=== PATIENT | male | born 1955 | race Caucasian/White ===

== ENCOUNTER → 2016-06-20 | Outpatient (CLI) | payer OTHER ==
[~2016-06-20] MED LIST: ADVA115A INH; ALBU17IN INH; ASPI81TA4 PO; ATOR1TAB18 PO; CYCL10TA PO; DIGO0.2556 PO; DULE100A IN; DULE200A IN; DULO30CA PO; FETZ1CAP3 PO; MAGN1TAB25 PO; NAPR500T2 PO; NICO21DI5 TD; OXYC-299 PO; OXYC-517 PO; OXYC1TAB16 PO; OXYC1TAB23 PO; OXYC40TA19; OXYC80TA14; PARO20TA3 PO; PERC5TAB6 PO; PRIM50TA6 PO; PROP1TAB29 PO; QUET5TAB PO; SIMV20TA2 PO; TRAM300T9 PO; TRAZ100T2 PO; TRIC145T19 PO
--- NOTE | 2016-06-20 14:32 | REP ---
CHEST, TWO VIEWS: HISTORY: COPD. COMPARISON: 08/03/2015 A minimal increase in interstitial markings is present in the lungs. Scarring is present in the left lung base. Pleural thickening is present along the left lateral chest wall. The heart is normal in size. The pulmonary vasculature is normal in appearance. The bony structure is intact. IMPRESSION: 1. COPD. 2. Left lower lobe scarring. Signed by Micheal Shook MD 06/20/2016 02:33 P
== END ==
LOC: M RAD 12:02 → M LAB 12:02
PROVIDERS: ATTEND Internal Medicine Pulmonary Disease
DX: J44.9 Chronic obstructive pulmonary disease, unspecified (principal)

== ENCOUNTER → 2016-07-24 | Outpatient (REF) | payer MEDICAID, OTHER ==
[2016-07-24 17:56] LABS: ALBUMIN 3.3 GM/DL (3.2-5.2); ALBUMIN/GLOBULIN RATIO 0.83 (1.00-1.93); ALKALINE PHOSPHATASE 236 U/L (45-117); ALT/SGPT 47 U/L (12-78); ANION GAP 6 MEQ/L (8-16); AST/SGOT 14 U/L (15-37); BILIRUBIN,TOTAL 0.5 MG/DL (0.2-1.0); BLOOD UREA NITROGEN 13 MG/DL (7-18); CALCIUM LEVEL 9.3 MG/DL (8.8-10.2); CARBON DIOXIDE LEVEL 29 MEQ/L (21-32); CHLORIDE LEVEL 106 MEQ/L (98-107); CHOLESTEROL LEVEL 251 MG/DL (<200); CREATININE FOR GFR 0.85 MG/DL (0.70-1.30); GLOMERULAR FILTRATION RATE > 60.0 (>49); GLUCOSE, FASTING 119 MG/DL (80-110); POTASSIUM SERUM 4.6 MEQ/L (3.5-5.1); SODIUM LEVEL 141 MEQ/L (136-145); TOTAL PROTEIN 7.3 GM/DL (6.4-8.2); TRIGLYCERIDES LEVEL 154 MG/DL (<150)
== END ==
LOC: M SFHCCLAY 10:15
PROVIDERS: ATTEND Family Medicine
DX: E78.2 Mixed hyperlipidemia (principal); R21 Rash and other nonspecific skin eruption; Z85.46 Personal history of malignant neoplasm of prostate

== ENCOUNTER → 2017-01-19 | Outpatient (REF) | payer MEDICAID ==
[~2017-01-19] MED LIST changes: -ATOR1TAB18 PO; +ATOR80TA59 PO; -NAPR500T2 PO; +NAPR500T3 PO; +OXYC-141 PO; -OXYC-299 PO; +PERC5TAB12 PO; -PERC5TAB6 PO
[2017-01-19 20:13] LABS: ALBUMIN 3.7 GM/DL (3.2-5.2); ALBUMIN/GLOBULIN RATIO 1.16 (1.00-1.93); ALKALINE PHOSPHATASE 103 U/L (45-117); ALT/SGPT 23 U/L (12-78); ANION GAP 7 MEQ/L (8-16); AST/SGOT 13 U/L (7-37); BILIRUBIN,TOTAL 0.5 MG/DL (0.2-1.0); BLOOD UREA NITROGEN 13 MG/DL (7-18); CALCIUM LEVEL 9.6 MG/DL (8.8-10.2); CARBON DIOXIDE LEVEL 31 MEQ/L (21-32); CHLORIDE LEVEL 98 MEQ/L (98-107); CHOLESTEROL LEVEL 181 MG/DL (<200); CREATININE FOR GFR 0.95 MG/DL (0.70-1.30); GLOMERULAR FILTRATION RATE > 60.0 (>49); GLUCOSE, FASTING 97 MG/DL (80-110); POTASSIUM SERUM 4.7 MEQ/L (3.5-5.1); SODIUM LEVEL 136 MEQ/L (136-145); TOTAL PROTEIN 6.9 GM/DL (6.4-8.2); TRIGLYCERIDES LEVEL 135 MG/DL (<150)
== END ==
LOC: M SFHCCLAY 10:39
PROVIDERS: ATTEND Family Medicine
DX: E78.2 Mixed hyperlipidemia (principal)

== ENCOUNTER → 2017-06-07 | Outpatient (CLI) | payer OTHER | LOC: M RAD 13:46 | DX: J44.9 Chronic obstructive pulmonary disease, unspecified (principal) | CPT/HCPCS: 71046 ==

== ENCOUNTER → 2017-08-07 | Outpatient (REF) | payer OTHER | LOC: M LAB REF 16:30 | DX: N39.3 Stress incontinence (female) (male) (principal) ==

== ENCOUNTER → 2017-08-10 | Outpatient (REF) | payer OTHER ==
[2017-08-10 13:23] LABS: ALBUMIN 3.6 GM/DL (3.2-5.2); ALBUMIN/GLOBULIN RATIO 1.03 (1.00-1.93); ALKALINE PHOSPHATASE 110 U/L (45-117); ALT/SGPT 21 U/L (12-78); ANION GAP 8 MEQ/L (8-16); AST/SGOT 10 U/L (7-37); BILIRUBIN,TOTAL 0.8 MG/DL (0.2-1.0); BLOOD UREA NITROGEN 11 MG/DL (7-18); CALCIUM LEVEL 8.9 MG/DL (8.8-10.2); CARBON DIOXIDE LEVEL 25 MEQ/L (21-32); CHLORIDE LEVEL 111 MEQ/L (98-107); CHOLESTEROL LEVEL 200 MG/DL (<200); CHOLESTEROL RISK RATIO 4.255 (<5); CREATININE FOR GFR 0.86 MG/DL (0.70-1.30); GLOMERULAR FILTRATION RATE > 60.0 (>49); GLUCOSE, FASTING 105 MG/DL (70-100); HDL CHOLESTEROL 47 MG/DL (>40); LDL CHOLESTEROL 128.2 MG/DL (<100); NON-HDL-C 153 MG/DL; POTASSIUM SERUM 3.6 MEQ/L (3.5-5.1); PROSTATIC SPECIFIC AG MONITOR < 0.01 NG/ML (< 4.0); SODIUM LEVEL 144 MEQ/L (136-145); TOTAL PROTEIN 7.1 GM/DL (6.4-8.2); TRIGLYCERIDES LEVEL 124 MG/DL (<150)
== END ==
LOC: M LAB REF 12:08
DX: R03.0 Elevated blood-pressure reading, without diagnosis of hypertension (principal)

== ENCOUNTER → 2018-01-18 | Outpatient (CLI) | payer OTHER | LOC: M RAD 15:44 | DX: M51.26 Other intervertebral disc displacement, lumbar region (principal); M51.27 Other intervertebral disc displacement, lumbosacral region | CPT/HCPCS: 72148 ==

== ENCOUNTER → 2018-04-02 | Outpatient (REF) | payer OTHER ==
[~2018-04-02] MED LIST changes: +NAPR-885 PO; -NAPR500T3 PO; -NICO21DI5 TD; +NICO21DI6 TD; +OXYC10TA3 PO; -OXYC1TAB16 PO; -PROP1TAB29 PO; +PROP20TA72 PO
[2018-04-02 19:12] LABS: APPEARANCE, URINE CLOUDY (CLEAR); BACTERIA, URINE AUTO NEGATIVE (NEGATIVE); BILIRUBIN, URINE AUTO NEGATIVE (NEGATIVE); BLOOD, URINE BLOOD 1+ (NEGATIVE); COLOR, URINE AMBER (YELLOW); GLUCOSE, URINE (UA) AUTO NEGATIVE (NEGATIVE); KETONE, URINE AUTO NEGATIVE (NEGATIVE); LEUKOCYTE ESTERASE, URINE AUTO NEGATIVE (NEGATIVE); MUCUS, URINE SMALL (NEGATIVE); NITRITE, URINE AUTO NEGATIVE (NEGATIVE); PROTEIN, URINE AUTO NEGATIVE (NEGATIVE); RBC, URINE AUTO 4 /HPF (0-3); SPECIFIC GRAVITY URINE AUTO 1.009 (1.002-1.035); SQUAMOUS EPITHELIAL CELL UR AU 0 /HPF (0-6); UROBILINOGEN, URINE AUTO 0.2 mg/dL (0.0-2.0); WBC, URINE AUTO 0 /HPF (0-3)
== END ==
LOC: M SMT 17:46
PROVIDERS: ATTEND Nurse Practitioner Family
DX: R32 Unspecified urinary incontinence (principal)

== ENCOUNTER → 2018-04-02 | Outpatient (CLI) | payer OTHER ==
--- NOTE | 2018-04-02 16:05 | REP ---
Clinical: Chest pain. Technique: PA and lateral. Comparison: 06/07/2017. Findings: Chronic postsurgical changes involving the left hemithorax remain relatively stable. Subtle prominence surrounds the right hilum similar to prior examinations. No obvious acute consolidation, effusion or pneumothorax. Cardiac silhouette is normal. The skeletal structures are intact with evidence for old healed left rib fractures. Impression: 1. Chronic postsurgical changes involving left hemithorax and chronic stable appearance to the right hilum. 2. No obvious acute cardiopulmonary process appreciated. 3. Consider chest CT for further investigation if the patient remains symptomatic. Electronically Signed by mOar Ruggiero MD 04/02/2018 03:56 P
== END ==
LOC: M SMT 15:21
PROVIDERS: ATTEND Internal Medicine Pulmonary Disease
DX: J44.9 Chronic obstructive pulmonary disease, unspecified (principal)

== ENCOUNTER → 2018-04-09 | Outpatient (REF) | payer OTHER ==
[2018-04-09 18:14] LABS: APPEARANCE, URINE CLEAR (CLEAR); BACTERIA, URINE AUTO NEGATIVE (NEGATIVE); BILIRUBIN, URINE AUTO NEGATIVE (NEGATIVE); BLOOD, URINE BLOOD 1+ (NEGATIVE); COLOR, URINE YELLOW (YELLOW); GLUCOSE, URINE (UA) AUTO NEGATIVE (NEGATIVE); KETONE, URINE AUTO NEGATIVE (NEGATIVE); LEUKOCYTE ESTERASE, URINE AUTO NEGATIVE (NEGATIVE); NITRITE, URINE AUTO NEGATIVE (NEGATIVE); PROTEIN, URINE AUTO NEGATIVE (NEGATIVE); RBC, URINE AUTO 0 /HPF (0-3); SPECIFIC GRAVITY URINE AUTO 1.001 (1.002-1.035); SQUAMOUS EPITHELIAL CELL UR AU 0 /HPF (0-6); UROBILINOGEN, URINE AUTO 0.2 mg/dL (0.0-2.0); WBC, URINE AUTO 0 /HPF (0-3)
== END ==
LOC: M SMT 17:17
PROVIDERS: ATTEND Nurse Practitioner Family
DX: R31.29 Other microscopic hematuria (principal)

== ENCOUNTER → 2018-04-29 | Outpatient (CLI) | payer OTHER ==
--- NOTE | 2018-04-29 13:41 | REP ---
Clinical: Lung screening. History of nicotine dependence. Comparison: 12/15/2015 Technique: Axial low-dose noncontrast images from the thoracic inlet to the upper abdomen using lung screening technique. Findings: The lung diaz are well-aerated. Minimal biapical scarring appreciated along with postsurgical changes in the left upper lobe remains stable. No consolidation, significant nodule or mass lesion is appreciated. No pleural effusion/reaction or pneumothorax. Tracheobronchial tree is patent. Mediastinum demonstrates mild atherosclerotic changes of the coronary arteries without cardiomegaly. Impression: Lung-RADS category I-C. No nodule or suspicious abnormality. Electronically Signed by Omar Ruggiero MD 04/29/2018 01:33 P
== END ==
LOC: M RAD 12:48
PROVIDERS: ATTEND Internal Medicine Pulmonary Disease
DX: F17.200 Nicotine dependence, unspecified, uncomplicated (principal)

== ENCOUNTER → 2018-11-12 | Outpatient (REF) | payer OTHER ==
[~2018-11-12] MED LIST changes: -DULO30CA PO; +DULO30CA9 PO; -MAGN1TAB25 PO; +MAGN1TAB26 PO
[2018-11-12 17:25] LABS: BASO % 0.4 % (0.0-1.0); EOS # 0.3 10^3/uL (0.0-0.5); EOS % 3.2 % (0.0-3.0); HEMATOCRIT 52.3 % (42.0-52.0); HEMOGLOBIN 17.4 g/dl (13.5-17.5); LYMPH # 1.4 10^3/uL (1.5-5.0); LYMPH % 16.8 % (24.0-44.0); MEAN CORPUSCULAR HEMOGLOBIN 27.5 pg (27.0-33.0); MEAN CORPUSCULAR HGB CONC 33.3 g/dl (32.0-36.5); MEAN CORPUSCULAR VOLUME 82.8 fl (80.0-96.0); MONO # 0.9 10^3/uL (0.0-0.8); MONO % 10.3 % (0.0-5.0); NEUTROPHILS # 5.7 10^3/uL (1.5-8.5); NEUTROPHILS % 68.8 % (36.0-66.0); PLATELET COUNT, AUTOMATED 359 10^3/uL (150-450); RED BLOOD COUNT 6.32 10^6/uL (4.30-6.10); WHITE BLOOD COUNT 8.3 10^3/uL (4.0-10.0)
[2018-11-12 17:40] LABS: ALBUMIN 3.7 GM/DL (3.2-5.2); ALT/SGPT 25 U/L (12-78); BILIRUBIN,TOTAL 0.5 MG/DL (0.2-1.0); BLOOD UREA NITROGEN 10 MG/DL (7-18); CALCIUM LEVEL 9.2 MG/DL (8.8-10.2); CARBON DIOXIDE LEVEL 28 MEQ/L (21-32); CHLORIDE LEVEL 103 MEQ/L (98-107); CHOLESTEROL LEVEL 235 MG/DL (<200); CHOLESTEROL RISK RATIO 4.122 (<5); CREATININE FOR GFR 0.87 MG/DL (0.70-1.30); FREE T4 1.33 NG/DL (0.76-1.46); GLOMERULAR FILTRATION RATE > 60.0 (>49); GLUCOSE, FASTING 97 MG/DL (70-100); HDL CHOLESTEROL 57 MG/DL (>40); LDL CHOLESTEROL 160 MG/DL (<100); NON-HDL-C 178 MG/DL; POTASSIUM SERUM 4.4 MEQ/L (3.5-5.1); SODIUM LEVEL 137 MEQ/L (136-145); TOTAL 25(OH) VITAMIN D 24.4 NG/ML (30.0-100.0); TOTAL PROTEIN 7.9 GM/DL (6.4-8.2); TRIGLYCERIDES LEVEL 88 MG/DL (<150)
[2018-11-12 19:29] LABS: HEMOGLOBIN A1c 5.8 %
== END ==
LOC: M LAB REF 16:41
PROVIDERS: ATTEND Nurse Practitioner Family
DX: Z00.00 Encounter for general adult medical examination without abnormal findings (principal)

== ENCOUNTER → 2018-12-12 | Outpatient (REF) | payer OTHER ==
[2018-12-12 18:16] LABS: ALBUMIN 3.5 GM/DL (3.2-5.2); ALT/SGPT 69 U/L (12-78); BLOOD UREA NITROGEN 11 MG/DL (7-18); CALCIUM LEVEL 9.1 MG/DL (8.8-10.2); CARBON DIOXIDE LEVEL 30 MEQ/L (21-32); CHLORIDE LEVEL 105 MEQ/L (98-107); CHOLESTEROL LEVEL 144 MG/DL (<200); CHOLESTEROL RISK RATIO 2.482 (<5); CREATININE FOR GFR 0.89 MG/DL (0.70-1.30); GLOMERULAR FILTRATION RATE > 60.0 (>49); GLUCOSE, FASTING 94 MG/DL (70-100); HDL CHOLESTEROL 58 MG/DL (>40); LDL CHOLESTEROL 68 MG/DL (<100); NON-HDL-C 86 MG/DL; POTASSIUM SERUM 4.2 MEQ/L (3.5-5.1); SODIUM LEVEL 141 MEQ/L (136-145); TOTAL PROTEIN 7.2 GM/DL (6.4-8.2); TRIGLYCERIDES LEVEL 88 MG/DL (<150)
== END ==
LOC: M LAB REF 17:29
PROVIDERS: ATTEND Nurse Practitioner Family
DX: E78.5 Hyperlipidemia, unspecified (principal)

== ENCOUNTER → 2019-01-07 | Outpatient (CLI) | payer OTHER ==
--- NOTE | 2019-01-08 06:27 | REP ---
Clinical: Elevated liver function tests. Technique: Real time crouch scale ultrasound examination using curved array transducer. Findings: The liver is relatively normal in contour, size, echogenicity. A 1.5 cm simple hepatic cyst identified in the right lobe approaching the dome. The pancreas is incompletely evaluated due to interposed bowel gas. Gallbladder demonstrates multiple gallstones and there is evidence for mild intrahepatic biliary ductal dilatation as well as a 5 mm choledocholith at the confluence of the cystic and common hepatic duct. The right kidney is normal in appearance without hydronephrosis and measures 10.0 x 6.0 x 5.0 cm. No ascites. Impression: 1. Cholelithiasis and choledocholithiasis with suspected biliary ductal dilatation as noted above. 2. Simple cyst within the right lobe of the liver. Electronically Signed by Omar Ruggiero MD 01/08/2019 06:19 A
== END ==
LOC: M RAD 08:25
PROVIDERS: ATTEND Nurse Practitioner Family
DX: R74.8 Abnormal levels of other serum enzymes (principal)

== ENCOUNTER → 2019-01-27 | Outpatient (REF) | payer OTHER ==
[2019-01-27 19:29] LABS: ALBUMIN 3.1 GM/DL (3.2-5.2); ALT/SGPT 24 U/L (12-78); BILIRUBIN,TOTAL 0.6 MG/DL (0.2-1.0); BLOOD UREA NITROGEN 8 MG/DL (7-18); CALCIUM LEVEL 9.2 MG/DL (8.8-10.2); CARBON DIOXIDE LEVEL 32 MEQ/L (21-32); CHLORIDE LEVEL 102 MEQ/L (98-107); CREATININE FOR GFR 0.71 MG/DL (0.70-1.30); GLOMERULAR FILTRATION RATE > 60.0 (>49); GLUCOSE, FASTING 84 MG/DL (70-100); POTASSIUM SERUM 4.2 MEQ/L (3.5-5.1); SODIUM LEVEL 140 MEQ/L (136-145); TOTAL PROTEIN 6.8 GM/DL (6.4-8.2)
== END ==
LOC: M LAB REF 16:46
PROVIDERS: ATTEND Nurse Practitioner Family
DX: R74.8 Abnormal levels of other serum enzymes (principal)

== ENCOUNTER → 2019-03-24 | Outpatient (REF) | payer OTHER, MEDICAID ==
[~2019-03-24] MED LIST changes: +SIMV20TA22 PO
[2019-03-24 17:40] LABS: BASO % 0.2 % (0.0-1.0); EOS # 0.4 10^3/uL (0.0-0.5); HEMATOCRIT 47.6 % (42.0-52.0); HEMOGLOBIN 15.3 g/dl (13.5-17.5); LYMPH % 22.6 % (24.0-44.0); MEAN CORPUSCULAR HEMOGLOBIN 27.2 pg (27.0-33.0); MEAN CORPUSCULAR HGB CONC 32.1 g/dl (32.0-36.5); MEAN CORPUSCULAR VOLUME 84.7 fl (80.0-96.0); MONO # 0.7 10^3/uL (0.0-0.8); MONO % 8.1 % (0.0-5.0); NEUTROPHILS # 5.7 10^3/uL (1.5-8.5); NEUTROPHILS % 64.6 % (36.0-66.0); PLATELET COUNT, AUTOMATED 357 10^3/uL (150-450); RED BLOOD COUNT 5.62 10^6/uL (4.30-6.10); WHITE BLOOD COUNT 8.9 10^3/uL (4.0-10.0)
[2019-03-24 18:06] LABS: ALBUMIN 3.5 GM/DL (3.2-5.2); ALT/SGPT 16 U/L (12-78); BILIRUBIN,TOTAL 0.5 MG/DL (0.2-1.0); BLOOD UREA NITROGEN 12 MG/DL (7-18); CALCIUM LEVEL 9.5 MG/DL (8.8-10.2); CARBON DIOXIDE LEVEL 31 MEQ/L (21-32); CHLORIDE LEVEL 103 MEQ/L (98-107); CREATININE FOR GFR 0.82 MG/DL (0.70-1.30); GLOMERULAR FILTRATION RATE > 60.0 (>49); GLUCOSE, FASTING 63 MG/DL (70-100); POTASSIUM SERUM 3.9 MEQ/L (3.5-5.1); SODIUM LEVEL 140 MEQ/L (136-145); TOTAL PROTEIN 7.4 GM/DL (6.4-8.2)
[2019-03-26 10:43] LABS: HEPATITIS C VIRUS ABY INDEX < 0.0 INDEX (<0.8)
== END ==
LOC: M LAB REF 16:47
PROVIDERS: ATTEND Physician Assistant
DX: R74.8 Abnormal levels of other serum enzymes (principal); R07.9 Chest pain, unspecified; F10.10 Alcohol abuse, uncomplicated; E78.5 Hyperlipidemia, unspecified; J44.9 Chronic obstructive pulmonary disease, unspecified; M54.5 Low back pain

== ENCOUNTER → 2019-03-25 | Outpatient (CLI) | payer OTHER ==
--- NOTE | 2019-03-26 04:21 | REP ---
Clinical: Follow up abnormal findings. Technique: Axial noncontrast images from the thoracic inlet to the upper abdomen with coronal and sagittal re-formations. Comparison: 04/29/2018. Findings: Areas of linear scarring and postoperative change noted in the left apex are similar to prior examination although very subtle increased changes are noted. The bilateral lung diaz are otherwise relatively stable with continued evidence for emphysematous disease including minimal scattered scarring and bronchiectasis. No acute consolidation. No effusion. No pneumothorax. Mediastinum demonstrates continued atherosclerotic changes without aortic aneurysm or cardiomegaly. No pericardial effusion. No obvious adenopathy. Musculoskeletal structures without focal acute abnormality. Impression: Linear postoperative scarring in the left apex with minimally increased subtle changes as compared to 04/29/2018. This may reflect continued chronic change. However follow up examination at 6 months may be warranted. Electronically Signed by Omar Ruggiero MD 03/26/2019 04:13 A
== END ==
LOC: M RAD 13:03
PROVIDERS: ATTEND Internal Medicine Pulmonary Disease
DX: R91.8 Other nonspecific abnormal finding of lung field (principal)

== ENCOUNTER → 2019-10-07 | Outpatient (REF) | payer OTHER, MEDICAID ==
[~2019-10-07] MED LIST changes: +ALBU83IN INH; +ALBU83IN NEB; +ARNU1INH3 PO; +BUPR150T5 PO; +BUPR1SUB5 SL; +CELE100C PO; +CYCL-707 PO; -CYCL10TA PO; +D31000TA2 PO; +ESCI20TA PO; +GABA600T4 PO; +HYDR-3911 PO; +HYDR1TAB33 PO; +LEVA750T7 PO; +LEVOTAB10 PO; +LYRI75CA PO; +MOXI400T11 PO; +OSTE1TAB2 PO; +PRED10TA2 PO; +PREG75CA2 PO; +SIMV10TA21 PO; +STIO1AER INH; +SUBO8MIS SL
[2019-11-03 20:28] LABS: BASO % 0.1 % (0.0-1.0); EOS # 0.1 10^3/uL (0.0-0.5); EOS % 0.4 % (0.0-3.0); HEMATOCRIT 48.7 % (42.0-52.0); HEMOGLOBIN 15.6 g/dl (13.5-17.5); LYMPH # 1.2 10^3/uL (1.5-5.0); LYMPH % 8.4 % (24.0-44.0); MEAN CORPUSCULAR HEMOGLOBIN 26.9 pg (27.0-33.0); MONO # 0.7 10^3/uL (0.0-0.8); NEUTROPHILS % 85.3 % (36.0-66.0); PLATELET COUNT, AUTOMATED 412 10^3/uL (150-450); WHITE BLOOD COUNT 14.1 10^3/uL (4.0-10.0)
[2019-11-19 09:58] LABS: HEMOGLOBIN A1c 5.8 %
[2019-12-23 10:07] LABS: GLUCOSE, FASTING SEE SEPARATE REPORT
== END ==
LOC: M LAB REF 07:36
PROVIDERS: ATTEND Physician Assistant
DX: R73.03 Prediabetes (principal); R74.8 Abnormal levels of other serum enzymes; E78.5 Hyperlipidemia, unspecified

== ENCOUNTER 2019-11-17 15:07 | Inpatient (IN) | payer OTHER ==
[~2019-11-17] VITALS: Ht 170.2 cm; Wt 72.9 kg
[~2019-11-17 15:07] MED LIST changes: -ALBU83IN INH; -ALBU83IN NEB; -D31000TA2 PO; -HYDR1TAB33 PO; -LEVA750T7 PO; -MOXI400T11 PO; -PRED10TA2 PO; -PREG75CA2 PO; -SUBO8MIS SL
[2019-11-17 15:43] LABS: VENOUS BASE EXCESS 0.2 (-2.0-2.0); VENOUS HCO3 26.2 MEQ/L (23.0-27.0); VENOUS O2 SATURATION 86.5 % (60.0-80.0); VENOUS PARTIAL PRESSURE O2 50.5 mmHg (30.0-50.0); VENOUS PH 7.364 UNITS (7.330-7.430); VENOUS STANDARD HCO3 24.4 MEQ/L; VENOUS TOTAL CO2 27.6 MEQ/L (24.0-28.0)
[2019-11-17 15:47] LABS: BASO % 0.3 % (0.0-1.0); EOS # 0.2 10^3/uL (0.0-0.5); EOS % 1.7 % (0.0-3.0); HEMATOCRIT 46.6 % (42.0-52.0); HEMOGLOBIN 15.2 g/dl (13.5-17.5); LYMPH # 1.3 10^3/uL (1.5-5.0); LYMPH % 10.6 % (24.0-44.0); MEAN CORPUSCULAR HEMOGLOBIN 26.4 pg (27.0-33.0); MEAN CORPUSCULAR HGB CONC 32.6 g/dl (32.0-36.5); MONO % 7.8 % (0.0-5.0); NEUTROPHILS # 9.7 10^3/uL (1.5-8.5); PLATELET COUNT, AUTOMATED 462 10^3/uL (150-450); RED BLOOD COUNT 5.75 10^6/uL (4.30-6.10); WHITE BLOOD COUNT 12.3 10^3/uL (4.0-10.0)
--- NOTE | 2019-11-17 15:47 | REPVR ---
PROCEDURE INFORMATION: Exam: XR Chest, 1 View Exam date and time: 11/17/2019 3:29 PM Age: 64 years old Clinical indication: Shortness of breath; Additional info: Dyspnea/cough TECHNIQUE: Imaging protocol: XR of the chest Views: 1 view. COMPARISON: 1. CT - Chest without contrast 03/25/2019 1:19 PM 2. [place] - Chest, 2 view PA, Lat 02/13/2019 1:43:08 PM FINDINGS: Tubes, catheters and devices: ECG leads/contacts overlie and partially obscure the anatomy. Lungs: The patient is status post left partial pneumonectomy. Left upper lung surgical sutures are redemonstrated. Bilateral pulmonary hyperinflation, right greater than left. New ill-defined mild interstitial and airspace opacities of the left mid lung and bilateral lower lungs. Pleural space: No evident pleural effusion or pneumothorax. Heart/Mediastinum: Heart size is within normal limits. Bones/joints: Old left rib fractures redemonstrated. IMPRESSION: 1. New multifocal bilateral mild pulmonary interstitial and airspace opacities. In the proper clinical setting, the findings are compatible with infectious pneumonia. Follow-up to ensure their resolution is recommended. 2. Bilateral pulmonary hyperinflation is redemonstrated consistent with COPD. Electronically signed by: Mike Vila On 11/17/2019 15:47:40 PM
[2019-11-17 16:26] LABS: ALBUMIN 2.9 GM/DL (3.2-5.2); ALT/SGPT 18 U/L (12-78); BILIRUBIN,DIRECT 0.2 MG/DL (0.0-0.2); BILIRUBIN,TOTAL 0.4 MG/DL (0.2-1.0); BLOOD UREA NITROGEN 7 MG/DL (7-18); CALCIUM LEVEL 9.1 MG/DL (8.8-10.2); CARBON DIOXIDE LEVEL 29 MEQ/L (21-32); CHLORIDE LEVEL 104 MEQ/L (98-107); CPK CREATINE PHOSPHOKINASE 42 U/L (39-308); GLOMERULAR FILTRATION RATE > 60.0 (>49); GLUCOSE, FASTING 106 MG/DL (70-100); MB/CK RELATIVE INDEX 7.14 (< OR =4); NT-PRO BNP 859 PG/ML (<125); POTASSIUM SERUM 4.1 MEQ/L (3.5-5.1); SODIUM LEVEL 139 MEQ/L (136-145); TOTAL PROTEIN 7.5 GM/DL (6.4-8.2); TROPONIN I < 0.02 NG/ML (< 0.10)
[2019-11-17] MEDS ORDERED: cefTRIAXone SOD 1 GM in D5W MINI-BAG PLUS 50 ML IV ONE (17:00)
[2019-11-17] MEDS ORDERED: methylPREDNISolone 125MG 2ML VIAL IV ONE (17:00)
[2019-11-17] MEDS ORDERED: DOXYCYCLINE HYCLATE 100 MG in D5W MINI-BAG PLUS 100 ML IV ONE (17:00)
[2019-11-17] MEDS ORDERED: IPRATROPIUM 0.5MG/ALBUTEROL 2.5MG INH SOL UD 3ML (DUONEB) NEB ONE (17:00)
[2019-11-17] MEDS ORDERED: HYDR1TAB33 PO (17:04)
[2019-11-17] MEDS ORDERED: SUBO8MIS SL (17:04)
[2019-11-17] MEDS ORDERED: PREG75CA2 PO (17:04)
[2019-11-17] MEDS ORDERED: LEVALBUTEROL 1.25 MG/0.5 ML CONCENTRATE NEB INH PRN (17:15)
[2019-11-17 18:15] LABS: C REACTIVE PROTEIN QUANTITATIV 1.39 MG/DL (0.00-0.30)
[2019-11-17 18:47] LABS: ERYTHROCYTE SEDIMENTATION RATE 15 mm/hr (0-20)
[2019-11-17] MEDS: LEVALBUTEROL 1.25 MG/0.5 ML CONCENTRATE NEB INH SCH ×2 (20:16→23:59)
[2019-11-17] MEDS: GABAPENTIN 300 MG CAP PO SCH (21:00)
[2019-11-17 21:22] VITALS: BP 136/80
[2019-11-17] MEDS: ESCITALOPRAM OXALATE 10 MG TAB (LEXAPRO) PO SCH (21:52)
[2019-11-17] MEDS: SIMVASTATIN 10 MG TAB PO SCH (21:52)
[2019-11-17] MEDS: PREGABALIN 75 MG CAP(LYRICA) PO SCH (21:54)
[2019-11-17] MEDS: BUPRENORPHINE/NALOXONE 2-0.5MG SUBLINGUAL TABLET(SUBOXONE) SL SCH (23:02)
[2019-11-17] MEDS: buPROPion **SR TABLET** (ZYBAN) 150MG PO SCH (23:03)
[2019-11-17] MEDS: methylPREDNISolone 125MG 2ML VIAL IV SCH (23:09)
[2019-11-18] MEDS: LEVALBUTEROL 1.25 MG/0.5 ML CONCENTRATE NEB INH SCH ×6 (03:46→23:41)
[2019-11-18] MEDS: cefTRIAXone SOD 2 GM in D5W MINI-BAG PLUS 50 ML IV SCH (04:38)
[2019-11-18] MEDS: methylPREDNISolone 125MG 2ML VIAL IV SCH ×4 (05:40→23:43)
[2019-11-18] MEDS: DOXYCYCLINE HYCLATE 100 MG in D5W MINI-BAG PLUS 100 ML IV SCH ×2 (05:40→17:44)
[2019-11-18] MEDS: BUPRENORPHINE/NALOXONE 2-0.5MG SUBLINGUAL TABLET(SUBOXONE) SL SCH ×5 (05:40→20:44)
[2019-11-18 06:00] VITALS: BP 128/80
[2019-11-18 06:15] LABS: HEMOGLOBIN 14.1 g/dl (13.5-17.5); MEAN CORPUSCULAR HEMOGLOBIN 25.9 pg (27.0-33.0); MEAN CORPUSCULAR VOLUME 80.9 fl (80.0-96.0); PLATELET COUNT, AUTOMATED 425 10^3/uL (150-450); RED BLOOD COUNT 5.44 10^6/uL (4.30-6.10); WHITE BLOOD COUNT 7.5 10^3/uL (4.0-10.0)
[2019-11-18 06:34] LABS: BLOOD UREA NITROGEN 14 MG/DL (7-18); CALCIUM LEVEL 9.1 MG/DL (8.8-10.2); CARBON DIOXIDE LEVEL 27 MEQ/L (21-32); CHLORIDE LEVEL 104 MEQ/L (98-107); CREATININE FOR GFR 0.97 MG/DL (0.70-1.30); GLOMERULAR FILTRATION RATE > 60.0 (>49); GLUCOSE, FASTING 202 MG/DL (70-100); POTASSIUM SERUM 4.5 MEQ/L (3.5-5.1); SODIUM LEVEL 138 MEQ/L (136-145)
[2019-11-18] MEDS: ADVAIR HFA 230/21MCG INHALER INH SCH ×2 (08:00→19:50)
[2019-11-18] MEDS: TIOTROPIUM INHALER/CAPSULE (SPIRIVA) INH SCH (08:00)
[2019-11-18] MEDS: CETIRIZINE (ZyrTEC) 10 MG TAB PO SCH (08:41)
[2019-11-18] MEDS: PREGABALIN 75 MG CAP(LYRICA) PO SCH ×3 (08:41→20:43)
[2019-11-18] MEDS: ENOXAPARIN 40MG/0.4ML SYRINGE (J1650 PER 10MG) SC SCH (08:41)
[2019-11-18] MEDS: GABAPENTIN 300 MG CAP PO SCH ×3 (08:41→20:43)
[2019-11-18] MEDS ORDERED: NON-FORMULARY 1 EA EA PO SCH (09:00)
[2019-11-18] MEDS ORDERED: NON-FORMULARY 1 EA EA INH SCH ×2 (09:00)
[2019-11-18] MEDS: guaiFENesin ER 600 MG TAB PO SCH ×2 (09:31→20:44)
[2019-11-18] MEDS: hydrOXYzine 50 MG TAB PO PRN (09:31)
[2019-11-18 14:00] VITALS: BP 130/82
--- NOTE | 2019-11-18 14:47 | IPN ---
DATE: 11/18/2019 SUBJECTIVE: The patient has had no improvement overnight despite IV Solu- Medrol, still dyspneic at rest and with exertion. No chest pain, pressure or tightness, still with thick yellow sputum production, afebrile, no chills overnight. No nausea or vomiting, or epigastric pain. PHYSICAL EXAMINATION: VITALS: Temperature 98, pulse 111, respiratory rate 18, blood pressure 128/80, 93% on room air. GENERAL: Appears disheveled, older than his stated age. HEENT: Dry mucous membranes. NECK: No JVD or thyromegaly. No cervical lymphadenopathy or thyromegaly. LUNGS: Diminished breath sounds with bilateral wheezing similar to yesterday, no significant improvement. No use of respiratory accessory muscles. He is able to complete full sentences. No tripod positioning. HEART: S1 and S2, sinus tachycardia. ABDOMEN: Soft, nontender and nondistended. EXTREMITIES: Multiple excoriations of bilateral shins. No signs of cellulitis. LABORATORY DATA: White count 7.5, hemoglobin 14, hematocrit 44, platelet count 425,000. Sodium 138, potassium 4.5, chloride 104, bicarbonate 27, BUN 14, creatinine 0.97, glucose of 202. Sputum culture is pending. Blood cultures are pending. Chest x-ray on 11/17/2019: New multifocal bilateral mild pulmonary interstitial and airspace opacities compatible with infectious pneumonia, bilateral pulmonary hyperinflation as demonstrated consistent with COPD and emphysema. ASSESSMENT AND PLAN: This is a 64-year-old cachectic male with a history of COPD, lung cancer with lobectomy admitted due to worsening respiratory distress with COVID negative findings. IMPRESSION: 1. Acute COPD exacerbation with multiple focal pneumonia. Patient is on IV Solu-Medrol. Antibiotics with Ceftriaxone and Doxycycline, nebulizer treatment q. 4 and q. 1 hourly, no change in patients Solu-Medrol as there has been no clinical improvement. 2. Bilateral multifocal pneumonia, currently on Ceftriaxone and Doxycycline, await sputum culture, blood culture, urine Legionella, staphylococcal antigen, COVID-19 is negative. 3. Dyslipidemia, on chronic Zocor. 4. Chronic pain on Gabapentin. 5. Pulmonary cachexia. Nutrition is consulted. [facility]
[2019-11-18 19:53] VITALS: O2SAT 96
[2019-11-18] MEDS: SIMVASTATIN 10 MG TAB PO SCH (20:44)
[2019-11-18] MEDS: ESCITALOPRAM OXALATE 10 MG TAB (LEXAPRO) PO SCH (20:44)
[2019-11-18] MEDS: buPROPion **SR TABLET** (ZYBAN) 150MG PO SCH (20:44)
[2019-11-18 22:00] VITALS: BP 125/79
[2019-11-18 23:42] VITALS: O2SAT 93
[2019-11-19 02:59] VITALS: O2SAT 92
[2019-11-19] MEDS: LEVALBUTEROL 1.25 MG/0.5 ML CONCENTRATE NEB INH SCH ×6 (02:59→23:46)
[2019-11-19] MEDS: BUPRENORPHINE/NALOXONE 2-0.5MG SUBLINGUAL TABLET(SUBOXONE) SL SCH ×5 (05:39→21:02)
[2019-11-19] MEDS: DOXYCYCLINE HYCLATE 100 MG in D5W MINI-BAG PLUS 100 ML IV SCH ×2 (05:39→17:05)
[2019-11-19] MEDS: methylPREDNISolone 125MG 2ML VIAL IV SCH ×3 (05:40→17:06)
[2019-11-19 06:00] VITALS: BP 121/78
[2019-11-19] MEDS: cefTRIAXone SOD 2 GM in D5W MINI-BAG PLUS 50 ML IV SCH (06:26)
--- NOTE | 2019-11-19 06:57 | HPE ---
DATE OF ADMISSION: 11/17/2019 CHIEF COMPLAINT: Shortness of breath. HISTORY OF PRESENT ILLNESS: A 64-year-old male with a history of chronic obstructive pulmonary disease (COPD). Follows with Dr. Arriaga. Has been increasingly short of breath for the past 2 months, worsened in the past 2 weeks with dyspnea on exertion without fever or chill but with increased sputum production, clear, white, and thickened, for the past 2 weeks. Despite daily and as-needed inhalers, patient has had no improvement. He was treated as outpatient for chronic obstructive pulmonary disease (COPD) but with no improvement and was seen today at Dr. Arriaga's office and was sent to the emergency room (ER) for further evaluation. Chest x-ray shows bilateral infiltrates. Patient's COVID testing is still pending. He otherwise denies any loss of taste, weight gain, weight loss. Denies any nausea, vomiting, abdominal pain, headaches, changes in vision. No prior exposure to anyone that is COVID positive. He describes shortness of breath, worsened when he is exerting himself or carrying things without chest pain, pressure, or tightness, lightheadedness or dizziness. Patient denies any nausea, vomiting, diarrhea. No abdominal pain. Denies dysuria, urgency, frequency, fever, chills, or flank pain. Denies upper or lower extremity weakness. Complains of decrease in appetite, but weight is unchanged. In the ER he was afebrile. White count was elevated at 12.3. Brain natriuretic peptic (BNP) was 859. Arterial blood gas was unremarkable. Chest x-ray showed new multifocal bilateral mild pulmonary interstitial and air-space opacity, compatible with infectious pneumonia, hyperinflation demonstrated, consistent with chronic obstructive pulmonary disease (COPD). All other 12-point review of systems otherwise negative. MEDICAL HISTORY: 1. COPD, not steroid or oxygen dependent/ 2. Dyslipidemia. 3. Chronic low back pain. 4. Cervical fracture. 5. Bipolar disorder. 6. Polysubstance abuse. 7. Prostate cancer status post radical prostatectomy. 8. Left-sided lung cancer. 9. Tinnitus. 10. Erectile dysfunction. 11. Urinary intermittently. 12. Degenerative spine disease with multiple bulging discs. 13. Umbilical hernia. 14. Reflux. 15. Arthritis. 16. Diverticulosis. 17. Left inguinal hernia. 18. History of substance abuse, on chronic Suboxone. 19. Anxiety and depression. ALLERGIES: MORPHINE. PAST SURGICAL HISTORY: 1. Radical prostatectomy in 2007. 2. Colonoscopy in 2013. 3. Left lung resection in 2014. 4. Cystoscopy. FAMILY HISTORY: Father . Mother with recurrent urinary tract infections (UTIs), diabetes, and dementia. SOCIAL HISTORY: Drinks two beers a day. 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 Smoked two and a half packs per day for 50 years. HOME MEDICATIONS: - fluticasone one puff daily - levocetirizine 5 mg every night - Stiolto Respimat inhaled spray twice a day as needed for cough - vitamin D - vitamin K - berberine and hops - Ostera tablet, one tablet every night - Suboxone 0.5 strip sublingual five times daily - bupropion 150 mg every night - escitalopram 20 mg every night - gabapentin 600 three times a day - hydroxyzine 50 mg every 6 as needed for anxiety - pregabalin 75 mg three times a day - simvastatin 10 mg every night REVIEW OF SYSTEMS: Per history of present illness (HPI). A 12-point system otherwise negative. PHYSICAL EXAMINATION: Temperature 98.8, pulse 120, sinus tachycardia, blood pressure 125/64, 28 respiratory rate, 88% on room air. GENERAL: Awake, alert, oriented times three, answering questions appropriately. Mild conversational dyspnea with 6 to 7-word conversational dyspnea. No tripod positioning. No use of respiratory accessory muscles. Trachea is midline. No cervical lymphadenopathy or thyromegaly. Pupils equal, round, reactive to light and accommodation. Extraocular muscles are intact. Appears disheveled and older than his stated age. No jugular venous distention (JVD). LUNGS: Diminished. Bilateral wheezing. Crackles at the bases bilaterally. Well- healed scar from prior lobectomy on the skin. HEART: S1, S2, sinus tachycardia. No murmurs, rubs, or gallops. ABDOMEN: Soft, nontender, nondistended. Positive bowel sounds. No rebound or guarding. No hepatosplenomegaly. No abdominal bruits. EXTREMITIES: No cyanosis, clubbing, or pitting edema. LABORATORY DATA: COVID is pending. White count 12, hemoglobin 15, hematocrit 46, platelet count 462. Sodium 139, potassium 4.1, chloride 104, bicarbonate 29, BUN 7, creatinine 0.9, glucose 106. Lactic acid 1. Calcium 9.1. Total bilirubin 0.4, direct bilirubin 0.2, AST 17, ALT 18, alkaline phosphatase 130. Total CK 42, MB fraction 3, troponin less than 0.02, relative index 7.14. BNP 859. Total protein 7.5, albumin 2.9, albumin/globulin ratio is 0.6. TSH 1.42. Microbiology: Two sets of blood cultures are pending. COVID-19 is pending. Chest x-ray: New multifocal bilateral mild pulmonary interstitial and air-space opacity. In the proper clinical setting, findings are compatible with infectious pneumonia. Bilateral pulmonary hyperinflation, consistent with COPD. ASSESSMENT: A 64-year-old male with prior history of over 50 pack-year smoking, chronic obstructive pulmonary disease (COPD), not steroid or oxygen dependent, presents with worsening shortness of breath over the past 2 months, increased in the past 2 weeks with cough production. IMPRESSION: 1. Bilateral pneumonia. Rule out COVID. 2. Acute COPD exacerbation. 3. Systemic inflammatory response with tachycardia, elevated white count. 4. Abnormal cardiac markers. 5. History of lung cancer, status post lobectomy. 6. Prostate cancer, status post prostatectomy. 7. Hyperlipidemia. 8. Hypertensive heart disease. 9. Reflux. 10. Umbilical hernia. 11. Diverticulosis. 12. Chronic back pain due to degenerative disc disease with multiple bulging discs. PLAN: Patient will be admitted to medical/surgical floor, started on Solu- Medrol intravenous (IV) every 6 hours. If COVID negative, may give nebulizers, Xopenex every 4 and every 1 hour as needed for shortness of breath. For the pneumonia, continue on ceftriaxone and doxycycline. Obtain sputum culture and sensitivity. Blood cultures have been sent times two sets from the ER. Obtain urine streptococcal antigen, urine Legionella. Await methicillin-resistant Staphylococcus aureus (MRSA) testing. Monitor daily complete blood count (CBC) and monitor for fever. Tylenol as needed for maximum temperature greater than 100.3. If patient is COVID positive, infectious disease specialist, Dr. Mane, will be consulted. Patient will be placed in a COVID unit and started on COVID protocol as well as contact and droplet precautions. Patient will be resumed on his home medications. Deep venous thrombosis (DVT) prophylaxis with Lovenox subcutaneous daily, 40 mg. CODE STATUS: Full code. MTDD
[2019-11-19 07:00] LABS: HEMATOCRIT 43.5 % (42.0-52.0); HEMOGLOBIN 13.9 g/dl (13.5-17.5); MEAN CORPUSCULAR HEMOGLOBIN 26.3 pg (27.0-33.0); MEAN CORPUSCULAR VOLUME 82.4 fl (80.0-96.0); PLATELET COUNT, AUTOMATED 407 10^3/uL (150-450); RED BLOOD COUNT 5.28 10^6/uL (4.30-6.10)
[2019-11-19 07:04] LABS: BLOOD UREA NITROGEN 21 MG/DL (7-18); CALCIUM LEVEL 9.4 MG/DL (8.8-10.2); CARBON DIOXIDE LEVEL 27 MEQ/L (21-32); CHLORIDE LEVEL 106 MEQ/L (98-107); CREATININE FOR GFR 0.93 MG/DL (0.70-1.30); GLOMERULAR FILTRATION RATE > 60.0 (>49); GLUCOSE, FASTING 166 MG/DL (70-100); POTASSIUM SERUM 4.9 MEQ/L (3.5-5.1); SODIUM LEVEL 139 MEQ/L (136-145)
[2019-11-19] MEDS: ADVAIR HFA 230/21MCG INHALER INH SCH ×2 (07:17→19:24)
[2019-11-19] MEDS: TIOTROPIUM INHALER/CAPSULE (SPIRIVA) INH SCH (07:17)
[2019-11-19] MEDS: GABAPENTIN 300 MG CAP PO SCH ×3 (09:08→21:02)
[2019-11-19] MEDS: CETIRIZINE (ZyrTEC) 10 MG TAB PO SCH (09:09)
[2019-11-19] MEDS: guaiFENesin ER 600 MG TAB PO SCH ×2 (09:09→21:02)
[2019-11-19] MEDS: PREGABALIN 75 MG CAP(LYRICA) PO SCH ×3 (09:09→21:01)
[2019-11-19] MEDS: ENOXAPARIN 40MG/0.4ML SYRINGE (J1650 PER 10MG) SC SCH (09:10)
[2019-11-19] MEDS ORDERED: metOLazone 5 MG TAB PO ONE (10:00)
[2019-11-19 10:47] VITALS: BP 122/77
[2019-11-19] MEDS: FUROSEMIDE 40MG/4ML VIAL (J1940) IV SCH ×2 (10:50→14:50)
[2019-11-19 14:00] VITALS: BP 129/88
[2019-11-19 14:25] VITALS: BP 128/87
[2019-11-19 18:13] LABS: BLOOD UREA NITROGEN 30 MG/DL (7-18); CALCIUM LEVEL 9.8 MG/DL (8.8-10.2); CARBON DIOXIDE LEVEL 30 MEQ/L (21-32); CHLORIDE LEVEL 99 MEQ/L (98-107); CK-MB VALUE MASS 3.1 NG/ML (<3.6); CPK CREATINE PHOSPHOKINASE 68 U/L (39-308); CREATININE FOR GFR 1.19 MG/DL (0.70-1.30); GLOMERULAR FILTRATION RATE > 60.0 (>49); GLUCOSE, FASTING 236 MG/DL (70-100); MAGNESIUM LEVEL 1.9 MG/DL (1.8-2.4); MB/CK RELATIVE INDEX 4.56 (< OR =4); POTASSIUM SERUM 4.9 MEQ/L (3.5-5.1); SODIUM LEVEL 136 MEQ/L (136-145); TROPONIN I < 0.02 NG/ML (< 0.10)
[2019-11-19] MEDS: hydrOXYzine 50 MG TAB PO PRN (21:01)
[2019-11-19] MEDS: ESCITALOPRAM OXALATE 10 MG TAB (LEXAPRO) PO SCH (21:02)
[2019-11-19] MEDS: buPROPion **SR TABLET** (ZYBAN) 150MG PO SCH (21:02)
[2019-11-19] MEDS: SIMVASTATIN 10 MG TAB PO SCH (21:02)
[2019-11-19 22:00] VITALS: BP 130/88
[2019-11-20] MEDS: methylPREDNISolone 125MG 2ML VIAL IV SCH ×4 (00:23→17:13)
[2019-11-20] MEDS: LEVALBUTEROL 1.25 MG/0.5 ML CONCENTRATE NEB INH SCH ×6 (04:00→23:49)
[2019-11-20] MEDS: cefTRIAXone SOD 2 GM in D5W MINI-BAG PLUS 50 ML IV SCH (05:08)
[2019-11-20 06:00] VITALS: BP 115/50
[2019-11-20] MEDS: DOXYCYCLINE HYCLATE 100 MG in D5W MINI-BAG PLUS 100 ML IV SCH ×2 (06:10→17:14)
[2019-11-20] MEDS: BUPRENORPHINE/NALOXONE 2-0.5MG SUBLINGUAL TABLET(SUBOXONE) SL SCH ×5 (06:10→20:46)
[2019-11-20] MEDS: TIOTROPIUM INHALER/CAPSULE (SPIRIVA) INH SCH (06:11)
[2019-11-20] MEDS: ADVAIR HFA 230/21MCG INHALER INH SCH ×2 (06:11→19:25)
[2019-11-20 07:07] LABS: HEMATOCRIT 45.3 % (42.0-52.0); HEMOGLOBIN 14.5 g/dl (13.5-17.5); MEAN CORPUSCULAR HEMOGLOBIN 26.1 pg (27.0-33.0); MEAN CORPUSCULAR VOLUME 81.5 fl (80.0-96.0); PLATELET COUNT, AUTOMATED 412 10^3/uL (150-450); RED BLOOD COUNT 5.56 10^6/uL (4.30-6.10); WHITE BLOOD COUNT 19.7 10^3/uL (4.0-10.0)
[2019-11-20 07:24] LABS: BLOOD UREA NITROGEN 30 MG/DL (7-18); CALCIUM LEVEL 9.7 MG/DL (8.8-10.2); CARBON DIOXIDE LEVEL 34 MEQ/L (21-32); CHLORIDE LEVEL 98 MEQ/L (98-107); CREATININE FOR GFR 1.04 MG/DL (0.70-1.30); GLOMERULAR FILTRATION RATE > 60.0 (>49); GLUCOSE, FASTING 166 MG/DL (70-100); POTASSIUM SERUM 4.3 MEQ/L (3.5-5.1); SODIUM LEVEL 140 MEQ/L (136-145)
[2019-11-20] MEDS ORDERED: metOLazone 5 MG TAB PO ONE (08:30)
--- NOTE | 2019-11-20 08:48 | REPVR ---
PROCEDURE INFORMATION: Exam: XR Chest, 2 Views Exam date and time: 11/20/2019 7:56 AM Age: 64 years old Clinical indication: Shortness of breath; Additional info: SOB TECHNIQUE: Imaging protocol: XR of the chest Views: 2 views. COMPARISON: CR PORTABLE CHEST X-RAY 11/17/2019 3:25 PM FINDINGS: Lungs: Bilateral perihilar nonspecific reticulonodular ground-glass opacities. Suggestion of emphysema. Pleural space: Unremarkable. No pleural effusion. No pneumothorax. Heart/Mediastinum: Unremarkable. No cardiomegaly. Bones/joints: Multilevel degenerative disease of the thoracic spine. IMPRESSION: No significant interval change. Electronically signed by: Larry Esqueda On 11/20/2019 08:48:24 AM
[2019-11-20 08:58] VITALS: BP 151/91
[2019-11-20] MEDS: CETIRIZINE (ZyrTEC) 10 MG TAB PO SCH (09:05)
[2019-11-20] MEDS: PREGABALIN 75 MG CAP(LYRICA) PO SCH ×3 (09:05→20:46)
[2019-11-20] MEDS: GABAPENTIN 300 MG CAP PO SCH ×3 (09:06→20:46)
[2019-11-20] MEDS: guaiFENesin ER 600 MG TAB PO SCH ×2 (09:06→20:46)
[2019-11-20] MEDS: ENOXAPARIN 40MG/0.4ML SYRINGE (J1650 PER 10MG) SC SCH (09:07)
[2019-11-20] MEDS: FUROSEMIDE 40MG/4ML VIAL (J1940) IV SCH ×2 (09:43→12:33)
[2019-11-20 09:47] VITALS: BP 138/90
--- NOTE | 2019-11-20 10:28 | IPN ---
DATE: 11/19/2019 Patient still is quite dyspneic on exertion. Says that when he tries to ambulate he does not feel well. No chest tightness, pressure, palpitations, or lightheadedness. He continues to have nonproductive cough without fever or chills. Temperature 98.5, pulse 107, respiratory rate 20, blood pressure 121/78, 96% on 1 liter nasal cannula. GENERAL: Patient is awake, alert, oriented. Positive use of respiratory accessory muscles. He has increased inspiratory to expiratory (I-to-E) ratio with bilateral wheezing, decreased air entry, unchanged from prior. No jugular venous distention (JVD) or thyromegaly. HEART: S1, S2, sinus rhythm. ABDOMEN: Soft, nontender, nondistended. Positive bowel sounds. EXTREMITIES: Multiple excoriations on the shins. Nonerythematous. No signs of cellulitis. LABORATORY DATA: White count 21, hemoglobin 13, hematocrit 43, platelet count 407. Sodium 139, potassium 4.9, chloride 106, bicarbonate 27, BUN 21, creatinine 0.93, glucose 166. Sputum culture contaminated. Oropharyngeal blood culture negative after 24 hours. Chest x-ray November 16: Bilateral pulmonary hyperinflation consistent with chronic obstructive pulmonary disease (COPD). Mild bilateral pulmonary interstitial and airspace opacity could be infectious. COVID-19 is negative. ASSESSMENT AND PLAN: This is a 64-year-old male admitted on 11/17/2019 who complains of worsening shortness of breath, sent in from Dr. Arriaga's office after being treated for 2 months for COPD exacerbation. Patient also complains of decrease in appetite but with unchanged weight. Denies bright red blood per rectum, melena, or black, tarry stools. He is noted to have a brain natriuretic peptic (BNP) of 859. Chest x-ray showed bilateral pulmonary interstitial and airspace opacity, compatible with infectious pneumonia and COPD. He was admitted for the following issues. 1. Acute COPD exacerbation. 2. Bilateral pneumonia, COVID negative. 3. Systemic inflammatory response with tachycardia and elevated white count and sepsis secondary to pneumonia. Abnormal cardiac markers. 4. History of lung cancer, status post lobectomy. 5. Prostate cancer (CA) status post prostatectomy. 6. Hyperlipidemia. 7. Hypertensive heart disease. 8. Reflux. 9. Umbilical hernia. 10. Diverticulosis on chronic back pain due to multiple bulging discs. PLAN: Patient has had very little improvement since admission despite Solu- Medrol IV every 6 hours, being COVID negative, nebulizer with Xopenex every 4 and every 1 hour as needed, ceftriaxone, and doxycycline. Sputum culture was contaminated and was oropharyngeal. Blood cultures had remained negative. He remained afebrile. He will be diuresed with one dose of Lasix to see if this would improve his condition. Await 2D echo. No changes in Solu-Medrol, as he has had very little improvement. MTDD
[2019-11-20] MEDS ORDERED: GI COCKTAIL 50ML BTL(HYOSCYAMINE/MAALOX/LIDOCAINE VISCOUS)(1:3:1) PO PRN (13:45)
[2019-11-20] MEDS ORDERED: NITROGLYCERIN 0.4 MG SUBL TABLET SL PRN (13:45)
[2019-11-20 14:00] VITALS: BP 132/86
[2019-11-20] MEDS ORDERED: OMEPRAZOLE 20 MG CAP PO ONE (14:00)
[2019-11-20 14:56] LABS: CPK CREATINE PHOSPHOKINASE 33 U/L (39-308); MB/CK RELATIVE INDEX 6.06 (< OR =4); TROPONIN I < 0.02 NG/ML (< 0.10)
[2019-11-20] MEDS: SIMVASTATIN 10 MG TAB PO SCH (20:46)
[2019-11-20] MEDS: hydrOXYzine 50 MG TAB PO PRN (20:46)
[2019-11-20] MEDS: ESCITALOPRAM OXALATE 10 MG TAB (LEXAPRO) PO SCH (20:46)
[2019-11-20] MEDS: buPROPion **SR TABLET** (ZYBAN) 150MG PO SCH (20:46)
[2019-11-20 22:00] VITALS: BP 136/86
[2019-11-21] MEDS: methylPREDNISolone 125MG 2ML VIAL IV SCH ×2 (00:12→05:47)
[2019-11-21] MEDS: LEVALBUTEROL 1.25 MG/0.5 ML CONCENTRATE NEB INH SCH ×5 (03:35→20:00)
[2019-11-21] MEDS: cefTRIAXone SOD 2 GM in D5W MINI-BAG PLUS 50 ML IV SCH (04:42)
[2019-11-21] MEDS: BUPRENORPHINE/NALOXONE 2-0.5MG SUBLINGUAL TABLET(SUBOXONE) SL SCH ×5 (05:47→20:05)
[2019-11-21] MEDS: DOXYCYCLINE HYCLATE 100 MG in D5W MINI-BAG PLUS 100 ML IV SCH (05:47)
[2019-11-21 06:00] VITALS: BP 139/91
[2019-11-21] MEDS: TIOTROPIUM INHALER/CAPSULE (SPIRIVA) INH SCH (07:28)
[2019-11-21] MEDS: ADVAIR HFA 230/21MCG INHALER INH SCH ×2 (07:28→20:01)
[2019-11-21 07:55] LABS: HEMOGLOBIN 14.7 g/dl (13.5-17.5); MEAN CORPUSCULAR HEMOGLOBIN 26.3 pg (27.0-33.0); MEAN CORPUSCULAR VOLUME 82.1 fl (80.0-96.0); PLATELET COUNT, AUTOMATED 385 10^3/uL (150-450); WHITE BLOOD COUNT 16.1 10^3/uL (4.0-10.0)
[2019-11-21 08:14] LABS: BLOOD UREA NITROGEN 40 MG/DL (7-18); CALCIUM LEVEL 9.4 MG/DL (8.8-10.2); CARBON DIOXIDE LEVEL 36 MEQ/L (21-32); CHLORIDE LEVEL 96 MEQ/L (98-107); GLOMERULAR FILTRATION RATE > 60.0 (>49); GLUCOSE, FASTING 164 MG/DL (70-100); POTASSIUM SERUM 4.3 MEQ/L (3.5-5.1); SODIUM LEVEL 132 MEQ/L (136-145)
[2019-11-21] MEDS: GABAPENTIN 300 MG CAP PO SCH ×3 (08:46→20:06)
[2019-11-21] MEDS: CETIRIZINE (ZyrTEC) 10 MG TAB PO SCH (08:46)
[2019-11-21] MEDS: PREGABALIN 75 MG CAP(LYRICA) PO SCH ×3 (08:46→20:06)
[2019-11-21] MEDS: guaiFENesin ER 600 MG TAB PO SCH ×2 (08:46→20:06)
[2019-11-21] MEDS: OMEPRAZOLE 20 MG CAP PO SCH (08:46)
[2019-11-21] MEDS: ENOXAPARIN 40MG/0.4ML SYRINGE (J1650 PER 10MG) SC SCH (08:47)
[2019-11-21] MEDS ORDERED: predniSONE 20 MG TAB PO ONE (09:00)
[2019-11-21] MEDS ORDERED: ISOVUE-370 76% 100ML VIAL As Ordered ONE (12:10)
[2019-11-21] MEDS: MOXIFLOXACIN 400 MG TAB PO SCH (12:59)
--- NOTE | 2019-11-21 13:17 | REPVR ---
PROCEDURE INFORMATION: Exam: CT Angiography Chest With Contrast Exam date and time: 11/21/2019 12:06 PM Age: 64 years old Clinical indication: Tachypnea; Additional info: Rule out pulmonary embolism. Tachycardic. Tachypnea. TECHNIQUE: Imaging protocol: Computed tomographic angiography of the chest with intravenous contrast. Coronal and sagittal reformats were created and reviewed. 3D rendering (Not supervised by radiologist): MIP and/or 3D reconstructed images were created by the technologist. Radiation optimization: All CT scans at this facility use at least one of these dose optimization techniques: automated exposure control; mA and/or kV adjustment per patient size (includes targeted exams where dose is matched to clinical indication); or iterative reconstruction. Contrast material: ISOVUE 370; Contrast volume: 100 ml; Contrast route: INTRAVENOUS (IV); COMPARISON: 1. CT Chest without contrast 12/15/2015 5:50:[address] Chest without contrast 03/25/2019 1:19 PM FINDINGS: Limitations: Evaluation is limited by motion. Pulmonary arteries: The main pulmonary arterial trunk is not enlarged. Evaluation of multiple segmental and subsegmental pulmonary arteries is limited by motion. No lobar-sized or larger pulmonary arterial embolism is identified. Aorta: Mild aortic atherosclerosis. No thoracic aortic aneurysm. No thoracic aortic dissection. Thyroid: Unremarkable as visualized. Lungs: Evaluation is limited by motion. Status post left lower lobectomy. Status post left upper lobe wedge resection. Diffuse bilateral bronchial wall thickening. Multifocal small bronchial mucous plugging. Moderate-severe bilateral centrilobular and paraseptal emphysema. Small linear thickening along the left upper lobe wedge resection surgical sutures is stable compared to 03/25/2019 and decreased in size compared to 12/15/2015, consistent with scarring. No consolidation. New minimal clustered micronodularity of the caudal left upper lobe consistent with bronchiolitis. Pleural space: No pleural effusion, mass or calcification. No pneumothorax. Heart: Heart size is within normal limits. No pericardial effusion. Mediastinal space: The esophagus is unremarkable. No mediastinal mass. Small aspirated material or retained secretions within the trachea. Lymph nodes: No enlarged lymph nodes. Liver: A 1.2 cm round hypoattenuating hepatic lesion is stable in size compared to 12/15/2015 (series 401, image 217); this is not further characterized on this examination, but probably represents a cyst. Gallbladder and bile ducts: The common bile duct is incompletely imaged. The imaged common bile duct is dilated measuring up to 1.8 cm in diameter, stable compared to 12/15/2015. Mild central intrahepatic bile duct dilation is also stable. Bones/joints: Multilevel degenerative spine disease. New left anterior 6th rib linear sclerosis consistent with a healing nondisplaced subacute fracture. New healing left posterior 10th rib nondisplaced subacute fracture. Soft tissues: Unremarkable. IMPRESSION: 1. Evaluation of multiple segmental and subsegmental pulmonary arteries is limited by motion. No lobar-sized or larger pulmonary arterial embolism is identified. 2. Findings consistent with bronchitis and bronchiolitis. 3. Pulmonary emphysema. 4. Status post left partial pneumonectomy. 5. Healing subacute fractures of the left 6th and 10th ribs. 6. Please see the body of the report for other findings as described. Electronically signed by: Mike Vila On 11/21/2019 13:16:55 PM
[2019-11-21 14:00] VITALS: BP 143/92
[2019-11-21] MEDS: SIMVASTATIN 10 MG TAB PO SCH (20:05)
[2019-11-21] MEDS: hydrOXYzine 50 MG TAB PO PRN (20:05)
[2019-11-21] MEDS: ESCITALOPRAM OXALATE 10 MG TAB (LEXAPRO) PO SCH (20:05)
[2019-11-21] MEDS: buPROPion **SR TABLET** (ZYBAN) 150MG PO SCH (20:06)
[2019-11-21 22:00] VITALS: BP 148/86
[2019-11-22] MEDS: LEVALBUTEROL 1.25 MG/0.5 ML CONCENTRATE NEB INH SCH ×3 (03:02→07:22)
[2019-11-22] MEDS: MOXIFLOXACIN 400 MG TAB PO SCH (05:18)
[2019-11-22] MEDS: BUPRENORPHINE/NALOXONE 2-0.5MG SUBLINGUAL TABLET(SUBOXONE) SL SCH ×2 (05:18→08:54)
[2019-11-22 06:00] VITALS: BP 131/91
[2019-11-22] MEDS: ADVAIR HFA 230/21MCG INHALER INH SCH (07:21)
[2019-11-22] MEDS: TIOTROPIUM INHALER/CAPSULE (SPIRIVA) INH SCH (07:22)
[2019-11-22 08:28] LABS: HEMATOCRIT 44.6 % (42.0-52.0); HEMOGLOBIN 14.5 g/dl (13.5-17.5); MEAN CORPUSCULAR HEMOGLOBIN 26.3 pg (27.0-33.0); MEAN CORPUSCULAR HGB CONC 32.5 g/dl (32.0-36.5); MEAN CORPUSCULAR VOLUME 80.9 fl (80.0-96.0); PLATELET COUNT, AUTOMATED 367 10^3/uL (150-450); RED BLOOD COUNT 5.51 10^6/uL (4.30-6.10); WHITE BLOOD COUNT 13.2 10^3/uL (4.0-10.0)
[2019-11-22] MEDS ORDERED: MOXI400T11 PO (08:31)
[2019-11-22] MEDS ORDERED: PRED10TA2 PO (08:31)
[2019-11-22 08:37] LABS: BLOOD UREA NITROGEN 35 MG/DL (7-18); CALCIUM LEVEL 9.6 MG/DL (8.8-10.2); CARBON DIOXIDE LEVEL 37 MEQ/L (21-32); CHLORIDE LEVEL 91 MEQ/L (98-107); GLOMERULAR FILTRATION RATE > 60.0 (>49); GLUCOSE, FASTING 89 MG/DL (70-100); POTASSIUM SERUM 3.7 MEQ/L (3.5-5.1); SODIUM LEVEL 137 MEQ/L (136-145)
[2019-11-22] MEDS: GABAPENTIN 300 MG CAP PO SCH (08:54)
[2019-11-22] MEDS: ENOXAPARIN 40MG/0.4ML SYRINGE (J1650 PER 10MG) SC SCH (08:54)
[2019-11-22] MEDS: CETIRIZINE (ZyrTEC) 10 MG TAB PO SCH (08:54)
[2019-11-22] MEDS: OMEPRAZOLE 20 MG CAP PO SCH (08:54)
[2019-11-22] MEDS: guaiFENesin ER 600 MG TAB PO SCH (08:55)
[2019-11-22] MEDS: PREGABALIN 75 MG CAP(LYRICA) PO SCH (08:55)
[2019-11-22] MEDS ORDERED: predniSONE 20 MG TAB PO SCH (09:00)
[2019-11-22] MEDS ORDERED: LEVA750T7 PO (10:24)
[2019-11-22] MEDS ORDERED: ALBU83IN INH (10:26)
--- NOTE | 2019-11-22 16:25 | ECGEPIP ---
[facility] Test Date: 2019-11-20 Pat Name: TASIA BANSAL Department: Room: [place] [address] Gender: Male Fitter Type Bar And Segment: AISHA : 1955 Requested By: ADRIEL [place] Order Number: [id number] Reading MD: Bonifacio Moe Measurements Intervals [place] Rate: 120 P: 77 SC: 151 QRS: 9 QRSD: 102 T: 137 QT: 306 QTc: 432 Interpretive Statements SINUS TACHYCARDIA MODERATE T-WAVE ABNORMALITY, CONSIDER LATERAL ISCHEMIA Low QRS complex voltage in the limb leads Rate increased from tracing done 11-17-19 Electronically Signed on 11-22-2019 16:25:00 EDT by Bonifacio Moe
--- NOTE | 2019-11-25 10:53 | ECGEPIP ---
[facility] - ED Test Date: 2019-11-17 Pat Name: TASIA BANSAL Department: Room: - Gender: Male Registration Representative: : 1955 Requested By: Teri Faustin Order Number: [id number] Reading MD: Teri Faustin Measurements Intervals [place] Rate: 107 P: 72 W[place]: 139 QRS: -6 QRSD: 93 T: 162 QT: 379 QTc: 508 Interpretive Statements SINUS TACHYCARDIA POSSIBLE INFERIOR MYOCARDIAL INFARCTION, PROBABLY OLD MODERATE T-WAVE ABNORMALITY, CONSIDER ANTEROLATERAL ISCHEMIA, CLINICAL CORRELATE ABNORMAL ECG SEE SCANNED DOWNTIME REPORT
--- NOTE | 2019-11-30 18:30 | IPN ---
DATE: 11/20/2019 SUBJECTIVE: Patient says his breathing has improved. His dyspnea on exertion is better, but he is usually able to walk 50 to 100 feet without difficulty at home. No chest pain, pressure, or tightness. Patient's cough is a little bit thinner, but still persistent, able to sleep however. No chest pain, pressure, tightness, lightheadedness or dizziness. Patient diuresed 2.050 mL yesterday, negative 1320 on Lasix with improvement in his breathing. PHYSICAL EXAMINATION: VITALS: Temperature 99.4, pulse 50, respiratory rate 19, blood pressure 115/50, 95% on 1 liter nasal cannula. GENERAL: Patient is awake, alert and oriented x3. Ambulating well. No conversational dyspnea. No JVD. No thyromegaly. LUNGS: Diminished with bilateral rhonchi. HEART: S1, S2, sinus bradycardia becomes tachycardic at times and irregular. ABDOMEN: Soft, nontender, non-distended, positive bowel sounds. EXTREMITIES: No cyanosis, clubbing or edema. Multiple excoriated areas on the lower extremity. IMAGING STUDIES: A repeat chest x-ray on 11/20/2019; no significant change, nonspecific bilateral nodular ground-glass opacities suggestive of emphysema. ASSESSMENT AND PLAN: This is a 64-year-old male with history of COPD, not oxygen or steroid dependent at home, who presented with worsening shortness of breath. He was found on chest x-ray to have possible bilateral multifocal pneumonia and started on I.V. Ceftriaxone and Doxycycline. Current issues: 1. Acute COPD exacerbation. 2. Bilateral multifocal pneumonia COVID negative. 3. Dyslipidemia. 4. Chronic pain. 5. Pulmonary cachexia. 6. Chronic essential tremors; rule out Parkinson's. PLAN: Patient is maintained on high doses of steroid Solu-Medrol at 80 I.V. every 6 hourly with significant improvement today. Patient's glucose had been elevated at 166 to 236. Start to taper to 40 mg I.V. every 12 hourly. Continue on Ceftriaxone and Doxycycline until cleared by therapy, then transition to oral Avelox or Levaquin. Sputum culture was contaminated. Continue with diuresis for three more doses, keep up that negative balance. MTDD
--- NOTE | 2019-11-30 18:32 | IPN ---
DATE: 11/21/2019 Patient continues to be tachycardic with exertion. Still dyspneic on exertion. Increase in sputum production. No chest pain, pressure, tightness, fever, or chills. Still with productive cough of yellow sputum. Using his Acapella device. Temperature 98.5, pulse 106, respiratory rate 20, blood pressure 139/91, 92% on room air. Generally: Awake, alert, oriented times three, answering questions appropriately. No tripod positioning. No use of respiratory accessory muscles. No jugular venous distension (JVD) or thyromegaly. Sinus tachycardia. Abdomen: Soft, nontender, nondistended. Extremities: No cyanosis, clubbing, or pitting edema. Lungs: Diminished breath sounds with bilateral rhonchi. LABORATORY DATA: White count 16, hemoglobin 14, hematocrit 46, platelet count 385, sodium 132, potassium 4.6, chloride 96, bicarbonate 36, BUN 40, creatinine 1.2, glucose of 164, troponin less than 0.02. Sputum culture contaminated. ASSESSMENT AND PLAN: This is a 64-year-old male admitted 11/17/2019 with complaints of dyspnea on exertion found to have bilateral pneumonia, COVID negative. ACUTE ISSUES: 1. Acute chronic obstructive pulmonary disease (COPD) exacerbation. 2. Bilateral pneumonia. COVID negative. 3. Sinus tachycardia most likely due to multifocal atrial tachycardia from hypoxia. 4. History of lung cancer status post lobectomy. 5. Prostate cancer status post prostatectomy. 6. Hyperlipidemia. 7. Hypertensive heart disease. 8. Reflux. 9. Umbilical hernia. 10. Diverticulosis. 11. Chronic back pain due to multiple bulging discs. PLAN: Patient is continued on prednisone 60 daily, nebulizer treatment, Acapella, has been encouraged, antibiotics. Will check CT chest, rule out pulmonary embolism (PE) in light of prior history of malignancy and tachycardia with dyspnea on exertion. Patient has been diuresed, but no significant improvement and likely does have fluid overload. Continue on all other home medications. [facility]
--- NOTE | 2019-11-30 18:35 | DSES ---
DATE OF ADMISSION: 11/17/2019 DATE OF DISCHARGE: 11/22/2019 PRIMARY DISCHARGE DIAGNOSES: 1. Bilateral pneumonia. 2. Acute COPD exacerbation. 3. Chronic hypercarbic respiratory failure not requiring supplemental oxygen. 4. Steroid induced hyperglycemia and leukocytosis. 5. COVID negative. 6. History of lung cancer; status post lobectomy. 7. History of prostate cancer; status post prostatectomy. 8. Hyperlipidemia. 9. Hypertensive heart disease. 10. Reflux. 11. History of umbilical hernia. DISCHARGE MEDICATIONS: 1. Prednisone taper. 2. Levaquin 750 mg daily for seven days. 3. Bupropion 150 q.h.s. 4. Escitalopram 20 mg q.h.s. 5. Anoro Ellipta one puff daily. 6. Gabapentin 600 t.i.d. 7. Hydroxyzine 50 every 6 hours as needed. 8. Pregabalin 75 t.i.d. 9. Simvastatin 10 mg q.h.s. 10. Respimat one puff b.i.d. 11. Ostera one q.h.s. 12. Simvastatin 10 mg q.h.s. 13. Albuterol two puffs every 4 hours. HOSPITAL COURSE: A 64-year-old male with a history of COPD, lung CA, lobectomy, who was admitted due to worsening respiratory distress and was found to have bilateral infiltrates on CT chest. COVID negative. He was started on I.V. Solu- Medrol, Ceftriaxone, Doxycycline and every 4 hourly Xopenex. Patient has bilateral multifocal pneumonia. Sputum culture was oropharyngeal. Blood cultures were negative. Patient had no fever. He had steroid induced leukocytosis with white count increasing from admission of 7.5 to peak of 21 and decreased to 13 with a tapered steroid dose. Patient's troponins were negative. He had CT chest rule out pulmonary embolism, which was negative. Findings were consistent with bronchitis, bronchiolitis and pulmonary emphysema with healing subacute fractures of the left sixth and tenth ribs. No pneumothorax. Patient passed a home safety evaluation. He did not require supplemental oxygen, remained at 93% on room air with ambulation. Patient is discharged in stable condition for immediate follow-up with Dr. Arriaga as an outpatient and his primary care physician within seven days of hospital discharge. PHYSICAL EXAMINATION ON DISCHARGE: VITALS: Temperature 98, pulse 89, respiratory rate 13, blood pressure 131/91, 93% on room air. GENERAL: Awake, alert, oriented to person, place and time. Answering questions appropriately. Appears disheveled with no use of respiratory accessory muscles. No tripod positioning. No JVD. No thyromegaly. No cervical lymphadenopathy. No stridor on examination. No tracheal deviation. LUNGS: Diminished with faint expiratory wheezing bilaterally. HEART: S1, S2, sinus tachycardia. ABDOMEN: Soft, nontender, nondistended. EXTREMITIES: No pitting edema. LABORATORY DATA ON DISCHARGE: White count 13 decreased from peak of 21, hemoglobin 14, hematocrit 44, platelet count 367,000. Sodium 137, potassium 3.7, chloride 91, bicarb 37, BUN 35, creatinine 1, glucose 89. Troponin less than 0.02. Sputum culture from 11/18/2019; oropharyngeal contamination. Blood cultures from 11/17/2019 negative. IMAGING STUDIES: CT chest; no pulmonary embolism, bronchitis, bronchiolitis, left partial pneumonectomy, pulmonary emphysema, healing subacute fracture of the left sixth and tenth ribs. TIME SPENT ON DISCHARGE: 30 minutes. MTDD
== END 2019-11-22 12:21 | disposition home or self-care (01) | DRG 720 ==
LOC: M ED 15:07 → M ED INP 17:10 → ENRESERV 18:49 → M MSPAV 21:32
PROVIDERS: ADMIT General Practice; ATTEND General Practice
DX: A41.9 Sepsis, unspecified organism (principal); J18.9 Pneumonia, unspecified organism; I11.9 Hypertensive heart disease without heart failure; J44.1 Chronic obstructive pulmonary disease with (acute) exacerbation; Z85.118 Personal history of other malignant neoplasm of bronchus and lung; Z85.46 Personal history of malignant neoplasm of prostate; E78.5 Hyperlipidemia, unspecified; K21.9 Gastro-esophageal reflux disease without esophagitis; K57.30 Diverticulosis of large intestine without perforation or abscess without bleeding; K42.9 Umbilical hernia without obstruction or gangrene; M54.5 Low back pain; F31.9 Bipolar disorder, unspecified; N52.9 Male erectile dysfunction, unspecified; M19.90 Unspecified osteoarthritis, unspecified site; F41.9 Anxiety disorder, unspecified; F17.200 Nicotine dependence, unspecified, uncomplicated; Z79.899 Other long term (current) drug therapy

== ENCOUNTER 2020-01-10 11:15 | Inpatient (IN) | payer OTHER ==
[~2020-01-10] VITALS: Ht 175.3 cm; Wt 74.1 kg
[~2020-01-10 11:15] MED LIST changes: +ALBU83IN INH; +HYDR1TAB33 PO; +LEVA750T7 PO; +MOXI400T11 PO; +PRED10TA2 PO; +PREG75CA2 PO; +SUBO8MIS SL
[2020-01-10] MEDS ORDERED: ACETAMINOPHEN 325 MG TAB PO ONE (11:45)
[2020-01-10 12:13] LABS: BASO % 0.3 % (0.0-1.0); EOS # 0.1 10^3/uL (0.0-0.5); EOS % 1.2 % (0.0-3.0); HEMATOCRIT 50.1 % (42.0-52.0); HEMOGLOBIN 15.8 g/dl (13.5-17.5); LYMPH # 1.8 10^3/uL (1.5-5.0); MEAN CORPUSCULAR HEMOGLOBIN 26.1 pg (27.0-33.0); MEAN CORPUSCULAR HGB CONC 31.5 g/dl (32.0-36.5); MEAN CORPUSCULAR VOLUME 82.7 fl (80.0-96.0); MONO # 0.9 10^3/uL (0.0-0.8); MONO % 8.2 % (0.0-5.0); NEUTROPHILS # 8.4 10^3/uL (1.5-8.5); NEUTROPHILS % 73.5 % (36.0-66.0); PLATELET COUNT, AUTOMATED 342 10^3/uL (150-450); RED BLOOD COUNT 6.06 10^6/uL (4.30-6.10); WHITE BLOOD COUNT 11.4 10^3/uL (4.0-10.0)
[2020-01-10 12:39] LABS: ALBUMIN 3.2 GM/DL (3.2-5.2); ALT/SGPT 36 U/L (12-78); BILIRUBIN,DIRECT 0.2 MG/DL (0.0-0.2); BILIRUBIN,TOTAL 0.7 MG/DL (0.2-1.0); BLOOD UREA NITROGEN 10 MG/DL (7-18); CALCIUM LEVEL 9.1 MG/DL (8.8-10.2); CARBON DIOXIDE LEVEL 36 MEQ/L (21-32); CHLORIDE LEVEL 103 MEQ/L (98-107); CREATININE FOR GFR 0.82 MG/DL (0.70-1.30); GLOMERULAR FILTRATION RATE > 60.0 (>49); GLUCOSE, FASTING 100 MG/DL (70-100); POTASSIUM SERUM 3.7 MEQ/L (3.5-5.1); SODIUM LEVEL 142 MEQ/L (136-145); TOTAL PROTEIN 6.3 GM/DL (6.4-8.2)
[2020-01-10] MEDS ORDERED: IBUPROFEN 800 MG TAB PO ONE (13:45)
--- NOTE | 2020-01-10 14:47 | REP ---
INDICATION: DYSPNEA/COUGH. COMPARISON: CT 11/21/2019, chest x-ray 11/20/2019 TECHNIQUE: AP portable chest FINDINGS: Lungs are hyperinflated with some flattening of the diaphragms. There is a curvilinear scarring in the left lower lobe extending from the epicardial fat pad towards the chest wall superolaterally. There is new patchy infiltrate in the right base just above the diaphragm, presumably in the right lower lobe. No definite effusion. Some underlying COPD and fibrosis. Subtle irregular density in the right upper lung zone over the posterior 6th right rib is also noted of uncertain significance. There is an old healed and remodeled rib fracture posterolaterally in 5th rib on the left. No cardiomegaly. There is pulmonary artery hypertension, presumably on the basis of COPD. The aorta is mildly tortuous but unchanged. Airway intact. No widening of the mediastinum. No free air under the diaphragm. Bones intact IMPRESSION: 1. COPD with some basilar scarring on the left and new patchy infiltrates above the right diaphragm likely in the right lower lobe compared to the 11/20/2019 study. I suspect pneumonia. 2. Subtle density overlying posterior right 6th rib in the upper lung zone of uncertain significance. It could be a focus of inflammatory change. It is not present 6 weeks ago. 3. Old healed and remodeled left posterolateral 5th rib fracture. Cardiomediastinal silhouette intact. Pulmonary arteries are prominent centrally suggesting pulmonary artery hypertension. <Electronically signed by Markos Maxwell > 01/10/20 [id number]
[2020-01-10] MEDS ORDERED: VANCOMYCIN HCL 1,500 MG in IV FLUID PLACE HOLDER 1 EA IV ONE (15:00)
[2020-01-10] MEDS ORDERED: VANCOMYCIN HCL 750 MG, VIAL MATE ADAPTER 1 EACH in D5W 250 ML IV ONE ×2 (15:15→16:15)
[2020-01-10] MEDS ORDERED: D31000TA2 PO (17:02)
[2020-01-10] MEDS ORDERED: ALBU83IN NEB (17:02)
--- NOTE | 2020-01-10 17:07 | ECGEPIP ---
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
[2020-01-10] MEDS: ALBUTEROL SULFATE 2.5 MG/0.5 ML INH NEB SOLN NEB SCH (20:00)
[2020-01-10] MEDS ORDERED: ACETAMINOPHEN 500 MG TAB PO PRN (20:15)
[2020-01-10] MEDS ORDERED: NS 1,000 ML IV SCH (20:30)
--- NOTE | 2020-01-10 20:36 | HPEPDOC ---
General Date of Admission 01/10/20 Date of Service: Jan 10, 2020 Chief Complaint The patient is a 64-year-old male admitted with a reason for visit of SOB. Source: Patient, RN/MD History of Present Illness 64 year old male with COPD presented to ED with Dyspnea, SOB and cough worse for 10 days. He had seen his PMD 7 days ago and was diagnosed with pneumonia and given a course of antibiotics which he finished however his SOb and dyspnea did not get better. He was so SOB that he was having trouble talking in full sentences. He also complained of cough however he explained that he was trying to avoid coughing as the coughing fits were making him lightheaded add almost pass out. He also complained of right lower chest wall which gets worse with deep breaths and coughing. In the ED on arrival he was febrile to 101 and he was hypoxic to 86% in RA. CXR showed Right lower lobe pneumonia. COVID was negative. He was admitted for HCAP, acute respiratory failure with hypoxia and copd exacerbation. CXR: IMPRESSION: 1. COPD with some basilar scarring on the left and new patchy infiltrates above the right diaphragm likely in the right lower lobe compared to the 11/20/2019 study. I suspect pneumonia. 2. Subtle density overlying posterior right 6th rib in the upper lung zone of uncertain significance. It could be a focus of inflammatory change. It is not present 6 weeks ago. 3. Old healed and remodeled left posterolateral 5th rib fracture. Cardiomediastinal silhouette intact. Pulmonary arteries are prominent centrally suggesting pulmonary artery hypertension. Home Medications Scheduled Buprenorphine HCl/Naloxone HCl (Suboxone 8 mg-2 mg Sl Film) 1 Each Film, 0.5 STRIP SL 5XD, (Reported) Cholecalciferol (Vitamin D3) (Vitamin D3) 1,000 Unit Tablet, 2,000 UNITS PO DAILY, (Reported) Fluticasone Furoate (Arnuity Ellipta) 200 Mcg Blst.w.dev, 1 PUFF PO DAILY, (Reported) Gabapentin (Gabapentin) 600 Mg Tablet, 600 MG PO TID, (Reported) Hydroxyzine HCl (Hydroxyzine HCl) 50 Mg Tablet, 50 MG PO QHS, (Reported) Levocetirizine Dihydrochloride (Levocetirizine Dihydrochloride) 5 Mg Tablet, 5 MG PO QHS, (Reported) Pregabalin (Pregabalin) 75 Mg Capsule, 75 MG PO TID, (Reported) Simvastatin (Simvastatin) 10 Mg Tablet, 10 MG PO QHS, (Reported) Vit D3-Vit K/Berberine/Hops (Ostera Tablet) 1 Each Tablet, 1 TAB PO QHS, (Reported) Scheduled PRN Albuterol Sulf (Albuterol Sulfate) 2.5 Mg/3 Ml Vial.neb, 1 VIAL NEB Q4H PRN for SOB/WHEEZING, (Reported) Tiotropium Br/Olodaterol HCl (Stiolto Respimat Inhal [place]) 4 Gm Mist.inhal, 1 PUFF INH BID PRN for COUGH, (Reported) Allergies Coded Allergies: morphine (Verified Allergy, Mild, itching, 11/11/19) Past Medical History Medical History Bilateral pneumonia in nov 2019 COPD Chronic hypercarbic respiratory failure not requiring supplemental oxygen. History of lung cancer; status post lobectomy. Lft lower lobe mass was a 1x1x1 cm poorly differentiated adenocarcinoma with no node spread. History of prostate cancer; status post radical prostatectomy. Hyperlipidemia. HTN with Hypertensive heart disease. GERD History of umbilical hernia. Degenerative disc disease Old rib fractures Chronic low back pain. Cervical fracture. Bipolar disorder. H/o Polysubstance abuse. Tinnitus. Erectile dysfunction. Degenerative spine disease with multiple bulging discs. Arthritis. Diverticulosis. Left inguinal hernia. History of substance abuse, on chronic Suboxone. Anxiety and depression. Surgical History Radical prostatectomy in 2007. Colonoscopy in 2013. Left lung resection in 2014. Cystoscopy. Family History Father . Mother with recurrent urinary tract infections (UTIs), diabetes, and dementia. Social History * Smoker: current smoker Alcohol: other (2 beers daily) Drugs: denies, prescription drugs (subaxone) Drinks two beers a day. 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 A-FIB/CHADSVASC A-FIB History Current/History of A-Fib/PAF?: No Review of Systems Constitutional: Reports: Chills, Fever, Malaise, Night Sweats, Fatigue Eyes: Denies: Pain, Vision change ENT: Denies: Head Aches, Ear Pain, Dysphagia Skin: Denies: Rash, Lesions, Breakdown Pulmonary: Reports: Dyspnea, Cough, Pleuritic Chest Pain Cardiovascular: Reports: Lt Headedness; Denies: Chest Pain, Palpitations, Orthopnea, Paroxysmal Noc. Dyspnea Gastrointestinal: Denies: Nausea, Vomiting, Abdominal Pain, Diarrhea Hematologic: Denies: Bruising, Bleeding Excessively Musculoskeletal: Reports: Back Pain Physical Examination General Exam: Positive: Alert, No Acute Distress, Other (conversational dyspnea) Eye Exam: Positive: PERRLA, Conjunctiva & lids normal, EOMI; Negative: Sclera icteric ENT Exam: Positive: Atraumatic, Mucous membr. moist/pink, Pharynx Normal Neck Exam: Positive: Supple; Negative: JVD, thyromegaly Chest Exam: Positive: Rales, Rhonchi, Wheezing Heart Exam: Positive: Tachycardic, Regular Rhythm, Normal S1, Normal S2; Negative: Murmurs, Rubs Abdomen Exam: Positive: Normal bowel sounds, Soft; Negative: Tenderness, Hepatospenomegaly Extremity Exam: Positive: Normal pulses; Negative: Clubbing, Cyanosis, Edema Skin Exam: Positive: Nl turgor and temperature; Negative: Breakdown, Lesion Vital Signs Vital Signs Date Time Temp Pulse Resp B/P (MAP) Pulse Ox O2 Delivery O2 Flow Rate FiO2 01/10/20 17:19 98.0 90 24 124/85 (98) 96 Nasal Cannula 01/10/20 14:30 2.0 Laboratory Data Labs 24H Laboratory Tests 2 01/10/20 11:46: Coronavirus (COVID-19)(PCR) NEGATIVE 01/10/20 11:47: Immature Granulocyte % (Auto) 0.8, Neutrophils (%) (Auto) 73.5H, Lymphocytes (%) (Auto) 16.0L, Monocytes (%) (Auto) 8.2H, Eosinophils (%) (Auto) 1.2, Basophils (%) (Auto) 0.3, Neutrophils # (Auto) 8.4, Lymphocytes # (Auto) 1.8, Monocytes # (Auto) 0.9H, Eosinophils # (Auto) 0.1, Basophils # (Auto) 0.0, Nucleated Red Blood Cells % (auto) 0.0, Anion Gap 3L, Glomerular Filtration Rate > 60.0, Lacti c Acid Level 1.3, Calcium Level 9.1, Total Bilirubin 0.7, Direct Bilirubin 0.2, Aspartate Amino Transf (AST/SGOT) 19, Alanine Aminotransferase (ALT/SGPT) 36, Alkaline Phosphatase 103, Total Protein 6.3L, Albumin 3.2, Albumin/Globulin Ratio 1.0 CBC/BMP Laboratory Tests 01/10/20 11:47 Microbiology Microbiology 01/10/20 Blood Culture, Received Pending 01/10/20 Blood Culture, Received Pending Assessment/Plan 64 year old male with COPD presented to ED with Dyspnea, SOB and cough worse for 10 days. He had seen his PMD 7 days ago and was diagnosed with pneumonia and given a course of antibiotics which he finished however his SOb and dyspnea did not get better. He was so SOB that he was having trouble talking in full sentences. He also complained of cough however he explained that he was trying to avoid coughing as the coughing fits were making him lightheaded add almost pass out. He also complained of right lower chest wall which gets worse with deep breaths and coughing. In the ED on arrival he was febrile to 101 and he was hypoxic to 86% in RA. CXR showed Right lower lobe pneumonia. COVID was negative. He was admitted for HCAP, acute respiratory failure with hypoxia and copd exacerbation. Acute on chronic respiratory failure with hypoxia and hypercarbia due to Pneumonia/ acute bronchitis/bronchiolitis, COPD exacerbation Oxygen supplementation, Nebs, steroids antibiotics. Pneumonia/ acute bronchitis/bronchiolitis MRSA PCR. blood culture, sputum culture vanco and zosyn IVF. COPD exacerbation spiriva, symbicort, replaced home inhalors. albuterol, methyl pred. GERD PPI H/o substance abuse On Subaxone HLD statin Plan / VTE VTE Prophylaxis Ordered?: Yes MIKI ANTONIO MD Jan 10, 2020 18:56
[2020-01-10] MEDS: SYMBICORT 160/4.5MCG INHALER 6GM INH SCH (20:41)
[2020-01-10] MEDS ORDERED: DOCUSATE SODIUM 100 MG CAP PO SCH (21:00)
[2020-01-10] MEDS: PIPERACILLIN/TAZOBACTAM SOD 3.375 GM in D5W MINI-BAG PLUS 50 ML IV SCH (21:00)
[2020-01-10 22:45] VITALS: BP 146/77
[2020-01-10] MEDS: methylPREDNISolone 40MG 1ML VIAL IV SCH (23:11)
[2020-01-10] MEDS: ENOXAPARIN 40MG/0.4ML SYRINGE (J1650 PER 10MG) SC SCH (23:11)
[2020-01-10] MEDS: GABAPENTIN 300 MG CAP PO SCH (23:12)
[2020-01-10] MEDS: SENOKOT S TAB PO SCH (23:12)
[2020-01-10] MEDS: PREGABALIN 75 MG CAP(LYRICA) PO SCH (23:13)
[2020-01-10] MEDS: SIMVASTATIN 10 MG TAB PO SCH (23:13)
[2020-01-10] MEDS: BUPRENORPHINE/NALOXONE 8-2MG SUBLINGUAL TABLET(SUBOXONE) SL SCH (23:31)
[2020-01-11] VITALS: BP 116/75
[2020-01-11] MEDS ORDERED: VANCOMYCIN HCL 1,000 MG, VIAL MATE ADAPTER 1 EACH in D5W 250 ML IV SCH ×3
[2020-01-11] MEDS: PIPERACILLIN/TAZOBACTAM SOD 3.375 GM in D5W MINI-BAG PLUS 50 ML IV SCH ×4 (02:01→20:42)
[2020-01-11 04:00] VITALS: BP 124/81
[2020-01-11] MEDS: ALBUTEROL SULFATE 2.5 MG/0.5 ML INH NEB SOLN NEB SCH ×7 (04:00→23:43)
[2020-01-11 05:43] LABS: BASO % 0.1 % (0.0-1.0); HEMATOCRIT 43.6 % (42.0-52.0); LYMPH # 0.9 10^3/uL (1.5-5.0); LYMPH % 9.3 % (24.0-44.0); MEAN CORPUSCULAR HEMOGLOBIN 25.5 pg (27.0-33.0); MEAN CORPUSCULAR HGB CONC 30.7 g/dl (32.0-36.5); MEAN CORPUSCULAR VOLUME 82.9 fl (80.0-96.0); MONO # 0.3 10^3/uL (0.0-0.8); MONO % 3.3 % (0.0-5.0); NEUTROPHILS % 86.5 % (36.0-66.0); PLATELET COUNT, AUTOMATED 315 10^3/uL (150-450); RED BLOOD COUNT 5.26 10^6/uL (4.30-6.10); WHITE BLOOD COUNT 9.2 10^3/uL (4.0-10.0)
[2020-01-11 06:02] LABS: HEMOGLOBIN 13.4 g/dl (13.5-17.5)
[2020-01-11] MEDS: methylPREDNISolone 40MG 1ML VIAL IV SCH ×3 (06:03→22:04)
[2020-01-11 06:07] LABS: BLOOD UREA NITROGEN 10 MG/DL (7-18); CALCIUM LEVEL 8.3 MG/DL (8.8-10.2); CARBON DIOXIDE LEVEL 32 MEQ/L (21-32); CHLORIDE LEVEL 107 MEQ/L (98-107); CREATININE FOR GFR 0.66 MG/DL (0.70-1.30); GLOMERULAR FILTRATION RATE > 60.0 (>49); GLUCOSE, FASTING 150 MG/DL (70-100); POTASSIUM SERUM 4.2 MEQ/L (3.5-5.1); SODIUM LEVEL 141 MEQ/L (136-145)
[2020-01-11] MEDS: BUPRENORPHINE/NALOXONE 8-2MG SUBLINGUAL TABLET(SUBOXONE) SL SCH ×5 (06:26→20:47)
[2020-01-11 08:00] VITALS: BP 113/73
[2020-01-11] MEDS: TIOTROPIUM INHALER/CAPSULE (SPIRIVA) INH SCH (08:06)
[2020-01-11] MEDS: SYMBICORT 160/4.5MCG INHALER 6GM INH SCH ×2 (08:06→19:59)
[2020-01-11] MEDS: PREGABALIN 75 MG CAP(LYRICA) PO SCH ×3 (08:54→20:42)
[2020-01-11] MEDS: GABAPENTIN 300 MG CAP PO SCH ×3 (08:54→20:41)
[2020-01-11] MEDS: SENOKOT S TAB PO SCH ×2 (08:55→20:41)
--- NOTE | 2020-01-11 09:33 | IPNPDOC ---
Subjective Date Seen The patient was seen on 01/11/20. Subjective Chief Complaint/HPI No fevers overnight. Remains on oxygen. Feels a little better this morning. Still with wheezing and ronchi. Eating breakfast. Objective Physical Examination General Exam: Positive: Alert, No Acute Distress, Other (conversational dyspnea) Eye Exam: Positive: PERRLA, Conjunctiva & lids normal, EOMI; Negative: Sclera icteric ENT Exam: Positive: Atraumatic, Mucous membr. moist/pink, Pharynx Normal Neck Exam: Positive: Supple; Negative: JVD, thyromegaly Chest Exam: Positive: Rales, Rhonchi, Wheezing Heart Exam: Positive: Tachycardic, Regular Rhythm, Normal S1, Normal S2; Negative: Murmurs, Rubs Abdomen Exam: Positive: Normal bowel sounds, Soft; Negative: Tenderness, Hepatospenomegaly Extremity Exam: Positive: Normal pulses; Negative: Clubbing, Cyanosis, Edema Skin Exam: Positive: Nl turgor and temperature; Negative: Breakdown, Lesion Assessment /Plan Assessment 64 year old male with COPD presented to ED with Dyspnea, SOB and cough worse for 10 days. He had seen his PMD 7 days ago and was diagnosed with pneumonia and given a course of antibiotics which he finished however his SOb and dyspnea did not get better. He was so SOB that he was having trouble talking in full sentences. He also complained of cough however he explained that he was trying to avoid coughing as the coughing fits were making him lightheaded add almost pass out. He also complained of right lower chest wall which gets worse with deep breaths and coughing. In the ED on arrival he was febrile to 101 and he was hypoxic to 86% in RA. CXR showed Right lower lobe pneumonia. COVID was negative. He was admitted for HCAP, acute respiratory failure with hypoxia and copd exacerbation. Acute on chronic respiratory failure with hypoxia and hypercarbia due to Pneumonia/ acute bronchitis/bronchiolitis, COPD exacerbation Oxygen supplementation, Nebs, steroids antibiotics. Pneumonia/ acute bronchitis/bronchiolitis MRSA negative blood culture, sputum culture, resp panel dc vanco. continue zosyn COPD exacerbation spiriva, symbicort, replaced home inhalers. albuterol, methyl pred. GERD PPI H/o substance abuse On Subaxone HLD statin History of lung cancer; status post lobectomy in 2014. Had Lft lower lobe mass 1x1x1 cm poorly differentiated adenocarcinoma with no node spread. History of prostate cancer; status post radical prostatectomy 2007 HTN with Hypertensive heart disease. GERD PPI Chronic pain low back pain/ cervical fracture/old rib fractures/DDD/OA On Suboxone Bipolar disorder not on any meds at this time Plan/VTE VTE Prophylaxis Ordered?: Yes VS, I&O, 24H, Fishbone Vital Signs/I&O Vital Signs Date Time Temp Pulse Resp B/P (MAP) Pulse Ox O2 Delivery O2 Flow Rate FiO2 01/11/20 04:00 97.3 78 19 124/81 (95) 96 High Flow Cannula 2.0 I&O- Last 24 Hours up to 6 AM 01/11/20 07:00 Intake Total 2280 ml Output Total 0 ml Balance 2280 ml Laboratory Data 24H LABS Laboratory Tests 2 01/10/20 11:46: Coronavirus (COVID-19)(PCR) NEGATIVE 01/10/20 11:47: Immature Granulocyte % (Auto) 0.8, Neutrophils (%) (Auto) 73.5H, Lymphocytes (%) (Auto) 16.0L, Monocytes (%) (Auto) 8.2H, Eosinophils (%) (Auto) 1.2, Basophils (%) (Auto) 0.3, Neutrophils # (Auto) 8.4, Lymphocytes # (Auto) 1.8, Monocytes # (Auto) 0.9H, Eosinophils # (Auto) 0.1, Basophils # (Auto) 0.0, Nucleated Red Blood Cells % (auto) 0.0, Anion Gap 3L, Glomerular Filtration Rate > 60.0, Lactic Acid Level 1.3, Calcium Level 9.1, Total Bilirubin 0.7, Direct Bilirubin 0.2, Aspartate Amino Transf (AST/SGOT) 19, Alanine Aminotransferase (ALT/SGPT) 36, Alkaline Phosphatase 103, Total Protein 6.3L, Albumin 3.2, Albumin/Globulin Ratio 1.0 01/10/20 23:35: Methicillin-Resist S.aureus DNA PCR NOT DETECTED 01/11/20 05:22: CBC/BMP Laboratory Tests 01/10/20 11:47 Microbiology Microbiology 01/10/20 Blood Culture, Received Pending 01/10/20 Blood Culture, Received Pending MIKI ANTONIO MD Jan 11, 2020 06:06
[2020-01-11 16:00] VITALS: BP 116/74
[2020-01-11] MEDS ORDERED: SLF 3 ML SYR IV PRN (16:45)
[2020-01-11 20:00] VITALS: BP 121/62
[2020-01-11] MEDS: SIMVASTATIN 10 MG TAB PO SCH (20:41)
[2020-01-11] MEDS: ENOXAPARIN 40MG/0.4ML SYRINGE (J1650 PER 10MG) SC SCH (20:41)
[2020-01-11] MEDS: SLF 3 ML SYR IV SCH (20:42)
[2020-01-12] VITALS: BP 125/68
[2020-01-12] MEDS: PIPERACILLIN/TAZOBACTAM SOD 3.375 GM in D5W MINI-BAG PLUS 50 ML IV SCH ×4 (02:58→20:56)
[2020-01-12] MEDS: ALBUTEROL SULFATE 2.5 MG/0.5 ML INH NEB SOLN NEB SCH ×5 (03:31→21:12)
[2020-01-12 04:00] VITALS: BP 114/73
[2020-01-12] MEDS: SLF 3 ML SYR IV SCH ×3 (06:08→20:57)
[2020-01-12] MEDS: BUPRENORPHINE/NALOXONE 8-2MG SUBLINGUAL TABLET(SUBOXONE) SL SCH ×5 (06:08→20:57)
[2020-01-12] MEDS: methylPREDNISolone 40MG 1ML VIAL IV SCH ×3 (06:08→22:26)
[2020-01-12] MEDS: TIOTROPIUM INHALER/CAPSULE (SPIRIVA) INH SCH (07:16)
[2020-01-12] MEDS: SYMBICORT 160/4.5MCG INHALER 6GM INH SCH ×2 (07:17→21:13)
[2020-01-12 07:26] LABS: BASO % 0.1 % (0.0-1.0); HEMATOCRIT 43.5 % (42.0-52.0); HEMOGLOBIN 13.6 g/dl (13.5-17.5); LYMPH # 1.1 10^3/uL (1.5-5.0); LYMPH % 6.8 % (24.0-44.0); MEAN CORPUSCULAR HEMOGLOBIN 26.2 pg (27.0-33.0); MEAN CORPUSCULAR HGB CONC 31.3 g/dl (32.0-36.5); MEAN CORPUSCULAR VOLUME 83.7 fl (80.0-96.0); MONO # 0.8 10^3/uL (0.0-0.8); NEUTROPHILS # 14.1 10^3/uL (1.5-8.5); NEUTROPHILS % 87.4 % (36.0-66.0); PLATELET COUNT, AUTOMATED 297 10^3/uL (150-450); WHITE BLOOD COUNT 16.1 10^3/uL (4.0-10.0)
[2020-01-12 07:56] LABS: BLOOD UREA NITROGEN 20 MG/DL (7-18); CALCIUM LEVEL 8.6 MG/DL (8.8-10.2); CARBON DIOXIDE LEVEL 33 MEQ/L (21-32); CHLORIDE LEVEL 108 MEQ/L (98-107); CREATININE FOR GFR 0.73 MG/DL (0.70-1.30); GLOMERULAR FILTRATION RATE > 60.0 (>49); GLUCOSE, FASTING 172 MG/DL (70-100); POTASSIUM SERUM 3.8 MEQ/L (3.5-5.1); SODIUM LEVEL 143 MEQ/L (136-145)
[2020-01-12 08:02] VITALS: BP 128/63
[2020-01-12] MEDS: GABAPENTIN 300 MG CAP PO SCH ×3 (08:35→20:57)
[2020-01-12] MEDS: PREGABALIN 75 MG CAP(LYRICA) PO SCH ×3 (08:35→20:57)
[2020-01-12] MEDS: SENOKOT S TAB PO SCH ×2 (08:35→20:57)
[2020-01-12] MEDS ORDERED: SODIUM CHLORIDE 0.9% 1000ML IV ONE (11:45)
--- NOTE | 2020-01-12 11:46 | IPNPDOC ---
Subjective Date Seen The patient was seen on 01/12/20. Subjective Chief Complaint/HPI Was feeling good last night and early this morning but later int eh morning he was having a coughing fit so that made him feel bad. He requested a regular diet. Still with wheezing and ronchi. He reports that his oxygen drops to 84% at home when he walks to the bathroom. PT eval. Objective Physical Examination General Exam: Positive: Alert, No Acute Distress, Other (conversational dyspnea) Eye Exam: Positive: PERRLA, Conjunctiva & lids normal, EOMI; Negative: Sclera icteric ENT Exam: Positive: Atraumatic, Mucous membr. moist/pink, Pharynx Normal Neck Exam: Positive: Supple; Negative: JVD, thyromegaly Chest Exam: Positive: Rales, Rhonchi, Wheezing Heart Exam: Positive: Tachycardic, Regular Rhythm, Normal S1, Normal S2; Negative: Murmurs, Rubs Abdomen Exam: Positive: Normal bowel sounds, Soft; Negative: Tenderness, Hepatospenomegaly Extremity Exam: Positive: Normal pulses; Negative: Clubbing, Cyanosis, Edema Skin Exam: Positive: Nl turgor and temperature; Negative: Breakdown, Lesion Assessment /Plan Assessment 64 year old male with COPD presented to ED with Dyspnea, SOB and cough worse for 10 days. He had seen his PMD 7 days ago and was diagnosed with pneumonia and given a course of antibiotics which he finished however his SOb and dyspnea did not get better. He was so SOB that he was having trouble talking in full sentences. He also complained of cough however he explained that he was trying to avoid coughing as the coughing fits were making him lightheaded add almost pass out. He also complained of right lower chest wall which gets worse with deep breaths and coughing. In the ED on arrival he was febrile to 101 and he was hypoxic to 86% in RA. CXR showed Right lower lobe pneumonia. COVID was negative. He was admitted for HCAP, acute respiratory failure with hypoxia and copd exacerbation. Acute on chronic respiratory failure with hypoxia and hypercarbia due to Pneumonia/ acute bronchitis/bronchiolitis, COPD exacerbation Oxygen supplementation, Nebs, steroids antibiotics. PT Pneumonia/ acute bronchitis/bronchiolitis MRSA negative blood culture, sputum culture, resp panel continue zosyn COPD exacerbation spiriva, symbicort, replaced home inhalers. albuterol, methyl pred. Dehydration will give NS bolus once. GERD PPI H/o substance abuse On Subaxone HLD statin History of lung cancer; status post lobectomy in 2014. Had Left lower lobe mass 1x1x1 cm poorly differentiated adenocarcinoma with no node spread. History of prostate cancer; status post radical prostatectomy 2007 HTN with Hypertensive heart disease. GERD PPI Chronic pain low back pain/ cervical fracture/old rib fractures/DDD/OA On Suboxone Bipolar disorder not on any meds at this time Plan/VTE VTE Prophylaxis Ordered?: Yes VS, I&O, 24H, Fishbone Vital Signs/I&O Vital Signs Date Time Temp Pulse Resp B/P (MAP) Pulse Ox O2 Delivery O2 Flow Rate FiO2 01/12/20 08:02 98.2 69 20 128/63 (84) 97 Nasal Cannula 2.0 I&O- Last 24 Hours up to 6 AM 01/12/20 05:59 Intake Total 1640 ml Output Total 250 ml Balance 1390 ml Laboratory Data 24H LABS Laboratory Tests 2 01/12/20 07:06: Immature Granulocyte % (Auto) 0.7, Neutrophils (%) (Auto) 87.4H, Lymphocytes (%) (Auto) 6.8L, Monocytes (%) (Auto) 5.0, Eosinophils (%) (Auto) 0.0, Basophils (%) (Auto) 0.1, Neutrophils # (Auto) 14.1H, Lymphocytes # (Auto) 1.1L, Monocytes # (Auto) 0.8, Eosinophils # (Auto) 0.0, Basophils # (Auto) 0.0, Nucleated Red Blood Cells % (auto) 0.0, Anion Gap 2L, Glomerular Filtration Rate > 60.0, Calcium Level 8.6L CBC/BMP Laboratory Tests 01/12/20 07:06 Microbiology Microbiology 01/11/20 Gram Stain - Final, Resulted 01/11/20 Sputum Culture, Resulted Pending 01/11/20 Respiratory Virus Panel (PCR) ([facility]) - Final, Complete 01/10/20 Blood Culture - Preliminary, Resulted No growth after 24 hours . All specim... 01/10/20 Blood Culture - Preliminary, Resulted No growth after 24 hours . All specim... MIKI ANTONIO MD Jan 12, 2020 11:44
[2020-01-12 16:00] VITALS: BP 123/65
[2020-01-12 20:00] VITALS: BP 132/69
[2020-01-12] MEDS: SIMVASTATIN 10 MG TAB PO SCH (20:57)
[2020-01-12] MEDS: ENOXAPARIN 40MG/0.4ML SYRINGE (J1650 PER 10MG) SC SCH (20:57)
[2020-01-13] VITALS: BP 140/86
[2020-01-13] MEDS: ALBUTEROL SULFATE 2.5 MG/0.5 ML INH NEB SOLN NEB SCH ×7 (01:04→23:50)
[2020-01-13] MEDS: PIPERACILLIN/TAZOBACTAM SOD 3.375 GM in D5W MINI-BAG PLUS 50 ML IV SCH ×4 (02:24→21:10)
[2020-01-13 04:00] VITALS: BP 130/79
[2020-01-13 06:28] LABS: BASO % 0.1 % (0.0-1.0); HEMATOCRIT 42.7 % (42.0-52.0); HEMOGLOBIN 13.1 g/dl (13.5-17.5); LYMPH # 0.7 10^3/uL (1.5-5.0); LYMPH % 4.4 % (24.0-44.0); MEAN CORPUSCULAR HEMOGLOBIN 26.2 pg (27.0-33.0); MEAN CORPUSCULAR HGB CONC 30.7 g/dl (32.0-36.5); MEAN CORPUSCULAR VOLUME 85.4 fl (80.0-96.0); MONO # 1.2 10^3/uL (0.0-0.8); MONO % 7.6 % (0.0-5.0); NEUTROPHILS % 86.2 % (36.0-66.0); PLATELET COUNT, AUTOMATED 303 10^3/uL (150-450); WHITE BLOOD COUNT 15.1 10^3/uL (4.0-10.0)
[2020-01-13] MEDS: SLF 3 ML SYR IV SCH ×3 (06:28→21:12)
[2020-01-13] MEDS: BUPRENORPHINE/NALOXONE 8-2MG SUBLINGUAL TABLET(SUBOXONE) SL SCH ×5 (06:28→21:11)
[2020-01-13] MEDS: methylPREDNISolone 40MG 1ML VIAL IV SCH ×3 (06:28→17:21)
[2020-01-13 06:57] LABS: BLOOD UREA NITROGEN 20 MG/DL (7-18); CALCIUM LEVEL 8.5 MG/DL (8.8-10.2); CARBON DIOXIDE LEVEL 34 MEQ/L (21-32); CHLORIDE LEVEL 107 MEQ/L (98-107); GLOMERULAR FILTRATION RATE > 60.0 (>49); GLUCOSE, FASTING 171 MG/DL (70-100); POTASSIUM SERUM 3.7 MEQ/L (3.5-5.1); SODIUM LEVEL 144 MEQ/L (136-145)
[2020-01-13] MEDS: SYMBICORT 160/4.5MCG INHALER 6GM INH SCH ×2 (07:20→20:11)
[2020-01-13] MEDS: TIOTROPIUM INHALER/CAPSULE (SPIRIVA) INH SCH (07:20)
[2020-01-13 08:00] VITALS: BP 122/72
[2020-01-13] MEDS: PREGABALIN 75 MG CAP(LYRICA) PO SCH ×3 (09:44→21:11)
[2020-01-13] MEDS: SENOKOT S TAB PO SCH ×2 (09:45→21:00)
[2020-01-13] MEDS: GABAPENTIN 300 MG CAP PO SCH ×3 (09:45→21:11)
--- NOTE | 2020-01-13 10:21 | IPNPDOC ---
Subjective Date Seen The patient was seen on 01/13/20. Subjective Chief Complaint/HPI Does not feel any better than yesterday, still continues to have severe wheezing and bouts of coughing. No fever or chills, no abdominal pain or nausea or vomiting ro diarrhea. Objective Physical Examination General Exam: Positive: Alert, No Acute Distress, Other (conversational dyspnea) Eye Exam: Positive: PERRLA, Conjunctiva & lids normal, EOMI; Negative: Sclera icteric ENT Exam: Positive: Atraumatic, Mucous membr. moist/pink, Pharynx Normal Neck Exam: Positive: Supple; Negative: JVD, thyromegaly Chest Exam: Positive: Rales, Rhonchi, Wheezing Heart Exam: Positive: Tachycardic, Regular Rhythm, Normal S1, Normal S2; Negative: Murmurs, Rubs Abdomen Exam: Positive: Normal bowel sounds, Soft; Negative: Tenderness, Hepatospenomegaly Extremity Exam: Positive: Normal pulses; Negative: Clubbing, Cyanosis, Edema Skin Exam: Positive: Nl turgor and temperature; Negative: Breakdown, Lesion Assessment /Plan Assessment 64 year old male with COPD presented to ED with Dyspnea, SOB and cough worse for 10 days. He had seen his PMD 7 days ago and was diagnosed with pneumonia and given a course of antibiotics which he finished however his SOb and dyspnea did not get better. He was so SOB that he was having trouble talking in full sentences. He also complained of cough however he explained that he was trying to avoid coughing as the coughing fits were making him lightheaded add almost pass out. He also complained of right lower chest wall which gets worse with deep breaths and coughing. In the ED on arrival he was febrile to 101 and he was hypoxic to 86% in RA. CXR showed Right lower lobe pneumonia. COVID was negative. He was admitted for HCAP, acute respiratory failure with hypoxia and copd exacerbation. Acute on chronic respiratory failure with hypoxia and hypercarbia due to Pneumonia/ acute bronchitis/bronchiolitis, COPD exacerbation Oxygen supplementation, Nebs, steroids antibiotics. PT Pneumonia/ acute bronchitis/bronchiolitis MRSA negative blood culture, sputum culture, resp panel continue zosyn yeast in sputum will add fluconazole COPD exacerbation spiriva, symbicort, replaced home inhalers. albuterol, methyl pred. GERD PPI H/o substance abuse On Subaxone HLD statin History of lung cancer; status post lobectomy in 2014. Had Left lower lobe mass 1x1x1 cm poorly differentiated adenocarcinoma with no node spread. History of prostate cancer; status post radical prostatectomy 2007 HTN with Hypertensive heart disease. GERD PPI Chronic pain low back pain/ cervical fracture/old rib fractures/DDD/OA On Suboxone Bipolar disorder not on any meds at this time Plan/VTE VTE Prophylaxis Ordered?: Yes VS, I&O, 24H, Fishbone Vital Signs/I&O Vital Signs Date Time Temp Pulse Resp B/P (MAP) Pulse Ox O2 Delivery O2 Flow Rate FiO2 01/13/20 08:00 99.0 98 18 122/72 (89) 95 Nasal Cannula 3.0 I&O- Last 24 Hours up to 6 AM 01/13/20 06:00 Intake Total 660 ml Output Total 725 ml Balance -65 ml Laboratory Data 24H LABS Laboratory Tests 2 01/13/20 05:44: Immature Granulocyte % (Auto) 1.7, Neutrophils (%) (Auto) 86.2H, Lymphocytes (%) (Auto) 4.4L, Monocytes (%) (Auto) 7.6H, Eosinophils (%) (Auto) 0.0, Basophils (%) (Auto) 0.1, Neutrophils # (Auto) 13.0H, Lymphocytes # (Auto) 0.7L, Monocytes # (Auto) 1.2H, Eosinophils # (Auto) 0.0, Basophils # (Auto) 0.0, Nucleated Red Blood Cells % (auto) 0.0, Anion Gap 3L, Glomerular Filtration Rate > 60.0, Calcium Level 8.5L CBC/BMP Laboratory Tests 01/13/20 05:44 Microbiology Microbiology 01/11/20 Gram Stain - Final, Complete 01/11/20 Sputum Culture - Final, Complete Yeast Like Organism 01/11/20 Respiratory Virus Panel (PCR) ([facility]) - Final, Complete 01/10/20 Blood Culture - Preliminary, Resulted No Growth after 48 hours. All Specime... 01/10/20 Blood Culture - Preliminary, Resulted No Growth after 48 hours. All Specime... MIKI ANTONIO MD Jan 13, 2020 10:21
[2020-01-13] MEDS ORDERED: FLUCONAZOLE 50MG TABLET PO SCH (10:30)
[2020-01-13 12:00] VITALS: BP 138/84
[2020-01-13 16:00] VITALS: BP 138/88
[2020-01-13] MEDS: FLUCONAZOLE 100 MG TAB PO SCH (17:21)
[2020-01-13 20:00] VITALS: BP 134/76
[2020-01-13] MEDS: ENOXAPARIN 40MG/0.4ML SYRINGE (J1650 PER 10MG) SC SCH (21:10)
[2020-01-13] MEDS: SIMVASTATIN 10 MG TAB PO SCH (21:11)
[2020-01-14] MEDS: methylPREDNISolone 40MG 1ML VIAL IV SCH ×4 (01:07→17:07)
[2020-01-14] MEDS: PIPERACILLIN/TAZOBACTAM SOD 3.375 GM in D5W MINI-BAG PLUS 50 ML IV SCH ×4 (01:07→21:43)
[2020-01-14 04:00] VITALS: BP 157/89
[2020-01-14] MEDS: ALBUTEROL SULFATE 2.5 MG/0.5 ML INH NEB SOLN NEB SCH ×6 (04:08→23:35)
[2020-01-14 06:30] LABS: BASO % 0.2 % (0.0-1.0); HEMATOCRIT 42.7 % (42.0-52.0); HEMOGLOBIN 13.1 g/dl (13.5-17.5); LYMPH # 0.7 10^3/uL (1.5-5.0); LYMPH % 5.6 % (24.0-44.0); MEAN CORPUSCULAR HEMOGLOBIN 26.4 pg (27.0-33.0); MEAN CORPUSCULAR HGB CONC 30.7 g/dl (32.0-36.5); MEAN CORPUSCULAR VOLUME 85.9 fl (80.0-96.0); MONO # 0.7 10^3/uL (0.0-0.8); MONO % 5.1 % (0.0-5.0); NEUTROPHILS # 10.9 10^3/uL (1.5-8.5); PLATELET COUNT, AUTOMATED 275 10^3/uL (150-450); RED BLOOD COUNT 4.97 10^6/uL (4.30-6.10); WHITE BLOOD COUNT 12.7 10^3/uL (4.0-10.0)
[2020-01-14] MEDS: SLF 3 ML SYR IV SCH ×3 (06:32→21:45)
[2020-01-14] MEDS: BUPRENORPHINE/NALOXONE 8-2MG SUBLINGUAL TABLET(SUBOXONE) SL SCH ×5 (06:33→21:44)
[2020-01-14 06:58] LABS: BLOOD UREA NITROGEN 16 MG/DL (7-18); CALCIUM LEVEL 8.9 MG/DL (8.8-10.2); CARBON DIOXIDE LEVEL 37 MEQ/L (21-32); CHLORIDE LEVEL 108 MEQ/L (98-107); CREATININE FOR GFR 0.76 MG/DL (0.70-1.30); GLOMERULAR FILTRATION RATE > 60.0 (>49); GLUCOSE, FASTING 134 MG/DL (70-100); SODIUM LEVEL 147 MEQ/L (136-145)
[2020-01-14 08:00] VITALS: BP 160/96
[2020-01-14] MEDS: TIOTROPIUM INHALER/CAPSULE (SPIRIVA) INH SCH (08:12)
[2020-01-14] MEDS: SYMBICORT 160/4.5MCG INHALER 6GM INH SCH ×2 (08:13→21:01)
[2020-01-14] MEDS: FLUCONAZOLE 100 MG TAB PO SCH (08:17)
[2020-01-14] MEDS: GABAPENTIN 300 MG CAP PO SCH ×3 (08:17→21:44)
[2020-01-14] MEDS: PREGABALIN 75 MG CAP(LYRICA) PO SCH ×3 (08:17→21:44)
[2020-01-14] MEDS: SENOKOT S TAB PO SCH ×2 (08:18→21:00)
--- NOTE | 2020-01-14 09:03 | IPNPDOC ---
Subjective Date Seen The patient was seen on 01/14/20. Subjective Chief Complaint/HPI continues to have severe bouts of coughing, SOB and wheezing worse int eh morning. No fever or chills, Desaturating on ambulation. Objective Physical Examination General Exam: Positive: Alert, No Acute Distress, Other (conversational dyspnea) Eye Exam: Positive: PERRLA, Conjunctiva & lids normal, EOMI; Negative: Sclera icteric ENT Exam: Positive: Atraumatic, Mucous membr. moist/pink, Pharynx Normal Neck Exam: Positive: Supple; Negative: JVD, thyromegaly Chest Exam: Positive: Rales, Rhonchi, Wheezing Heart Exam: Positive: Tachycardic, Regular Rhythm, Normal S1, Normal S2; Negative: Murmurs, Rubs Abdomen Exam: Positive: Normal bowel sounds, Soft; Negative: Tenderness, Hepatospenomegaly Extremity Exam: Positive: Normal pulses; Negative: Clubbing, Cyanosis, Edema Skin Exam: Positive: Nl turgor and temperature; Negative: Breakdown, Lesion Assessment /Plan Assessment 64 year old male with COPD presented to ED with Dyspnea, SOB and cough worse for 10 days. He had seen his PMD 7 days ago and was diagnosed with pneumonia and given a course of antibiotics which he finished however his SOb and dyspnea did not get better. He was so SOB that he was having trouble talking in full sentences. He also complained of cough however he explained that he was trying to avoid coughing as the coughing fits were making him lightheaded add almost pass out. He also complained of right lower chest wall which gets worse with deep breaths and coughing. In the ED on arrival he was febrile to 101 and he was hypoxic to 86% in RA. CXR showed Right lower lobe pneumonia. COVID was negative. He was admitted for HCAP, acute respiratory failure with hypoxia and copd exacerbation. Acute on chronic respiratory failure with hypoxia and hypercarbia due to Pneumonia/ acute bronchitis/bronchiolitis, COPD exacerbation Oxygen supplementation, Nebs, steroids antibiotics. PT Pneumonia/ acute bronchitis/bronchiolitis MRSA negative blood culture, sputum culture, resp panel continue zosyn yeast in sputum will add fluconazole COPD exacerbation spiriva, symbicort, replaced home inhalers. albuterol, methyl pred. GERD PPI H/o substance abuse On Subaxone HLD statin History of lung cancer; status post lobectomy in 2014. Had Left lower lobe mass 1x1x1 cm poorly differentiated adenocarcinoma with no node spread. History of prostate cancer; status post radical prostatectomy 2007 HTN with Hypertensive heart disease. GERD PPI Chronic pain low back pain/ cervical fracture/old rib fractures/DDD/OA On Suboxone Bipolar disorder not on any meds at this time Plan/VTE VTE Prophylaxis Ordered?: Yes VS, I&O, 24H, Fishbone Vital Signs/I&O Vital Signs Date Time Temp Pulse Resp B/P (MAP) Pulse Ox O2 Delivery O2 Flow Rate FiO2 01/14/20 08:00 97.6 108 20 160/96 (117) 92 Nasal Cannula 3.0 I&O- Last 24 Hours up to 6 AM 01/14/20 06:00 Intake Total 2280 ml Output Total 1100 ml Balance 1180 ml Laboratory Data 24H LABS Laboratory Tests 2 01/13/20 12:55: Procalcitonin <0.05 01/14/20 05:49: Immature Granulocyte % (Auto) 3.1H, Neutrophils (%) (Auto) 86.0H, Lymphocytes ( %) (Auto) 5.6L, Monocytes (%) (Auto) 5.1H, Eosinophils (%) (Auto) 0.0, Basophils (%) (Auto) 0.2, Neutrophils # (Auto) 10.9H, Lymphocytes # (Auto) 0.7L, Monocytes # (Auto) 0.7, Eosinophils # (Auto) 0.0, Basophils # (Auto) 0.0, Nucleated Red Blood Cells % (auto) 0.0, Anion Gap 2L, Glomerular Filtration Rate > 60.0, Calcium Level 8.9 CBC/BMP Laboratory Tests 01/14/20 05:49 Microbiology Microbiology 01/11/20 Gram Stain - Final, Complete 01/11/20 Sputum Culture - Final, Complete Yeast Like Organism 01/11/20 Respiratory Virus Panel (PCR) ([facility]) - Final, Complete 01/10/20 Blood Culture - Preliminary, Resulted No Growth after 72 hours. All specime... 01/10/20 Blood Culture - Preliminary, Resulted No Growth after 72 hours. All specime... MIKI ANTONIO MD Jan 14, 2020 09:03
[2020-01-14 12:00] VITALS: BP 154/90
[2020-01-14 16:00] VITALS: BP 168/97
[2020-01-14 20:00] VITALS: BP 136/84
[2020-01-14] MEDS: SIMVASTATIN 10 MG TAB PO SCH (21:44)
[2020-01-14] MEDS: ENOXAPARIN 40MG/0.4ML SYRINGE (J1650 PER 10MG) SC SCH (21:44)
[2020-01-15] MEDS: methylPREDNISolone 40MG 1ML VIAL IV SCH ×3 (01:15→16:51)
[2020-01-15] MEDS: PIPERACILLIN/TAZOBACTAM SOD 3.375 GM in D5W MINI-BAG PLUS 50 ML IV SCH (01:16)
[2020-01-15 04:00] VITALS: BP 134/80
[2020-01-15] MEDS: ALBUTEROL SULFATE 2.5 MG/0.5 ML INH NEB SOLN NEB SCH ×5 (04:15→20:00)
[2020-01-15] MEDS: BUPRENORPHINE/NALOXONE 8-2MG SUBLINGUAL TABLET(SUBOXONE) SL SCH ×5 (05:32→21:05)
[2020-01-15] MEDS: SLF 3 ML SYR IV SCH ×3 (05:32→21:08)
[2020-01-15 05:41] LABS: BASO % 0.3 % (0.0-1.0); HEMATOCRIT 42.7 % (42.0-52.0); LYMPH # 0.8 10^3/uL (1.5-5.0); LYMPH % 6.5 % (24.0-44.0); MEAN CORPUSCULAR HEMOGLOBIN 26.2 pg (27.0-33.0); MEAN CORPUSCULAR HGB CONC 30.4 g/dl (32.0-36.5); MEAN CORPUSCULAR VOLUME 85.9 fl (80.0-96.0); MONO # 0.6 10^3/uL (0.0-0.8); NEUTROPHILS # 9.6 10^3/uL (1.5-8.5); NEUTROPHILS % 83.5 % (36.0-66.0); PLATELET COUNT, AUTOMATED 259 10^3/uL (150-450); RED BLOOD COUNT 4.97 10^6/uL (4.30-6.10); WHITE BLOOD COUNT 11.5 10^3/uL (4.0-10.0)
[2020-01-15 06:11] LABS: BLOOD UREA NITROGEN 16 MG/DL (7-18); CALCIUM LEVEL 8.4 MG/DL (8.8-10.2); CARBON DIOXIDE LEVEL 35 MEQ/L (21-32); CHLORIDE LEVEL 103 MEQ/L (98-107); CREATININE FOR GFR 0.79 MG/DL (0.70-1.30); GLOMERULAR FILTRATION RATE > 60.0 (>49); GLUCOSE, FASTING 186 MG/DL (70-100); POTASSIUM SERUM 4.1 MEQ/L (3.5-5.1); SODIUM LEVEL 143 MEQ/L (136-145)
[2020-01-15 08:00] VITALS: BP 145/80
[2020-01-15] MEDS: TIOTROPIUM INHALER/CAPSULE (SPIRIVA) INH SCH (08:10)
[2020-01-15] MEDS: SYMBICORT 160/4.5MCG INHALER 6GM INH SCH ×2 (08:10→20:08)
[2020-01-15] MEDS: SENOKOT S TAB PO SCH ×2 (09:46→21:00)
[2020-01-15] MEDS: FLUCONAZOLE 100 MG TAB PO SCH (09:46)
[2020-01-15] MEDS: GABAPENTIN 300 MG CAP PO SCH ×3 (09:46→21:06)
[2020-01-15] MEDS: PREGABALIN 75 MG CAP(LYRICA) PO SCH ×3 (09:46→21:06)
[2020-01-15] MEDS: AUGMENTIN 875 MG TAB PO SCH ×2 (09:46→21:06)
--- NOTE | 2020-01-15 11:27 | IPNPDOC ---
Subjective Date Seen The patient was seen on 01/15/20. Subjective Chief Complaint/HPI Some improvement but elvia says still not back to baseline. Continues to have severe bouts of coughing and wheezing. Still on oxygen. No fever or chills Objective Physical Examination General Exam: Positive: Alert, Cooperative, No Acute Distress, Other (conversational dyspnea) Eye Exam: Positive: PERRLA, Conjunctiva & lids normal, EOMI; Negative: Sclera icteric ENT Exam: Positive: Atraumatic, Mucous membr. moist/pink, Pharynx Normal Neck Exam: Positive: Supple; Negative: JVD, thyromegaly Chest Exam: Positive: Rales, Rhonchi, Wheezing Heart Exam: Positive: Tachycardic, Regular Rhythm, Normal S1, Normal S2; Negative: Murmurs, Rubs Abdomen Exam: Positive: Normal bowel sounds, Soft; Negative: Tenderness, Hepatospenomegaly Extremity Exam: Positive: Normal pulses; Negative: Clubbing, Cyanosis, Edema Skin Exam: Positive: Nl turgor and temperature; Negative: Breakdown, Lesion Assessment /Plan Assessment 64 year old male with COPD presented to ED with Dyspnea, SOB and cough worse for 10 days. He had seen his PMD 7 days ago and was diagnosed with pneumonia and giv en a course of antibiotics which he finished however his SOb and dyspnea did not get better. He was so SOB that he was having trouble talking in full sentences. He also complained of cough however he explained that he was trying to avoid coughing as the coughing fits were making him lightheaded add almost pass out. He also complained of right lower chest wall which gets worse with deep breaths and coughing. In the ED on arrival he was febrile to 101 and he was hypoxic to 86% in RA. CXR showed Right lower lobe pneumonia. COVID was negative. He was admitted for HCAP, acute respiratory failure with hypoxia and copd exacerbation. Acute on chronic respiratory failure with hypoxia and hypercarbia due to Pneumonia/ acute bronchitis/bronchiolitis, COPD exacerbation Oxygen supplementation, Nebs, steroids antibiotics. PT Pneumonia/ acute bronchitis/bronchiolitis MRSA negative resp panel negative zosyn to Augmentin yeast in sputum will add fluconazole procal <0.05 COPD exacerbation spiriva, symbicort, replaced home inhalers. albuterol, methyl pred started tapering. GERD PPI H/o substance abuse On Subaxone HLD statin History of lung cancer; status post lobectomy in 2014. Had Left lower lobe mass 1x1x1 cm poorly differentiated adenocarcinoma with no node spread. History of prostate cancer; status post radical prostatectomy 2007 HTN with Hypertensive heart disease. GERD PPI Chronic pain low back pain/ cervical fracture/old rib fractures/DDD/OA On Suboxone Bipolar disorder not on any meds at this time Plan/VTE VTE Prophylaxis Ordered?: Yes VS, I&O, 24H, Fishbone Vital Signs/I&O Vital Signs Date Time Temp Pulse Resp B/P (MAP) Pulse Ox O2 Delivery O2 Flow Rate FiO2 01/15/20 04:00 97.5 88 18 134/80 (98) 93 Nasal Cannula 3.0 I&O- Last 24 Hours up to 6 AM 01/15/20 07:00 Intake Total 300 ml Output Total 800 ml Balance -500 ml Laboratory Data 24H LABS Laboratory Tests 2 01/15/20 05:06: Immature Granulocyte % (Auto) 4.7H, Neutrophils (%) (Auto) 83.5H, Lymphocytes (%) (Auto) 6.5L, Monocytes (%) (Auto) 5.0, Eosinophils (%) (Auto) 0.0, Basophils (%) (Auto) 0.3, Neutrophils # (Auto) 9.6H, Lymphocytes # (Auto) 0.8L, Monocytes # (Auto) 0.6, Eosinophils # (Auto) 0.0, Basophils # (Auto) 0.0, Nucleated Red Blood Cells % (auto) 0.0, Anion Gap 5L, Glomerular Filtration Rate > 60.0, Calcium Level 8.4L CBC/BMP Laboratory Tests 01/15/20 05:06 Microbiology Microbiology 01/11/20 Gram Stain - Final, Complete 01/11/20 Sputum Culture - Final, Complete Yeast Like Organism 01/11/20 Respiratory Virus Panel (PCR) ([facility]) - Final, Complete 01/10/20 Blood Culture - Preliminary, Resulted No Growth after 72 hours. All specime... 01/10/20 Blood Culture - Preliminary, Resulted No Growth after 72 hours. All specime... MIKI ANTONIO MD Jan 15, 2020 08:06
[2020-01-15 16:00] VITALS: BP 135/87
[2020-01-15 20:00] VITALS: BP 143/81
[2020-01-15] MEDS ORDERED: hydrOXYzine 50 MG TAB PO SCH (21:00)
[2020-01-15] MEDS: SIMVASTATIN 10 MG TAB PO SCH (21:06)
[2020-01-15] MEDS: ENOXAPARIN 40MG/0.4ML SYRINGE (J1650 PER 10MG) SC SCH (21:07)
[2020-01-16] MEDS: ALBUTEROL SULFATE 2.5 MG/0.5 ML INH NEB SOLN NEB SCH ×4 (02:57→12:24)
[2020-01-16 06:00] VITALS: BP 116/71
[2020-01-16] MEDS: methylPREDNISolone 40MG 1ML VIAL IV SCH (06:26)
[2020-01-16] MEDS: BUPRENORPHINE/NALOXONE 8-2MG SUBLINGUAL TABLET(SUBOXONE) SL SCH ×2 (06:26→09:30)
[2020-01-16] MEDS: SLF 3 ML SYR IV SCH (06:27)
[2020-01-16 06:47] LABS: BASO # 0.1 10^3/uL (0.0-0.2); BASO % 0.5 % (0.0-1.0); EOS % 0.2 % (0.0-3.0); HEMATOCRIT 41.3 % (42.0-52.0); HEMOGLOBIN 12.5 g/dl (13.5-17.5); LYMPH # 1.6 10^3/uL (1.5-5.0); LYMPH % 13.2 % (24.0-44.0); MEAN CORPUSCULAR HEMOGLOBIN 25.8 pg (27.0-33.0); MEAN CORPUSCULAR HGB CONC 30.3 g/dl (32.0-36.5); MEAN CORPUSCULAR VOLUME 85.3 fl (80.0-96.0); MONO # 1.2 10^3/uL (0.0-0.8); NEUTROPHILS # 8.8 10^3/uL (1.5-8.5); NEUTROPHILS % 72.4 % (36.0-66.0); PLATELET COUNT, AUTOMATED 256 10^3/uL (150-450); RED BLOOD COUNT 4.84 10^6/uL (4.30-6.10); WHITE BLOOD COUNT 12.2 10^3/uL (4.0-10.0)
[2020-01-16 07:08] LABS: BLOOD UREA NITROGEN 22 MG/DL (7-18); CALCIUM LEVEL 8.6 MG/DL (8.8-10.2); CARBON DIOXIDE LEVEL 40 MEQ/L (21-32); CHLORIDE LEVEL 104 MEQ/L (98-107); CREATININE FOR GFR 0.73 MG/DL (0.70-1.30); GLOMERULAR FILTRATION RATE > 60.0 (>49); GLUCOSE, FASTING 132 MG/DL (70-100); POTASSIUM SERUM 4.2 MEQ/L (3.5-5.1); SODIUM LEVEL 145 MEQ/L (136-145)
[2020-01-16] MEDS: SYMBICORT 160/4.5MCG INHALER 6GM INH SCH (07:39)
[2020-01-16] MEDS: TIOTROPIUM INHALER/CAPSULE (SPIRIVA) INH SCH (07:39)
[2020-01-16] MEDS: AUGMENTIN 875 MG TAB PO SCH (09:29)
[2020-01-16] MEDS: GABAPENTIN 300 MG CAP PO SCH (09:29)
[2020-01-16] MEDS: FLUCONAZOLE 100 MG TAB PO SCH (09:29)
[2020-01-16] MEDS: PREGABALIN 75 MG CAP(LYRICA) PO SCH (09:29)
[2020-01-16] MEDS: SENOKOT S TAB PO SCH (09:29)
[2020-01-16] MEDS ORDERED: AMOX875T2 PO (09:47)
[2020-01-16] MEDS ORDERED: PRED20TA PO (09:47)
--- NOTE | 2020-01-16 14:16 | DS ---
DATE OF ADMISSION: 01/10/2020 DATE OF DISCHARGE: 01/16/2020 PRINCIPAL DIAGNOSIS: Health care associated pneumonia. SECONDARY DIAGNOSES: * Acute on chronic respiratory failure with hypoxia and hypercarbia. * Exacerbation of COPD. * History of substance abuse. * Hyperlipidemia. * History of lung cancer. * History of prostate cancer. * Hypertensive heart disease. * Chronic low back pain. * Bipolar disorder. PRIMARY CARE PROVIDER: VIJAYA Denson, [facility]. HISTORY: Patient admitted with pneumonia. For complete details see History and Physical of admission. HOSPITAL COURSE: I assumed the patient's care on the day of discharge. He was admitted with pneumonia deemed to be hospital associated. I do not see the details of what the health care contact was, but he was treated for health care associated pneumonia right lower lobe on scanning, had a fever of 101 on admission, responded to prescribed antibiotic therapy, was treated with Zosyn and vancomycin. MRSA returned negative. Vancomycin was discontinued. Developed some thrush, was put on Diflucan for this. Had slow, gradual response to prescribed therapy. Had some ____ hypoxemia yesterday, but today he is no longer hypoxemic, his O2 saturation on room air is 96% at rest, 93% ambulating. He feels ready for discharge. At the time of this dictation there are no pending labs. PHYSICAL EXAMINATION ON DISCHARGE: Lungs: Have a few wheezes. Heart: Rhythm regular. Abdomen: Soft, nontender. Extremities: No peripheral edema. Neck: No JVD. LABORATORY DATA ON DISCHARGE: White count 12.2 on steroids, hemoglobin 12.5, platelets 256. Sodium 145, potassium 4.2, BUN 22, creatinine 0.7, glucose 132. Procalcitonin was below detectable range. MRSA was negative. COVID was negative. His sputum just grew out some yeast. Respiratory panel was negative. DISPOSITION: Patient discharged home in improved and stable condition. FOLLOW UP: He will follow up with his primary care provider in a week. DISCHARGE MEDICATIONS: His medicines will continue to be: * Albuterol by nebulizer every 4 hours p.r.n. * Suboxone per previous dosing. * Vitamin D 2000 units daily. * Arnuity Ellipta 200 mcg, 1 puff daily. * Gabapentin 600 mg three times a day. * Hydroxyzine 50 mg at bedtime. * Levocetirizine 5 mg at bedtime. * Lyrica 75 mg three times a day. * Simvastatin 10 mg at bedtime. * Stiolto Respimat 4 gram inhalation twice a day. * Multivitamin. * Stera tablet 1 daily. New medications: * Augmentin 875 mg twice a day for 5 days. * Prednisone 20 mg daily for 5 days. MTDD
== END 2020-01-16 12:55 | disposition home or self-care (01) | DRG 139 ==
LOC: M ED 11:15 → EDBD 11:15 → EEVIPCON 18:56 → M ED INP 18:56 → M PCU 22:55 → M MS5PR 01-15 22:20
PROVIDERS: ADMIT Internal Medicine Nephrology; ATTEND Family Medicine
DX: J18.9 Pneumonia, unspecified organism (principal); J96.21 Acute and chronic respiratory failure with hypoxia; I11.9 Hypertensive heart disease without heart failure; J96.22 Acute and chronic respiratory failure with hypercapnia; J44.1 Chronic obstructive pulmonary disease with (acute) exacerbation; J44.0 Chronic obstructive pulmonary disease with (acute) lower respiratory infection; F31.9 Bipolar disorder, unspecified; M54.5 Low back pain; Z85.118 Personal history of other malignant neoplasm of bronchus and lung; Z85.46 Personal history of malignant neoplasm of prostate; E78.5 Hyperlipidemia, unspecified; Z79.899 Other long term (current) drug therapy; K21.9 Gastro-esophageal reflux disease without esophagitis

== ENCOUNTER → 2020-03-23 | Outpatient (REF) | payer OTHER ==
[~2020-03-23] MED LIST changes: +ALBU83IN NEB; +AMOX875T2 PO; +D31000TA2 PO; -ESCI20TA PO; +ESCI20TA16 PO; +PRED20TA PO; +PROAAER10 INH; +QUET50TA3 PO; -QUET5TAB PO
[2020-03-23 16:24] LABS: HEMATOCRIT 45.7 % (42.0-52.0); HEMOGLOBIN 14.1 g/dl (13.5-17.5); MEAN CORPUSCULAR HEMOGLOBIN 25.5 pg (27.0-33.0); MEAN CORPUSCULAR HGB CONC 30.9 g/dl (32.0-36.5); MEAN CORPUSCULAR VOLUME 82.8 fl (80.0-96.0); PLATELET COUNT, AUTOMATED 381 10^3/uL (150-450); RED BLOOD COUNT 5.52 10^6/uL (4.30-6.10); WHITE BLOOD COUNT 10.4 10^3/uL (4.0-10.0)
[2020-03-23 16:29] LABS: BLOOD UREA NITROGEN 8 MG/DL (7-18); CALCIUM LEVEL 9.3 MG/DL (8.8-10.2); CARBON DIOXIDE LEVEL 35 MEQ/L (21-32); CHLORIDE LEVEL 103 MEQ/L (98-107); GLOMERULAR FILTRATION RATE > 60.0 (>49); GLUCOSE, FASTING 96 MG/DL (70-100); NT-PRO BNP 24 PG/ML (<125); POTASSIUM SERUM 3.9 MEQ/L (3.5-5.1); SODIUM LEVEL 143 MEQ/L (136-145)
== END ==
LOC: M LAB REF 15:48
PROVIDERS: ATTEND Physician Assistant
DX: R60.0 Localized edema (principal)

== ENCOUNTER 2020-04-15 10:27 | Observation (INO) | payer OTHER ==
[~2020-04-15] VITALS: Ht 175.3 cm; Wt 65.8 kg
[~2020-04-15 10:27] MED LIST changes: -PROAAER10 INH
--- NOTE | 2020-04-15 11:27 | REP ---
INDICATION: DYSPNEA/COUGH. COMPARISON: Comparison chest x-ray 10 January 2020. TECHNIQUE: Portable upright AP chest radiograph. FINDINGS: The lungs are somewhat hyperinflated. There is mild bibasilar fibrosis. Old healed rib fractures are noted on the left. No acute infiltrate is seen. There is mild linear fibrosis in the right apex. Heart is not enlarged. Monitoring electrodes are seen.. IMPRESSION: No active disease. <Electronically signed by Nando Henriquez > 04/15/20 [id number]
[2020-04-15 11:49] LABS: BASO % 0.1 % (0.0-1.0); EOS % 0.1 % (0.0-3.0); HEMATOCRIT 46.4 % (42.0-52.0); HEMOGLOBIN 14.4 g/dl (13.5-17.5); LYMPH # 0.7 10^3/uL (1.5-5.0); LYMPH % 4.9 % (24.0-44.0); MEAN CORPUSCULAR HEMOGLOBIN 25.9 pg (27.0-33.0); MEAN CORPUSCULAR VOLUME 83.3 fl (80.0-96.0); MONO # 0.3 10^3/uL (0.0-0.8); MONO % 2.1 % (0.0-5.0); NEUTROPHILS # 12.7 10^3/uL (1.5-8.5); NEUTROPHILS % 92.4 % (36.0-66.0); PLATELET COUNT, AUTOMATED 327 10^3/uL (150-450); RED BLOOD COUNT 5.57 10^6/uL (4.30-6.10); WHITE BLOOD COUNT 13.8 10^3/uL (4.0-10.0)
[2020-04-15 12:03] LABS: PROTHROMBIN TIME 13.4 SECONDS (12.5-14.3)
[2020-04-15 12:17] LABS: RSV AMPLIFICATION NEGATIVE (NEGATIVE)
[2020-04-15 12:23] LABS: ALBUMIN 3.4 GM/DL (3.2-5.2); ALT/SGPT 15 U/L (12-78); BILIRUBIN,DIRECT 0.2 MG/DL (0.0-0.2); BILIRUBIN,TOTAL 0.6 MG/DL (0.2-1.0); BLOOD UREA NITROGEN 9 MG/DL (7-18); CALCIUM LEVEL 9.4 MG/DL (8.8-10.2); CARBON DIOXIDE LEVEL 37 MEQ/L (21-32); CHLORIDE LEVEL 103 MEQ/L (98-107); CK-MB VALUE MASS 3.6 NG/ML (<3.6); CPK CREATINE PHOSPHOKINASE 82 U/L (39-308); CREATININE FOR GFR 0.63 MG/DL (0.70-1.30); GLOMERULAR FILTRATION RATE > 60.0 (>49); GLUCOSE, FASTING 111 MG/DL (70-100); MB/CK RELATIVE INDEX 4.39 (< OR =4); NT-PRO BNP 297 PG/ML (<125); POTASSIUM SERUM 4.4 MEQ/L (3.5-5.1); SODIUM LEVEL 145 MEQ/L (136-145); THYROID STIMULATING HORMONE 0.731 uIU/ML (0.358-3.740); THYROXINE (T4) 14.1 UG/DL (4.5-12.0); TOTAL PROTEIN 7.2 GM/DL (6.4-8.2); TROPONIN I < 0.02 NG/ML (< 0.10)
[2020-04-15] MEDS ORDERED: methylPREDNISolone 125MG 2ML VIAL IV ONE (12:30)
[2020-04-15] MEDS ORDERED: IPRATROPIUM 0.5MG/ALBUTEROL 2.5MG INH SOL UD 3ML (DUONEB) NEB ONE ×3 (12:30→16:30)
[2020-04-15] MEDS ORDERED: ISOVUE-370 76% 100ML VIAL As Ordered ONE (12:47)
--- NOTE | 2020-04-15 14:09 | REP ---
INDICATION: chest pain, sob. History of lung and prostate carcinoma. COMPARISON: Comparison chest CT study November 21, 2019.. TECHNIQUE: Contrast dose: ML of Isovue [address] technique: Helical scanning is acquired and overlapping 1.5 mm and contiguous 3 mm axial images are reformatted. In addition, maximum intensity projection and multiplanar re-formation images are generated in sagittal and coronal imaging projections. FINDINGS: There is good opacification in the pulmonary arterial tree. There is no evidence of vessel cut off or filling defect to suggest pulmonary embolus. Homogeneous opacity is seen in the thoracic aorta. There is no evidence of aneurysm or dissection. Lung window settings demonstrate no CT evidence of pleural or pericardial effusion. There is some linear pleuroparenchymal fibrosis in the left upper lobe which is unchanged. There are areas of bronchial wall thickening in the upper lobes bilaterally consistent with bronchitis. There are mild tree-in-bud type inflammatory changes visible in the right lower lobe consistent with very subtle inflammatory change. No is stab list infiltrate is seen. In the upper abdomen, normal adrenal glands are observed. There is a 14 mm low-density area in the right lobe of the liver consistent with a cyst and unchanged from the November 21, 2019 study. Gallbladder is unremarkable. The common bile duct appears prominent extending into the pancreatic head. This is not completely included in the imaging field of view but the visualized portion of the common bile duct measures up to 15 mm. The tail and body of the pancreas are unremarkable. The head of the pancreas is not completely included. No bony destructive lesion is seen. IMPRESSION: No CT evidence of pulmonary embolus. There are subtle changes consistent with a bronchitis and early inflammatory disease in the right upper lobe and right lower lobe and left upper lobe. Post surgical changes are noted in the left lung. No hilar or mediastinal adenopathy is seen. Question dilated common bile duct 15 mm incompletely included in the field of view. <Electronically signed by Nando Henriquez > 04/15/20 [id number]
[2020-04-15 14:30] VITALS: O2SAT 80
[2020-04-15] MEDS ORDERED: PROAAER10 INH (17:37)
[2020-04-15] MEDS ORDERED: ACETAMINOPHEN TAB 650MG DOSE (2X325MG) PO PRN (17:45)
[2020-04-15] MEDS ORDERED: ALBUTEROL SULFATE 2.5 MG/0.5 ML INH NEB SOLN NEB PRN (17:45)
--- NOTE | 2020-04-15 17:57 | HPEPDOC ---
General Date of Admission 04/15/20 Date of Service: Apr 15, 2020 Chief Complaint The patient is a 64-year-old male admitted with a reason for visit of Diff Breathing. Source: Patient Exam Limitations: No limitations Timing/Duration: Day(s) Severity: Moderate History of Present Illness Patient is 64 years old male with past medical history of COPD oxygen dependent presented to the hospital with increased shortness of breath. Patient stated that he has been having increased shortness of breath for past few days associated with greenish sputum and cough. Patient stated that he continues smoking. In ER patient was found to have white blood count of 15.8, lactic acid within normal limit, EKG negative for acute ischemic changes, troponin negative. CT showed No CT evidence of pulmonary embolus. There are subtle changes consistent with a bronchitis and early inflammatory disease in the right upper lobe and right lower lobe and left upper lobe. Post surgical changes are noted in the left lung. No hilar or mediastinal adenopathy is seen Home Medications Scheduled Buprenorphine HCl/Naloxone HCl (Suboxone 8 mg-2 mg Sl Film) 1 Each Film, 2.5 STRIP SL DAILY, (Reported) Gabapentin (Gabapentin) 600 Mg Tablet, 600 MG PO TID, (Reported) Pregabalin (Pregabalin) 75 Mg Capsule, 75 MG PO TID, (Reported) Scheduled PRN Albuterol Sulf (Albuterol Sulfate) 2.5 Mg/3 Ml Vial.neb, 1 VIAL NEB Q4H PRN for SOB/WHEEZING, (Reported) Albuterol Sulfate (Proair Hfa) 8.5 Gm Hfa.aer.ad, 2 PUFF INH QID PRN for SOB/WHEEZING, (Reported) Allergies Coded Allergies: morphine (Verified Allergy, Mild, itching, 11/11/19) Past Medical History Medical History Bilateral pneumonia in nov 2019 COPD Chronic hypercarbic respiratory failure not requiring supplemental oxygen. History of lung cancer; status post lobectomy. Lft lower lobe mass was a 1x1x1 cm poorly differentiated adenocarcinoma with no node spread. History of prostate cancer; status post radical prostatectomy. Hyperlipidemia. HTN with Hypertensive heart disease. GERD History of umbilical hernia. Degenerative disc disease Old rib fractures Chronic low back pain. Cervical fracture. Bipolar disorder. H/o Polysubstance abuse. Tinnitus. Erectile dysfunction. Degenerative spine disease with multiple bulging discs. Arthritis. Diverticulosis. Left inguinal hernia. History of substance abuse, on chronic Suboxone. Anxiety and depression. Surgical History Surgical History Radical prostatectomy in 2008. Colonoscopy in 2014. Left lung resection in 2015. Cystoscopy. Family History Father . Mother with recurrent urinary tract infections (UTIs), diabetes, and dementia. Social History * Smoker: current smoker Alcohol: sober Drugs: denies A-FIB/CHADSVASC A-FIB History Current/History of A-Fib/PAF?: No Current PO Anticoag Therapy: No Review of Systems Constitutional: Denies: Chills, Fever Eyes: Denies: Pain, Vision change ENT: Denies: Head Aches Skin: Denies: Rash, Lesions Pulmonary: Reports: Dyspnea, Cough Cardiovascular: Denies: Chest Pain, Palpitations Gastrointestinal: Denies: Nausea Genitourinary: Denies: Dysuria, Frequency Hematologic: Denies: Bruising Endocrine: Denies: Polydipsia Musculoskeletal: Denies: Neck Pain Neurological: Denies: Weakness Psych: Reports: Mood Normal Physical Examination General Exam: Negative: Alert, Cooperative Eye Exam: Negative: PERRLA ENT Exam: Negative: Atraumatic Neck Exam: Negative: Supple, JVD Chest Exam: Positive: Wheezing Heart Exam: Positive: Tachycardic Telemetry: Positive: Sinus Abdomen Exam: Positive: Normal bowel sounds Extremity Exam: Positive: Clubbing Skin Exam: Positive: Nl turgor and temperature Neuro Exam: Positive: Strength at 5/5 X4 ext, Cranial Nerves 3-12 NL Psych Exam: Positive: Mental status NL Vital Signs Vital Signs Date Time Temp Pulse Resp B/P (MAP) Pulse Ox O2 Delivery O2 Flow Rate FiO2 04/15/20 16:31 104 24 94 Nasal Cannula 2.0 04/15/20 16:30 146/79 (101) 04/15/20 10:41 97.6 Laboratory Data Labs 24H Laboratory Tests 2 04/15/20 11:31: Immature Granulocyte % (Auto) 0.4, Neutrophils (%) (Auto) 92.4H, Lymphocytes (%) (Auto) 4.9L, Monocytes (%) (Auto) 2.1, Eosinophils (%) (Auto) 0.1, Basophils (%) (Auto) 0.1, Neutrophils # (Auto) 12.7H, Lymphocytes # (Auto) 0.7L, Monocytes # (Auto) 0.3, Eosinophils # (Auto) 0.0, Basophils # (Auto) 0.0, Nucleated Red Blood Cells % (auto) 0.0, Prothrombin Time 13.4, Prothromb Time International Ratio 1.00, Anion Gap 5L, Glomerular Filtration Rate > 60.0, Lactic Acid Level 1.3, Calcium Level 9.4, Total Bilirubin 0.6, Direct Bilirubin 0.2, Aspartate Amino Transf (AST/SGOT) 10, Alanine Aminotransferase (ALT/SGPT) 15, Alkaline Phosphatase 99, Total Creatine Kinase 82, Creatine Kinase MB 3.6, Creatine Kinase MB Relative Index 4.39H, Troponin I < 0.02, BM-Qyo-R-Type Natriuretic Peptide 297H, Total Protein 7.2, Albumin 3.4, Albumin/Globulin Ratio 0.9, Thyroid Stimulating Hormone (TSH) 0.731, Thyroxine (T4) 14.1H, Coronavirus (COVID-19)(PCR) NEGATIVE, Influenza Type A (RT-PCR) NEGATIVE, Influenza Type B (RT-PCR) NEGATIVE, Respiratory Syncytial Virus (PCR) NEGATIVE CBC/BMP Laboratory Tests 04/15/20 11:31 Assessment/Plan Patient is 64 years old male with past medical history of COPD oxygen dependent presented to the hospital with increased shortness of breath. Patient stated that he has been having increased shortness of breath for past few days associated with greenish sputum and cough. Patient stated that he continues smoking. In ER patient was found to have white blood count of 15.8, lactic acid within normal limit, EKG negative for acute ischemic changes, troponin negative. CT showed No CT evidence of pulmonary embolus. There are subtle changes consistent with a bronchitis and early inflammatory disease in the right upper lobe and right lower lobe and left upper lobe. Post surgical changes are noted in the left lung. No hilar or mediastinal adenopathy is seen Problems (1) Acute and chronic respiratory failure with hypoxia Status: Acute Problem Text: Secondary to COPD exacerbation Patient developed tachypnea with increased oxygen requirements Patient had mild wheezing Sputum culture Levofloxacin IV Solu-Medrol Inhalers (2) COPD exacerbation Status: Acute Problem Text: See above (3) Lung cancer Status: Acute Problem Text: Status post left lung resection Follow-up with oncologist in the outpatient settings (4) GERD (gastroesophageal reflux disease) Status: Chronic Problem Text: PPI (5) History of drug abuse Status: Chronic Problem Text: Continue Suboxone Plan / VTE VTE Prophylaxis Ordered?: Yes DAVID REBOLLAR DO Apr 15, 2020 17:57
[2020-04-15] MEDS ORDERED: PILL CUTTER 1 EACH XX PRN (18:00)
--- OUTSIDE RECORDS SUMMARY | 2020-04-15 18:21 | CCD ---
Author Organization Unknown Address [address] [place] [id number] Phone [phone] Care Team Providers Care Management Engineer Name Role Phone Marc Coleman [place] Unavailable Unavailable Allergies Notes: MORPHINE SULFATE (MORPHINE SULFAT E) Medications Name Status Start Date Stop Date albuterol sulf 90 mcg/actuation breath a ctivated powder inhaler,sensor Inhale 2 puffs every 4 hours by inhalation route as needed. Completed 01/23/2020 albuterol sulfate 2.5 mg/3 mL (0.083 %) solution for nebulization 1 VIAL VIA NEBULIZER EVERY 4 HOURS Active Not available albuterol sulfate HFA 90 mcg/actuation a erosol inhaler INHALE TWO PUFFS BY MOUTH EVERY 4 HOURS Active Not available amoxicillin 875 mg tablet Completed 2019 Arnuity Ellipta 200 mcg/actuation powder for inhalation Active Not available buprenorphine 8 mg-naloxone 2 mg subling ual film TAKE 1/2 FILM BY MOUTH FIVE TIMES A DAY MAXIMUM DAILY DOSE 2 1/2 FILMS Active Not available bupropion HCl SR 150 mg tablet,12 hr marc tained-release TAKE ONE TABLET BY MOUTH EVERY DAY Active Not available cholecalciferol (vitamin D3) 50 mcg (2,0 00 unit) capsule TAKE ONE CAPSULE BY MOUTH EVERY DAY Completed 05/2019 doxycycline monohydrate 100 mg capsule TAKE ONE CAPSULE BY MOUTH TWICE A DAY FOR 7 DAYS Completed 01/06/2020 duloxetine 30 mg capsule,delayed release Completed 01/06/2020 duloxetine 60 mg capsule,delayed release TAKE ONE CAPSULE BY MOUTH EVERY DAY Completed 05/2019 escitalopram 10 mg tablet TAKE ONE TABLET BY MOUTH EVERY DAY Completed 05/2019 escitalopram 5 mg tablet TAKE ONE TABLET BY MOUTH EVERY MORNING Completed 01/06/2020 gabapentin 400 mg capsule Completed 2019 gabapentin 600 mg tablet TAKE ONE TABLET BY MOUTH THREE TIMES A DAY DIRECTED Active Not available hydroxyzine HCl 50 mg tablet TAKE ONE TABLET BY MOUTH EVERY DAY NEEDED FOR ITCHING OR ANXIETY Active Not available levocetirizine 5 mg tablet TAKE ONE TABLET BY MOUTH AT BEDTIME Completed 05/2019 levofloxacin 500 mg tablet Completed 01/05 levofloxacin 750 mg tablet Completed 01/18 Lexapro 20 mg tablet Take 1 tablet every day by oral route as directed. Completed 01/19/2020 nicotine (polacrilex) 4 mg gum CHEW ONE PIECE OF GUM BUCCALLY EVERY 1 2 HOURS NEEDED Completed 01/19/2020 prednisone 10 mg tablet TAKE 4 TABLETS BY MOUTH ONCE DAILY FOR 4 DAYS THEN 3 TABLETS ONCE DAILY FOR 4 DAYS THEN 2 TABLETS ONCE DAILY FOR 4 DAYS THEN 1 TABLET ONCE D Active Not available prednisone 20 mg tablet Completed 01/23/20 20 pregabalin 50 mg capsule Completed pregabalin 75 mg capsule TAKE ONE CAPSULE BY MOUTH THREE TIMES A DAY MAXIMUM DAILY DOSE 3 CAPSULES Active Not available simvastatin 10 mg tablet Take 1 tablet every day by oral route as directed. Active Not available Stiolto Respimat 2.5 mcg-2.5 mcg/actuation solution for inhalati on Active Not available Suboxone 8 mg-[address] 1 tablet every day by sublingual route. Completed 01/19/2020 Systane (propylene glycol) 0.4 %-0.3 % eye drops Active Not available triamcinolone acetonide 0.1 % topical cr eam APPLY TO LEGS TWO TIMES A DAY NEEDED FOR ITCHING Completed 01/06/2020 vitamin d3 50 mcg (2000 ut) caps Completed 01/06/2020 Vitamin D3 50 mcg (2,000 unit) tablet TAKE ONE TABLET BY MOUTH EVERY DAY Active Not available Problems Name Status Onset Date Source Genuine Stress Incontinence Active 08/07/2017 Hist ory Low Back Pain Active 08/07/2017 History Chronic Obstructive Lung Disease Active 08/20/2018 History Wheezing Active 08/20/[address] Concept Unknown 10/02/2018 History Hyperlipidemia Active 11/19/2018 History Mixed Anxiety and Depressive Disorder Active 11/19/2018 History Cholelithiasis with Obstruction Active 01/08/2019 History Clinical Finding Active 02/03/2019 History Chest Pain Unknown 03/24/2019 History Prediabetes Active 03/24/2019 History Body Measurement Finding Unknown 05/14/2019 History Nicotine Dependence Active 06/13/2019 History Vitamin D Deficiency Active 10/16/2019 History Patient Asked to Attend Active 10/16/2019 History Procedures Date Name Performed by 01/05/2020 XR, Chest, 2 View [facility] [address], [place] [id number] (Work Place) Notes: Radical Prostectomy (2006), Parti al L Lung Removal (2014) Results Lab Results Date Name Specimen Result Interpretation Description Value Range Status Address 01/16/2020 CBC W/ Auto Diff High White Blood Count 12.2 10 4.0-10.0 10 [facility]: [address] [place] [address] Normal Red Blood Count 4.84 10 4.30-6.10 10 [facility]: [address] [place] [address] Low Hemoglobin 12.5 g/dL 13.5-17.5 g/dL [facility]: [address] [place] [address] Low Hematocrit 41.3 % 42.0-52.0 % [facility]: [address] [place] [address] Normal Mean Corpuscular Volume 85.3 fL 80.0 -96.0 fL [facility]: [address] [place] [address] Low Mean Corpuscular Hemoglobin 25.8 pg 27.0-33.0 pg [facility]: [address] [place] [address] Low Mean Corpuscular HGB Conc 30.3 g/dL 32.0-36.5 g/dL [facility]: [address] [place] [address] High Red Cell Distribution Width 18.3 % 1 1.5-14.5 % [facility]: [address] [place] [address] Normal Platelet Count, Automated 256 10 150 -450 10 [facility]: 0 [facility] High Neutrophils % 72.4 % 36.0-66.0 % [facility]: [address] [place] [address] Low Lymph % 13.2 % 24.0-44.0 % [facility]: [address] [facility] High Will % 10.0 % 0.0-5.0 % [facility]: [address] [place] [address] Normal Eos % 0.2 % 0.0-3.0 % [facility]: [address] [facility] Normal Baso % 0.5 % 0.0-1.0 % [facility]: [address] [facility] High Immature Granulocyte % 3.7 % 0-3.0 % [facility]: [address] [facility] Normal Nucleated Red Blood Cell % 0.0 % 0- 0 % [facility]: [address] [facility] High Neutrophils # 8.8 10 1.5-8.5 10 [facility]: [address] [facility] Normal Lymph # 1.6 10 1.5-5.0 10 [facility]: [address] [facility] High Will # 1.2 10 0.0-0.8 10 [facility]: [address] [facility] Normal Eos # 0.0 10 0.0-0.5 10 [facility]: [address] [facility] Normal Baso # 0.1 10 0.0-0.2 10 [facility]: [address] [facility] 01/16/2020 BMP, Serum or Plasma High Glucose, Fastin g 132 mg/dL 70-100 mg/dL [facility]: 83 0 [facility] High Blood Urea Nitrogen 22 mg/dL 7-18 mg /dL [facility]: 0 [facility] Normal Creatinine for GFR 0.73 mg/dL 0.70-1 .30 mg/dL [facility]: 0 [facility] Normal Glomerular Filtration Rate > 60.0 >4 9 [facility]: [address] [facility] Normal Sodium Level 145 mEq/L 136-145 mEq/L [facility]: 0 [facility] Normal Potassium Serum 4.2 mEq/L 3.5-5.1 mE q/L [facility]: 0 [facility] Normal Chloride Level 104 mEq/L 98-107 mEq/ L [facility]: 0 [facility] High Carbon Dioxide Level 40 mEq/L 21-32 mEq/L [facility]: [address] [place] [address] Low Anion Gap 1 mEq/L 8-16 mEq/L [facility]: [address] [place] [address] Low Calcium Level 8.6 mg/dL 8.8-10.2 mg/ dL [facility]: [address] [place] [address] 01/15/2020 CBC W/ Auto Diff High White Blood Count 11.5 10 4.0-10.0 10 [facility]: [address] [facility] Normal Red Blood Count 4.97 10 4.30-6.10 10 [facility]: [address] [place] [address] Low Hemoglobin 13.0 g/dL 13.5-17.5 g/dL [facility]: [address] [place] [address] Normal Hematocrit 42.7 % 42.0-52.0 % [facility]: [address] [place] [address] Normal Mean Corpuscular Volume 85.9 fL 80.0 -96.0 fL [facility]: [address] [place] [address] Low Mean Corpuscular Hemoglobin 26.2 pg 27.0-33.0 pg [facility]: [address] [place] [address] Low Mean Corpuscular HGB Conc 30.4 g/dL 32.0-36.5 g/dL [facility]: [address] [place] [address] High Red Cell Distribution Width 18.2 % 1 1.5-14.5 % [facility]: 0 [facility] Normal Platelet Count, Automated 259 10 150 -450 10 [facility]: 0 [facility] High Neutrophils % 83.5 % 36.0-66.0 % [facility]: 0 [facility] Low Lymph % 6.5 % 24.0-44.0 % [facility]: [address] [facility] Normal Will % 5.0 % 0.0-5.0 % [facility]: [address] [facility] Normal Eos % 0.0 % 0.0-3.0 % [facility]: [address] [facility] Normal Baso % 0.3 % 0.0-1.0 % [facility]: [address] [facility] High Immature Granulocyte % 4.7 % 0-3.0 % [facility]: [address] [facility] Normal Nucleated Red Blood Cell % 0.0 % 0- 0 % [facility]: [address] [facility] High Neutrophils # 9.6 10 1.5-8.5 10 [facility]: [address] [facility] Low Lymph # 0.8 10 1.5-5.0 10 [facility]: [address] [facility] Normal Will # 0.6 10 0.0-0.8 10 [facility]: [address] [facility] Normal Eos # 0.0 10 0.0-0.5 10 [facility]: [address] [facility] Normal Baso # 0.0 10 0.0-0.2 10 [facility]: [address] [facility] 01/15/2020 BMP, Serum or Plasma High Glucose, Fastin g 186 mg/dL 70-100 mg/dL [facility]: 83 0 [facility] Normal Blood Urea Nitrogen 16 mg/dL 7-18 mg /dL [facility]: 0 [facility] Normal Creatinine for GFR 0.79 mg/dL 0.70-1 .30 mg/dL [facility]: [address] [facility] Normal Glomerular Filtration Rate > 60.0 >4 9 [facility]: [address] [facility] Normal Sodium Level 143 mEq/L 136-145 mEq/L [facility]: 0 [facility] Normal Potassium Serum 4.1 mEq/L 3.5-5.1 mE q/L [facility]: [address] [facility] Normal Chloride Level 103 mEq/L 98-107 mEq/ L [facility]: [address] [facility] High Carbon Dioxide Level 35 mEq/L 21-32 mEq/L [facility]: [address] [facility] Low Anion Gap 5 mEq/L 8-16 mEq/L [facility]: [address] [facility] Low Calcium Level 8.4 mg/dL 8.8-10.2 mg/ dL [facility]: [address] [facility] 01/14/2020 CBC W/ Auto Diff High White Blood Count 12.7 10 4.0-10.0 10 [facility]: [address] [facility] Normal Red Blood Count 4.97 10 4.30-6.10 10 [facility]: [address] [facility] Low Hemoglobin 13.1 g/dL 13.5-17.5 g/dL [facility]: [address] [facility] Normal Hematocrit 42.7 % 42.0-52.0 % [facility]: [address] [facility] Normal Mean Corpuscular Volume 85.9 fL 80.0 -96.0 fL [facility]: [address] [place] [address] Low Mean Corpuscular Hemoglobin 26.4 pg 27.0-33.0 pg [facility]: [address] [place] [address] Low Mean Corpuscular HGB Conc 30.7 g/dL 32.0-36.5 g/dL [facility]: 0 [facility] High Red Cell Distribution Width 18.6 % 1 1.5-14.5 % [facility]: 0 [facility] Normal Platelet Count, Automated 275 10 150 -450 10 [facility]: 0 [facility] High Neutrophils % 86.0 % 36.0-66.0 % [facility]: [address] [facility] Low Lymph % 5.6 % 24.0-44.0 % [facility]: [address] [facility] High Will % 5.1 % 0.0-5.0 % [facility]: [address] [facility] Normal Eos % 0.0 % 0.0-3.0 % [facility]: [address] [facility] Normal Baso % 0.2 % 0.0-1.0 % [facility]: [address] [facility] High Immature Granulocyte % 3.1 % 0-3.0 % [facility]: [address] [facility] Normal Nucleated Red Blood Cell % 0.0 % 0- 0 % [facility]: [address] [facility] High Neutrophils # 10.9 10 1.5-8.5 10 [facility]: [address] [facility] Low Lymph # 0.7 10 1.5-5.0 10 [facility]: [address] [facility] Normal Will # 0.7 10 0.0-0.8 10 [facility]: [address] [facility] Normal Eos # 0.0 10 0.0-0.5 10 [facility]: [address] [facility] Normal Baso # 0.0 10 0.0-0.2 10 [facility]: 0 [facility] 01/14/2020 BMP, Serum or Plasma High Glucose, Fastin g 134 mg/dL 70-100 mg/dL [facility]: 83 0 [facility] Normal Blood Urea Nitrogen 16 mg/dL 7-18 mg /dL [facility]: 0 [facility] Normal Creatinine for GFR 0.76 mg/dL 0.70-1 .30 mg/dL [facility]: [address] [facility] Normal Glomerular Filtration Rate > 60.0 >4 9 [facility]: [address] [facility] High Sodium Level 147 mEq/L 136-145 mEq/L [facility]: 0 [facility] D Potassium Serum 5.0 mEq/L 3.5-5.1 mE q/L [facility]: 0 [facility] High Chloride Level 108 mEq/L 98-107 mEq/ L [facility]: [address] [place] [address] High Carbon Dioxide Level 37 mEq/L 21-32 mEq/L [facility]: [address] [place] [address] Low Anion Gap 2 mEq/L 8-16 mEq/L [facility]: [address] [place] [address] Normal Calcium Level 8.9 mg/dL 8.8-10.2 mg/ dL [facility]: [address] [place] [address] 01/13/2020 CBC W/ Auto Diff High White Blood Count 15.1 10 4.0-10.0 10 [facility]: [address] [place] [address] Normal Red Blood Count 5.00 10 4.30-6.10 10 [facility]: [address] [place] [address] Low Hemoglobin 13.1 g/dL 13.5-17.5 g/dL [facility]: [address] [place] [address] Normal Hematocrit 42.7 % 42.0-52.0 % [facility]: [address] [place] [address] Normal Mean Corpuscular Volume 85.4 fL 80.0 -96.0 fL [facility]: [address] [place] [address] Low Mean Corpuscular Hemoglobin 26.2 pg 27.0-33.0 pg [facility]: [address] [place] [address] Low Mean Corpuscular HGB Conc 30.7 g/dL 32.0-36.5 g/dL [facility]: [address] [place] [address] High Red Cell Distribution Width 18.5 % 1 1.5-14.5 % [facility]: 0 [facility] Normal Platelet Count, Automated 303 10 150 -450 10 [facility]: 0 [facility] High Neutrophils % 86.2 % 36.0-66.0 % [facility]: [address] [facility] Low Lymph % 4.4 % 24.0-44.0 % [facility]: [address] [facility] High Will % 7.6 % 0.0-5.0 % [facility]: [address] [facility] Normal Eos % 0.0 % 0.0-3.0 % [facility]: [address] [facility] Normal Baso % 0.1 % 0.0-1.0 % [facility]: [address] [facility] Normal Immature Granulocyte % 1.7 % 0-3.0 % [facility]: [address] [facility] Normal Nucleated Red Blood Cell % 0.0 % 0- 0 % [facility]: [address] [facility] High Neutrophils # 13.0 10 1.5-8.5 10 [facility]: [address] [facility] Low Lymph # 0.7 10 1.5-5.0 10 [facility]: [address] [facility] High Will # 1.2 10 0.0-0.8 10 [facility]: [address] [facility] Normal Eos # 0.0 10 0.0-0.5 10 [facility]: [address] [facility] Normal Baso # 0.0 10 0.0-0.2 10 [facility]: 0 [facility] 01/13/2020 BMP, Serum or Plasma High Glucose, Fastin g 171 mg/dL 70-100 mg/dL [facility]: 83 0 [facility] High Blood Urea Nitrogen 20 mg/dL 7-18 mg /dL [facility]: 0 [facility] Normal Creatinine for GFR 0.80 mg/dL 0.70-1 .30 mg/dL [facility]: 0 [facility] Normal Glomerular Filtration Rate > 60.0 >4 9 [facility]: [address] [facility] Normal Sodium Level 144 mEq/L 136-145 mEq/L [facility]: 0 [facility] Normal Potassium Serum 3.7 mEq/L 3.5-5.1 mE q/L [facility]: [address] [facility] Normal Chloride Level 107 mEq/L 98-107 mEq/ L [facility]: [address] [place] [address] High Carbon Dioxide Level 34 mEq/L 21-32 mEq/L [facility]: [address] [place] [address] Low Anion Gap 3 mEq/L 8-16 mEq/L [facility]: [address] [place] [address] Low Calcium Level 8.5 mg/dL 8.8-10.2 mg/ dL [facility]: [address] [place] [address] 01/13/2020 Procalcitonin, Serum Normal Procalcitonin <0.0 5 [facility]: [address] [place] [address] 01/12/2020 CBC W/ Auto Diff High White Blood Count 16.1 10 4.0-10.0 10 [facility]: [address] [place] [address] Normal Red Blood Count 5.20 10 4.30-6.10 10 [facility]: [address] [place] [address] Normal Hemoglobin 13.6 g/dL 13.5-17.5 g/dL [facility]: [address] [place] [address] Normal Hematocrit 43.5 % 42.0-52.0 % [facility]: [address] [place] [address] Normal Mean Corpuscular Volume 83.7 fL 80.0 -96.0 fL [facility]: [address] [place] [address] Low Mean Corpuscular Hemoglobin 26.2 pg 27.0-33.0 pg [facility]: [address] [place] [address] Low Mean Corpuscular HGB Conc 31.3 g/dL 32.0-36.5 g/dL [facility]: [address] [place] [address] High Red Cell Distribution Width 18.2 % 1 1.5-14.5 % [facility]: [address] [place] [address] Normal Platelet Count, Automated 297 10 150 -450 10 [facility]: [address] [place] [address] High Neutrophils % 87.4 % 36.0-66.0 % [facility]: [address] [place], [place] [address] Low Lymph % 6.8 % 24.0-44.0 % Final [facility]: [address] [facility] Normal Will % 5.0 % 0.0-5.0 % [facility]: [address] [facility] Normal Eos % 0.0 % 0.0-3.0 % [facility]: [address] [facility] Normal Baso % 0.1 % 0.0-1.0 % [facility]: [address] [facility] Normal Immature Granulocyte % 0.7 % 0-3.0 % [facility]: [address] [facility] Normal Nucleated Red Blood Cell % 0.0 % 0- 0 % [facility]: 0 [facility] High Neutrophils # 14.1 10 1.5-8.5 10 [facility]: [address] [facility] Low Lymph # 1.1 10 1.5-5.0 10 [facility]: [address] [facility] Normal Will # 0.8 10 0.0-0.8 10 [facility]: 0 [facility] Normal Eos # 0.0 10 0.0-0.5 10 [facility]: 0 [facility] Normal Baso # 0.0 10 0.0-0.2 10 [facility]: 0 [facility] 01/12/2020 BMP, Serum or Plasma High Glucose, Fastin g 172 mg/dL 70-100 mg/dL [facility]: 83 0 [facility] Dh Blood Urea Nitrogen 20 mg/dL 7-18 mg /dL [facility]: 0 [facility] Normal Creatinine for GFR 0.73 mg/dL 0.70-1 .30 mg/dL [facility]: [address] [facility] Normal Glomerular Filtration Rate > 60.0 >4 9 [facility]: 0 [facility] Normal Sodium Level 143 mEq/L 136-145 mEq/L [facility]: [address] [place] [address] Normal Potassium Serum 3.8 mEq/L 3.5-5.1 mE q/L [facility]: [address] [place] [address] High Chloride Level 108 mEq/L 98-107 mEq/ L [facility]: [address] [place] [address] High Carbon Dioxide Level 33 mEq/L 21-32 mEq/L [facility]: [address] [place] [address] Low Anion Gap 2 mEq/L 8-16 mEq/L [facility]: [address] [place] [address] Low Calcium Level 8.6 mg/dL 8.8-10.2 mg/ dL [facility]: [address] [place] [address] 01/11/2020 CBC W/ Auto Diff Normal White Blood Count 9.2 10 4.0-10.0 10 [facility]: [address] [place] [address] Normal Red Blood Count 5.26 10 4.30-6.10 10 [facility]: [address] [place] [address] Panic Low Hemoglobin 13.4 g/dL 13.5-17.5 g/ dL [facility]: [address] [place] [address] Normal Hematocrit 43.6 % 42.0-52.0 % [facility]: [address] [place] [address] Normal Mean Corpuscular Volume 82.9 fL 80.0 -96.0 fL [facility]: [address] [place] [address] Low Mean Corpuscular Hemoglobin 25.5 pg 27.0-33.0 pg [facility]: [address] [place] [address] Low Mean Corpuscular HGB Conc 30.7 g/dL 32.0-36.5 g/dL [facility]: [address] [place] [address] High Red Cell Distribution Width 17.5 % 1 1.5-14.5 % [facility]: [address] [place] [address] Normal Platelet Count, Automated 315 10 150 -450 10 [facility]: [address] [place] [address] High Neutrophils % 86.5 % 36.0-66.0 % [facility]: [address] [facility] Low Lymph % 9.3 % 24.0-44.0 % Final [facility]: [address] [facility] Normal Will % 3.3 % 0.0-5.0 % Final [facility]: [address] [facility] Normal Eos % 0.0 % 0.0-3.0 % [facility]: [address] [facility] Normal Baso % 0.1 % 0.0-1.0 % [facility]: [address] [facility] Normal Immature Granulocyte % 0.8 % 0-3.0 % [facility]: [address] [facility] Normal Nucleated Red Blood Cell % 0.0 % 0- 0 % [facility]: [address] [facility] Normal Neutrophils # 8.0 10 1.5-8.5 10 [facility]: [address] [facility] Low Lymph # 0.9 10 1.5-5.0 10 [facility]: [address] [facility] Normal Will # 0.3 10 0.0-0.8 10 [facility]: [address] [facility] Normal Eos # 0.0 10 0.0-0.5 10 [facility]: [address] [facility] Normal Baso # 0.0 10 0.0-0.2 10 [facility]: [address] [facility] 01/11/2020 BMP, Serum or Plasma High Glucose, Fastin g 150 mg/dL 70-100 mg/dL [facility]: 83 0 [facility] Normal Blood Urea Nitrogen 10 mg/dL 7-18 mg /dL [facility]: 0 [facility] Low Creatinine for GFR 0.66 mg/dL 0.70-1 .30 mg/dL [facility]: [address] [facility] Normal Glomerular Filtration Rate > 60.0 >4 9 [facility]: [address] [facility] Normal Sodium Level 141 mEq/L 136-145 mEq/L [facility]: [address] [place] [address] Normal Potassium Serum 4.2 mEq/L 3.5-5.1 mE q/L [facility]: [address] [place] [address] Normal Chloride Level 107 mEq/L 98-107 mEq/ L [facility]: [address] [place] [address] Normal Carbon Dioxide Level 32 mEq/L 21-32 mEq/L [facility]: [address] [place] [address] Low Anion Gap 2 mEq/L 8-16 mEq/L [facility]: [address] [place] [address] Low Calcium Level 8.3 mg/dL 8.8-10.2 mg/ dL [facility]: [address] [place] [address] 01/11/2020 Respiratory Virus Panel NASOPHARYNX No observ ation recorded. [facility]: [address] [place] [address] 01/11/2020 Culture, Sputum SPUTUM No observation recorded. [facility]: [address] [place] [address] 01/10/2020 CBC W/ Auto Diff High White Blood Count 11.4 10 4.0-10.0 10 [facility]: [address] [place] [address] Normal Red Blood Count 6.06 10 4.30-6.10 10 [facility]: [address] [place] [address] Normal Hemoglobin 15.8 g/dL 13.5-17.5 g/dL [facility]: [address] [place] [address] Normal Hematocrit 50.1 % 42.0-52.0 % [facility]: [address] [place] [address] Normal Mean Corpuscular Volume 82.7 fL 80.0 -96.0 fL [facility]: [address] [place] [address] Low Mean Corpuscular Hemoglobin 26.1 pg 27.0-33.0 pg [facility]: [address] [place] [address] Low Mean Corpuscular HGB Conc 31.5 g/dL 32.0-36.5 g/dL [facility]: [address] [place] [address] High Red Cell Distribution Width 18.7 % 1 1.5-14.5 % [facility]: [address] [facility] Normal Platelet Count, Automated 342 10 150 -450 10 [facility]: [address] [facility] High Neutrophils % 73.5 % 36.0-66.0 % [facility]: [address] [facility] Low Lymph % 16.0 % 24.0-44.0 % Final [facility]: [address] [facility] High Will % 8.2 % 0.0-5.0 % Final [facility]: [address] [facility] Normal Eos % 1.2 % 0.0-3.0 % [facility]: [address] [facility] Normal Baso % 0.3 % 0.0-1.0 % [facility]: [address] [facility] Normal Immature Granulocyte % 0.8 % 0-3.0 % [facility]: [address] [facility] Normal Nucleated Red Blood Cell % 0.0 % 0- 0 % [facility]: [address] [facility] Normal Neutrophils # 8.4 10 1.5-8.5 10 [facility]: [address] [facility] Normal Lymph # 1.8 10 1.5-5.0 10 [facility]: [address] [facility] High Will # 0.9 10 0.0-0.8 10 [facility]: [address] [facility] Normal Eos # 0.1 10 0.0-0.5 10 [facility]: [address] [facility] Normal Baso # 0.0 10 0.0-0.2 10 [facility]: 0 [facility] 01/10/2020 Hepatic Function Panel, Serum Normal AST/SG OT 19 U/L 7-37 U/L [facility]: [address] [facility] Normal ALT/SGPT 36 U/L 12-78 U/L Final [facility]: [address] [facility] Normal Alkaline Phosphatase 103 U/L 45-117 U/L [facility]: [address] [facility] Normal Bilirubin,total 0.7 mg/dL 0.2-1.0 mg /dL [facility]: [address] [facility] Normal Bilirubin,direct 0.2 mg/dL 0.0-0.2 m g/dL [facility]: [address] [facility] Low Total Protein 6.3 gm/dL 6.4-8.2 gm/d L [facility]: [address] [facility] Normal Albumin 3.2 gm/dL 3.2-5.2 gm/dL [facility]: 0 [facility] Normal Albumin/globulin Ratio 1.0 [facility]: [address] [place] [address] 01/10/2020 BMP, Serum or Plasma Normal Glucose, Fastin g 100 mg/dL 70-100 mg/dL [facility]: 83 0 [facility] Normal Blood Urea Nitrogen 10 mg/dL 7-18 mg /dL [facility]: 0 [facility] Normal Creatinine for GFR 0.82 mg/dL 0.70-1 .30 mg/dL [facility]: 0 [facility] Normal Glomerular Filtration Rate > 60.0 >4 9 [facility]: [address] [facility] Normal Sodium Level 142 mEq/L 136-145 mEq/L [facility]: 0 [facility] Normal Potassium Serum 3.7 mEq/L 3.5-5.1 mE q/L [facility]: [address] [facility] Normal Chloride Level 103 mEq/L 98-107 mEq/ L [facility]: 0 [facility] High Carbon Dioxide Level 36 mEq/L 21-32 mEq/L [facility]: 0 [facility] Low Anion Gap 3 mEq/L 8-16 mEq/L [facility]: 0 [facility] Normal Calcium Level 9.1 mg/dL 8.8-10.2 mg/ dL [facility]: [address] [place] [address] 01/10/2020 COVID-19 RNA (SARS-CoV-2), QL, associate engineer-PCR, Respirat ory Specimen Normal Sars Covid-19 Amplification negative negative [facility]: [address] [place] [address] 01/10/2020 Lactic Acid, Serum or Plasma Normal Lactic Acid Sepsis Protocol 1.3 mmol/L 0.4-2.0 mmol/L [facility]: [address] [place] [address] 01/10/2020 Mrsa Screen, PCR Normal MRSA PCR Screen no t detected negative [facility]: [address] [place] [address] 01/10/2020 Culture, Blood BLOOD No observation recorded. [facility]: [address] [place] [address] 01/10/2020 Culture, Blood BLOOD No observation recorded. [facility]: [address] [place] [address] 10/07/2019 CMP, Serum or Plasma Normal Glucose , Fasting see separate report [facility] nter: 0 [facility] Normal Blood Urea Nitrogen tnp mg/dL 7-18 m g/dL [facility]: [address] [place] [address] Normal Creatinine for GFR tnp mg/dL 0.70-1. 30 mg/dL [facility]: [address] [place] [address] Normal Glomerular Filtration Rate tnp >4 9 [facility]: [address] [place] [address] Normal Sodium Level tnp mEq/L 136-145 mEq/L [facility]: [address] [place] [address] Normal Potassium Serum tnp mEq/L 3.5-5.1 mE q/L [facility]: [address] [place] [address] Normal Chloride Level tnp mEq/L 98-107 mEq/ L [facility]: [address] [place] [address] Normal Carbon Dioxide Level tnp mmol/L 20-2 9 mmol/L [facility]: [address] [place] [address] Normal Anion Gap tnp mEq/L 8-16 mEq/L [facility]: [address] [facility] Normal Calcium Level tnp mg/dL 8.8-10.2 mg/ dL [facility]: [address] [facility] Normal AST/SGOT tnp IU/L Final [facility]: [address] [facility] Normal ALT/SGPT tnp IU/L 0-32 IU/L [facility]: [address] [facility] Normal Alkaline Phosphatase tnp U/L 45-117 U/L [facility]: [address] [facility] Normal Bilirubin,total tnp mg/dL 0.2-1.0 mg /dL [facility]: [address] [facility] Normal Total Protein tnp gm/dL 6.4-8.2 gm/d L [facility]: [address] [facility] Normal Albumin tnp gm/dL 3.2-5.2 gm/dL [facility]: [address] [facility] Normal Albumin/globulin Ratio tnp [facility]: [address] [facility] 10/07/2019 Lipid Panel, Blood Normal Triglycerides Lev el tnp mg/dL <150 mg/dL [facility]: 83 0 [facility] Normal Cholesterol Level tnp mg/dL <200 mg/ dL [facility]: [address] [facility] Normal HDL Cholesterol tnp mg/dL >40 mg/dL [facility]: [address] [facility] Normal LDL Cholesterol tnp mg/dL <100 mg/dL [facility]: [address] [facility] Normal Non-hdl-c tnp mg/dL [facility]: [address] [facility] Normal Cholesterol Risk Ratio tnp <5 [facility]: [address] [facility] 10/07/2019 TSH + Free T4, Serum Normal Thyroid Stimulating Hormone tnp uIU/mL 0.358-3.740 uIU/mL [facility] nter: [address] [facility] Normal Free T4 tnp NG/dL 0.76-1.46 NG/dL [facility]: [address] [facility] 10/07/2019 Vitamin D, 25-Hydroxy, Total, Serum Normal Total 25(Oh) Vitamin D tnp NG/mL 30.0-100.0 NG/mL Final [facility]: [address] [facility] Past Encounters 03/23/2020 SHAYY HillmanC: [address] [facility] [address], [place] [address], Ph. 03/02/2020 Marc Coleman RPA-C: [address] [facility], [facility] [address], [place] [address], Ph. 01/23/2020 Chronic Obstructive Lung Disease; Low Back Pain; Nicotine Dependence Marc Coleman RPA-C: [address] [facility], [facility] [address], [place] [address], Ph. 01/05/2020 Acute Exacerbation of Chronic Obstructive Airways Disease; Vitamin D Deficiency; Chronic Obstructive Lung Disease; Genuine Stress Incontinence; Administration of Influenza Vaccine JENELLE ReynaC: [address] [facility], [facility] [address], [place] [address], Ph. Social History Tobacco Smoking Status Light Tobacco Smoker (03/08 PPD) Vaccine List Vaccine Type influenza, injectable, quadrivalent, pre servative free 01/05/20200.5 mL Plan of Care Reminders Provider Appointments None recorded. Lab None recorded. Referral None recorded. Procedures None recorded. Surgeries None recorded. Imaging None recorded. Vitals 01/23/2020 01:50PM TCM Height Weight BMI Blood Pressure 69.6 in 170 lbs 6.4 oz 24.7 kg/m2 115/77 mm[Hg ] 01/05/2020 11:30AM ESTABLISHED [id number] Height Weight BMI Blood Pressure 69.6 in 165 lbs 2 oz 24 kg/m2 117/69 mm[Hg] 10/20/2019 Height Weight 69.6 in 168 lbs 10/16/2019 Height Weight Blood Pressure 69.6 in 167 lbs 6.08 oz 112/75 mm[Hg] 09/08/2019 Height Weight Blood Pressure 69.6 in 165 lbs 9.6 oz 118/78 mm[Hg] 08/25/2019 Height Weight 69.6 in 164 lbs 4 oz 07/14/2019 Height Weight Blood Pressure 69.6 in 161 lbs 2.08 oz 128/81 mm[Hg] 06/13/2019 Height Weight Blood Pressure 69.6 in 157 lbs 8 oz 133/87 mm[Hg] 05/14/2019 Height Weight Blood Pressure 69.6 in 162 lbs 128/88 mm[Hg] 05/12/2019 Height Weight 69.6 in 158 lbs 8 oz 03/24/2019 Height Weight Blood Pressure 69.6 in 168 lbs 2.08 oz 125/76 mm[Hg] 02/03/2019 Height Weight Blood Pressure 69.6 in 161 lbs 3.2 oz 123/80 mm[Hg] 12/25/2018 Height Weight Blood Pressure 69.6 in 156 lbs 136/89 mm[Hg] 11/19/2018 Height Weight Blood Pressure 69.6 in 161 lbs 118/80 mm[Hg] 10/02/2018 Height Weight Blood Pressure 69.6 in 158 lbs 122/82 mm[Hg] 08/20/2018 Height Weight Blood Pressure 69.6 in 169 lbs 6.08 oz 136/93 mm[Hg] 06/21/2018 Height Weight Blood Pressure 69.6 in 170 lbs 124/84 mm[Hg] 05/02/2018 Height Weight Blood Pressure 69.6 in 177 lbs 134/88 mm[Hg] 03/14/2018 Height Weight Blood Pressure 69.6 in 172 lbs 134/91 mm[Hg]
--- OUTSIDE RECORDS SUMMARY | 2020-04-15 18:22 | CCD ---
Author Organization Unknown Address [address] [place] [id number] Phone [phone] Care Team Providers [facility] Name Role Phone Marc Coleman Selma Unavailable Unavailable Allergies Notes: MORPHINE SULFATE (MORPHINE SULFAT E) Medications Name Status Start Date Stop Date albuterol sulf 90 mcg/actuation breath a ctivated powder inhaler,sensor Inhale 2 puffs every 4 hours by inhalation route as needed. Completed 01/23/2020 albuterol sulfate 2.5 mg/3 mL (0.083 %) solution for nebulization USE 1 VIAL VIA THE NEBULIZER EVERY 4 HOURS Active Not available albuterol sulfate HFA 90 mcg/actuation a erosol inhaler Inhale 2 puffs every 4 hours by inhalation route. Active Not available amoxicillin 875 mg tablet Completed 2019 Arnuity Ellipta 200 mcg/actuation powder for inhalation Active Not available buprenorphine 8 mg-naloxone 2 mg subling ual film PLACE ONE HALF FILM UNDER THE TONGUE FIVE TIMES A DAY MAXIMUM DAILY DOSE TWO AND ONE HALF STRIP Active Not available bupropion HCl SR 150 [...] capsule Completed 2019 gabapentin 600 mg tablet Take 1 tablet 3 times a day by oral route as directed. Active Not available hydroxyzine HCl 50 mg tablet Active Not available levocetirizine 5 mg tablet TAKE ONE TABLET BY MOUTH AT BEDTIME Completed 05/2019 levofloxacin 500 mg tablet Completed 01/05 levofloxacin 750 mg tablet Completed 01/18 Lexapro 20 mg tablet Take 1 tablet every day by oral route as directed. Completed 01/19/2020 Lyrica 75 mg capsule Take 1 capsule 3 times a day by oral route as directed. Active Not available nicotine (polacrilex) 4 mg gum CHEW ONE PIECE OF GUM BUCCALLY EVERY 1 2 HOURS NEEDED Completed 01/19/2020 prednisone 10 mg tablet Completed 01/06/20 prednisone 20 mg tablet Completed 01/23/20 pregabalin 50 mg capsule Completed 020 simvastatin 10 mg tablet Take 1 tablet [...] Performed by 01/05/2020 XR, Chest, 2 View [facility] nter [address] [place] [address] (Work Place) Notes: Radical Prostectomy (2007), Parti al L Lung Removal (2015) Results Lab Results Date Name Specimen Result Interpretation Description Value Range Status Address 01/16/2020 CBC W/ Auto Diff High White Blood Count 12.2 10 4.0-10.0 10 [facility]: [address] [place] [address] Normal Red Blood Count 4.84 10 4.30-6.10 10 [facility]: [address] [place] [address] Low Hemoglobin 12.5 g/dL 13.5-17.5 g/dL [facility]: [address] [place] [address] Low Hematocrit 41.3 % 42.0-52.0 % [facility]: [address] [place] [address] Normal Mean Corpuscular Volume 85.3 fL 80.0 -96.0 fL [facility]: [address] [place] [address] Low Mean Corpuscular Hemoglobin 25.8 pg 27.0-33.0 pg [facility]: [address] [place] [address] Low Mean Corpuscular HGB Conc 30.3 g/dL 32.0-36.5 g/dL [facility]: [address] [place] [address] High Red Cell Distribution Width 18.3 % 1 1.5-14.5 % [facility]: [address] [place] [address] Normal Platelet Count, Automated 256 10 150 -450 10 [facility]: [address] [place] [address] High Neutrophils % 72.4 % 36.0-66.0 % [facility]: 0 [facility] Low Lymph % 13.2 % 24.0-44.0 % [facility]: [address] [place] [address] High [place] % 10.0 % 0.0-5.0 % [facility]: [address] [place] [address] Normal Eos % 0.2 % 0.0-3.0 % [facility]: [address] [place] [address] Normal Baso % 0.5 % 0.0-1.0 % [facility]: [address] [facility] High Immature Granulocyte % 3.7 % 0-3.0 % [facility]: [address] [facility] Normal Nucleated Red Blood Cell % 0.0 % 0- 0 % [facility]: [address] [facility] High Neutrophils # 8.8 10 1.5-8.5 10 [facility]: [address] [facility] Normal Lymph # 1.6 10 1.5-5.0 10 [facility]: [address] [facility] High [place] # 1.2 10 0.0-0.8 10 [facility]: [address] [facility] Normal Eos # 0.0 10 0.0-0.5 10 [facility]: [address] [facility] Normal Baso # 0.1 10 0.0-0.2 10 [facility]: [address] [facility] 01/16/2020 BMP, Serum or Plasma High Glucose, Fastin g 132 mg/dL 70-100 mg/dL [facility]: 83 0 [facility] High Blood Urea Nitrogen 22 mg/dL 7-18 mg /dL [facility]: 0 [facility] Normal Creatinine for GFR 0.73 mg/dL 0.70-1 .30 mg/dL [facility]: 0 [facility] Normal Glomerular Filtration Rate > 60.0 >4 9 [facility]: [address] [facility] Normal Sodium Level 145 mEq/L 136-145 mEq/L [facility]: 0 [facility] Normal Potassium Serum 4.2 mEq/L 3.5-5.1 mE q/L [facility]: 0 [facility] Normal Chloride Level 104 mEq/L 98-107 mEq/ L [facility]: 0 [facility] High Carbon Dioxide Level 40 mEq/L 21-32 mEq/L [facility]: 0 [facility] Low Anion Gap 1 mEq/L 8-16 mEq/L [facility]: [address] [facility] Low Calcium Level 8.6 mg/dL 8.8-10.2 mg/ dL [facility]: 0 [facility] 01/15/2020 CBC W/ Auto Diff High White Blood Count 11.5 10 4.0-10.0 10 [facility]: [address] [facility] Normal Red Blood Count 4.97 10 4.30-6.10 10 [facility]: [address] [facility] Low Hemoglobin 13.0 g/dL 13.5-17.5 g/dL [facility]: [address] [place] [address] Normal Hematocrit 42.7 % 42.0-52.0 % [facility]: [address] [place] [address] Normal Mean Corpuscular Volume 85.9 fL 80.0 -96.0 fL [facility]: [address] [place] [address] Low Mean Corpuscular Hemoglobin 26.2 pg 27.0-33.0 pg [facility]: [address] [place] [address] Low Mean Corpuscular HGB Conc 30.4 g/dL 32.0-36.5 g/dL [facility]: [address] [place] [address] High Red Cell Distribution Width 18.2 % 1 1.5-14.5 % [facility]: [address] [place] [address] Normal Platelet Count, Automated 259 10 150 -450 10 [facility]: 0 [facility] High Neutrophils % 83.5 % 36.0-66.0 % [facility]: [address] [facility] Low Lymph % 6.5 % 24.0-44.0 % [facility]: [address] [facility] Normal [place] % 5.0 % 0.0-5.0 % [facility]: [address] [facility] Normal Eos % 0.0 % 0.0-3.0 % [facility]: [address] [facility] Normal Baso % 0.3 % 0.0-1.0 % [facility]: [address] [facility] High Immature Granulocyte % 4.7 % 0-3.0 % [facility]: [address] [facility] Normal Nucleated Red Blood Cell % 0.0 % 0- 0 % [facility]: [address] [facility] High Neutrophils # 9.6 10 1.5-8.5 10 [facility]: [address] [facility] Low Lymph # 0.8 10 1.5-5.0 10 [facility]: [address] [facility] Normal [place] # 0.6 10 0.0-0.8 10 [facility]: [address] [facility] Normal Eos # 0.0 10 0.0-0.5 10 [facility]: [address] [facility] Normal Baso # 0.0 10 0.0-0.2 10 [facility]: [address] [facility] 01/15/2020 BMP, Serum or Plasma High Glucose, Fastin g 186 mg/dL 70-100 mg/dL [facility]: 83 0 [facility] Normal Blood Urea Nitrogen 16 mg/dL 7-18 mg /dL [facility]: 0 [facility] Normal Creatinine for GFR 0.79 mg/dL 0.70-1 .30 mg/dL [facility]: 0 [facility] Normal Glomerular Filtration Rate > 60.0 >4 9 [facility]: [address] [facility] Normal Sodium Level 143 mEq/L 136-145 mEq/L [facility]: 0 [facility] Normal Potassium Serum 4.1 mEq/L 3.5-5.1 mE q/L [facility]: 0 [facility] Normal Chloride Level 103 mEq/L 98-107 mEq/ L [facility]: 0 [facility] High Carbon Dioxide Level 35 mEq/L 21-32 mEq/L [facility]: 0 [facility] Low Anion Gap 5 mEq/L 8-16 mEq/L [facility]: [address] [place] [address] Low Calcium Level 8.4 mg/dL 8.8-10.2 mg/ dL [facility]: [address] [place] [address] 01/14/2020 CBC W/ Auto Diff High White Blood Count 12.7 10 4.0-10.0 10 [facility]: [address] [place] [address] Normal Red Blood Count 4.97 10 4.30-6.10 10 [facility]: [address] [place] [address] Low Hemoglobin 13.1 g/dL 13.5-17.5 g/dL [facility]: [address] [place] [address] Normal Hematocrit 42.7 % 42.0-52.0 % [facility]: [address] [place] [address] Normal Mean Corpuscular Volume 85.9 fL 80.0 -96.0 fL [facility]: [address] [place] [address] Low Mean Corpuscular Hemoglobin 26.4 pg 27.0-33.0 pg [facility]: [address] [place] [address] Low Mean Corpuscular HGB Conc 30.7 g/dL 32.0-36.5 g/dL [facility]: [address] [place] [address] High Red Cell Distribution Width 18.6 % 1 1.5-14.5 % [facility]: [address] [place] [address] Normal Platelet Count, Automated 275 10 150 -450 10 [facility]: 0 [facility] High Neutrophils % 86.0 % 36.0-66.0 % [facility]: [address] [facility] Low Lymph % 5.6 % 24.0-44.0 % [facility]: [address] [facility] High [place] % 5.1 % 0.0-5.0 % [facility]: [address] [facility] Normal Eos % 0.0 % 0.0-3.0 % [facility]: 0 [facility] Normal Baso % 0.2 % 0.0-1.0 % [facility]: [address] [facility] High Immature Granulocyte % 3.1 % 0-3.0 % [facility]: [address] [facility] Normal Nucleated Red Blood Cell % 0.0 % 0- 0 % [facility]: [address] [facility] High Neutrophils # 10.9 10 1.5-8.5 10 [facility]: [address] [facility] Low Lymph # 0.7 10 1.5-5.0 10 [facility]: [address] [facility] Normal [place] # 0.7 10 0.0-0.8 10 [facility]: [address] [facility] Normal Eos # 0.0 10 0.0-0.5 10 [facility]: [address] [facility] Normal Baso # 0.0 10 0.0-0.2 10 [facility]: [address] [facility] 01/14/2020 BMP, Serum or Plasma High Glucose, Fastin g 134 mg/dL 70-100 mg/dL [facility]: 83 0 [facility] Normal Blood Urea Nitrogen 16 mg/dL 7-18 mg /dL [facility]: 0 [facility] Normal Creatinine for GFR 0.76 mg/dL 0.70-1 .30 mg/dL [facility]: [address] [facility] Normal Glomerular Filtration Rate > 60.0 >4 9 [facility]: [address] [facility] High Sodium Level 147 mEq/L 136-145 mEq/L [facility]: [address] [facility] D Potassium Serum 5.0 mEq/L 3.5-5.1 mE q/L [facility]: 0 [facility] High Chloride Level 108 mEq/L 98-107 mEq/ L [facility]: 0 [facility] High Carbon Dioxide Level 37 mEq/L 21-32 mEq/L [facility]: [address] [facility] Low Anion Gap 2 mEq/L 8-16 mEq/L [facility]: [address] [facility] Normal Calcium Level 8.9 mg/dL 8.8-10.2 mg/ dL [facility]: [address] [place] [address] 01/13/2020 CBC W/ Auto Diff High White Blood Count 15.1 10 4.0-10.0 10 [facility]: [address] [facility] Normal Red Blood Count 5.00 10 4.30-6.10 10 [facility]: [address] [facility] Low Hemoglobin 13.1 g/dL 13.5-17.5 g/dL [facility]: [address] [place] [address] Normal Hematocrit 42.7 % 42.0-52.0 % [facility]: [address] [place] [address] Normal Mean Corpuscular Volume 85.4 fL 80.0 -96.0 fL [facility]: [address] [place] [address] Low Mean Corpuscular Hemoglobin 26.2 pg 27.0-33.0 pg [facility]: [address] [place] [address] Low Mean Corpuscular HGB Conc 30.7 g/dL 32.0-36.5 g/dL [facility]: [address] [place] [address] High Red Cell Distribution Width 18.5 % 1 1.5-14.5 % [facility]: 0 [facility] Normal Platelet Count, Automated 303 10 150 -450 10 [facility]: [address] [facility] High Neutrophils % 86.2 % 36.0-66.0 % [facility]: [address] [facility] Low Lymph % 4.4 % 24.0-44.0 % [facility]: [address] [facility] High [place] % 7.6 % 0.0-5.0 % [facility]: [address] [facility] Normal Eos % 0.0 % 0.0-3.0 % [facility]: [address] [facility] Normal Baso % 0.1 % 0.0-1.0 % [facility]: [address] [facility] Normal Immature Granulocyte % 1.7 % 0-3.0 % [facility]: [address] [facility] Normal Nucleated Red Blood Cell % 0.0 % 0- 0 % [facility]: [address] [facility] High Neutrophils # 13.0 10 1.5-8.5 10 [facility]: [address] [facility] Low Lymph # 0.7 10 1.5-5.0 10 [facility]: [address] [facility] High [place] # 1.2 10 0.0-0.8 10 [facility]: [address] [facility] Normal Eos # 0.0 10 0.0-0.5 10 [facility]: [address] [facility] Normal Baso # 0.0 10 0.0-0.2 10 [facility]: [address] [facility] 01/13/2020 BMP, Serum or Plasma High Glucose, Fastin g 171 mg/dL 70-100 mg/dL [facility]: 83 0 [facility] High Blood Urea Nitrogen 20 mg/dL 7-18 mg /dL [facility]: 0 [facility] Normal Creatinine for GFR 0.80 mg/dL 0.70-1 .30 mg/dL [facility]: [address] [facility] Normal Glomerular Filtration Rate > 60.0 >4 9 [facility]: [address] [facility] Normal Sodium Level 144 mEq/L 136-145 mEq/L [facility]: 0 [facility] Normal Potassium Serum 3.7 mEq/L 3.5-5.1 mE q/L [facility]: [address] [facility] Normal Chloride Level 107 mEq/L 98-107 mEq/ L [facility]: [address] [facility] High Carbon Dioxide Level 34 mEq/L 21-32 mEq/L [facility]: [address] [place] [address] Low Anion Gap 3 mEq/L 8-16 mEq/L [facility]: [address] [place] [address] Low Calcium Level 8.5 mg/dL 8.8-10.2 mg/ dL [facility]: [address] [place] [address] 01/13/2020 Procalcitonin, Serum Normal Procalcitonin <0.0 5 [facility]: [address] [place] [address] 01/12/2020 CBC W/ Auto Diff High White Blood Count 16.1 10 4.0-10.0 10 [facility]: [address] [place] [address] Normal Red Blood Count 5.20 10 4.30-6.10 10 [facility]: [address] [place] [address] Normal Hemoglobin 13.6 g/dL 13.5-17.5 g/dL [facility]: [address] [place] [address] Normal Hematocrit 43.5 % 42.0-52.0 % [facility]: [address] [place] [address] Normal Mean Corpuscular Volume 83.7 fL 80.0 -96.0 fL [facility]: [address] [place] [address] Low Mean Corpuscular Hemoglobin 26.2 pg 27.0-33.0 pg [facility]: [address] [place] [address] Low Mean Corpuscular HGB Conc 31.3 g/dL 32.0-36.5 g/dL [facility]: [address] [place] [address] High Red Cell Distribution Width 18.2 % 1 1.5-14.5 % [facility]: [address] [place] [address] Normal Platelet Count, Automated 297 10 150 -450 10 [facility]: 0 [facility] High Neutrophils % 87.4 % 36.0-66.0 % [facility]: 0 [facility] Low Lymph % 6.8 % 24.0-44.0 % [facility]: [address] [facility] Normal [place] % 5.0 % 0.0-5.0 % [facility]: [address] [facility] Normal Eos % 0.0 % 0.0-3.0 % [facility]: [address] [facility] Normal Baso % 0.1 % 0.0-1.0 % [facility]: [address] [facility] Normal Immature Granulocyte % 0.7 % 0-3.0 % [facility]: [address] [facility] Normal Nucleated Red Blood Cell % 0.0 % 0- 0 % [facility]: [address] [facility] High Neutrophils # 14.1 10 1.5-8.5 10 [facility]: [address] [facility] Low Lymph # 1.1 10 1.5-5.0 10 [facility]: [address] [facility] Normal [place] # 0.8 10 0.0-0.8 10 [facility]: [address] [facility] Normal Eos # 0.0 10 0.0-0.5 10 [facility]: [address] [facility] Normal Baso # 0.0 10 0.0-0.2 10 [facility]: [address] [facility] 01/12/2020 BMP, Serum or Plasma High Glucose, Fastin g 172 mg/dL 70-100 mg/dL [facility]: 83 0 [facility] Dh Blood Urea Nitrogen 20 mg/dL 7-18 mg /dL [facility]: 0 [facility] Normal Creatinine for GFR 0.73 mg/dL 0.70-1 .30 mg/dL [facility]: 0 [facility] Normal Glomerular Filtration Rate > 60.0 >4 9 [facility]: [address] [facility] Normal Sodium Level 143 mEq/L 136-145 mEq/L [facility]: 0 [facility] Normal Potassium Serum 3.8 mEq/L 3.5-5.1 mE q/L [facility]: [address] [place] [address] High Chloride Level 108 mEq/L 98-107 mEq/ L [facility]: [address] [place] [address] High Carbon Dioxide Level 33 mEq/L 21-32 mEq/L [facility]: [address] [place] [address] Low Anion Gap 2 mEq/L 8-16 mEq/L [facility]: [address] [place] [address] Low Calcium Level 8.6 mg/dL 8.8-10.2 mg/ dL [facility]: [address] [place] [address] 01/11/2020 CBC W/ Auto Diff Normal White Blood Count 9.2 10 4.0-10.0 10 [facility]: [address] [place] [address] Normal Red Blood Count 5.26 10 4.30-6.10 10 [facility]: [address] [place] [address] Panic Low Hemoglobin 13.4 g/dL 13.5-17.5 g/ dL [facility]: [address] [place] [address] Normal Hematocrit 43.6 % 42.0-52.0 % [facility]: [address] [place] [address] Normal Mean Corpuscular Volume 82.9 fL 80.0 -96.0 fL [facility]: [address] [place] [address] Low Mean Corpuscular Hemoglobin 25.5 pg 27.0-33.0 pg [facility]: [address] [place] [address] Low Mean Corpuscular HGB Conc 30.7 g/dL 32.0-36.5 g/dL [facility]: [address] [place] [address] High Red Cell Distribution Width 17.5 % 1 1.5-14.5 % [facility]: [address] [place] [address] Normal Platelet Count, Automated 315 10 150 -450 10 [facility]: 0 [facility] High Neutrophils % 86.5 % 36.0-66.0 % [facility]: [address] [place] [address] Low Lymph % 9.3 % 24.0-44.0 % [facility]: [address] [facility] Normal [place] % 3.3 % 0.0-5.0 % [facility]: [address] [facility] Normal Eos % 0.0 % 0.0-3.0 % [facility]: [address] [facility] Normal Baso % 0.1 % 0.0-1.0 % [facility]: [address] [facility] Normal Immature Granulocyte % 0.8 % 0-3.0 % [facility]: [address] [facility] Normal Nucleated Red Blood Cell % 0.0 % 0- 0 % [facility]: [address] [facility] Normal Neutrophils # 8.0 10 1.5-8.5 10 [facility]: 0 [facility] Low Lymph # 0.9 10 1.5-5.0 10 [facility]: [address] [facility] Normal [place] # 0.3 10 0.0-0.8 10 [facility]: [address] [facility] Normal Eos # 0.0 10 0.0-0.5 10 [facility]: 0 [facility] Normal Baso # 0.0 10 0.0-0.2 10 [facility]: [address] [facility] 01/11/2020 BMP, Serum or Plasma High Glucose, Fastin g 150 mg/dL 70-100 mg/dL [facility]: 83 0 [facility] Normal Blood Urea Nitrogen 10 mg/dL 7-18 mg /dL [facility]: 0 [facility] Low Creatinine for GFR 0.66 mg/dL 0.70-1 .30 mg/dL [facility]: 0 [facility] Normal Glomerular Filtration Rate > 60.0 >4 9 [facility]: [address] [facility] Normal Sodium Level 141 mEq/L 136-145 mEq/L [facility]: 0 [facility] Normal Potassium Serum 4.2 mEq/L 3.5-5.1 mE q/L [facility]: [address] [place] [address] Normal Chloride Level 107 mEq/L 98-107 mEq/ L [facility]: [address] [place] [address] Normal Carbon Dioxide Level 32 mEq/L 21-32 mEq/L [facility]: [address] [place] [address] Low Anion Gap 2 mEq/L 8-16 mEq/L [facility]: [address] [place] [address] Low Calcium Level 8.3 mg/dL 8.8-10.2 mg/ dL [facility]: [address] [place] [address] 01/11/2020 Respiratory Virus Panel NASOPHARYNX No observ ation recorded. [facility]: [address] [place] [address] 01/11/2020 Culture, Sputum SPUTUM No observation recorded. [facility]: [address] [place] [address] 01/10/2020 CBC W/ Auto Diff High White Blood Count 11.4 10 4.0-10.0 10 [facility] [facility] [address] [place] [address] Normal Red Blood Count 6.06 10 4.30-6.10 10 [facility]: [address] [place] [address] Normal Hemoglobin 15.8 g/dL 13.5-17.5 g/dL [facility]: [address] [place] [address] Normal Hematocrit 50.1 % 42.0-52.0 % [facility]: [address] [place] [address] Normal Mean Corpuscular Volume 82.7 fL 80.0 -96.0 fL [facility]: [address] [place] [address] Low Mean Corpuscular Hemoglobin 26.1 pg 27.0-33.0 pg [facility]: [address] [place] [address] Low Mean Corpuscular HGB Conc 31.5 g/dL 32.0-36.5 g/dL [facility]: [address] [place] [address] High Red Cell Distribution Width 18.7 % 1 1.5-14.5 % [facility]: [address] [place] [address] Normal Platelet Count, Automated 342 10 150 -450 10 [facility]: [address] [facility] High Neutrophils % 73.5 % 36.0-66.0 % [facility]: [address] [facility] Low Lymph % 16.0 % 24.0-44.0 % [facility]: [address] [facility] High [place] % 8.2 % 0.0-5.0 % Final [facility]: [address] [facility] Normal Eos % 1.2 % 0.0-3.0 % [facility]: [address] [facility] Normal Baso % 0.3 % 0.0-1.0 % [facility]: [address] [facility] Normal Immature Granulocyte % 0.8 % 0-3.0 % [facility]: [address] [facility] Normal Nucleated Red Blood Cell % 0.0 % 0- 0 % [facility]: [address] [facility] Normal Neutrophils # 8.4 10 1.5-8.5 10 [facility]: [address] [facility] Normal Lymph # 1.8 10 1.5-5.0 10 [facility]: [address] [facility] High [place] # 0.9 10 0.0-0.8 10 [facility]: [address] [facility] Normal Eos # 0.1 10 0.0-0.5 10 [facility]: [address] [facility] Normal Baso # 0.0 10 0.0-0.2 10 [facility]: [address] [facility] 01/10/2020 Hepatic Function Panel, Serum Normal AST/SG OT 19 U/L 7-37 U/L [facility]: [address] [facility] Normal ALT/SGPT 36 U/L 12-78 U/L [facility]: [address] [facility] Normal Alkaline Phosphatase 103 U/L 45-117 U/L [facility]: [address] [facility] Normal Bilirubin,total 0.7 mg/dL 0.2-1.0 mg /dL [facility]: [address] [facility] Normal Bilirubin,direct 0.2 mg/dL 0.0-0.2 m g/dL [facility]: [address] [facility] Low Total Protein 6.3 gm/dL 6.4-8.2 gm/d L [facility]: [address] [facility] Normal Albumin 3.2 gm/dL 3.2-5.2 gm/dL Rachel l [facility]: [address] [facility] Normal Albumin/globulin Ratio 1.0 [facility]: [address] [place] [address] 01/10/2020 BMP, Serum or Plasma Normal Glucose, Fastin g 100 mg/dL 70-100 mg/dL [facility]: 83 0 [facility] Normal Blood Urea Nitrogen 10 mg/dL 7-18 mg /dL [facility]: [address] [place] [address] Normal Creatinine for GFR 0.82 mg/dL 0.70-1 .30 mg/dL [facility]: 0 [facility] Normal Glomerular Filtration Rate > 60.0 >4 9 [facility]: 0 [facility] Normal Sodium Level 142 mEq/L 136-145 mEq/L [facility]: 0 [facility] Normal Potassium Serum 3.7 mEq/L 3.5-5.1 mE q/L [facility]: 0 [facility] Normal Chloride Level 103 mEq/L 98-107 mEq/ L [facility]: 0 [facility] High Carbon Dioxide Level 36 mEq/L 21-32 mEq/L [facility]: 0 [facility] Low Anion Gap 3 mEq/L 8-16 mEq/L [facility]: 0 [facility] Normal Calcium Level 9.1 mg/dL 8.8-10.2 mg/ dL [facility]: 0 [facility] 01/10/2020 COVID-19 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 [facility]: [address] [place] [address] 01/10/2020 Culture, Blood BLOOD No observation recorded. [facility]: [address] [place] [address] 10/07/2019 CMP, Serum or Plasma Normal Glucose , Fasting see separate report [facility]: [address] [place] [address] Normal Blood Urea Nitrogen tnp mg/dL 7-18 m g/dL [facility]: [address] [place] [address] Normal Creatinine for GFR tnp mg/dL 0.70-1. 30 mg/dL [facility]: [address] [place] [address] Normal Glomerular Filtration Rate tnp >4 9 [facility]: [address] [place] [address] Normal Sodium Level tnp mEq/L 136-145 mEq/L [facility]: [address] [place] [address] Normal Potassium Serum tnp mEq/L 3.5-5.1 mE q/L [facility]: [address] [place] [address] Normal Chloride Level tnp mEq/L 98-107 mEq/ L [facility]: [address] [place] [address] Normal Carbon Dioxide Level tnp mmol/L 20-2 9 mmol/L [facility]: [address] [place] [address] Normal Anion Gap tnp mEq/L 8-16 mEq/L [facility]: [address] [place] [address] Normal Calcium Level tnp mg/dL 8.8-10.2 mg/ dL [facility]: [address] [place], [place] [address] Normal AST/SGOT tnp IU/L Final [facility]: [address] [facility] Normal ALT/SGPT tnp IU/L 0-32 IU/L [facility]: [address] [facility] Normal Alkaline Phosphatase tnp U/L 45-117 U/L [facility]: [address] [facility] Normal Bilirubin,total tnp mg/dL 0.2-1.0 mg /dL [facility]: [address] [facility] Normal Total Protein tnp gm/dL 6.4-8.2 gm/d L [facility]: [address] [facility] Normal Albumin tnp gm/dL 3.2-5.2 gm/dL Rachel l [facility]: [address] [facility] Normal Albumin/globulin Ratio tnp [facility]: [address] [facility] 10/07/2019 Lipid Panel, Blood Normal Triglycerides Lev el tnp mg/dL <150 mg/dL [facility]: [address] 0 [facility] Normal Cholesterol Level tnp mg/dL <200 mg/ dL [facility]: [address] [facility] Normal HDL Cholesterol tnp mg/dL >40 mg/dL [facility]: [address] [facility] Normal LDL Cholesterol tnp mg/dL <100 mg/dL [facility]: [address] [facility] Normal Non-hdl-c tnp mg/dL [facility]: [address] [facility] Normal Cholesterol Risk Ratio tnp <5 [facility]: [address] [facility] 10/07/2019 TSH + Free T4, Serum Normal Thyroid Stimulating Hormone tnp uIU/mL 0.358-3.740 uIU/mL [facility]: [address] [facility] Normal Free T4 tnp NG/dL 0.76-1.46 NG/dL Fi [facility]: [address] [facility] 10/07/2019 Vitamin D, 25-Hydroxy, Total, Serum Normal Total 25(Oh) Vitamin D tnp NG/mL 30.0-100.0 NG/mL Final [facility]: [address] [facility] Past Encounters 01/23/2020 Chronic Obstructive Lung Disease; Low Back Pain; Nicotine Dependence Marc D KYLEE Colemna-C: [address] [facility], [facility] [address], [place] [address], Ph. 01/05/2020 Acute Exacerbation of Chronic Obstructive Airways Disease; Vitamin D Deficiency; Chronic Obstructive Lung Disease; Genuine Stress Incontinence; Administration of Influenza Vaccine Marc Coleman RPA-C: [address] [facility], [facility] [address], [place] [address], Ph. Social History Tobacco Smoking Status Light [...] kg/m2 115/77 mm[Hg ] 01/05/2020 11:30AM ESTABLISHED [id number] Height Weight BMI Blood Pressure 69.6 in [...]
--- OUTSIDE RECORDS SUMMARY | 2020-04-15 18:22 | CCD ---
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 Name Role Phone Marc Coleman [place] Unavailable [...] bupropion HCl SR 150 mg tablet,12 hr sustained-release Active Not available cholecalciferol (vitamin D3) 50 [...] 01/23/20 20 pregabalin 50 mg capsule Completed 020 pregabalin 75 mg capsule TAKE ONE CAPSULE [...] Performed by 01/05/2020 XR, Chest, 2 View [facility] [address] [place], [place] [id number] (Work Place) Notes: Radical Prostectomy (2006), Parti al L Lung Removal (2014) Results Lab Results Date Name Specimen Result Interpretation Description Value Range Status Address 01/16/2020 CBC W/ Auto Diff High White Blood Count 12.2 10 4.0-10.0 10 [facility]: [address] [place] [address] Normal Red Blood Count 4.84 10 4.30-6.10 10 [facility]: [address] [place] [address] Low Hemoglobin 12.5 g/dL 13.5-17.5 g/dL [facility]: [address] [place] [address] Low Hematocrit 41.3 % 42.0-52.0 % [facility]: [address] [place] [address] Normal Mean Corpuscular Volume 85.3 fL 80.0 -96.0 fL [facility]: [address] [place] [address] Low Mean Corpuscular Hemoglobin 25.8 pg 27.0-33.0 pg [facility]: [address] [place] [address] Low Mean Corpuscular HGB Conc 30.3 g/dL 32.0-36.5 g/dL [facility]: [address] [place] [address] High Red Cell Distribution Width 18.3 % 1 1.5-14.5 % [facility]: [address] [place] [address] Normal Platelet Count, Automated 256 10 150 -450 10 [facility]: [address] [place] [address] High Neutrophils % 72.4 % 36.0-66.0 % [facility]: [address] [place] [address] Low Lymph % 13.2 % 24.0-44.0 % Final [facility]: [address] [place] [address] High [place] % 10.0 % 0.0-5.0 % [facility]: [address] [place] [address] Normal Eos % 0.2 % 0.0-3.0 % [facility]: [address] [place] [address] Normal Baso % 0.5 % 0.0-1.0 % [facility]: [address] [facility] High Immature Granulocyte % 3.7 % 0-3.0 % [facility]: [address] [facility] Normal Nucleated Red Blood Cell % 0.0 % 0- 0 % [facility]: [address] [facility] High Neutrophils # 8.8 10 1.5-8.5 10 [facility]: [address] [facility] Normal Lymph # 1.6 10 1.5-5.[address] [facility]: [address] [facility] High [place] # 1.2 10 0.0-0.8 10 [facility]: [address] [facility] Normal Eos # 0.0 10 0.0-0.5 10 [facility]: [address] [facility] Normal Baso # 0.1 10 0.0-0.2 10 [facility]: [address] [facility] 01/16/2020 BMP, Serum or Plasma High Glucose, Fastin g 132 mg/dL 70-100 mg/dL [facility]: 83 0 [facility] High Blood Urea Nitrogen 22 mg/dL 7-18 mg /dL [facility]: 0 [facility] Normal Creatinine for GFR 0.73 mg/dL 0.70-1 .30 mg/dL [facility]: 0 [facility] Normal Glomerular Filtration Rate > 60.0 >4 9 [facility]: [address] [facility] Normal Sodium Level 145 mEq/L 136-145 mEq/L [facility]: 0 [facility] Normal Potassium Serum 4.2 mEq/L 3.5-5.1 mE q/L [facility]: [address] [facility] Normal Chloride Level 104 mEq/L 98-107 mEq/ L [facility]: 0 [facility] High Carbon Dioxide Level 40 mEq/L 21-32 mEq/L [facility]: [address] [place] [address] Low Anion Gap 1 mEq/L 8-16 mEq/L [facility]: [address] [facility] Low Calcium Level 8.6 mg/dL 8.8-10.2 mg/ dL [facility]: 0 [facility] 01/15/2020 CBC W/ Auto Diff High White Blood Count 11.5 10 4.0-10.0 10 [facility]: [address] [facility] Normal Red Blood Count 4.97 10 4.30-6.10 10 [facility]: [address] [place] [address] Low Hemoglobin 13.0 g/dL 13.5-17.5 g/dL [facility]: [address] [place] [address] Normal Hematocrit 42.7 % 42.0-52.0 % [facility]: [address] [place] [address] Normal Mean Corpuscular Volume 85.9 fL 80.0 -96.0 fL [facility]: [address] [place] [address] Low Mean Corpuscular Hemoglobin 26.2 pg 27.0-33.0 pg [facility]: [address] [place] [address] Low Mean Corpuscular HGB Conc 30.4 g/dL 32.0-36.5 g/dL [facility]: [address] [place] [address] High Red Cell Distribution Width 18.2 % 1 1.5-14.5 % [facility]: 0 [facility] Normal Platelet Count, Automated 259 10 150 -450 10 [facility]: [address] [facility] High Neutrophils % 83.5 % 36.0-66.0 % [facility]: [address] [facility] Low Lymph % 6.5 % 24.0-44.0 % [facility]: [address] [facility] Normal [place] % 5.0 % 0.0-5.0 % [facility]: [address] [facility] Normal Eos % 0.0 % 0.0-3.0 % [facility]: [address] [facility] Normal Baso % 0.3 % 0.0-1.0 % [facility]: [address] [facility] High Immature Granulocyte % 4.7 % 0-3.0 % [facility]: [address] [facility] Normal Nucleated Red Blood Cell % 0.0 % 0- 0 % [facility]: [address] [facility] High Neutrophils # 9.6 10 1.5-8.5 10 [facility]: [address] [facility] Low Lymph # 0.8 10 1.5-5.[address] [facility]: [address] [facility] Normal [place] # 0.6 10 0.0-0.8 10 [facility]: [address] [facility] Normal Eos # 0.0 10 0.0-0.5 10 [facility]: [address] [facility] Normal Baso # 0.0 10 0.0-0.2 10 [facility]: [address] [facility] 01/15/2020 BMP, Serum or Plasma High Glucose, Fastin g 186 mg/dL 70-100 mg/dL [facility]: 83 0 [facility] Normal Blood Urea Nitrogen 16 mg/dL 7-18 mg /dL [facility]: 0 [facility] Normal Creatinine for GFR 0.79 mg/dL 0.70-1 .30 mg/dL [facility]: [address] [facility] Normal Glomerular Filtration Rate > 60.0 >4 9 [facility]: [address] [facility] Normal Sodium Level 143 mEq/L 136-145 mEq/L [facility]: 0 [facility] Normal Potassium Serum 4.1 mEq/L 3.5-5.1 mE q/L [facility]: [address] [facility] Normal Chloride Level 103 mEq/L 98-107 mEq/ L [facility]: [address] [facility] High Carbon Dioxide Level 35 mEq/L 21-32 mEq/L [facility]: [address] [place] [address] Low Anion Gap 5 mEq/L 8-16 mEq/L [facility]: [address] [place] [address] Low Calcium Level 8.4 mg/dL 8.8-10.2 mg/ dL [facility]: [address] [place] [address] 01/14/2020 CBC W/ Auto Diff High White Blood Count 12.7 10 4.0-10.0 10 [facility]: [address] [facility] Normal Red Blood Count 4.97 10 4.30-6.10 10 [facility]: [address] [place] [address] Low Hemoglobin 13.1 g/dL 13.5-17.5 g/dL [facility]: [address] [place] [address] Normal Hematocrit 42.7 % 42.0-52.0 % [facility]: [address] [place] [address] Normal Mean Corpuscular Volume 85.9 fL 80.0 -96.0 fL [facility]: [address] [place] [address] Low Mean Corpuscular Hemoglobin 26.4 pg 27.0-33.0 pg [facility]: [address] [place] [address] Low Mean Corpuscular HGB Conc 30.7 g/dL 32.0-36.5 g/dL [facility]: [address] [place] [address] High Red Cell Distribution Width 18.6 % 1 1.5-14.5 % [facility]: 0 [facility] Normal Platelet Count, Automated 275 10 150 -450 10 [facility]: 0 [facility] High Neutrophils % 86.0 % 36.0-66.0 % [facility]: [address] [facility] Low Lymph % 5.6 % 24.0-44.0 % [facility]: [address] [facility] High [place] % 5.1 % 0.0-5.0 % [facility]: [address] [facility] Normal Eos % 0.0 % 0.0-3.0 % [facility]: [address] [facility] Normal Baso % 0.2 % 0.0-1.0 % [facility]: [address] [facility] High Immature Granulocyte % 3.1 % 0-3.0 % [facility]: [address] [facility] Normal Nucleated Red Blood Cell % 0.0 % 0- 0 % [facility]: [address] [facility] High Neutrophils # 10.9 10 1.5-8.5 10 [facility]: [address] [facility] Low Lymph # 0.7 10 1.5-5.[address] [facility]: [address] [facility] Normal [place] # 0.7 10 0.0-0.8 10 [facility]: [address] [facility] Normal Eos # 0.0 10 0.0-0.5 10 [facility]: [address] [facility] Normal Baso # 0.0 10 0.0-0.2 10 [facility]: [address] [facility] 01/14/2020 BMP, Serum or Plasma High Glucose, Fastin g 134 mg/dL 70-100 mg/dL [facility]: 83 0 [facility] Normal Blood Urea Nitrogen 16 mg/dL 7-18 mg /dL [facility]: 0 [facility] Normal Creatinine for GFR 0.76 mg/dL 0.70-1 .30 mg/dL [facility]: [address] [facility] Normal Glomerular Filtration Rate > 60.0 >4 9 [facility]: [address] [facility] High Sodium Level 147 mEq/L 136-145 mEq/L [facility]: 0 [facility] D Potassium Serum 5.0 mEq/L 3.5-5.1 mE q/L [facility]: 0 [facility] High Chloride Level 108 mEq/L 98-107 mEq/ L [facility]: [address] [facility] High Carbon Dioxide Level 37 mEq/L 21-32 mEq/L [facility]: [address] [place] [address] Low Anion Gap 2 mEq/L 8-16 mEq/L [facility]: [address] [facility] Normal Calcium Level 8.9 mg/dL 8.8-10.2 mg/ dL [facility]: [address] [place] [address] 01/13/2020 CBC W/ Auto Diff High White Blood Count 15.1 10 4.0-10.0 10 [facility]: [address] [facility] Normal Red Blood Count 5.00 10 4.30-6.10 10 [facility]: [address] [place] [address] Low Hemoglobin 13.1 g/dL 13.5-17.5 g/dL [facility]: [address] [place] [address] Normal Hematocrit 42.7 % 42.0-52.0 % [facility]: [address] [place] [address] Normal Mean Corpuscular Volume 85.4 fL 80.0 -96.0 fL [facility]: [address] [place] [address] Low Mean Corpuscular Hemoglobin 26.2 pg 27.0-33.0 pg [facility]: [address] [place] [address] Low Mean Corpuscular HGB Conc 30.7 g/dL 32.0-36.5 g/dL [facility]: [address] [place] [address] High Red Cell Distribution Width 18.5 % 1 1.5-14.5 % [facility]: 0 [facility] Normal Platelet Count, Automated 303 10 150 -450 10 [facility]: 0 [facility] High Neutrophils % 86.2 % 36.0-66.0 % [facility]: [address] [facility] Low Lymph % 4.4 % 24.0-44.0 % [facility]: [address] [facility] High [place] % 7.6 % 0.0-5.0 % [facility]: [address] [facility] Normal Eos % 0.0 % 0.0-3.0 % [facility]: [address] [facility] Normal Baso % 0.1 % 0.0-1.0 % [facility]: [address] [facility] Normal Immature Granulocyte % 1.7 % 0-3.0 % [facility]: [address] [facility] Normal Nucleated Red Blood Cell % 0.0 % 0- 0 % [facility]: [address] [facility] High Neutrophils # 13.0 10 1.5-8.5 10 [facility]: [address] [facility] Low Lymph # 0.7 10 1.5-5.[address] [facility]: [address] [facility] High [place] # 1.2 10 0.0-0.8 10 [facility]: [address] [facility] Normal Eos # 0.0 10 0.0-0.5 10 [facility]: [address] [facility] Normal Baso # 0.0 10 0.0-0.2 10 [facility]: 0 [facility] 01/13/2020 BMP, Serum or Plasma High Glucose, Fastin g 171 mg/dL 70-100 mg/dL [facility]: 83 0 [facility] High Blood Urea Nitrogen 20 mg/dL 7-18 mg /dL [facility]: 0 [facility] Normal Creatinine for GFR 0.80 mg/dL 0.70-1 .30 mg/dL [facility]: [address] [facility] Normal Glomerular Filtration Rate > 60.0 >4 9 [facility]: [address] [facility] Normal Sodium Level 144 mEq/L 136-145 mEq/L [facility]: 0 [facility] Normal Potassium Serum 3.7 mEq/L 3.5-5.1 mE q/L [facility]: [address] [facility] Normal Chloride Level 107 mEq/L 98-107 mEq/ L [facility]: [address] [place] [address] High Carbon Dioxide Level 34 mEq/L 21-32 mEq/L [facility]: [address] [place] [address] Low Anion Gap 3 mEq/L 8-16 mEq/L [facility]: [address] [place] [address] Low Calcium Level 8.5 mg/dL 8.8-10.2 mg/ dL [facility]: [address] [place] [address] 01/13/2020 Procalcitonin, Serum Normal Procalcitonin <0.0 5 [facility]: [address] [place] [address] 01/12/2020 CBC W/ Auto Diff High White Blood Count 16.1 10 4.0-10.0 10 [facility]: [address] [place] [address] Normal Red Blood Count 5.20 10 4.30-6.10 10 [facility]: [address] [place] [address] Normal Hemoglobin 13.6 g/dL 13.5-17.5 g/dL [facility]: [address] [place] [address] Normal Hematocrit 43.5 % 42.0-52.0 % [facility]: [address] [place] [address] Normal Mean Corpuscular Volume 83.7 fL 80.0 -96.0 fL [facility]: [address] [place] [address] Low Mean Corpuscular Hemoglobin 26.2 pg 27.0-33.0 pg [facility]: [address] [place] [address] Low Mean Corpuscular HGB Conc 31.3 g/dL 32.0-36.5 g/dL [facility]: [address] [place] [address] High Red Cell Distribution Width 18.2 % 1 1.5-14.5 % [facility]: [address] [place] [address] Normal Platelet Count, Automated 297 10 150 -450 10 [facility]: [address] [place] [address] High Neutrophils % 87.4 % 36.0-66.0 % [facility]: [address] [place] [address] Low Lymph % 6.8 % 24.0-44.0 % Final [facility]: [address] [facility] Normal [place] % 5.0 % 0.0-5.0 % [facility]: [address] [facility] Normal Eos % 0.0 % 0.0-3.0 % [facility]: [address] [facility] Normal Baso % 0.1 % 0.0-1.0 % [facility]: [address] [facility] Normal Immature Granulocyte % 0.7 % 0-3.0 % [facility]: [address] [facility] Normal Nucleated Red Blood Cell % 0.0 % 0- 0 % [facility]: [address] [facility] High Neutrophils # 14.1 10 1.5-8.5 10 [facility]: [address] [facility] Low Lymph # 1.1 10 1.5-5.[address] [facility]: [address] [facility] Normal [place] # 0.8 10 0.0-0.8 10 [facility]: [address] [facility] Normal Eos # 0.0 10 0.0-0.5 10 [facility]: [address] [facility] Normal Baso # 0.0 10 0.0-0.2 10 [facility]: 0 [facility] 01/12/2020 BMP, Serum or Plasma High Glucose, Fastin g 172 mg/dL 70-100 mg/dL [facility]: 83 0 [facility] Dh Blood Urea Nitrogen 20 mg/dL 7-18 mg /dL [facility]: 0 [facility] Normal Creatinine for GFR 0.73 mg/dL 0.70-1 .30 mg/dL [facility]: [address] [facility] Normal Glomerular Filtration Rate > 60.0 >4 9 [facility]: [address] [facility] Normal Sodium Level 143 mEq/L 136-145 mEq/L [facility]: [address] [place] [address] Normal Potassium Serum 3.8 mEq/L 3.5-5.1 mE q/L [facility]: [address] [place] [address] High Chloride Level 108 mEq/L 98-107 mEq/ L [facility]: [address] [place] [address] High Carbon Dioxide Level 33 mEq/L 21-32 mEq/L [facility]: [address] [place] [address] Low Anion Gap 2 mEq/L 8-16 mEq/L [facility]: [address] [place] [address] Low Calcium Level 8.6 mg/dL 8.8-10.2 mg/ dL [facility]: [address] [place] [address] 01/11/2020 CBC W/ Auto Diff Normal White Blood Count 9.2 10 4.0-10.0 10 [facility]: [address] [place] [address] Normal Red Blood Count 5.26 10 4.30-6.10 10 [facility]: [address] [place] [address] Panic Low Hemoglobin 13.4 g/dL 13.5-17.5 g/ dL [facility]: [address] [place] [address] Normal Hematocrit 43.6 % 42.0-52.0 % [facility]: [address] [place] [address] Normal Mean Corpuscular Volume 82.9 fL 80.0 -96.0 fL [facility]: [address] [place] [address] Low Mean Corpuscular Hemoglobin 25.5 pg 27.0-33.0 pg [facility]: [address] [place] [address] Low Mean Corpuscular HGB Conc 30.7 g/dL 32.0-36.5 g/dL [facility]: [address] [place] [address] High Red Cell Distribution Width 17.5 % 1 1.5-14.5 % [facility]: [address] [place] [address] Normal Platelet Count, Automated 315 10 150 -450 10 [facility]: [address] [place] [address] High Neutrophils % 86.5 % 36.0-66.0 % [facility]: [address] [facility] Low Lymph % 9.3 % 24.0-44.0 % Final [facility]: [address] [facility] Normal [place] % 3.3 % 0.0-5.0 % Final [facility]: [address] [facility] Normal Eos % 0.0 % 0.0-3.0 % [facility]: [address] [facility] Normal Baso % 0.1 % 0.0-1.0 % Final [facility]: [address] [facility] Normal Immature Granulocyte % 0.8 % 0-3.0 % [facility]: [address] [facility] Normal Nucleated Red Blood Cell % 0.0 % 0- 0 % [facility]: [address] [facility] Normal Neutrophils # 8.0 10 1.5-8.5 10 [facility]: [address] [facility] Low Lymph # 0.9 10 1.5-5.[address] [facility]: [address] [facility] Normal [place] # 0.3 10 0.0-0.8 10 [facility]: 0 [facility] Normal Eos # 0.0 10 0.0-0.5 10 [facility]: [address] [facility] Normal Baso # 0.0 10 0.0-0.2 10 [facility]: [address] [facility] 01/11/2020 BMP, Serum or Plasma High Glucose, Fastin g 150 mg/dL 70-100 mg/dL [facility]: 83 0 [facility] Normal Blood Urea Nitrogen 10 mg/dL 7-18 mg /dL [facility]: 0 [facility] Low Creatinine for GFR 0.66 mg/dL 0.70-1 .30 mg/dL [facility]: [address] [facility] Normal Glomerular Filtration Rate > 60.0 >4 9 [facility]: [address] [facility] Normal Sodium Level 141 mEq/L 136-145 mEq/L [facility]: 0 [facility] Normal Potassium Serum 4.2 mEq/L 3.5-5.1 mE q/L [facility]: [address] [place] [address] Normal Chloride Level 107 mEq/L 98-107 mEq/ L [facility]: [address] [place] [address] Normal Carbon Dioxide Level 32 mEq/L 21-32 mEq/L [facility]: [address] [place] [address] Low Anion Gap 2 mEq/L 8-16 mEq/L [facility]: [address] [place] [address] Low Calcium Level 8.3 mg/dL 8.8-10.2 mg/ dL [facility]: [address] [place] [address] 01/11/2020 Respiratory Virus Panel NASOPHARYNX No observ ation recorded. [facility]: [address] [place] [address] 01/11/2020 Culture, Sputum SPUTUM No observation recorded. [facility]: [address] [place] [address] 01/10/2020 CBC W/ Auto Diff High White Blood Count 11.4 10 4.0-10.0 10 [facility]: [address] [place] [address] Normal Red Blood Count 6.06 10 4.30-6.10 10 [facility]: [address] [place] [address] Normal Hemoglobin 15.8 g/dL 13.5-17.5 g/dL [facility]: [address] [place] [address] Normal Hematocrit 50.1 % 42.0-52.0 % [facility]: [address] [place] [address] Normal Mean Corpuscular Volume 82.7 fL 80.0 -96.0 fL [facility]: [address] [place] [address] Low Mean Corpuscular Hemoglobin 26.1 pg 27.0-33.0 pg [facility]: [address] [place] [address] Low Mean Corpuscular HGB Conc 31.5 g/dL 32.0-36.5 g/dL [facility]: [address] [place] [address] High Red Cell Distribution Width 18.7 % 1 1.5-14.5 % [facility]: [address] [facility] Normal Platelet Count, Automated 342 10 150 -450 10 [facility]: [address] [facility] High Neutrophils % 73.5 % 36.0-66.0 % [facility]: [address] [facility] Low Lymph % 16.0 % 24.0-44.0 % Final [facility]: [address] [facility] High [place] % 8.2 % 0.0-5.0 % Final [facility]: [address] [facility] Normal Eos % 1.2 % 0.0-3.0 % [facility]: [address] [facility] Normal Baso % 0.3 % 0.0-1.0 % [facility]: [address] [facility] Normal Immature Granulocyte % 0.8 % 0-3.0 % [facility]: [address] [facility] Normal Nucleated Red Blood Cell % 0.0 % 0- 0 % [facility]: 8[address] [facility] Normal Neutrophils # 8.4 10 1.5-8.[address] [facility]: [address] [facility] Normal Lymph # 1.8 10 1.5-5.[address] [facility]: [address] [facility] High [place] # 0.9 10 0.0-0.8 10 [facility]: [address] [facility] Normal Eos # 0.1 10 0.0-0.5 10 [facility]: [address] [facility] Normal Baso # 0.0 10 0.0-0.2 10 [facility]: 0 [facility] 01/10/2020 Hepatic Function Panel, Serum Normal AST/SG OT 19 U/L 7-37 U/L [facility]: 8[address] [facility] Normal ALT/SGPT 36 U/L 12-78 U/L [facility]: 8[address] [facility] Normal Alkaline Phosphatase 103 U/L 45-117 U/L [facility]: 0 [facility] Normal Bilirubin,total 0.7 mg/dL 0.2-1.0 mg /dL [facility]: [address] [facility] Normal Bilirubin,direct 0.2 mg/dL 0.0-0.2 m g/dL [facility]: 0 [facility] Low Total Protein 6.3 gm/dL 6.4-8.2 gm/d L [facility]: [address] [facility] Normal Albumin 3.2 gm/dL 3.2-5.2 gm/dL Rachel l [facility]: 0 [facility] Normal Albumin/globulin Ratio 1.0 [facility]: [address] [place] [address] 01/10/2020 BMP, Serum or Plasma Normal Glucose, Fastin g 100 mg/dL 70-100 mg/dL [facility]: 83 0 [facility] Normal Blood Urea Nitrogen 10 mg/dL 7-18 mg /dL [facility]: 0 [facility] Normal Creatinine for GFR 0.82 mg/dL 0.70-1 .30 mg/dL [facility]: [address] [place] [address] Normal Glomerular Filtration Rate > 60.0 >4 9 [facility]: 0 [facility] Normal Sodium Level 142 mEq/L 136-145 mEq/L [facility]: 0 [facility] Normal Potassium Serum 3.7 mEq/L 3.5-5.1 mE q/L [facility]: 0 [facility] Normal Chloride Level 103 mEq/L 98-107 mEq/ L [facility]: 0 [facility] High Carbon Dioxide Level 36 mEq/L 21-32 mEq/L [facility]: 0 [facility] Low Anion Gap 3 mEq/L 8-16 mEq/L [facility]: 0 [facility] Normal Calcium Level 9.1 mg/dL 8.8-10.2 mg/ dL [facility]: 0 [facility] 01/10/2020 COVID-19 RNA (SARS-CoV-2), QL, front office developer-PCR, Respirat ory Specimen Normal Sars Covid-19 Amplification negative negative [facility]: [address] [place] [address] 01/10/2020 Lactic Acid, Serum or Plasma Normal Lactic Acid Sepsis Protocol 1.3 mmol/L 0.4-2.0 mmol/L [facility]: [address] [place] [address] 01/10/2020 Mrsa Screen, PCR Normal MRSA PCR Screen no t detected negative [facility]: [address] [place] [address] 01/10/2020 Culture, Blood BLOOD No observation recorded. [facility]: [address] [place] [address] 01/10/2020 Culture, Blood BLOOD No observation recorded. [facility]: [address] [place] [address] 10/07/2019 CMP, Serum or Plasma Normal Glucose , Fasting see separate report [facility] nter: 0 [facility] Normal Blood Urea Nitrogen tnp mg/dL 7-18 m g/dL [facility]: [address] [place] [address] Normal Creatinine for GFR tnp mg/dL 0.70-1. 30 mg/dL [facility]: [address] [place] [address] Normal Glomerular Filtration Rate tnp >4 9 [facility]: [address] [place] [address] Normal Sodium Level tnp mEq/L 136-145 mEq/L [facility]: [address] [place] [address] Normal Potassium Serum tnp mEq/L 3.5-5.1 mE q/L [facility]: [address] [place] [address] Normal Chloride Level tnp mEq/L 98-107 mEq/ L [facility]: [address] [place] [address] Normal Carbon Dioxide Level tnp mmol/L 20-2 9 mmol/L [facility]: [address] [place] [address] Normal Anion Gap tnp mEq/L 8-16 mEq/L [facility]: [address] [place] [address] Normal Calcium Level tnp mg/dL 8.8-10.2 mg/ dL [facility]: [address] [facility] Normal AST/SGOT tnp IU/L [facility]: 830 [facility] Normal ALT/SGPT tnp IU/L 0-32 IU/L [facility]: 830 [facility] Normal Alkaline Phosphatase tnp U/L 45-117 U/L [facility]: 830 [facility] Normal Bilirubin,total tnp mg/dL 0.2-1.0 mg /dL [facility]: 830 [facility] Normal Total Protein tnp gm/dL 6.4-8.2 gm/d L [facility]: 8[address] [facility] Normal Albumin tnp gm/dL 3.2-5.2 gm/dL [facility] 8[address] [facility] Normal Albumin/globulin Ratio tnp [facility]: 830 [facility] 10/07/2019 Lipid Panel, Blood Normal Triglycerides Lev el tnp mg/dL <150 mg/dL [facility]: 83 0 [facility] Normal Cholesterol Level tnp mg/dL <200 mg/ dL [facility]: [address] [facility] Normal HDL Cholesterol tnp mg/dL >40 mg/dL [facility]: 830 [facility] Normal LDL Cholesterol tnp mg/dL <100 mg/dL [facility]: 8[address] [facility] Normal Non-hdl-c tnp mg/dL [facility]: 8[address] [facility] Normal Cholesterol Risk Ratio tnp <5 [facility]: 830 [facility] 10/07/2019 TSH + Free T4, Serum Normal Thyroid Stimulating Hormone tnp uIU/mL 0.358-3.740 uIU/mL [facility] nter: 830 [facility] Normal Free T4 tnp NG/dL 0.76-1.46 NG/dL [facility]: [address] [facility] 10/07/2019 Vitamin D, 25-Hydroxy, Total, Serum Normal Total 25(Oh) Vitamin D tnp NG/mL 30.0-100.0 NG/mL Final [facility]: 830 [facility] Past Encounters 03/23/2020 VIJAYA Hillman-C: [address] [facility], [facility] [address], [place] [address], Ph. 03/02/2020 Marc Coleman RPA-C: [address] [facility], [facility] [address], [place] [address], Ph. 01/23/2020 Chronic Obstructive Lung Disease; Low Back Pain; Nicotine Dependence Marc Coleman RPA-C: [address] [facility], [facility] [address], [place] [address], Ph. 01/05/2020 Acute Exacerbation of Chronic Obstructive Airways Disease; Vitamin D Deficiency; Chronic Obstructive Lung Disease; Genuine Stress Incontinence; Administration of Influenza Vaccine Marc Coleman RPA-C: [address] [facility], [facility] [address], [place] [address], Ph. Social History Tobacco Smoking Status Light Tobacco Smoker (03/08 PPD) Vaccine List Vaccine Type influenza, injectable, quadrivalent, pre servative free .5 mL Plan of Care Reminders Provider Appointments None recorded. Lab None recorded. Referral None recorded. Procedures None recorded. Surgeries None recorded. Imaging None recorded. Vitals 01/23/2020 01:50PM TCM Height Weight BMI Blood Pressure 69.6 in 170 lbs 6.4 oz 24.7 kg/m2 115/77 mm[Hg ] 01/05/2020 11:30AM ESTABLISHED [id number] Height Weight BMI Blood Pressure 69.6 in [...]
--- OUTSIDE RECORDS SUMMARY | 2020-04-15 18:24 | CCD ---
Author Author [facility] Organization [facility] Address Unknown Phone Unavailable Care Team Providers Care Pharmacy Messenger Name Role Phone COLEMAN, CHACHO MARC RPA-C Unavailable Unavailable COLEMAN, CHACHO MARC RPA-C Unavailable Unavailable COLEMAN, CHACHO MARC RPA-C Unavailable Unavailable COLEMAN, CHACHO MARC RPA-C Unavailable Unavailable COLEMAN, CHACHO MARC RPA-C Unavailable Unavailable COLEMAN, CHACHO MARC RPA-C Unavailable Unavailable COLEMAN, CHACHO MARC RPA-C Unavailable Unavailable COLEMAN, CHACHO MARC RPA-C Unavailable Unavailable COLEMAN, CHACHO MARC RPA-C Unavailable Unavailable COLEMAN, CHACHO MARC RPA-C Unavailable Unavailable COLEMAN, CHACHO MARC RPA-C Unavailable Unavailable COLEMAN, CHACHO MARC RPA-C Unavailable Unavailable COLEMAN, CHACHO MARC RPA-C Unavailable Unavailable COLEMAN, CHACHO MARC RPA-C Unavailable Unavailable COLEMAN, CHACHO MARC RPA-C Unavailable Unavailable COLEMAN, CHACHO MARC RPA-C Unavailable Unavailable COLEMAN, CHACHO MARC RPA-C Unavailable Unavailable COLEMAN, CHACHO MARC RPA-C Unavailable Unavailable COLEMAN, CHACHO MARC RPA-C Unavailable Unavailable COLEMAN, CHACHO MARC RPA-C Unavailable Unavailable COLEMAN, CHACHO MARC RPA-C Unavailable Unavailable COLEMAN, CHACHO MARC RPA-C Unavailable Unavailable COLEMAN, CHACHO MARC RPA-C Unavailable Unavailable COLEMAN, CHACHO MARC RPA-C Unavailable Unavailable COLEMAN, CHACHO MARC RPA-C Unavailable Unavailable COLEMAN, CHACHO MARC RPA-C Unavailable Unavailable COLEMAN, CHACHO MARC RPA-C Unavailable Unavailable COLEMAN, CHACHO MARC RPA-C Unavailable Unavailable COLEMAN, CHACHO MARC RPA-C Unavailable Unavailable COLEMAN, CHACHO MARC RPA-C Unavailable Unavailable COLEMAN, CHACHO MARC RPA-C Unavailable Unavailable COLEMAN, CHACHO MARC RPA-C Unavailable Unavailable COLEMAN, CHACHO MARC RPA-C Unavailable Unavailable COLEMAN, CHACHO MARC RPA-C Unavailable Unavailable COLEMAN, CHACHO MARC RPA-C Unavailable Unavailable COLEMAN, CHACHO MARC RPA-C Unavailable Unavailable COLEMAN, CHACHO MARC RPA-C Unavailable Unavailable COLEMAN, CHACHO MARC RPA-C Unavailable Unavailable COLEMAN, CHACHO MARC RPA-C Unavailable Unavailable Dylan Thomas MD Unavailable Unavailable Dylan Thomas MD Unavailable Unavailable Dylan Thomas MD Unavailable Unavailable WilliamDylan MD Unavailable Unavailable Dylan Thomas MD Unavailable Unavailable Dylan Thomas MD Unavailable Unavailable Dylan Thomas MD Unavailable Unavailable Dylan Thomas MD Unavailable Unavailable Dylan Thomas MD Unavailable Unavailable Dylan Thomas MD Unavailable Unavailable Dylan Thomas MD Unavailable Unavailable Dylan Thomas MD Unavailable Unavailable Dylan Thomas MD Unavailable Unavailable Dylan Thomas MD Unavailable Unavailable Dylan Thomas MD Unavailable Unavailable Dylan Thomas MD Unavailable Unavailable Dylan Thomas MD Unavailable Unavailable Dylan Thomas MD Unavailable Unavailable Dylan Thomas MD Unavailable Unavailable Dylan Thomas MD Unavailable Unavailable Dylan Thomas MD Unavailable Unavailable Dylan Thomas MD Unavailable Unavailable Dylan Thomas MD Unavailable Unavailable Dylan Thomas MD Unavailable Unavailable Dylan Thomas MD Unavailable Unavailable WilliamDylan Juan NUNN Unavailable Unavailable WilliamDylan Juan NUNN Unavailable Unavailable WilliamDylan Juan NUNN Unavailable Unavailable WilliamDylan Juan NUNN Unavailable Unavailable Dylan Thomas MD Unavailable Unavailable Dylan Thomas MD Unavailable Unavailable William Dylan Martinez MD Unavailable Unavailable Dylan Thomas MD Unavailable Unavailable Dylan Thomas MD Unavailable Unavailable William Dylan Martinez MD Unavailable Unavailable Dylan Thomas MD Unavailable Unavailable Dylan Thomas MD Unavailable Unavailable William Dylan Martinez MD Unavailable Unavailable Scordo, M Ida PA Unavailable Unavailable Scordo, M Ida PA Unavailable Unavailable Scordo, M Ida PA Unavailable Unavailable Scordo, M Ida PA Unavailable Unavailable Scordo, M Ida PA Unavailable Unavailable Scordo, M Ida PA Unavailable Unavailable Scordo, M Ida PA Unavailable Unavailable Scordo, M Ida PA Unavailable Unavailable Scordo, M Ida PA Unavailable Unavailable Scordo, M Ida PA Unavailable Unavailable Scordo, M Ida PA Unavailable Unavailable Scordo, M Ida PA Unavailable Unavailable Scordo, M Ida PA Unavailable Unavailable Scordo, M Ida PA Unavailable Unavailable Scordo, M Ida PA Unavailable Unavailable Scordo, M Ida PA Unavailable Unavailable Scordo, M Ida PA Unavailable Unavailable Scordo, M Ida PA Unavailable Unavailable Scordo, M Ida PA Unavailable Unavailable Scordo, M Ida PA Unavailable Unavailable Scordo, M Ida PA Unavailable Unavailable Scordo, M Ida PA Unavailable Unavailable Scordo, M Ida PA Unavailable Unavailable Scordo, M Ida PA Unavailable Unavailable Scordo, M Ida PA Unavailable Unavailable Scordo, M Ida PA Unavailable Unavailable Scordo, M Ida PA Unavailable Unavailable Scordo, M Ida PA Unavailable Unavailable Scordo, M Ida PA Unavailable Unavailable Scordo, M Ida PA Unavailable Unavailable Scordo, M Ida PA Unavailable Unavailable Scordo, M Ida PA Unavailable Unavailable Scordo, M Ida PA Unavailable Unavailable Scordo, M Ida PA Unavailable Unavailable Scordo, M Ida PA Unavailable Unavailable Scordo, M Ida PA Unavailable Unavailable Scordo, M Ida PA Unavailable Unavailable Scordo, M Ida PA Unavailable Unavailable Scordo, M Ida PA Unavailable Unavailable Scordo, M Ida PA Unavailable Unavailable Scordo, M Ida PA Unavailable Unavailable Scordo, M Ida PA Unavailable Unavailable Fishman, Aishwarya COOK PIE COOK PIE Unavailable Unavailable Fishman, F Aishwarya COOK PIE-BC Unavailable Unavailable Fishman, F Aishwarya COOK PIE-BC Unavailable Unavailable Fishman, F Aishwarya COOK PIE-BC Unavailable Unavailable Fishman, F Aishwarya COOK PIE-BC Unavailable Unavailable Fishman, F Aishwarya COOK PIE-BC Unavailable Unavailable Fishman, F Aishwarya COOK PIE-BC Unavailable Unavailable Fishman, F Aishwarya COOK PIE-BC Unavailable Unavailable Fishman, F Aishwarya COOK PIE-BC Unavailable Unavailable Fishman, F Aishwarya COOK PIE-BC Unavailable Unavailable Fishman, F Aishwarya COOK PIE-BC Unavailable Unavailable Fishman, F Aishwarya COOK PIE-BC Unavailable Unavailable Fishman, F Aishwarya COOK PIE-BC Unavailable Unavailable Fishman, F Aishwarya COOK PIE-BC Unavailable Unavailable Fishman, F Aishwarya COOK PIE-BC Unavailable Unavailable Fishman, F Aishwarya COOK PIE-BC Unavailable Unavailable Fishman, F Aishwarya COOK PIE-BC Unavailable Unavailable Fishman, F Aishwarya COOK PIE-BC Unavailable Unavailable Fishman, F Aishwarya COOK PIE-BC Unavailable Unavailable Fishman, F Aishwarya COOK PIE-BC Unavailable Unavailable Fishman, F Aishwarya COOK PIE-BC Unavailable Unavailable Fishman, F Aishwarya COOK PIE-BC Unavailable Unavailable Fishman, F Aishwarya COOK PIE-BC Unavailable Unavailable Reji Arriaga MD Unavailable Unavailable Reji Arriaga MD Unavailable Unavailable Reji Arriaga MD Unavailable Unavailable Reji Arriaga MD Unavailable Unavailable Reji Arriaga MD Unavailable Unavailable Reji Arriaga MD Unavailable Unavailable Reji Arriaga MD Unavailable Unavailable Reji Arriaga MD Unavailable Unavailable Reji Arriaga MD Unavailable Unavailable Reji Arriaga MD Unavailable Unavailable Reji Arriaga MD Unavailable Unavailable Reji Arriaga MD Unavailable Unavailable Reji Arriaga MD Unavailable Unavailable Reji Arriaga MD Unavailable Unavailable Reji Arriaga MD Unavailable Unavailable Reji Arriaga MD Unavailable Unavailable Reji Arriaga MD Unavailable Unavailable Reji Arriaga MD Unavailable Unavailable Reji Arriaga MD Unavailable Unavailable Reji Arriaga MD Unavailable Unavailable Reji Arriaga MD Unavailable Unavailable Reji Arriaga MD Unavailable Unavailable Reji Arriaga MD Unavailable Unavailable Reji Arriaga MD Unavailable Unavailable Reji Arriaga MD Unavailable Unavailable Reji Arriaga MD Unavailable Unavailable Reji Arriaga MD Unavailable Unavailable Reji Arriaga MD Unavailable Unavailable Reji Arriaga MD Unavailable Unavailable Reji Arriaga MD Unavailable Unavailable Reji Arriaga MD Unavailable Unavailable Reji Arriaga MD Unavailable Unavailable Arriaga, Reji Moore MD Unavailable Unavailable Arriaga, Reji Moore MD Unavailable Unavailable Arriaga, Reji Moore MD Unavailable Unavailable Arriaga, Reji Moore MD Unavailable Unavailable Arriaga, Reji Moore MD Unavailable Unavailable Arriaga, Reji Moore MD Unavailable Unavailable Arriaga, Reji Moore MD Unavailable Unavailable Arriaga, Reji Moore MD Unavailable Unavailable Arriaga, Reji Moore MD Unavailable Unavailable Arriaga, Reji Moore MD Unavailable Unavailable Arriaga, Reji Moore MD Unavailable Unavailable Arriaga, Reji Moore MD Unavailable Unavailable Arriaga, Reji Moore MD Unavailable Unavailable Arriaga, Reji Moore MD Unavailable Unavailable Arriaga, Reji Moore MD Unavailable Unavailable Arriaga, Reji Moore MD Unavailable Unavailable Arriaga, Reji Moore MD Unavailable Unavailable Arriaga, Reji Moore MD Unavailable Unavailable Arriaga, Reji Moore MD Unavailable Unavailable COLEMAN, CHACHO MARC RPA-C Unavailable Unavailable COLEMAN, CHACHO MARC RPA-C Unavailable Unavailable COLEMAN, CHACHO MARC RPA-C Unavailable Unavailable COLEMAN, CHACHO MARC RPA-C Unavailable Unavailable COLEMAN, CHACHO MARC RPA-C Unavailable Unavailable COLEMAN, CHACHO MARC RPA-C Unavailable Unavailable COLEMAN, CHACHO MARC RPA-C Unavailable Unavailable COLEMAN, CHACHO MARC RPA-C Unavailable Unavailable COLEMAN, CHACHO MARC RPA-C Unavailable Unavailable COLEMAN, CHACHO MARC RPA-C Unavailable Unavailable COLEMAN, CHACHO MARC RPA-C Unavailable Unavailable COLEMAN, CHACHO MARC RPA-C Unavailable Unavailable COLEMAN, CHACHO MARC RPA-C Unavailable Unavailable COLEMAN, CHACHO MARC RPA-C Unavailable Unavailable COLEMAN, CHACHO MACR RPA-C Unavailable Unavailable COLEMAN, CHACHO MARC RPA-C Unavailable Unavailable COLEMAN, CHACHO MARC RPA-C Unavailable Unavailable COLEMAN, CHACHO MARC RPA-C Unavailable Unavailable COLEMAN, CHACHO MARC RPA-C Unavailable Unavailable COLEMAN, CHACHO MARC RPA-C Unavailable Unavailable COLEAMN, CHACHO MARC RPA-C Unavailable Unavailable COLEMAN, CHACHO MARC RPA-C Unavailable Unavailable COLEMAN, CHACHO MARC RPA-C Unavailable Unavailable COLEMAN, CHACHO MARC RPA-C Unavailable Unavailable COLEMAN, CHACHO MARC RPA-C Unavailable Unavailable COLEMAN, CHACHO MARC RPA-C Unavailable Unavailable COLEMAN, CHACHO MARC RPA-C Unavailable Unavailable COLEMAN, CHACHO MARC RPA-C Unavailable Unavailable COLEMAN, CHACHO MARC RPA-C Unavailable Unavailable COLEMAN, CHACHO MARC RPA-C Unavailable Unavailable COLEMAN, CHACHO MARC RPA-C Unavailable Unavailable COLEMAN, CHACHO MARC RPA-C Unavailable Unavailable COLEMAN, CHACHO MARC RPA-C Unavailable Unavailable COLEMAN, CHACHO MARC RPA-C Unavailable Unavailable COLEMAN, CHACHO MARC RPA-C Unavailable Unavailable COLEMAN, CHACHO MARC RPA-C Unavailable Unavailable COLEMAN, CHACHO MARC RPA-C Unavailable Unavailable COLEMAN, CHACHO MARC RPA-C Unavailable Unavailable COLEMAN, CHACHO MARC RPA-C Unavailable Unavailable [facility], RFROST COLEMAN [facility] MARC Unavailable Unavailable Re-disclosure Warning The records that you are about to access may contain information from federally-assisted alcohol or drug abuse programs. If such information is present, then the following federally mandated warning applies: This information has been disclosed to you from records protected by federal confidentiality rules (42 CFR part 2). The federal rules prohibit you from making any further disclosure of this information unless further disclosure is expressly permitted by the written consent of the person to whom it pertains or as otherwise permitted by 42 CFR part 2. A general authorization for the release of medical or other information is NOT sufficient for this purpose. The Federal rules restrict any use of the information to criminally investigate or prosecute any alcohol or drug abuse patient.The records that you are about to access may contain highly sensitive health information, the redisclosure of which is protected by Article 27-F of the [facility] Public Health law. If you continue you may have access to information: Regarding HIV / AIDS; Provided by facilities licensed or operated by the [facility] Office of Mental Health; or Provided by the [facility] Office for People With Developmental Disabilities. If such information is present, then the following [facility] mandated warning applies: This information has been disclosed to you from confidential records which are protected by state law. State law prohibits you from making any further disclosure of this information without the specific written consent of the person to whom it pertains, or as otherwise permitted by law. Any unauthorized further disclosure in violation of state law may result in a fine or fdc sentence or both. A general authorization for the release of medical or other information is NOT sufficient authorization for further disc losure. Allergies and Adverse Reactions Type Description Substance Reaction Status Data Source(s ) Allergy to substance Allergy to substance Allergy to substance DULCE MARIA ([facility]) Allergy to substance Allergy to substance Allergy to substance DULCE MARIA ([facility]) Allergy to substance Allergy to substance Allergy to substance DULCE MARIA ([facility]) Allergy to substance Allergy to substance Allergy to substance DULCE MARIA ([facility]) Family History Family Member Name Family Member Gender Family Member Status Date o f Status Description Data Source(s) Unknown Unknown Problem [facility] ([facility]) Encounters Encounter Providers Location Date Indications Data Source(s ) Ida Graham PA-C: [address], [place] [address], Ph. Attender: Ida LILLY [facility] Medical 03/23/2020 12:00:00 AM EST DULCE MARIA ([facility]) Ida Graham PA-C: [address], [place] [address], Ph. Attender: Ida LILLY [facility] Medical 03/23/2020 12:00:00 AM EST DULCE MARIA ([facility]) Marc Coleman RPA-C: [address], [place] [address], Ph. Attender: MARC ALMANZARC [facility] Medical 03/02/2020 12:00:00 AM EST DULCE MARIA ([facility]) Macr Coleman RPA-C: [address], [place] [address], Ph. Attender: MARC ALMANZARC [facility] Medical 03/02/2020 12:00:00 AM EST DULCE MARIA ([facility]) Marc Coleman RPA-C: [address], [place] [address], Ph. Attender: MARC COLEMAN RPA-C [facility] Medical 01/23/2020 12:00:00 AM EST DULCE MARIA ([facility]) Marc Coleman RPA-C: [address], [place] [address], Ph. Attender: MARC COLEMAN RPA-C [facility] Medical 01/23/2020 12:00:00 AM EST DULCE MARIA ([facility]) Marc Coleman, RPA-C: [address], [place] [address], Ph. Attender: MARC COLEMAN RPA-C [facility] Medical 01/23/2020 12:00:00 AM EST DULCE MARIA ([facility]) Marc Coleman RPA-C: [address], [place] [address], Ph. Attender: MARC COLEMAN RPA-C [facility] Medical 01/05/2020 12:00:00 AM EST DULCE MARIA ([facility]) Marc Coleman, RPA-C: [address], [place] [address], Ph. Attender: MARC COLEMAN RPA-C [facility] Medical 01/05/2020 12:00:00 AM EST DULCEM ARIA ([facility]) Marc Coleman, RPA-C: [address], [place] [address], Ph. Attender: MARC COLEMAN RPA-C [facility] Medical 01/05/2020 12:00:00 AM EST DULCE MARIA ([facility]) Marc Coleman RPA-C: [address], [place] [address], Ph. Attender: MARC COLEMAN RPA-C [facility] 01/05/2020 12:00:00 AM EST DULCE MARIA ([facility]) [facility] 11:58:01 AM EDT [facility] Out[facility]: [facility] 12/03 03:38:01 PM EDT [facility] Outpatient Attender: MARC COLEMAN RPA-C [facility] 12/03/2019 03:52:00 PM EDT [facility] Outpatient Attender: BONITA MACKEY [facility] 11/05 10:03:01 AM EDT [facility] Outpatient Attender: BONITA MACKEY [facility] 11/04 08:57:03 AM EDT [facility] Outpatient Attender: MARC COLEMAN RPA-C [facility] 11/25/2019 08:57:02 AM EDT [facility] Outpatient Attender: BONITA MACKEY [facility] 11/04 08:56:03 AM EDT [facility] Outpatient Attender: MARC COLEMAN RPA-C [facility] 11/25/2019 08:56:01 AM EDT [facility] Outpatient Attender: BONITA MACKEY [facility] 11/04 08:53:03 AM EDT [facility] Outpatient Attender: MARC COLEMAN RPA-C [facility] 11/25/2019 08:53:01 AM EDT [facility] Outpatient Attender: MARC COLEMAN RPA-C [facility] 11/19/2019 05:20:02 PM EDT [facility] Outpatient Attender: BONITA MACKEY [facility] 11/03 05:20:02 PM EDT [facility]: [facility] 11/03 01:43:11 PM EDT [facility] Outpatient Attender: MARC COLEMAN RPA-C [facility] 11/18/2019 01:43:10 PM EDT [facility] Outpatient Attender: RFROST COLEMAN VIJAYA MACKEY [facility] 11/03 01:42:02 PM EDT [facility] Outpatient Attender: MARC COLEMAN RPA-C [facility] 11/18/2019 01:42:01 PM EDT [facility] Outpatient Attender: RFROST COLEMAN VIJAYA MARC [facility] 11/03 01:32:01 PM EDT [facility] Outpatient Attender: RFROST COLEMAN VIJAYA MACKEY [facility] 04/2019 08:31:02 AM EDT [facility] Outpatient Attender: MARC COLEMAN RPA-C [facility] 11/05/2019 08:31:01 AM EDT [facility] Outpatient Attender: RFROST COLEMAN VIJAYA MACKEY [facility] 10/03 02:04:00 PM EDT [facility] Outpatient Attender: RFCHUYITA COLEMANST VIJAYA MACKEY [facility] 10/03 02:52:00 PM EDT [facility] Outpatient Attender: MARC COLEMAN RPA-C [facility] 10/16/2019 02:48:02 PM EDT [facility] Outpatient Attender: RFROST COLEMAN VIJAYA MACKEY [facility] 10/03 02:15:02 PM EDT [facility] Outpatient Attender: MARC COLEMAN RPA-C [facility] 10/16/2019 02:15:00 PM EDT [facility] Outpatient Attender: RFCHUYITA COLEMAN VIJAYA MACKEY [facility] 08/2019 03:58:01 PM EDT [facility] 008 10/08/2019 12:04:00 PM EDT - 10/08/2019 12:04:[address] [facility] Lab test Outpatient Attender: RFROST COLEMAN PA MARC [facility] 07/2019 10:03:01 AM EDT [facility] Outpatient Attender: RFROST COLEMAN VIJAYA MACKEY [facility] 08/2019 01:17:04 PM EDT [facility] Outpatient Attender: RFROST COLEMAN PA MARC [facility] 10/2019 02:34:02 PM EDT [facility] Outpatient Attender: MARC COLEMAN RPA-C [facility] 07/24/2019 01:32:03 PM EDT [facility]: [facility] 07/04 09:27:00 AM EDT [facility] Att[facility]: [facility] 06/04 08:11:00 AM EDT [facility] Outpatient Attender: MARC COLEMAN FIONA [facility] 06/13/2019 10:42:02 AM EDT [facility] Outpatient Att[facility]: [facility] 05/04 10:07:01 AM EDT [facility] Outpatient Attender: ELIZABETH SHAY 05/14/2019 11:50:02 AM EDT [facility] Outpatient Attender: ELIZABETH SHAY 05/14/2019 10:46:01 AM EDT [facility] Outpatient Attender: ELIZABETH SHAY 05/12/2019 12:56:01 PM EDT [facility] Outpatient Attender: Aishwarya SHAY 05/09/2019 03: 26:02 PM [facility] Outpatient Attender: Aishwarya SHAY 05/09/2019 03: 24:00 PM [facility] Outpatient Attender: ELIZABETH SHAY 05/09/2019 09:14:01 AM [facility] Outpatient Attender: ELIZABETH SHAY 05/06/2019 11:47:01 AM [facility] Outpatient Attender: Aishwarya SHAY 04/23/2019 12: 53:01 PM [facility] Outpatient Attender: ELIZABETH SHAY 04/14/2019 01:07:01 PM [facility] Outpatient Attender: Aishwarya SHAY 04/08/2019 01: 12:00 PM [facility] Outpatient Attender: Oscar Jj/Jarrett/Saravanan/Danial darnell 04/03/2019 02:30:00 PM EST [facility] ([facility] Outpatient Referrer: Juan Thomas MD 03/28/2019 02:16:00 PM [facility] Outpatient Attender: ELIZABETH SHAY 03/28/2019 09:36:31 AM [facility] Outpatient Attender: Aishwarya JOHNSON-BC FP 03/28/2019 09: 33:44 AM [facility] Outpatient Attender: ELIZABETH WAYNEP FP 03/28/2019 09:30:07 AM [facility] Outpatient Attender: ELIZABETH WAYNEP FP 03/25/2019 09:01:08 PM [facility] Outpatient Attender: ELIZABETH WAYNEP FP 03/25/2019 10:29:01 AM [facility] Outpatient Attender: ELIZABETH WAYNEP FP 03/25/2019 10:27:00 AM [facility] Outpatient Attender: ELIZABETH WAYNEP FP 03/25/2019 10:26:01 AM [facility] Outpatient Attender: ELIZABETH WAYNEP FP 03/24/2019 09:51:01 AM [facility] Outpatient Attender: Aishwarya JOHNSON-BC FP 03/12/2019 01: 19:02 PM [facility] Outpatient Attender: ELIZABETH WAYNEP FP 03/10/2019 09:28:00 AM [facility] Outpatient Referrer: Juan Thomas MD 03/07/2019 05:36:00 AM [facility] Outpatient Attender: ELIZABETH JOHNSON FP 03/06/2019 01:52:01 PM [facility] Outpatient Attender: Aishwarya JOHNSON-BC FP 03/06/2019 01: 46:01 PM [facility] Outpatient Attender: ELIZABETH JOHNSON FP 02/21/2019 10:31:02 AM [facility] Outpatient Attender: Aishwarya JOHNSON-BC FP 02/21/2019 10: 31:01 AM [facility] Outpatient Attender: Oscar Jj/Jarrett/Saravanan/Danial darnell 02/18/2019 01:30:00 PM EST [facility] ([facility] Immunizations Vaccine Date Status Description Data Source(s) New in 2011. IIV4 01/05/2020 12:41:00 PM EST completed 0.5 mL DULCE MARIA ([facility]) New in 2011. IIV4 01/05/2020 12:41:00 PM EST completed 0.5 mL DULCE MARIA ([facility]) New in 2011. IIV4 01/05/2020 12:41:00 PM EST completed .5 mL DULCE MARIA ([facility]) New in 2011. IIV4 01/05/2020 12:41:00 PM EST completed .5 mL DULCE MARIA ([facility]) Medications Medication Brand Name Start Date Product Form Dose Route Admi nistrative Instructions Pharmacy Instructions Status Indications Reaction Description Data Source(s) 8-2 mg 04/06/2020 12:00:00 AM EST film 70 TAKE 1/2 STRIP 5 TIMES A DAY MAXIMUM DAILY DOSE = 2 & 1/2 STRIPS TAKE 1/2 STRIP 5 TIMES A DAY MAXIMUM KALEN LY DOSE = 2 & 1/2 STRIPS SOLD: 04/06/2020 [facility] 75 mg 03/24/2020 12:00:00 AM EST capsule 90 TAKE ONE CAPSULE BY MOUTH THREE TIMES A DAY MAXIMUM DAILY DOSE = 3 CAPSULES TAKE ONE CAPSULE BY MOUTH THREE TIMES A DAY MAXIMUM DAILY DOSE = 3 CAPSULES SOLD: 03/25/2020 [facility] 150 mg 03/24/2020 12:00:00 AM EST tablet sustained-releas e 12 hr 30 TAKE ONE TABLET BY MOUTH EVERY DAY TAKE ONE TABLET BY MOUTH EVERY DAY SOLD: 03/25/2020 [facility] 8-2 mg 03/09/2020 12:00:00 AM EST film 70 TAKE 1/2 FILM BY MOUTH FIVE TIMES A DAY MAXIMUM DAILY DOSE = 2 1/2 FILMS TAKE 1/2 FILM BY MOUTH FIVE TIMES A DAY MAXIMUM DAILY DOSE = 2 1/2 FILMS SOLD: 03/09/2020 [facility] 75 mg 02/25/2020 12:00:00 AM EST capsule 90 TAKE ONE CAPSULE BY MOUTH THREE TIMES A DAY MAXIMUM DAILY DOSE = 3 CAPSULES TAKE ONE CAPSULE BY MOUTH THREE TIMES A DAY MAXIMUM DAILY DOSE = 3 CAPSULES SOLD: 02/25/2020 [facility] 8-2 mg 02/06/2020 12:00:00 AM EST film 70 TAKE 1/2 FILM BY MOUTH FIVE TIMES A DAY MAXIMUM DAILY DOSE = 2 1/2 FILMS TAKE 1/2 FILM BY MOUTH FIVE TIMES A DAY MAXIMUM DAILY DOSE = 2 1/2 FILMS SOLD: 02/07/2020 [facility] 10 mg 02/02/2020 12:00:00 AM EST tablet 40 TAKE 4 TABLETS BY MOUTH ONCE DAILY FOR 4 DAYS THEN 3 TABLETS ONCE DAILY FOR 4 DAYS THEN 2 TABLETS ONCE DAILY FOR 4 DAYS THEN 1 TABLET ONCE DAILY FOR 4 DAYS AND STOP TAKE 4 TABLETS BY MOUTH ONCE DAILY FOR 4 DAYS THEN 3 TABLETS ONCE DAILY FOR 4 DAYS THEN 2 TABLETS ONCE DAILY FOR 4 DAYS THEN 1 TABLET ONCE DAILY FOR 4 DAYS AND STOP SOLD: 02/02/2020 [facility] 90 mcg/actuation 01/24/2020 12:00:00 AM EST HFA aerosol inha ler 18 INHALE TWO PUFFS BY MOUTH EVERY 4 HOURS INHALE TWO PUFFS BY MOUTH EVERY 4 HOURS SOLD: 02/25/2020 [facility] 2.5 mg /3 mL (0.083 %) 01/24/2020 12:00:00 AM EST solu tion for nebulization 75 1 VIAL VIA NEBULIZER EVERY 4 HOURS 1 VIAL VIA NE BULIZER EVERY 4 HOURS SOLD: 01/26/2020 [facility] 90 mcg/actuation 01/24/2020 12:00:00 AM EST HFA aerosol inha ler 18 INHALE TWO PUFFS BY MOUTH EVERY 4 HOURS INHALE TWO PUFFS BY MOUTH EVERY 4 HOURS SOLD: 01/26/2020 [facility] 600 mg 01/24/2020 12:00:00 AM EST tablet 180 TAKE ONE TABLET BY MOUTH THREE TIMES A DAY DIRECTED TAKE ONE TABLET BY MOUTH THREE TIMES A DAY DIRECTED SOLD: 01/26/2020 [facility] 75 mg 01/24/2020 12:00:00 AM EST capsule 90 TAKE ONE CAPSULE BY MOUTH THREE TIMES A DAY DIRECTED MAXIMUM DAILY DOSE = 3 CAPSULES TAKE ONE CAPSULE BY MOUTH THREE TIMES A DAY DIRECTED MAXIMUM DAILY DOSE = 3 CAPSULES SOLD: 01/26/2020 [facility] 600 mg 01/24/2020 12:00:00 AM EST tablet 180 TAKE ONE TABLET BY MOUTH THREE TIMES A DAY DIRECTED TAKE ONE TABLET BY MOUTH THREE TIMES A DAY DIRECTED SOLD: 03/25/2020 [facility] 20 mg 01/16/2020 12:00:00 AM EST tablet 5 TAKE ONE TABLET BY MOUTH EVERY DAY TAKE ONE TABLET BY MOUTH EVERY DAY SOLD: 01/16/2020 [facility] 875 mg 01/16/2020 12:00:00 AM EST tablet 10 TAKE ONE TABLET BY MOUTH TWICE A DAY TAKE ONE TABLET BY MOUTH TWICE A DAY SOLD: 01/16/2020 [facility] 8-2 mg 01/10/2020 12:00:00 AM EST film 70 PLACE ONE-HALF FILM UNDER THE TONGUE FIVE TIMES A DAY MAXIMUM DAILY DOSE = TWO AND ONE-HALF STRIP PLACE ONE- HALF FILM UNDER THE TONGUE FIVE TIMES A DAY MAXIMUM DAILY DOSE = TWO AND ONE- HALF STRIP SOLD: 01/10/2020 [facility] 750 mg 01/05/2020 12:00:00 AM EST tablet 7 TAKE ONE TABLET BY MOUTH EVERY DAY TAKE ONE TABLET BY MOUTH EVERY DAY SOLD: 01/05/2020 [facility] 50 mcg (2,000 unit) 01/05/2020 12:00:00 AM EST tablet 30 TAKE ONE TABLET BY MOUTH EVERY DAY TAKE ONE TABLET BY MOUTH EVERY DAY SOLD: 01/05/2020 [facility] 20 mg 01/05/2020 12:00:00 AM EST tablet 10 TAKE TWO TABLETS BY MOUTH EVERY DAY WITH MEALS FOR 5 DAYS TAKE TWO TABLETS BY MOUTH EVERY DAY WITH MEALS FOR 5 DAYS SOLD: 01/05/2020 [facility] 150 mg 12/23/2019 12:00:00 AM EDT tablet sustained-releas e 12 hr 30 TAKE ONE TABLET BY MOUTH EVERY DAY TAKE ONE TABLET BY MOUTH EVERY DAY SOLD: 02/07/2020 [facility] 150 mg 12/23/2019 12:00:00 AM EDT tablet sustained-releas e 12 hr 30 TAKE ONE TABLET BY MOUTH EVERY DAY TAKE ONE TABLET BY MOUTH EVERY DAY SOLD: 12/24/2019 [facility] 75 mg 12/20/2019 12:00:00 AM EDT capsule 90 TAKE ONE CAPSULE BY MOUTH THREE TIMES A DAY MAXIMUM DAILY DOSE = 3 CAPSULES TAKE ONE CAPSULE BY MOUTH THREE TIMES A DAY MAXIMUM DAILY DOSE = 3 CAPSULES SOLD: 12/24/2019 [facility] 90 mcg/actuation 12/04/2019 12:00:00 AM EDT HFA aerosol inha ler 8 INHALE TWO PUFFS BY MOUTH EVERY 4 HOURS NEEDED INHALE TWO PUFFS BY MOUTH EVERY 4 HOURS NEEDED SOLD: 12/12/2019 [facility] NEBULIZER AND COMPRESSOR 12/04/2019 12:00:00 AM EDT device 1 USE DIRECTED WITH ADULT MASK AND TUBING EVERY 4-6 HOURA NEEDED USE DIRECTED WITH ADULT MASK AND TUBING EVERY 4-6 HOURA NEEDED SOLD: 12/12/2019 [facility] 2.5 mg /3 mL (0.083 %) 12/04/2019 12:00:00 AM EDT solu tion for nebulization 75 USE 1 VIAL INHALED WITH NEBU LIZER EVERY 4-6 HOURS NEEDED FOR WHEEZING AND SHORTNESS OF BREATH USE 1 VIAL INHALED WITH NEBULIZER EVERY 4-6 HOURS NEEDED FOR WHEEZING AND SHORTNESS OF BREATH SOLD: 12/12/2019 [facility] 8-2 mg 12/03/2019 12:00:00 AM EDT film 70 TAKE 1/2 FILM BY MOUTH FIVE TIMES A DAY MAXIMUM DAILY DOSE = 2 1/2 FILMS TAKE 1/2 FILM BY MOUTH FIVE TIMES A DAY MAXIMUM DAILY DOSE = 2 1/2 FILMS SOLD: 12/03/2019 [facility] 750 mg 11/28/2019 12:00:00 AM EDT tablet 7 TAKE ONE TABLET BY MOUTH EVERY DAY TAKE ONE TABLET BY MOUTH EVERY DAY SOLD: 12/03/2019 [facility] 10 mg 11/22/2019 12:00:00 AM EDT tablet 30 TAKE FOUR TABLETS BY MOUTH ONCE DAILY FOR 3 DAYS, THEN TAKE THREE TABLETS ONCE DAILY FOR 3 DAYS, THEN TAKE TWO TABLETS FOR 3 DAYS, THEN TAKE ONE TABLET ONCE DAILY FOR 3 DAYS AND STOP TAKE FOUR TABLETS BY MOUTH ONCE DAILY FOR 3 DAYS, THEN TAKE THREE TABLETS ONCE DAILY FOR 3 DAYS, THEN TAKE TWO TABLETS FOR 3 DAYS, THEN TAKE ONE TABLET ONCE DAILY FOR 3 DAYS AND STOP SOLD: 11/22/2019 [facility] 2.5 mg /3 mL (0.083 %) 11/22/2019 12:00:00 AM EDT solu tion for nebulization 75 USE 1 VIAL VIA THE NEBULIZER EVERY 4 KANA RS USE 1 VIAL VIA THE NEBULIZER EVERY 4 HOURS SOLD: 12/03/2019 [facility] 750 mg 11/22/2019 12:00:00 AM EDT tablet 7 TAKE ONE TABLET BY MOUTH EVERY DAY AT 6 IN THE EVENING TAKE ONE TABLET BY MOUTH EVERY DAY AT 6 IN THE EVENING SOLD: 11/22/2019 [facility] 75 mg 11/15/2019 12:00:00 AM EDT capsule 90 TAKE ONE CAPSULE BY MOUTH THREE TIMES A DAY MAXIMUM DAILY DOSE = 3 CAPSULES TAKE ONE CAPSULE BY MOUTH THREE TIMES A DAY MAXIMUM DAILY DOSE = 3 CAPSULES SOLD: 11/17/2019 [facility] Escitalopram 20 MG Oral Tablet ESCITALOPRAM OXALATE 11/11/2019 1 2:00:00 AM EDT tablet 30 TAKE ONE TABLET BY MOUTH EVERY D AY TAKE ONE TABLET BY MOUTH EVERY DAY SOLD: 11/12/2019 [facility] 8-2 mg 11/04/2019 12:00:00 AM EDT film 70 TAKE 1/2 FILM UNDER THE TONGUE FIVE TIMES A DAY MAXIMUM DAILY DOSE = 20MG TAKE 1/2 FILM UNDER THE TONGUE FIVE TIMES A DAY MAXIMUM DAILY DOSE = 20MG SOLD: 11/05/2019 [facility] 200 mcg/actuation 10/28/2019 12:00:00 AM EDT blister with de vice 30 INHALE ONE PUFF BY MOUTH EVERY DAY INHALE ONE PUFF BY MOUTH EVERY DAY SOLD: 10/28/2019 [facility] 200 mcg/actuation 10/28/2019 12:00:00 AM EDT blister with de vice 30 INHALE ONE PUFF BY MOUTH EVERY DAY INHALE ONE PUFF BY MOUTH EVERY DAY SOLD: 02/07/2020 [facility] 50 mg 10/22/2019 12:00:00 AM EDT tablet 30 TAKE ONE TABLET BY MOUTH EVERY DAY NEEDED FOR ITCHING OR ANXIETY TAKE ONE TABLET BY MOUTH EVERY DAY NEEDED FOR ITCHING OR ANXIETY SOLD: 10/22/2019 [facility] 50 mg 10/22/2019 12:00:00 AM EDT tablet 30 TAKE ONE TABLET BY MOUTH EVERY DAY NEEDED FOR ITCHING OR ANXIETY TAKE ONE TABLET BY MOUTH EVERY DAY NEEDED FOR ITCHING OR ANXIETY SOLD: 01/10/2020 [facility] 50 mg 10/22/2019 12:00:00 AM EDT tablet 30 TAKE ONE TABLET BY MOUTH EVERY DAY NEEDED FOR ITCHING OR ANXIETY TAKE ONE TABLET BY MOUTH EVERY DAY NEEDED FOR ITCHING OR ANXIETY SOLD: 02/25/2020 [facility] 150 mg 10/20/2019 12:00:00 AM EDT tablet sustained-releas e 12 hr 30 TAKE ONE TABLET BY MOUTH EVERY DAY TAKE ONE TABLET BY MOUTH EVERY DAY SOLD: 10/20/2019 [facility] Escitalopram 20 MG Oral Tablet ESCITALOPRAM OXALATE 10/17/2019 1 2:00:00 AM EDT tablet 30 TAKE ONE TABLET BY MOUTH EVERY D AY TAKE ONE TABLET BY MOUTH EVERY DAY SOLD: 10/18/2019 [facility] 600 mg 10/17/2019 12:00:00 AM EDT tablet 270 TAKE ONE TABLET BY MOUTH THREE TIMES A DAY TAKE ONE TABLET BY MOUTH THREE TIMES A DAY SOLD: 10/18/2019 [facility] 50 mcg (2,000 unit) 10/17/2019 12:00:00 AM EDT capsule 30 TAKE ONE CAPSULE BY MOUTH EVERY DAY TAKE ONE CAPSULE BY MOUTH EVERY DAY SOLD: 10/18/2019 [facility] 75 mg 10/10/2019 12:00:00 AM EDT capsule 90 TAKE ONE CAPSULE BY MOUTH THREE TIMES A DAY MAXIMUM DAILY DOSE = 3 TAKE ONE CAPSULE BY MOUTH THREE TIMES A DAY MAXIMUM DAILY DOSE = 3 SOLD: 10/15/2019 [facility] 10 mg 10/09/2019 12:00:00 AM EDT tablet 90 TAKE ONE TABLET BY MOUTH EVERY DAY TAKE ONE TABLET BY MOUTH EVERY DAY SOLD: 10/15/2019 [facility] 8-2 mg 10/05/2019 12:00:00 AM EDT film 70 DISSOLVE 1/2 FILM SUBLINGUALLY FIVE TIMES DAILY MAX = 2 AND 1/2 FILMS/DAY DISSOLVE 1/2 FILM SUBLINGUALLY FIVE TIMES DAILY MAX = 2 AND 1/2 FILMS/DAY SOLD: 10/05/2019 [facility] Prednisone 10 MG Oral Tablet Prednisone 10/02/2019 12:00:00 AM EDT ORAL completed [facility] ([facility], ) 10 mg 10/02/2019 12:00:00 AM EDT tablet 40 TAKE FOUR TABLETS BY MOUTH EVERY DAY FOR 4 DAYS THEN 3 ONCE DAILY FOR 4 DAYS THEN 2 ONCE DAILY FOR 4 DAYS THEN 1 ONCE DAILY FOR 4 DAYS TAKE FOUR TABLETS BY MOUTH EVERY DAY FOR 4 DAYS THEN 3 ONCE DAILY FOR 4 DAYS THEN 2 ONCE DAILY FOR 4 DAYS THEN 1 ONCE DAILY FOR 4 DAYS SOLD: 10/03/2019 [facility] 75 mg 09/10/2019 12:00:00 AM EDT capsule 60 TAKE ONE CAPSULE BY MOUTH TWICE A DAY MAXIMUM DAILY DOSE = 2 CAPSULES TAKE ONE CAPSULE BY MOUTH TWICE A DAY MAXIMUM DAILY DOSE = 2 CAPSULES SOLD: 09/10/2019 [facility] 8-2 mg 09/05/2019 12:00:00 AM EDT film 70 TAKE 1/2 FILM FIVE TIMES DAILY MAXIMUM DAILY DOSE = 20MG TAKE 1/2 FILM FIVE TIMES DAILY MAXIMUM D AILY DOSE = 20MG SOLD: 09/08/2019 [facility] Escitalopram 10 MG Oral Tablet ESCITALOPRAM OXALATE 08/26/2019 1 2:00:00 AM EDT tablet 30 TAKE ONE TABLET BY MOUTH EVERY D AY TAKE ONE TABLET BY MOUTH EVERY DAY SOLD: 08/26/2019 [facility] Escitalopram 10 MG Oral Tablet ESCITALOPRAM OXALATE 08/26/2019 1 2:00:00 AM EDT tablet 30 TAKE ONE TABLET BY MOUTH EVERY D AY TAKE ONE TABLET BY MOUTH EVERY DAY SOLD: 09/30/2019 [facility] 75 mg 08/12/2019 12:00:00 AM EDT capsule 60 TAKE ONE CAPSULE BY MOUTH TWICE A DAY MAXIMUM DAILY DOSE = 2 TAKE ONE CAPSULE BY MOUTH TWICE A DAY MA XIMUM DAILY DOSE = 2 SOLD: 08/13/2019 [facility] 600 mg 08/11/2019 12:00:00 AM EDT tablet 90 TAKE ONE TABLET BY MOUTH THREE TIMES A DAY TAKE ONE TABLET BY MOUTH THREE TIMES A DAY SOLD: 08/13/2019 [facility] 600 mg 08/11/2019 12:00:00 AM EDT tablet 90 TAKE ONE TABLET BY MOUTH THREE TIMES A DAY TAKE ONE TABLET BY MOUTH THREE TIMES A DAY SOLD: 09/17/2019 [facility] Escitalopram 5 MG Oral Tablet ESCITALOPRAM OXALATE 08/01/2019 12 :00:00 AM EDT tablet 30 TAKE ONE TABLET BY MOUTH EVERY M ORNING TAKE ONE TABLET BY MOUTH EVERY MORNING SOLD: 08/04/2019 [facility] 600 mg 08/01/2019 12:00:00 AM EDT tablet 90 TAKE ONE TABLET BY MOUTH THREE TIMES A DAY TAKE ONE TABLET BY MOUTH THREE TIMES A DAY SOLD: 08/04/2019 [facility] 8-2 mg 07/27/2019 12:00:00 AM EDT film 70 TAKE 1/2 FILM STRIP 5 TIMES A DAY MAX OF 2 AND 1/2 FILM STRIPS PER DAY TAKE 1/2 FILM STRIP 5 TIMES A DAY MAX OF 2 AND 1/2 FILM STRIPS PER DAY SOLD: 08/04/2019 [facility] 90 mcg/actuation 07/14/2019 12:00:00 AM EDT HFA aerosol inha ler 8 INHALE 2 PUFFS EVERY 4 HOURS NEEDED INHALE 2 PUFFS EVERY 4 HOURS NEEDED SOLD: 07/14/2019 [facility] 75 mg 07/14/2019 12:00:00 AM EDT capsule 60 TAKE ONE CAPSULE BY MOUTH TWICE A DAY MAXIMUM DAILY DOSE = 2 TAKE ONE CAPSULE BY MOUTH TWICE A DAY MA XIMUM DAILY DOSE = 2 SOLD: 07/14/2019 [facility] 50 mg 07/14/2019 12:00:00 AM EDT tablet 30 TAKE ONE TABLET EVERY 8 HOURS NEEDED FOR ITCHING TAKE ONE TABLET EVERY 8 HOURS NEEDED FOR ITCHING SO LD: 08/08/2019 [facility] 50 mg 07/14/2019 12:00:00 AM EDT tablet 30 TAKE ONE TABLET EVERY 8 HOURS NEEDED FOR ITCHING TAKE ONE TABLET EVERY 8 HOURS NEEDED FOR ITCHING SO LD: 07/14/2019 [facility] 50 mg 07/14/2019 12:00:00 AM EDT tablet 30 TAKE ONE TABLET EVERY 8 HOURS NEEDED FOR ITCHING TAKE ONE TABLET EVERY 8 HOURS NEEDED FOR ITCHING SO LD: 09/28/2019 [facility] 90 mcg/actuation 07/14/2019 12:00:00 AM EDT HFA aerosol inha ler 8 INHALE 2 PUFFS EVERY 4 HOURS NEEDED INHALE 2 PUFFS EVERY 4 HOURS NEEDED SOLD: 09/30/2019 [facility] Escitalopram 5 MG Oral Tablet ESCITALOPRAM OXALATE 07/01/2019 12 :00:00 AM EDT tablet 30 TAKE ONE TABLET BY MOUTH EVERY M ORNING TAKE ONE TABLET BY MOUTH EVERY MORNING SOLD: 07/03/2019 [facility] 8-2 mg 06/30/2019 12:00:00 AM EDT film 70 TAKE 1/2 STRIP BY MOUTH FIVE TIMES DAILY MAXIMUM DAILY DOSE = 2 AND 1/2 FILMS TAKE 1/2 STRIP BY MOUTH FIVE TIMES DAILY MAXIMUM DAILY DOSE = 2 AND 1/2 FILMS SOLD: 06/30/2019 [facility] 2.5-2.5 mcg/actuation 06/28/2019 12:00:00 AM EDT mist 4 INHALE TWO PUFFS BY MOUTH EVERY DAY INHALE TWO PUFFS BY MOUTH EVERY DAY SOLD: 06/30/2019 [facility] 75 mg 06/13/2019 12:00:00 AM EDT capsule 60 TAKE ONE CAPSULE BY MOUTH TWICE A DAY MAXIMUM DAILY DOSE = 2 TAKE ONE CAPSULE BY MOUTH TWICE A DAY MA XIMUM DAILY DOSE = 2 SOLD: 06/17/2019 [facility] 600 mg 06/13/2019 12:00:00 AM EDT tablet 90 TAKE ONE TABLET BY MOUTH THREE TIMES A DAY TAKE ONE TABLET BY MOUTH THREE TIMES A DAY SOLD: 06/17/2019 [facility] 4 mg 06/13/2019 12:00:00 AM EDT gum 110 CHEW ONE PIECE OF GUM BUCCALLY EVERY 1-2 HOURS NEEDED CHEW ONE PIECE OF GUM BUCCALLY EVERY 1-2 HOURS NEED ED SOLD: 06/17/2019 [facility] 8-2 mg 06/05/2019 12:00:00 AM EDT film 70 TAKE 1/2 FILM BY MOUTH 5 TIMES DAY MAX OF 2 AND 1/2 FILMS PER DAY TAKE 1/2 FILM BY MOUTH 5 TIMES DAY MAX O F 2 AND 1/2 FILMS PER DAY SOLD: 06/06/2019 [facility] 50 mg 05/24/2019 12:00:00 AM EDT capsule 60 TAKE ONE CAPSULE BY MOUTH TWICE A DAY MAXIMUM DAILY DOSE = 2 CAPSULE TAKE ONE CAPSULE BY MOUTH TWICE A DAY MAXIMUM DAILY DOSE = 2 CAPSULE SOLD: 06/01/2019 [facility] Escitalopram 5 MG Oral Tablet ESCITALOPRAM OXALATE 05/13/2019 12 :00:00 AM EDT tablet 30 TAKE ONE TABLET BY MOUTH EVERY M ORNING TAKE ONE TABLET BY MOUTH EVERY MORNING SOLD: 05/14/2019 [facility] 50 mg 05/10/2019 12:00:00 AM EST capsule 30 TAKE ONE CAPSULE BY MOUTH EVERY DAY MAXIMUM DAILY DOSE = 1 TAKE ONE CAPSULE BY MOUTH EVERY DAY MAXI MUM DAILY DOSE = 1 SOLD: 05/12/2019 [facility] 8-2 mg 05/08/2019 12:00:00 AM EST film 70 TAKE 1/2 TABLET BY MOUTH 5 TIMES A DAY MAX OF 2 AND 1/2 FILM TABLETS PER DAY TAKE 1/2 TABLET BY MOUTH 5 TIMES A DAY MAX OF 2 AND 1/2 FILM TABLETS PER DAY SOLD: 05/08/2019 [facility] 50 mg 04/24/2019 12:00:00 AM EST tablet 30 TAKE ONE TABLET BY MOUTH EVERY 8 HOURS NEEDED ITCHING TAKE ONE TABLET BY MOUTH EVERY 8 HOURS A S NEEDED ITCHING SOLD: 05/23/2019 [facility] 10 mg 04/24/2019 12:00:00 AM EST tablet 90 TAKE ONE TABLET BY MOUTH EVERY DAY TAKE ONE TABLET BY MOUTH EVERY DAY SOLD: 04/28/2019 [facility] 50 mg 04/24/2019 12:00:00 AM EST tablet 30 TAKE ONE TABLET BY MOUTH EVERY 8 HOURS NEEDED ITCHING TAKE ONE TABLET BY MOUTH EVERY 8 HOURS A S NEEDED ITCHING SOLD: 04/28/2019 [facility] 50 mg 04/24/2019 12:00:00 AM EST tablet 30 TAKE ONE TABLET BY MOUTH EVERY 8 HOURS NEEDED ITCHING TAKE ONE TABLET BY MOUTH EVERY 8 HOURS A S NEEDED ITCHING SOLD: 07/04/2019 [facility] 8-2 mg 04/10/2019 12:00:00 AM EST film 70 PLACE 1/2 FILM UNDER THE TONGUE 5 TIMES A DAY MAXIMUM DAILY DOSE = 2 & 1/[address] 1/2 FILM UNDER THE TONGUE 5 TIMES A DAY MAXIMUM DAILY DOSE = 2 & 1/2 STRIPS SOLD: 04/10/2019 [facility] 0.4-0.3 % 04/07/2019 12:00:00 AM EST drops 15 INSTILL ONE DROP IN EACH EYE FOUR TIMES A DAY, AND OR NEEDED DIRECTED INSTILL ONE DROP IN EACH EYE FOUR TIMES A DAY, AND OR NEEDED DIRECTED SOLD: 06/30/2019 [facility] 0.4-0.3 % 04/07/2019 12:00:00 AM EST drops 15 INSTILL ONE DROP IN EACH EYE FOUR TIMES A DAY, AND OR NEEDED DIRECTED INSTILL ONE DROP IN EACH EYE FOUR TIMES A DAY, AND OR NEEDED DIRECTED SOLD: 04/10/2019 [facility] 400 mg 04/05/2019 12:00:00 AM EST capsule 90 TAKE ONE CAPSULE BY MOUTH THREE TIMES A DAY WITH 600 MG TOTAL 1000 THREE TIMES A DAY TAKE ONE CAPSULE BY MOUTH THREE TIMES A DAY WITH 600 MG TOTAL 1000 THREE TIMES A DAY SOLD: 04/07/2019 [facility] 60 mg 03/24/2019 12:00:00 AM EST capsule,delayed release (DR/EC) 30 TAKE ONE CAPSULE BY MOUTH EVERY DAY TAKE ONE CAPSULE BY MOUTH EVERY DAY SOLD: 03/25/2019 [facility] 60 mg 03/24/2019 12:00:00 AM EST capsule,delayed release (DR/EC) 30 TAKE ONE CAPSULE BY MOUTH EVERY DAY TAKE ONE CAPSULE BY MOUTH EVERY DAY SOLD: 08/08/2019 [facility] 60 mg 03/24/2019 12:00:00 AM EST capsule,delayed release (DR/EC) 30 TAKE ONE CAPSULE BY MOUTH EVERY DAY TAKE ONE CAPSULE BY MOUTH EVERY DAY SOLD: 05/14/2019 [facility] 600 mg 03/24/2019 12:00:00 AM EST tablet 90 TAKE ONE TABLET BY MOUTH THREE TIMES A DAY (WITH 400MG FOR TOTAL OF 1000MG) TAKE ONE TABLET BY MOUTH THREE TIMES A DAY (WITH 400MG FOR TOTAL OF 1000MG) SOLD: 03/25/2019 [facility] 50 mg 03/24/2019 12:00:00 AM EST capsule 30 TAKE ONE CAPSULE BY MOUTH EVERY DAY MAXIMUM DAILY DOSE = 1 TAKE ONE CAPSULE BY MOUTH EVERY DAY MAXI MUM DAILY DOSE = 1 SOLD: 03/25/2019 [facility] 8-2 mg 03/13/2019 12:00:00 AM EST film 70 ONE-HALF STRIP UNDER THE TONGUE 5 TIMES A DAY MAXIMUM DAILY DOSE = 2 & 1/2 ONE-HALF STRIP UNDER THE TONGUE 5 TIMES A DAY MAXIMUM DAILY DOSE = 2 & 1/2 SOLD: 03/13/2019 [facility] levocetirizine dihydrochloride 5 MG Oral Tablet LEVOCETIRIZI NE DIHYDROCHLORIDE 03/10/2019 12:00:00 AM EST tablet 30 TAKE ONE TABLE T BY MOUTH AT BEDTIME TAKE ONE TABLET BY MOUTH AT BEDTIME SOLD: 06/01/2019 [facility] levocetirizine dihydrochloride 5 MG Oral Tablet LEVOCETIRIZI NE DIHYDROCHLORIDE 03/10/2019 12:00:00 AM EST tablet 30 TAKE ONE TABLE T BY MOUTH AT BEDTIME TAKE ONE TABLET BY MOUTH AT BEDTIME SOLD: 03/11/2019 [facility] levocetirizine dihydrochloride 5 MG Oral Tablet LEVOCETIRIZI NE DIHYDROCHLORIDE 03/10/2019 12:00:00 AM EST tablet 30 TAKE ONE TABLE T BY MOUTH AT BEDTIME TAKE ONE TABLET BY MOUTH AT BEDTIME SOLD: 05/04/2019 [facility] 5 mg 03/10/2019 12:00:00 AM EST tablet 30 TAKE ONE TABLET BY MOUTH AT BEDTIME TAKE ONE TABLET BY MOUTH AT BEDTIME SOLD: 04/07/2019 [facility] 10 mg 02/18/2019 12:00:00 AM EST tablet 40 TAKE TAKE FOUR TABLETS BY MOUTH EVERY DAY FOR 4 DAYS THEN TAKE THREE TABLETS BY MOUTH EVERY DAY FOR 4 DAYS THEN TAKE TWO TABLETS BY MOUTH EVERY DAY FOR 4 DAYS THEN TAKE ONE TABLET BY MOUTH EVERY DAY FOR 4 DAYS AND STOP TAKE TAKE FOUR TABLETS BY MOUTH EVERY DA Y FOR 4 DAYS THEN TAKE THREE TABLETS BY MOUTH EVERY DAY FOR 4 DAYS THEN TAKE TWO TABLETS BY MOUTH EVERY DAY FOR 4 DAYS THEN TAKE ONE TABLET BY MOUTH EVERY DAY FOR 4 DAYS AND STOP SOLD: 02/18/2019 [facility] 500 mg 02/18/2019 12:00:00 AM EST tablet 10 TAKE ONE TABLET BY MOUTH EVERY DAY FOR 10 DAYS TAKE ONE TABLET BY MOUTH EVERY DAY FOR 10 DAYS SOLD: 019 [facility] Prednisone 10 MG Oral Tablet Prednisone 02/18/2019 12:00:00 AM EST ORAL completed [facility] ([facility], ) Levofloxacin 500 MG Oral Tablet [Levaquin] Levaquin 02/18 12:00:00 AM EST ORAL completed [facility] ([facility], ) 8-2 mg 02/14/2019 12:00:00 AM EST film 70 PLACE ONE-HALF FILM UNDER THE TONGUE FIVE TIMES A DAY MAXIMUM DAILY DOSE = 20MG(2.5 FILMS) PLACE ONE-HALF FILM UNDER THE TONGUE FIVE TIMES A DAY MAXIMUM DAILY DOSE = 20MG(2.5 FILMS) SOLD: 02/15/2019 [facility] 30 mg 12/25/2018 12:00:00 AM EDT capsule,delayed release (DR/EC) 30 TAKE ONE CAPSULE BY MOUTH EVERY DAY TAKE ONE CAPSULE BY MOUTH EVERY DAY SOLD: 03/04/2019 [facility] 10 mg 12/25/2018 12:00:00 AM EDT tablet 30 TAKE ONE TABLET BY MOUTH EVERY DAY TAKE ONE TABLET BY MOUTH EVERY DAY SOLD: 03/04/2019 [facility] 50 mg 11/26/2018 12:00:00 AM EDT tablet 30 TAKE ONE TABLET BY MOUTH EVERY 8 HOURS NEEDED FOR ITCHING TAKE ONE TABLET BY MOUTH EVERY 8 HOURS A S NEEDED FOR ITCHING SOLD: 03/14/2019 [facility] 10 mg 11/20/2018 12:00:00 AM EDT tablet 30 TAKE ONE TABLET BY MOUTH EVERY DAY TAKE ONE TABLET BY MOUTH EVERY DAY SOLD: 05/23/2019 [facility] 400 mg 09/27/2018 12:00:00 AM EDT capsule 90 TAKE ONE CAPSULE BY MOUTH THREE TIMES A DAY TAKE ONE CAPSULE BY MOUTH THREE TIMES A DAY SOLD: 03/11/2019 [facility] 600 mg 09/02/2018 12:00:00 AM EDT tablet 90 TAKE ONE TABLET BY MOUTH THREE TIMES A DAY TAKE ONE TABLET BY MOUTH THREE TIMES A DAY SOLD: 03/04/2019 [facility] 200 mcg/actuation 08/29/2018 12:00:00 AM EDT blister with de vice 30 INHALE ONE PUFF BY MOUTH EVERY DAY INHALE ONE PUFF BY MOUTH EVERY DAY SOLD: 04/28/2019 [facility] 200 mcg/actuation 08/29/2018 12:00:00 AM EDT blister with de vice 30 INHALE ONE PUFF BY MOUTH EVERY DAY INHALE ONE PUFF BY MOUTH EVERY DAY SOLD: 05/23/2019 [facility] 200 mcg/actuation 08/29/2018 12:00:00 AM EDT blister with de vice 30 INHALE ONE PUFF BY MOUTH EVERY DAY INHALE ONE PUFF BY MOUTH EVERY DAY SOLD: 03/04/2019 [facility] 2.5-2.5 mcg/actuation 07/01/2018 12:00:00 AM EDT mist 4 INHALE TWO PUFFS BY MOUTH EVERY DAY INHALE TWO PUFFS BY MOUTH EVERY DAY SOLD: 03/11/2019 [facility] 2.5-2.5 mcg/actuation 07/01/2018 12:00:00 AM EDT mist 4 INHALE TWO PUFFS BY MOUTH EVERY DAY INHALE TWO PUFFS BY MOUTH EVERY DAY SOLD: 04/07/2019 [facility] 2.5-2.5 mcg/actuation 07/01/2018 12:00:00 AM EDT mist 4 INHALE TWO PUFFS BY MOUTH EVERY DAY INHALE TWO PUFFS BY MOUTH EVERY DAY SOLD: 06/01/2019 [facility] 2.5-2.5 mcg/actuation 07/01/2018 12:00:00 AM EDT mist 4 INHALE TWO PUFFS BY MOUTH EVERY DAY INHALE TWO PUFFS BY MOUTH EVERY DAY SOLD: 05/04/2019 [facility] vitamin d3 50 mcg (2000 ut) caps completed vitamin d3 50 mcg (2000 ut) caps [facility]) Escitalopram 5 MG Oral Tablet escitalopr am 5 mg tablet TAKE ONE TABLET BY MOUTH EVERY MORNING escitalopram 5 mg tablet TAKE ONE TABLET BY MOUTH EVERY MORN ING completed escitalopram 5 MG Oral Tablet [facility] ([facility]) Escitalopram 5 MG Oral Tablet escitalopr am 5 mg tablet TAKE ONE TABLET BY MOUTH EVERY MORNING escitalopram 5 mg tablet TAKE ONE TABLET BY MOUTH EVERY MORN ING completed escitalopram 5 MG Oral Tablet [place] ([facility]) Prednisone 10 MG Oral Tablet prednisone 10 mg tablet prednisone 10 mg tablet completed prednisone 10 MG Oral Tablet [place] ([facility]) duloxetine 60 MG Delayed Release Oral Ca psule duloxetine 60 mg capsule,delayed release TAKE ONE CAPSULE BY MOUTH EVERY DAY duloxetine 60 mg capsule,delayed release TAKE ONE CAPSULE BY MOUTH EVERY DAY completed duloxetine 60 MG Delayed Release Oral Capsule [facility] ([facility]) Prednisone 20 MG Oral Tablet prednisone 20 mg tablet prednisone 20 mg tablet completed prednisone 20 MG Oral Tablet [place] ([facility]) Levofloxacin 500 MG Oral Tablet levofloxacin 500 mg ta blet levofloxacin 500 mg tablet completed levofloxacin 50 0 MG Oral Tablet [place] ([facility]) levocetirizine dihydrochloride 5 MG Oral Tablet levocetirizine 5 mg tablet TAKE ONE TABLET BY MOUTH AT BEDTIME levocetirizine 5 mg tablet TAKE ONE TABL ET BY MOUTH AT BEDTIME completed levocetirizine dihydrochloride 5 MG Oral Tablet [place] ([facility]) Buprenorphine 8 MG / Naloxone 2 MG Subli ngual Tablet Suboxone 8 mg-[address] 1 tablet every day by sublingual route. Suboxone 8 mg-[address] 1 tablet every day by sublingual route. 1 completed buprenorphine 8 MG / naloxone 2 MG Sublingual Tablet [place] ([facility]) duloxetine 30 MG Delayed Release Oral Ca psule duloxetine 30 mg capsule,delayed release duloxetine 30 mg capsule,delayed release completed duloxetine 30 MG Delayed Release Oral Capsule [place] ([facility]) vitamin d3 50 mcg (2000 ut) caps completed vitamin d3 50 mcg (2000 ut) caps [place] ([facility]) Doxycycline Monohydrate 100 MG Oral Caps ule doxycycline monohydrate 100 mg capsule TAKE ONE CAPSULE BY MOUTH TWICE A DAY FOR 7 DAYS doxycycline monohydrate 100 mg capsule TAKE ONE CAPSULE BY MOUTH TWICE A DAY FOR 7 DAYS completed doxycycline monohydrate 100 MG O ral Capsule [place] ([facility]) gabapentin 400 MG Oral Capsule gabapentin 400 mg capsu le gabapentin 400 mg capsule completed gabapentin 400 MG Oral Capsule [place] ([facility]) Cholecalciferol 2000 UNT Oral Capsule ch olecalciferol (vitamin D3) 50 mcg (2,000 unit) capsule TAKE ONE CAPSULE BY MOUTH EVERY DAY cholecalciferol (vitamin D3) 50 mcg (2,000 unit) capsule TAKE ONE CAPSULE BY MOUTH EVERY DAY completed cholecalciferol 0.05 MG Oral Cap zeeshan [place] ([facility]) pregabalin 50 MG Oral Capsule pregabalin 50 mg capsule prega balin 50 mg capsule completed pregabalin 50 MG Oral Capsule [place] ([facility]) Amoxicillin 875 MG Oral Tablet amoxicillin 875 mg tabl et amoxicillin 875 mg tablet completed amoxicillin 875 MG Oral Tablet [place] [facility] [facility] duloxetine 30 MG Delayed Release Oral Ca psule duloxetine 30 mg capsule,delayed release duloxetine 30 mg capsule,delayed release completed duloxetine 30 MG Delayed Release Oral Capsule [place] ([facility]) Escitalopram 10 MG Oral Tablet escitalop luis 10 mg tablet TAKE ONE TABLET BY MOUTH EVERY DAY escitalopram 10 mg tablet TAKE ONE TABLET BY MOUTH EVERY DAY completed escitalopram 1 0 MG Oral Tablet [place] ([facility]) Prednisone 20 MG Oral Tablet prednisone 20 mg tablet prednisone 20 mg tablet completed prednisone 20 MG Oral Tablet [place] ([facility]) duloxetine 30 MG Delayed Release Oral Ca psule duloxetine 30 mg capsule,delayed release duloxetine 30 mg capsule,delayed release completed duloxetine 30 MG Delayed Release Oral Capsule [place] ([facility]) Doxycycline Monohydrate 100 MG Oral Caps ule doxycycline monohydrate 100 mg capsule TAKE ONE CAPSULE BY MOUTH TWICE A DAY FOR 7 DAYS doxycycline monohydrate 100 mg capsule TAKE ONE CAPSULE BY MOUTH TWICE A DAY FOR 7 DAYS completed doxycycline monohydrate 100 MG O ral Capsule [place] ([facility]) Escitalopram 20 MG Oral Tablet [Lexapro] Lexapro 20 mg tablet Take 1 tablet every day by oral route as directed. Lexapro 20 mg tablet Take 1 tablet every day by oral route as directed. 1 complet ed escitalopram 20 MG Oral Tablet [Lexapro] [place] ([facility]) Levofloxacin 750 MG Oral Tablet levofloxacin 750 mg ta blet levofloxacin 750 mg tablet completed levofloxacin 75 0 MG Oral Tablet [facility]) Buprenorphine 8 MG / Naloxone 2 MG Subli ngual Tablet Suboxone 8 mg-[address] 1 tablet every day by sublingual route. Suboxone 8 mg-[address] 1 tablet every day by sublingual route. 1 completed buprenorphine 8 MG / naloxone 2 MG Sublingual Tablet [facility]) Prednisone 20 MG Oral Tablet prednisone 20 mg tablet prednisone 20 mg tablet completed prednisone 20 MG Oral Tablet [facility]) Prednisone 10 MG Oral Tablet prednisone 10 mg tablet prednisone 10 mg tablet completed prednisone 10 MG Oral Tablet [facility]) Nicotine 4 MG Chewing Gum nicotine (davon crilex) 4 mg gum CHEW ONE PIECE OF GUM BUCCALLY EVERY 1 2 HOURS NEEDED nicotine (polacrilex) 4 mg gum CHEW ONE PIECE OF GUM BUCCALLY EVERY 1 2 HOURS NEEDED completed nicotine 4 MG Chewing Gum [place] ([facility]) levocetirizine dihydrochloride 5 MG Oral Tablet levocetirizine 5 mg tablet TAKE ONE TABLET BY MOUTH AT BEDTIME levocetirizine 5 mg tablet TAKE ONE TABL ET BY MOUTH AT BEDTIME completed levocetirizine dihydrochloride 5 MG Oral Tablet [place] ([facility]) Escitalopram 10 MG Oral Tablet escitalop luis 10 mg tablet TAKE ONE TABLET BY MOUTH EVERY DAY escitalopram 10 mg tablet TAKE ONE TABLET BY MOUTH EVERY DAY completed escitalopram 1 0 MG Oral Tablet [place] ([facility]) Amoxicillin 875 MG Oral Tablet amoxicillin 875 mg tabl et amoxicillin 875 mg tablet completed amoxicillin 875 MG Oral Tablet [place] ([facility]) Nicotine 4 MG Chewing Gum nicotine (davon crilex) 4 mg gum CHEW ONE PIECE OF GUM BUCCALLY EVERY 1 2 HOURS NEEDED nicotine (polacrilex) 4 mg gum CHEW ONE PIECE OF GUM BUCCALLY EVERY 1 2 HOURS NEEDED completed nicotine 4 MG Chewing Gum [place] ([facility]) Escitalopram 10 MG Oral Tablet escitalop luis 10 mg tablet TAKE ONE TABLET BY MOUTH EVERY DAY escitalopram 10 mg tablet TAKE ONE TABLET BY MOUTH EVERY DAY completed escitalopram 1 0 MG Oral Tablet [place] ([facility]) Doxycycline Monohydrate 100 MG Oral Caps ule doxycycline monohydrate 100 mg capsule TAKE ONE CAPSULE BY MOUTH TWICE A DAY FOR 7 DAYS doxycycline monohydrate 100 mg capsule TAKE ONE CAPSULE BY MOUTH TWICE A DAY FOR 7 DAYS completed doxycycline monohydrate 100 MG O ral Capsule [place] ([facility]) Cholecalciferol 2000 UNT Oral Capsule ch olecalciferol (vitamin D3) 50 mcg (2,000 unit) capsule TAKE ONE CAPSULE BY MOUTH EVERY DAY cholecalciferol (vitamin D3) 50 mcg (2,000 unit) capsule TAKE ONE CAPSULE BY MOUTH EVERY DAY completed cholecalciferol 0.05 MG Oral Cap zeeshan [place] ([facility]) duloxetine 30 MG Delayed Release Oral Ca psule duloxetine 30 mg capsule,delayed release duloxetine 30 mg capsule,delayed release completed duloxetine 30 MG Delayed Release Oral Capsule [place] ([facility]) Cholecalciferol 2000 UNT Oral Capsule ch olecalciferol (vitamin D3) 50 mcg (2,000 unit) capsule TAKE ONE CAPSULE BY MOUTH EVERY DAY cholecalciferol (vitamin D3) 50 mcg (2,000 unit) capsule TAKE ONE CAPSULE BY MOUTH EVERY DAY completed cholecalciferol 0.05 MG Oral Cap zeeshan [place] ([facility]) duloxetine 60 MG Delayed Release Oral Ca psule duloxetine 60 mg capsule,delayed release TAKE ONE CAPSULE BY MOUTH EVERY DAY duloxetine 60 mg capsule,delayed release TAKE ONE CAPSULE BY MOUTH EVERY DAY completed duloxetine 60 MG Delayed Release Oral Capsule [place] ([facility]) albuterol sulf 90 mcg/actuation breath a ctivated powder inhaler,sensor Inhale 2 puffs every 4 hours by inhalation route as needed. [id number] 2 puf f(s) completed Sensor 200 ACTUAT albuterol 0.09 MG/ACTUAT Dry Powder Inhaler [place] ([facility]) Triamcinolone Acetonide 1 MG/ML Topical Cream triamcinolone acetonide 0.1 % topical cream APPLY TO LEGS TWO TIMES A DAY NEEDED FOR ITCHING triamcinolone acetonide 0.1 % topical cream APPLY TO LEGS TWO TIMES A DAY NEEDED FOR ITCHING completed triamcinolone acetonide 1 MG/ML Topical Cream [facility]) duloxetine 60 MG Delayed Release Oral Ca psule duloxetine 60 mg capsule,delayed release TAKE ONE CAPSULE BY MOUTH EVERY DAY duloxetine 60 mg capsule,delayed release TAKE ONE CAPSULE BY MOUTH EVERY DAY completed duloxetine 60 MG Delayed Release Oral Capsule [place] ([facility]) Levofloxacin 750 MG Oral Tablet levofloxacin 750 mg ta blet levofloxacin 750 mg tablet completed levofloxacin 75 0 MG Oral Tablet [facility]) Levofloxacin 500 MG Oral Tablet levofloxacin 500 mg ta blet levofloxacin 500 mg tablet completed levofloxacin 50 0 MG Oral Tablet [facility]) albuterol sulf 90 mcg/actuation breath a ctivated powder inhaler,sensor Inhale 2 puffs every 4 hours by inhalation route as needed. [id number] 2 puf f(s) completed Sensor 200 ACTUAT albuterol 0.09 MG/ACTUAT Dry Powder Inhaler [place] ([facility]) Escitalopram 20 MG Oral Tablet [Lexapro] Lexapro 20 mg tablet Take 1 tablet every day by oral route as directed. Lexapro 20 mg tablet Take 1 tablet every day by oral route as directed. 1 complet ed escitalopram 20 MG Oral Tablet [Lexapro] [place] ([facility]) Escitalopram 10 MG Oral Tablet escitalop luis 10 mg tablet TAKE ONE TABLET BY MOUTH EVERY DAY escitalopram 10 mg tablet TAKE ONE TABLET BY MOUTH EVERY DAY completed escitalopram 1 0 MG Oral Tablet [place] ([facility]) Triamcinolone Acetonide 1 MG/ML Topical Cream triamcinolone acetonide 0.1 % topical cream APPLY TO LEGS TWO TIMES A DAY NEEDED FOR ITCHING triamcinolone acetonide 0.1 % topical cream APPLY TO LEGS TWO TIMES A DAY NEEDED FOR ITCHING completed triamcinolone acetonide 1 MG/ML Topical Cream [place] ([facility]) Levofloxacin 750 MG Oral Tablet levofloxacin 750 mg ta blet levofloxacin 750 mg tablet completed levofloxacin 75 0 MG Oral Tablet [place] ([facility]) pregabalin 50 MG Oral Capsule pregabalin 50 mg capsule prega balin 50 mg capsule completed pregabalin 50 MG Oral Capsule [place] ([facility]) Escitalopram 5 MG Oral Tablet escitalopr am 5 mg tablet TAKE ONE TABLET BY MOUTH EVERY MORNING escitalopram 5 mg tablet TAKE ONE TABLET BY MOUTH EVERY MORN ING completed escitalopram 5 MG Oral Tablet [place] ([facility]) Escitalopram 5 MG Oral Tablet escitalopr am 5 mg tablet TAKE ONE TABLET BY MOUTH EVERY MORNING escitalopram 5 mg tablet TAKE ONE TABLET BY MOUTH EVERY MORN ING completed escitalopram 5 MG Oral Tablet [place] ([facility]) Escitalopram 20 MG Oral Tablet [Lexapro] Lexapro 20 mg tablet Take 1 tablet every day by oral route as directed. Lexapro 20 mg tablet Take 1 tablet every day by oral route as directed. 1 complet ed escitalopram 20 MG Oral Tablet [Lexapro] [place] ([facility]) pregabalin 50 MG Oral Capsule pregabalin 50 mg capsule prega balin 50 mg capsule completed pregabalin 50 MG Oral Capsule [facility]) levocetirizine dihydrochloride 5 MG Oral Tablet levocetirizine 5 mg tablet TAKE ONE TABLET BY MOUTH AT BEDTIME levocetirizine 5 mg tablet TAKE ONE TABL ET BY MOUTH AT BEDTIME completed levocetirizine dihydrochloride 5 MG Oral Tablet [place] ([facility]) vitamin d3 50 mcg (1999) caps completed vitamin d3 50 mcg (1999) caps [place] ([facility]) Levofloxacin 500 MG Oral Tablet levofloxacin 500 mg ta blet levofloxacin 500 mg tablet completed levofloxacin 50 0 MG Oral Tablet [place] ([facility]) Levofloxacin 500 MG Oral Tablet levofloxacin 500 mg ta blet levofloxacin 500 mg tablet completed levofloxacin 50 0 MG Oral Tablet [place] ([facility]) gabapentin 400 MG Oral Capsule gabapentin 400 mg capsu le gabapentin 400 mg capsule completed gabapentin 400 MG Oral Capsule [place] ([facility]) Buprenorphine 8 MG / Naloxone 2 MG Subli ngual Tablet Suboxone 8 mg-[address] 1 tablet every day by sublingual route. Suboxone 8 mg-[address] 1 tablet every day by sublingual route. 1 completed buprenorphine 8 MG / naloxone 2 MG Sublingual Tablet [place] ([facility]) vitamin d3 50 mcg (1999) caps completed vitamin d3 50 mcg (1999) caps [place] ([facility]) levocetirizine dihydrochloride 5 MG Oral Tablet levocetirizine 5 mg tablet TAKE ONE TABLET BY MOUTH AT BEDTIME levocetirizine 5 mg tablet TAKE ONE TABL ET BY MOUTH AT BEDTIME completed levocetirizine dihydrochloride 5 MG Oral Tablet [place] ([facility]) Cholecalciferol 2000 UNT Oral Capsule ch olecalciferol (vitamin D3) 50 mcg (2,000 unit) capsule TAKE ONE CAPSULE BY MOUTH EVERY DAY cholecalciferol (vitamin D3) 50 mcg (2,000 unit) capsule TAKE ONE CAPSULE BY MOUTH EVERY DAY completed cholecalciferol 0.05 MG Oral Cap zeeshan [place] ([facility]) gabapentin 400 MG Oral Capsule gabapentin 400 mg capsu le gabapentin 400 mg capsule completed gabapentin 400 MG Oral Capsule [place] ([facility]) Triamcinolone Acetonide 1 MG/ML Topical Cream triamcinolone acetonide 0.1 % topical cream APPLY TO LEGS TWO TIMES A DAY NEEDED FOR ITCHING triamcinolone acetonide 0.1 % topical cream APPLY TO LEGS TWO TIMES A DAY NEEDED FOR ITCHING completed triamcinolone acetonide 1 MG/ML Topical Cream [place] ([facility]) pregabalin 50 MG Oral Capsule pregabalin 50 mg capsule prega balin 50 mg capsule completed pregabalin 50 MG Oral Capsule [place] ([facility]) Amoxicillin 875 MG Oral Tablet amoxicillin 875 mg tabl et amoxicillin 875 mg tablet completed amoxicillin 875 MG Oral Tablet [place] ([facility]) Doxycycline Monohydrate 100 MG Oral Caps ule doxycycline monohydrate 100 mg capsule TAKE ONE CAPSULE BY MOUTH TWICE A DAY FOR 7 DAYS doxycycline monohydrate 100 mg capsule TAKE ONE CAPSULE BY MOUTH TWICE A DAY FOR 7 DAYS completed doxycycline monohydrate 100 MG O ral Capsule [place] ([facility]) albuterol sulf 90 mcg/actuation breath a ctivated powder inhaler,sensor Inhale 2 puffs every 4 hours by inhalation route as needed. [id number] 2 puf f(s) completed Sensor 200 ACTUAT albuterol 0.09 MG/ACTUAT Dry Powder Inhaler [place] ([facility]) gabapentin 400 MG Oral Capsule gabapentin 400 mg capsu le gabapentin 400 mg capsule completed gabapentin 400 MG Oral Capsule [place] ([facility]) Nicotine 4 MG Chewing Gum nicotine (davon crilex) 4 mg gum CHEW ONE PIECE OF GUM BUCCALLY EVERY 1 2 HOURS NEEDED nicotine (polacrilex) 4 mg gum CHEW ONE PIECE OF GUM BUCCALLY EVERY 1 2 HOURS NEEDED completed nicotine 4 MG Chewing Gum [place] ([facility]) duloxetine 60 MG Delayed Release Oral Ca psule duloxetine 60 mg capsule,delayed release TAKE ONE CAPSULE BY MOUTH EVERY DAY duloxetine 60 mg capsule,delayed release TAKE ONE CAPSULE BY MOUTH EVERY DAY completed duloxetine 60 MG Delayed Release Oral Capsule [place] ([facility]) Triamcinolone Acetonide 1 MG/ML Topical Cream triamcinolone acetonide 0.1 % topical cream APPLY TO LEGS TWO TIMES A DAY NEEDED FOR ITCHING triamcinolone acetonide 0.1 % topical cream APPLY TO LEGS TWO TIMES A DAY NEEDED FOR ITCHING completed triamcinolone acetonide 1 MG/ML Topical Cream [place] ([facility]) Insurance Providers Payer name Policy type / Coverage type Policy ID Covered constitution party ID Covered constitution party's relationship to greer Policy Greer Plan Information [employer] MCDO [id number] SP [id number] [facility] O [id number] S [id number] [employer] COMM[employer]AN MCDO [id number] SP [id number] EMEDNY [id number] SP [id number] Managed Care - [facility] Community Plan P [id number] S [id number] Medicaid S [id number] MEDICAID [id number] SP [id number] Managed Care - [facility] Community Plan P [id number] S [id number] Medicaid S [id number] S [id number] Managed Care - Community Plan [facility] P [id number] S [id number] [facility] Health Maintenance Organization (HMO) [id number] Self [id number] UN COMMUNITY PLAN MCDO [id number] SP [id number] [facility] [id number] ANSI-Medicaid [id number] [facility] COMMUNITY PLAN MCDO [id number] SP [id number] ANSI-Medicaid [id number] ANSI-Medicaid [id number] ANSI-Medicaid [id number] ANSI-Medicaid [id number] ANSI-Medicaid [id number] ANSI-Medicaid [id number] [facility] I [id number] Self [id number] [facility] Comm Plan Medicaid F [id number] SELF [id number] Managed Care - Community Plan [facility] P [id number] S [id number] [facility] Health Maintenance Organization (HMO) [id number] Self [id number] ANSI-Medicaid [id number] ANSI-Medicaid [id number] [employer] COMMUNITY PLAN MCDHMO [id number] SP [id number] Medicaid S [id number] S [id number] [facility] Community Plan Commercial [id number] Self [id number] [employer] COMMUNITY PLAN MCDHMO [id number] SP [id number] [facility] [place] Medigap Part B Self Medicaid [place] Medicaid Self [employer] COMMUNITY PLAN MCDHMO [id number] SP [id number] [facility] I [id number] Self [id number] [facility]) O [id number] S [id number] [employer] COMMUNITY PLAN MCDHMO [id number] SP [id number] [facility] Community Plan Medigap Part B Self Medicaid [place] Medicaid Self [facility] Community Plan Commercial Self [facility] I [id number] Self [id number] MEDICAID M [id number] Self [id number] MEDICAID [id number] SP [id number] [facility] [id number] SP [id number] Problems, Conditions, and Diagnoses Code Display Name Description Problem Type Effective Dates Data Source(s) J18.9 Pneumonia, unspecified organism Pneumonia, unspecified organism 12/03/2019 03:51:30 PM EDT [facility] E55.9 Vitamin D deficiency, unspecified Vitamin D deficiency , unspecified 10/16/2019 02:47:29 PM EDT [facility] V65.8 Person consulting for explanation of exa mination or test findings Person consulting for explanation of examination or test findings 10/16/2019 02:47:29 PM EDT [facility] Z85.46 Personal history of malignant neoplasm o f prostate Personal history of malignant neoplasm of prostate 10/16/2019 02:47:29 PM EDT [facility] [id number] Patient asked to attend Patient Asked to Attend [facility] 10/16/2019 12:00:00 AM EDT [place] ([facility]) [id number] Vitamin D deficiency Vitamin D Deficiency Problem 10/16/2019 12:00:00 AM EDT [place] ([facility]) [id number] Patient asked to attend Patient Asked to Attend [facility] 10/16/2019 12:00:00 AM EDT [place] ([facility]) [id number] Vitamin D deficiency Vitamin D Deficiency Problem 10/16/2019 12:00:00 AM EDT [place] ([facility]) [id number] Patient asked to attend Patient Asked to Attend [facility] 10/16/2019 12:00:00 AM EDT [place] ([facility]) [id number] Vitamin D deficiency Vitamin D Deficiency Problem 10/16/2019 12:00:00 AM EDT [place] ([facility]) [id number] Patient asked to attend Patient Asked to Attend [facility] 10/16/2019 12:00:00 AM EDT [place] ([facility]) [id number] Vitamin D deficiency Vitamin D Deficiency Problem 10/16/2019 12:00:00 AM EDT [place] ([facility]) Z85.118 Personal history of other malignant neop lasm of bronchus and lung History of malignant neoplasm of lung 07/24/2019 01:30:34 PM EDT [facility] 305.1 Tobacco user Tobacco user 06/13/2019 10:41:52 A M EDT [facility] 12192055 Nicotine dependence Nicotine Dependence Problem 0 06/13/2019 12:00:00 AM EDT [place] ([facility]) 50128732 Nicotine dependence Nicotine Dependence Problem 0 06/13/2019 12:00:00 AM EDT [place] ([facility]) [id number] Nicotine dependence Nicotine Dependence Problem 0 06/13/2019 12:00:00 AM EDT [place] ([facility]) [id number] Nicotine dependence Nicotine Dependence Problem 0 06/13/2019 12:00:00 AM EDT [place] ([facility]) V85.1 BMI 23.0-23.9 BMI 23.0-23.9 05/14/2019 11:48:58 AM EDT [facility] [id number] Body measurement finding Body Measurement Finding Prob surinder 05/14/2019 12:00:00 AM EDT - 01/23/2020 12:00:00 AM EST [place] ([facility]) [id number] Body measurement finding Body Measurement Finding Prob surinder 05/14/2019 12:00:00 AM EDT - 01/23/2020 12:00:00 AM EST [place] ([facility]) [id number] Body measurement finding Body Measurement Finding Prob surinder 05/14/2019 12:00:00 AM EDT - 01/23/2020 12:00:00 AM EST [place] ([facility]) [id number] Body measurement finding Body Measurement Finding Prob surinder 05/14/2019 12:00:00 AM EDT [place] ([facility]) [id number] Prediabetes Prediabetes 03/27/2019 08:55:43 AM EST [facility] [id number] Chest pain, unspecified Chest pain, unspecified 03/27/2019 08:55:43 AM EST [facility] [id number] Chest pain Chest Pain Problem 03/24/2019 12:0 0:00 AM EST - 01/23/2020 12:00:00 AM EST [place] ([facility]) [id number] Prediabetes Prediabetes Problem 03/24/2019 12:00:00 AM EST [place] ([facility]) [id number] Chest pain Chest Pain Problem 03/24/2019 12:0 0:00 AM EST - 01/23/2020 12:00:00 AM EST [place] ([facility]) [id number] Prediabetes Prediabetes Problem 03/24/2019 12:00:00 AM EST [place] ([facility]) [id number] Chest pain Chest Pain Problem 03/24/2019 12:0 0:00 AM EST - 01/23/2020 12:00:00 AM EST [place] ([facility]) [id number] Prediabetes Prediabetes Problem 03/24/2019 12:00:00 AM EST [place] ([facility]) 39196063 Chest pain Chest Pain Problem 03/24/2019 12:00:00 AM ES [place] ([facility]) [id number] Prediabetes Prediabetes Problem 03/24/2019 12:00:00 AM EST [place] ([facility]) 548042614 SNOMED CT Concept SNOMED CT Concept Problem 10/02 12:00:00 AM EDT - 01/05/2020 12:00:00 AM EST [place] ([facility]) [id number] SNOMED CT Concept SNOMED CT Concept Problem 10/02 12:00:00 AM EDT - 01/05/2020 12:00:00 AM EST [place] ([facility]) [id number] SNOMED CT Concept SNOMED CT Concept Problem 10/02 12:00:00 AM EDT - 01/05/2020 12:00:00 AM EST [place] ([facility]) [id number] SNOMED CT Concept SNOMED CT Concept Problem 10/02 12:00:00 AM EDT - 01/05/2020 12:00:00 AM EST [place] ([facility]) Z5189 Encounter for other specified aftercare Encounter for other specified aftercare Diagnosis 10/08/2019 12:04:[address] [facility] Surgeries/Procedures Procedure Description Date Indications Data Source(s) Spirometry 02/18/2019 12:00:00 AM SABRJIT FOREMAN ([facility], ) Injection Fee 02/18/2019 12:00:00 AM SARBJIT HARRIS ([facility], ) Results ID Date Data Source [id number] 01/16/2020 06:34:00 AM EST [place] ([facility]) Name Value Range Interpretation Code Description Data Lizy rce(s) Supporting Document(s) glucose, fasting 132 mg/dL 70-100 Above high normal Glucose, Fas ting [place] ([facility]) creatinine for GFR 0.73 mg/dL 0.70-1.30 normal Creatinine for GF R [place] ([facility]) blood urea nitrogen 22 mg/dL 7-18 Above high normal Blood Ure a Nitrogen [place] ([facility]) sodium level 145 mEq/L 136-145 normal Sodium Level [place] ([facility]) glomerular filtration rate > 60.0 >49 normal Glomerula r Filtration Rate [place] ([facility]) potassium serum 4.2 mEq/L 3.5-5.1 normal Potassium Serum ATHE NA ([facility]) carbon dioxide level 40 mEq/L 21-32 Above high normal Carbon D ioxide Level [place] ([facility]) chloride level 104 mEq/L 98-107 normal Chloride Level [place] ([facility]) anion gap 1 mEq/L 8-16 Below low normal Anion Gap [place] ( [facility]) calcium level 8.6 mg/dL 8.8-10.2 Below low normal Calcium Level [facility] ([facility]) ID Date Data Source [id number] 01/16/2020 06:34:00 AM EST [place] ([facility]) Name Value Range Interpretation Code Description Data Lizy rce(s) Supporting Document(s) white blood count 12.2 10 4.0-10.0 Above high normal White Blood Count D[place] MRAIA ([facility]) red blood count 4.84 10 4.30-6.10 normal Red Blood Count [facility] ([facility]) hemoglobin 12.5 g/dL 13.5-17.5 Below low normal Hemoglobin [place] ( [facility]) hematocrit 41.3 % 42.0-52.0 Below low normal Hematocrit [place] ( [facility]) mean corpuscular volume 85.3 fL 80.0-96.0 normal Mean Corpusc ular Volume [place] ([facility]) mean corpuscular hemoglobin 25.8 pg 27.0-33.0 Below low nor mal Mean Corpuscular Hemoglobin [place] ([facility]) red cell distribution width 18.3 % 11.5-14.5 Above high no rmal Red Cell Distribution Width [place] ([facility]) mean corpuscular HGB conc 30.3 g/dL 32.0-36.5 Below low ashli l Mean Corpuscular HGB Conc [place] ([facility]) platelet count, automated 256 10 150-450 normal Platelet C ount, Automated DULCE MARIA ([facility]) neutrophils % 72.4 % 36.0-66.0 Above high normal Neutrophils % A THENA ([facility]) lymph % 13.2 % 24.0-44.0 Below low normal Lymph % DULCE MARIA ( [facility]) mono % 10.0 % 0.0-5.0 Above high normal [place] % DULCE MARIA ([facility]) eos % 0.2 % 0.0-3.0 normal Eos % DULCE MARIA ([facility]) baso % 0.5 % 0.0-1.0 normal Baso % DULCE MARIA ([facility]) immature granulocyte % 3.7 % 0-3.0 Above high normal Immatu re Granulocyte % DULCE MARIA ([facility]) nucleated red blood cell % 0.0 % 0-0 normal Nucleated Red Blood Cell % DULCE MARIA ([facility]) lymph # 1.6 10 1.5-5.0 normal Lymph # DULCE MARIA ([facility]) neutrophils # 8.8 10 1.5-8.5 Above high normal Neutrophils # A THENA ([facility]) mono # 1.2 10 0.0-0.8 Above high normal [place] # DULCE MARIA ([facility]) eos # 0.0 10 0.0-0.5 normal Eos # DULCE MARIA ([facility]) baso # 0.1 10 0.0-0.2 normal Baso # DULCE MARIA ([facility]) ID Date Data Source [id number] 01/16/2020 06:34:00 AM EST [place] ([facility]) Name Value Range Interpretation Code Description Data Lizy rce(s) Supporting Document(s) glucose, fasting 132 mg/dL 70-100 Above high normal Glucose, Fas ting DULEC MARIA ([facility]) blood urea nitrogen 22 mg/dL 7-18 Above high normal Blood Ure a Nitrogen DULCE MARIA ([facility]) creatinine for GFR 0.73 mg/dL 0.70-1.30 normal Creatinine for GF R DULCE MARIA ([facility]) glomerular filtration rate > 60.0 >49 normal Glomerula r Filtration Rate DULCE MARIA ([facility]) sodium level 145 mEq/L 136-145 normal Sodium Level DULCE MARIA ([facility]) potassium serum 4.2 mEq/L 3.5-5.1 normal Potassium Serum ATHE NA ([facility]) chloride level 104 mEq/L 98-107 normal Chloride Level [place] ([facility]) carbon dioxide level 40 mEq/L 21-32 Above high normal Carbon D ioxide Level [facility]) anion gap 1 mEq/L 8-16 Below low normal Anion Gap [place] ( [facility]) calcium level 8.6 mg/dL 8.8-10.2 Below low normal Calcium Level AT [facility] ([facility]) ID Date Data Source [id number] 01/16/2020 06:34:00 AM EST [facility]) Name Value Range Interpretation Code Description Data Lizy rce(s) Supporting Document(s) white blood count 12.2 10 4.0-10.0 Above high normal White Blood Count [place] ([facility]) red blood count 4.84 10 4.30-6.10 normal Red Blood Count ATHE NA ([facility]) hemoglobin 12.5 g/dL 13.5-17.5 Below low normal Hemoglobin DULCE MARIA ( [facility]) hematocrit 41.3 % 42.0-52.0 Below low normal Hematocrit DULCE MARIA ( [facility]) mean corpuscular volume 85.3 fL 80.0-96.0 normal Mean Corpusc ular Volume DULCE MARIA ([facility]) mean corpuscular hemoglobin 25.8 pg 27.0-33.0 Below low nor mal Mean Corpuscular Hemoglobin DULCE MARIA ([facility]) mean corpuscular HGB conc 30.3 g/dL 32.0-36.5 Below low ashli l Mean Corpuscular HGB Conc DULCE MARIA ([facility]) red cell distribution width 18.3 % 11.5-14.5 Above high no rmal Red Cell Distribution Width DULCE MARIA ([facility]) platelet count, automated 256 10 150-450 normal Platelet C ount, Automated DULCE MARIA ([facility]) neutrophils % 72.4 % 36.0-66.0 Above high normal Neutrophils % [facility] lymph % 13.2 % 24.0-44.0 Below low normal Lymph % DULCE MARIA ( [facility]) mono % 10.0 % 0.0-5.0 Above high normal [place] % DULCE MARIA ([facility]) eos % 0.2 % 0.0-3.0 normal Eos % DULCE MARIA ([facility]) baso % 0.5 % 0.0-1.0 normal Baso % DULCE MARIA ([facility]) immature granulocyte % 3.7 % 0-3.0 Above high normal Immatu re Granulocyte % DULCE MARIA ([facility]) nucleated red blood cell % 0.0 % 0-0 normal Nucleated Red Blood Cell % DULCE MARIA ([facility]) neutrophils # 8.8 10 1.5-8.5 Above high normal Neutrophils # A THENA ([facility]) lymph # 1.6 10 1.5-5.0 normal Lymph # DULCE MARIA ([facility]) mono # 1.2 10 0.0-0.8 Above high normal [place] # DULCE MARIA ([facility]) eos # 0.0 10 0.0-0.5 normal Eos # DULCE MARIA ([facility]) baso # 0.1 10 0.0-0.2 normal Baso # DULCE MARIA ([facility]) ID Date Data Source [id number] 01/16/2020 06:34:00 AM EST [place] ([facility]) Name Value Range Interpretation Code Description Data Lizy rce(s) Supporting Document(s) glucose, fasting 132 mg/dL 70-100 Above high normal Glucose, Fas ting DULCE MARIA ([facility]) blood urea nitrogen 22 mg/dL 7-18 Above high normal Blood Ure a Nitrogen DULCE MARIA ([facility]) creatinine for GFR 0.73 mg/dL 0.70-1.30 normal Creatinine for GF R [place] ([facility]) glomerular filtration rate > 60.0 >49 normal Glomerula r Filtration Rate DULCE MARIA ([facility]) sodium level 145 mEq/L 136-145 normal Sodium Level DULCE MARIA (No [facility]) potassium serum 4.2 mEq/L 3.5-5.1 normal Potassium Serum ATHE NA ([facility]) chloride level 104 mEq/L 98-107 normal Chloride Level [place] ([facility]) carbon dioxide level 40 mEq/L 21-32 Above high normal Carbon D ioxide Level [place] ([facility]) anion gap 1 mEq/L 8-16 Below low normal Anion Gap [place] ( [facility]) calcium level 8.6 mg/dL 8.8-10.2 Below low normal Calcium Level AT [facility] ([facility]) ID Date Data Source [id number] 01/16/2020 06:34:00 AM EST [facility]) Name Value Range Interpretation Code Description Data Lizy rce(s) Supporting Document(s) white blood count 12.2 10 4.0-10.0 Above high normal White Blood Count [place] ([facility]) red blood count 4.84 10 4.30-6.10 normal Red Blood Count ATHE ([facility]) hemoglobin 12.5 g/dL 13.5-17.5 Below low normal Hemoglobin DULCE MARIA ( [facility]) hematocrit 41.3 % 42.0-52.0 Below low normal Hematocrit DULCE MARIA ( [facility]) mean corpuscular volume 85.3 fL 80.0-96.0 normal Mean Corpusc ular Volume DULCE MARIA ([facility]) mean corpuscular hemoglobin 25.8 pg 27.0-33.0 Below low nor mal Mean Corpuscular Hemoglobin DULCE MARIA ([facility]) mean corpuscular HGB conc 30.3 g/dL 32.0-36.5 Below low ashli l Mean Corpuscular HGB Conc DULCE MARIA ([facility]) red cell distribution width 18.3 % 11.5-14.5 Above high no rmal Red Cell Distribution Width DULCE MARIA ([facility]) platelet count, automated 256 10 150-450 normal Platelet C ount, Automated DULCE MARIA ([facility]) neutrophils % 72.4 % 36.0-66.0 Above high normal Neutrophils % A THENA ([facility]) lymph % 13.2 % 24.0-44.0 Below low normal Lymph % DULCE MARIA ( [facility]) mono % 10.0 % 0.0-5.0 Above high normal [place] % DULCE MARIA ([facility]) eos % 0.2 % 0.0-3.0 normal Eos % DULCE MARIA ([facility]) baso % 0.5 % 0.0-1.0 normal Baso % DULCE MARIA ([facility]) immature granulocyte % 3.7 % 0-3.0 Above high normal Immatu re Granulocyte % DULCE MARIA ([facility]) nucleated red blood cell % 0.0 % 0-0 normal Nucleated Red Blood Cell % DULCE MARIA ([facility]) neutrophils # 8.8 10 1.5-8.5 Above high normal Neutrophils # A THENA ([facility]) mono # 1.2 10 0.0-0.8 Above high normal [place] # DULCE MARIA ([facility]) lymph # 1.6 10 1.5-5.0 normal Lymph # DULCE MARIA ([facility]) eos # 0.0 10 0.0-0.5 normal Eos # DULCE MARIA ([facility]) baso # 0.1 10 0.0-0.2 normal Baso # DULCE MARIA ([facility]) ID Date Data Source [id number] 01/15/2020 05:06:00 AM EST DULCE MARIA ([facility]) Name Value Range Interpretation Code Description Data Lizy rce(s) Supporting Document(s) glucose, fasting 186 mg/dL 70-100 Above high normal Glucose, Fas ting DULCE MARIA ([facility]) blood urea nitrogen 16 mg/dL 7-18 normal Blood Urea Nitro gen DULCE MARIA ([facility]) creatinine for GFR 0.79 mg/dL 0.70-1.30 normal Creatinine for GF R [place] ([facility]) glomerular filtration rate > 60.0 >49 normal Glomerula r Filtration Rate [place] ([facility]) sodium level 143 mEq/L 136-145 normal Sodium Level DULCE MARIA (No [facility]) potassium serum 4.1 mEq/L 3.5-5.1 normal Potassium Serum ATH NA ([facility]) chloride level 103 mEq/L 98-107 normal Chloride Level [place] ([facility]) carbon dioxide level 35 mEq/L 21-32 Above high normal Carbon D ioxide Level [facility]) anion gap 5 mEq/L 8-16 Below low normal Anion Gap [place] ( [facility]) calcium level 8.4 mg/dL 8.8-10.2 Below low normal Calcium Level AT [facility]) ID Date Data Source [id number] 01/15/2020 05:06:00 AM EST [facility]) Name Value Range Interpretation Code Description Data Lizy rce(s) Supporting Document(s) white blood count 11.5 10 4.0-10.0 Above high normal White Blood Count [place] ([facility]) hemoglobin 13.0 g/dL 13.5-17.5 Below low normal Hemoglobin [place] ( [facility]) red blood count 4.97 10 4.30-6.10 normal Red Blood Count ATHE ([facility]) hematocrit 42.7 % 42.0-52.0 normal Hematocrit [place] ([facility]) mean corpuscular volume 85.9 fL 80.0-96.0 normal Mean Corpusc ular Volume [place] ([facility]) mean corpuscular hemoglobin 26.2 pg 27.0-33.0 Below low nor mal Mean Corpuscular Hemoglobin DULCE MARIA ([facility]) mean corpuscular HGB conc 30.4 g/dL 32.0-36.5 Below low ashli l Mean Corpuscular HGB Conc DULCE MARIA ([facility]) red cell distribution width 18.2 % 11.5-14.5 Above high no rmal Red Cell Distribution Width DULCE MARIA ([facility]) neutrophils % 83.5 % 36.0-66.0 Above high normal Neutrophils % A THENA ([facility]) platelet count, automated 259 10 150-450 normal Platelet C ount, Automated DULCE MARIA ([facility]) lymph % 6.5 % 24.0-44.0 Below low normal Lymph % DULCE MARIA ( [facility]) mono % 5.0 % 0.0-5.0 normal [place] % DULCE MARIA ([facility]) eos % 0.0 % 0.0-3.0 normal Eos % [place] ([facility]) immature granulocyte % 4.7 % 0-3.0 Above high normal Immatu re Granulocyte % DULCE MARIA ([facility]) baso % 0.3 % 0.0-1.0 normal Baso % DULCE MARIA ([facility]) nucleated red blood cell % 0.0 % 0-0 normal Nucleated Red Blood Cell % DULCE MARIA ([facility]) lymph # 0.8 10 1.5-5.0 Below low normal Lymph # DULCE MARIA ( [facility]) neutrophils # 9.6 10 1.5-8.5 Above high normal Neutrophils # A THENA ([facility]) eos # 0.0 10 0.0-0.5 normal Eos # DULCE MARIA ([facility]) mono # 0.6 10 0.0-0.8 normal [place] # DULCE MARIA ([facility]) baso # 0.0 10 0.0-0.2 normal Baso # DULCE MARIA ([facility]) ID Date Data Source [id number] 01/15/2020 05:06:00 AM EST [place] ([facility]) Name Value Range Interpretation Code Description Data Lizy rce(s) Supporting Document(s) glucose, fasting 186 mg/dL 70-100 Above high normal Glucose, Fas ting DULCE MARIA ([facility]) blood urea nitrogen 16 mg/dL 7-18 normal Blood Urea Nitro gen DULCE MARIA ([facility]) creatinine for GFR 0.79 mg/dL 0.70-1.30 normal Creatinine for GF R [place] ([facility]) glomerular filtration rate > 60.0 >49 normal Glomerula r Filtration Rate DULCE MARIA ([facility]) sodium level 143 mEq/L 136-145 normal Sodium Level DULCE MARIA (No [facility]) potassium serum 4.1 mEq/L 3.5-5.1 normal Potassium Serum ATHE ([facility]) chloride level 103 mEq/L 98-107 normal Chloride Level [place] ([facility]) carbon dioxide level 35 mEq/L 21-32 Above high normal Carbon D ioxide Level [place] ([facility]) anion gap 5 mEq/L 8-16 Below low normal Anion Gap [place] ( [facility]) calcium level 8.4 mg/dL 8.8-10.2 Below low normal Calcium Level AT [facility] ([facility]) ID Date Data Source [id number] 01/15/2020 05:06:00 AM EST [place] ([facility]) Name Value Range Interpretation Code Description Data Lizy rce(s) Supporting Document(s) white blood count 11.5 10 4.0-10.0 Above high normal White Blood Count [place] ([facility]) red blood count 4.97 10 4.30-6.10 normal Red Blood Count ATHE ([facility]) hemoglobin 13.0 g/dL 13.5-17.5 Below low normal Hemoglobin [place] ( [facility]) hematocrit 42.7 % 42.0-52.0 normal Hematocrit DULCE MARIA ([facility]) mean corpuscular volume 85.9 fL 80.0-96.0 normal Mean Corpusc ular Volume DULCE MARIA ([facility]) mean corpuscular hemoglobin 26.2 pg 27.0-33.0 Below low nor mal Mean Corpuscular Hemoglobin DULCE MARIA ([facility]) mean corpuscular HGB conc 30.4 g/dL 32.0-36.5 Below low ashli l Mean Corpuscular HGB Conc DULCE MARIA ([facility]) red cell distribution width 18.2 % 11.5-14.5 Above high no rmal Red Cell Distribution Width DULCE MARIA ([facility]) neutrophils % 83.5 % 36.0-66.0 Above high normal Neutrophils % A THENA ([facility]) platelet count, automated 259 10 150-450 normal Platelet C ount, Automated DULCE MARIA ([facility]) lymph % 6.5 % 24.0-44.0 Below low normal Lymph % DULCE MARIA ( [facility]) mono % 5.0 % 0.0-5.0 normal [place] % DULCE MARIA ([facility]) eos % 0.0 % 0.0-3.0 normal Eos % DULCE MARIA ([facility]) baso % 0.3 % 0.0-1.0 normal Baso % [place] ([facility]) immature granulocyte % 4.7 % 0-3.0 Above high normal Immatu re Granulocyte % DULCE MARIA ([facility]) nucleated red blood cell % 0.0 % 0-0 normal Nucleated Red Blood Cell % DULCE MARIA ([facility]) neutrophils # 9.6 10 1.5-8.5 Above high normal Neutrophils # A THENA ([facility]) lymph # 0.8 10 1.5-5.0 Below low normal Lymph # DULCE MARIA ( [facility]) mono # 0.6 10 0.0-0.8 normal [place] # DULCE MARIA ([facility]) eos # 0.0 10 0.0-0.5 normal Eos # DULCE MARIA ([facility]) baso # 0.0 10 0.0-0.2 normal Baso # DULCE MARIA ([facility]) ID Date Data Source [id number] 01/15/2020 05:06:00 AM EST [place] MAR[place] ([facility]) Name Value Range Interpretation Code Description Data Lizy rce(s) Supporting Document(s) glucose, fasting 186 mg/dL 70-100 Above high normal Glucose, Fas ting DULCE MARIA ([facility]) blood urea nitrogen 16 mg/dL 7-18 normal Blood Urea Nitro gen DULCE MARIA ([facility]) creatinine for GFR 0.79 mg/dL 0.70-1.30 normal Creatinine for GF R [place] ([facility]) glomerular filtration rate > 60.0 >49 normal Glomerula r Filtration Rate DULCE MARIA ([facility]) sodium level 143 mEq/L 136-145 normal Sodium Level DULCE MARIA (No [facility]) potassium serum 4.1 mEq/L 3.5-5.1 normal Potassium Serum ATHE NA ([facility]) chloride level 103 mEq/L 98-107 normal Chloride Level [place] ([facility]) carbon dioxide level 35 mEq/L 21-32 Above high normal Carbon D ioxide Level [place] ([facility]) calcium level 8.4 mg/dL 8.8-10.2 Below low normal Calcium Level AT [facility]) anion gap 5 mEq/L 8-16 Below low normal Anion Gap [place] ( [facility]) ID Date Data Source [id number] 01/15/2020 05:06:00 AM EST [place] ([facility]) Name Value Range Interpretation Code Description Data Lizy rce(s) Supporting Document(s) white blood count 11.5 10 4.0-10.0 Above high normal White Blood Count DULCE MARIA ([facility]) red blood count 4.97 10 4.30-6.10 normal Red Blood Count ATHE ([facility]) hemoglobin 13.0 g/dL 13.5-17.5 Below low normal Hemoglobin DULCE MARIA ( [facility]) hematocrit 42.7 % 42.0-52.0 normal Hematocrit DULCE MARIA ([facility]) mean corpuscular volume 85.9 fL 80.0-96.0 normal Mean Corpusc ular Volume DULCE MARIA ([facility]) mean corpuscular hemoglobin 26.2 pg 27.0-33.0 Below low nor mal Mean Corpuscular Hemoglobin DULCE MARIA ([facility]) red cell distribution width 18.2 % 11.5-14.5 Above high no rmal Red Cell Distribution Width DULCE MARIA ([facility]) mean corpuscular HGB conc 30.4 g/dL 32.0-36.5 Below low ashli l Mean Corpuscular HGB Conc DULCE MARIA ([facility]) platelet count, automated 259 10 150-450 normal Platelet C ount, Automated DULCE MARIA ([facility]) neutrophils % 83.5 % 36.0-66.0 Above high normal Neutrophils % A THENA ([facility]) lymph % 6.5 % 24.0-44.0 Below low normal Lymph % DULCE MARIA ( [facility]) mono % 5.0 % 0.0-5.0 normal [place] % DULCE MARIA ([facility]) eos % 0.0 % 0.0-3.0 normal Eos % DULCE MARIA ([facility]) baso % 0.3 % 0.0-1.0 normal Baso % [place] ([facility]) immature granulocyte % 4.7 % 0-3.0 Above high normal Immatu re Granulocyte % DULCE MARIA ([facility]) neutrophils # 9.6 10 1.5-8.5 Above high normal Neutrophils # A THENA ([facility]) nucleated red blood cell % 0.0 % 0-0 normal Nucleated Red Blood Cell % DULCE MARIA ([facility]) lymph # 0.8 10 1.5-5.0 Below low normal Lymph # DULCE MARIA ( [facility]) mono # 0.6 10 0.0-0.8 normal [place] # DULCE MARIA ([facility]) eos # 0.0 10 0.0-0.5 normal Eos # DULCE MARIA ([facility]) baso # 0.0 10 0.0-0.2 normal Baso # DULCE MARIA ([facility]) ID Date Data Source [id number] 01/14/2020 05:49:00 AM EST D[place] ([facility]) Name Value Range Interpretation Code Description Data Lizy rce(s) Supporting Document(s) glucose, fasting 134 mg/dL 70-100 Above high normal Glucose, Fas ting [place] ([facility]) blood urea nitrogen 16 mg/dL 7-18 normal Blood Urea Nitro gen DULCE MARIA ([facility]) creatinine for GFR 0.76 mg/dL 0.70-1.30 normal Creatinine for GF R DULCE MARIA ([facility]) glomerular filtration rate > 60.0 >49 normal Glomerula r Filtration Rate DULCE MARIA ([facility]) sodium level 147 mEq/L 136-145 Above high normal Sodium Level ATH [place] ([facility]) potassium serum 5.0 mEq/L 3.5-5.1 D Potassium Serum ATHE NA ([facility]) carbon dioxide level 37 mEq/L 21-32 Above high normal Carbon D ioxide Level DULCE MARIA ([facility]) chloride level 108 mEq/L 98-107 Above high normal Chloride Level DULCE MARIA ([facility]) anion gap 2 mEq/L 8-16 Below low normal Anion Gap DULCE MAR[place] ( [facility]) calcium level 8.9 mg/dL 8.8-10.2 normal Calcium Level [place] ( [facility]) ID Date Data Source [id number] 01/14/2020 05:49:00 AM EST [place] ([facility]) Name Value Range Interpretation Code Description Data Lizy rce(s) Supporting Document(s) white blood count 12.7 10 4.0-10.0 Above high normal White Blood Count DULCE MARIA ([facility]) red blood count 4.97 10 4.30-6.10 normal Red Blood Count [facility] ([facility]) hemoglobin 13.1 g/dL 13.5-17.5 Below low normal Hemoglobin DULCE MARIA ( [facility]) hematocrit 42.7 % 42.0-52.0 normal Hematocrit DULCE MARIA ([facility]) mean corpuscular volume 85.9 fL 80.0-96.0 normal Mean Corpusc ular Volume DULCE MARIA ([facility]) mean corpuscular hemoglobin 26.4 pg 27.0-33.0 Below low nor mal Mean Corpuscular Hemoglobin DULCE MARIA ([facility]) mean corpuscular HGB conc 30.7 g/dL 32.0-36.5 Below low ashli l Mean Corpuscular HGB Conc DUL[facility] [place] ([facility]) red cell distribution width 18.6 % 11.5-14.5 Above high no rmal Red Cell Distribution Width DULCE MAR[place] ([facility]) platelet count, automated 275 10 150-450 normal Platelet C ount, Automated D[facility] ([facility]) neutrophils % 86.0 % 36.0-66.0 Above high normal Neutrophils % A THE[place] ([facility]) lymph % 5.6 % 24.0-44.0 Below low normal Lymph % DULCE MARIA ( [facility]) mono % 5.1 % 0.0-5.0 Above high normal [place] % DULCE MARIA ([facility]) eos % 0.0 % 0.0-3.0 normal Eos % DULCE MARIA ([facility]) baso % 0.2 % 0.0-1.0 normal Baso % [place] ([facility]) immature granulocyte % 3.1 % 0-3.0 Above high normal Immatu re Granulocyte % DULCE MARIA ([facility]) nucleated red blood cell % 0.0 % 0-0 normal Nucleated Red Blood Cell % DULCE MARIA ([facility]) neutrophils # 10.9 10 1.5-8.5 Above high normal Neutrophils # A THENA ([facility]) lymph # 0.7 10 1.5-5.0 Below low normal Lymph # DULCE MARIA ( [facility]) mono # 0.7 10 0.0-0.8 normal [place] # DULCE MARIA ([facility]) eos # 0.0 10 0.0-0.5 normal Eos # DULCE MARIA ([facility]) baso # 0.0 10 0.0-0.2 normal Baso # DULCE MARIA ([facility]) ID Date Data Source [id number] 01/14/2020 05:49:00 AM EST [place] ([facility]) Name Value Range Interpretation Code Description Data Lizy rce(s) Supporting Document(s) glucose, fasting 134 mg/dL 70-100 Above high normal Glucose, Fas ting [place] ([facility]) blood urea nitrogen 16 mg/dL 7-18 normal Blood Urea Nitro gen [facility] [place] ([facility]) glomerular filtration rate > 60.0 >49 normal Glomerula r Filtration Rate [facility] [place] ([facility]) creatinine for GFR 0.76 mg/dL 0.70-1.30 normal Creatinine for GF R [facility] ([facility]) sodium level 147 mEq/L 136-145 Above high normal Sodium Level ATH [place] ([facility]) potassium serum 5.0 mEq/L 3.5-5.1 D Potassium Serum ATHE NA ([facility]) carbon dioxide level 37 mEq/L 21-32 Above high normal Carbon D ioxide Level D[facility]CE [place] ([facility]) anion gap 2 mEq/L 8-16 Below low normal Anion Gap [facility] ( [facility]) chloride level 108 mEq/L 98-107 Above high normal Chloride Level [facility] ([facility]) calcium level 8.9 mg/dL 8.8-10.2 normal Calcium Level [place] ( [facility]) ID Date Data Source [id number] 01/14/2020 05:49:00 AM EST [place] ([facility]) Name Value Range Interpretation Code Description Data Lizy rce(s) Supporting Document(s) white blood count 12.7 10 4.0-10.0 Above high normal White Blood Count DULCE MARIA ([facility]) red blood count 4.97 10 4.30-6.10 normal Red Blood Count [facility] ([facility]) hemoglobin 13.1 g/dL 13.5-17.5 Below low normal Hemoglobin DULCE MARIA ( [facility]) hematocrit 42.7 % 42.0-52.0 normal Hematocrit [facility] ([facility]) mean corpuscular volume 85.9 fL 80.0-96.0 normal Mean Corpusc ular Volume DULCE [facility] ([facility]) mean corpuscular hemoglobin 26.4 pg 27.0-33.0 Below low nor mal Mean Corpuscular Hemoglobin DULCE MARIA ([facility]) mean corpuscular HGB conc 30.7 g/dL 32.0-36.5 Below low ashli l Mean Corpuscular HGB Conc DULCE MARIA ([facility]) platelet count, automated 275 10 150-450 normal Platelet C ount, Automated DULCE MARIA ([facility]) red cell distribution width 18.6 % 11.5-14.5 Above high no rmal Red Cell Distribution Width DULCE MARIA ([facility]) lymph % 5.6 % 24.0-44.0 Below low normal Lymph % DULCE MARIA ( [facility]) neutrophils % 86.0 % 36.0-66.0 Above high normal Neutrophils % [facility] eos % 0.0 % 0.0-3.0 normal Eos % DULCE MARIA ([facility]) mono % 5.1 % 0.0-5.0 Above high normal [place] % [place] ([facility]) immature granulocyte % 3.1 % 0-3.0 Above high normal Immatu re Granulocyte % [place] ([facility]) baso % 0.2 % 0.0-1.0 normal Baso % DULCE MARIA ([facility]) neutrophils # 10.9 10 1.5-8.5 Above high normal Neutrophils # [facility] nucleated red blood cell % 0.0 % 0-0 normal Nucleated Red Blood Cell % DULCE MARIA ([facility]) mono # 0.7 10 0.0-0.8 normal [place] # DULCE MARIA ([facility]) lymph # 0.7 10 1.5-5.0 Below low normal Lymph # DULCE MARIA ( [facility]) eos # 0.0 10 0.0-0.5 normal Eos # DULCE MARIA ([facility]) baso # 0.0 10 0.0-0.2 normal Baso # DULCE MARIA ([facility]) ID Date Data Source [id number] 01/14/2020 05:49:00 AM EST DULCE MARIA ([facility]) Name Value Range Interpretation Code Description Data Lizy rce(s) Supporting Document(s) glucose, fasting 134 mg/dL 70-100 Above high normal Glucose, Fas ting DULCE MARIA ([facility]) creatinine for GFR 0.76 mg/dL 0.70-1.30 normal Creatinine for GF R DULCE MARIA ([facility]) blood urea nitrogen 16 mg/dL 7-18 normal Blood Urea Nitro gen DULCE MARIA ([facility]) glomerular filtration rate > 60.0 >49 normal Glomerula r Filtration Rate DULCE MARIA ([facility]) sodium level 147 mEq/L 136-145 Above high normal Sodium Level ATH WARREN ([facility]) potassium serum 5.0 mEq/L 3.5-5.1 D Potassium Serum ATHE NA ([facility]) carbon dioxide level 37 mEq/L 21-32 Above high normal Carbon D ioxide Level DULCE MARIA ([facility]) chloride level 108 mEq/L 98-107 Above high normal Chloride Level DULCE MARIA ([facility]) calcium level 8.9 mg/dL 8.8-10.2 normal Calcium Level DULCE MARIA ( [facility]) anion gap 2 mEq/L 8-16 Below low normal Anion Gap DULCE MARIA ( [facility]) ID Date Data Source [id number] 01/14/2020 05:49:00 AM EST DULCE MARIA ([facility]) Name Value Range Interpretation Code Description Data Lizy rce(s) Supporting Document(s) red blood count 4.97 10 4.30-6.10 normal Red Blood Count ATHE ([facility]) white blood count 12.7 10 4.0-10.0 Above high normal White Blood Count DULCE MARIA ([facility]) hemoglobin 13.1 g/dL 13.5-17.5 Below low normal Hemoglobin DULCE MARIA ( [facility]) mean corpuscular volume 85.9 fL 80.0-96.0 normal Mean Corpusc ular Volume DULCE MARIA ([facility]) hematocrit 42.7 % 42.0-52.0 normal Hematocrit DULCE MARIA ([facility]) mean corpuscular hemoglobin 26.4 pg 27.0-33.0 Below low nor mal Mean Corpuscular Hemoglobin DULCE MARIA ([facility]) mean corpuscular HGB conc 30.7 g/dL 32.0-36.5 Below low ashli l Mean Corpuscular HGB Conc DULCE MARIA ([facility]) platelet count, automated 275 10 150-450 normal Platelet C ount, Automated DULCE MARIA ([facility]) red cell distribution width 18.6 % 11.5-14.5 Above high no rmal Red Cell Distribution Width DULCE MARIA ([facility]) lymph % 5.6 % 24.0-44.0 Below low normal Lymph % DULCE MARIA ( [facility]) neutrophils % 86.0 % 36.0-66.0 Above high normal Neutrophils % A THENA ([facility]) mono % 5.1 % 0.0-5.0 Above high normal [place] % DULCE MARIA ([facility]) eos % 0.0 % 0.0-3.0 normal Eos % DULCE MARIA ([facility]) immature granulocyte % 3.1 % 0-3.0 Above high normal Immatu re Granulocyte % DULCE MARIA ([facility]) baso % 0.2 % 0.0-1.0 normal Baso % DULCE MARIA ([facility]) nucleated red blood cell % 0.0 % 0-0 normal Nucleated Red Blood Cell % DULCE MARIA ([facility]) neutrophils # 10.9 10 1.5-8.5 Above high normal Neutrophils # A THENA ([facility]) lymph # 0.7 10 1.5-5.0 Below low normal Lymph # DULCE MARIA ( [facility]) eos # 0.0 10 0.0-0.5 normal Eos # DULCE MARIA ([facility]) mono # 0.7 10 0.0-0.8 normal [place] # DULCE MARIA ([facility]) baso # 0.0 10 0.0-0.2 normal Baso # DULCE MARIA ([facility]) ID Date Data Source [id number] 01/13/2020 12:55:00 PM EST DULCE MARIA ([facility]) Name Value Range Interpretation Code Description Data Lizy rce(s) Supporting Document(s) procalcitonin <0.05 normal Procalcitonin [place] ( [facility]) ID Date Data Source [id number] 01/13/2020 12:55:00 PM EST DULCE MARIA ([facility]) Name Value Range Interpretation Code Description Data Lizy rce(s) Supporting Document(s) procalcitonin <0.05 normal Procalcitonin DULCE MARIA ( [facility]) ID Date Data Source [id number] 01/13/2020 12:55:00 PM EST DULCE MARIA ([facility]) Name Value Range Interpretation Code Description Data Lizy rce(s) Supporting Document(s) procalcitonin <0.05 normal Procalcitonin [place] ( [facility]) ID Date Data Source [id number] 01/13/2020 05:44:00 AM EST [place] ([facility]) Name Value Range Interpretation Code Description Data Lizy rce(s) Supporting Document(s) glucose, fasting 171 mg/dL 70-100 Above high normal Glucose, Fas ting DULCE MARIA ([facility]) blood urea nitrogen 20 mg/dL 7-18 Above high normal Blood Ure a Nitrogen [place] ([facility]) creatinine for GFR 0.80 mg/dL 0.70-1.30 normal Creatinine for GF R [place] ([facility]) glomerular filtration rate > 60.0 >49 normal Glomerula r Filtration Rate [place] ([facility]) sodium level 144 mEq/L 136-145 normal Sodium Level [place] ([facility]) potassium serum 3.7 mEq/L 3.5-5.1 normal Potassium Serum ATH NA ([facility]) chloride level 107 mEq/L 98-107 normal Chloride Level [place] ([facility]) carbon dioxide level 34 mEq/L 21-32 Above high normal Carbon D ioxide Level [place] ([facility]) calcium level 8.5 mg/dL 8.8-10.2 Below low normal Calcium Level AT [facility]) anion gap 3 mEq/L 8-16 Below low normal Anion Gap [place] ( [facility]) ID Date Data Source [id number] 01/13/2020 05:44:00 AM EST DULCE MARIA ([facility]) Name Value Range Interpretation Code Description Data Lizy rce(s) Supporting Document(s) white blood count 15.1 10 4.0-10.0 Above high normal White Blood Count DULCE MARIA ([facility]) red blood count 5.00 10 4.30-6.10 normal Red Blood Count ATHE ([facility]) hemoglobin 13.1 g/dL 13.5-17.5 Below low normal Hemoglobin DULCE MARIA ( [facility]) hematocrit 42.7 % 42.0-52.0 normal Hematocrit DULCE MARIA ([facility]) mean corpuscular volume 85.4 fL 80.0-96.0 normal Mean Corpusc ular Volume DULCE MARIA ([facility]) mean corpuscular hemoglobin 26.2 pg 27.0-33.0 Below low nor mal Mean Corpuscular Hemoglobin DULCE MARIA ([facility]) mean corpuscular HGB conc 30.7 g/dL 32.0-36.5 Below low ashli l Mean Corpuscular HGB Conc DULCE MARIA ([facility]) red cell distribution width 18.5 % 11.5-14.5 Above high no rmal Red Cell Distribution Width DULCE MARIA ([facility]) platelet count, automated 303 10 150-450 normal Platelet C ount, Automated DULCE MARIA ([facility]) lymph % 4.4 % 24.0-44.0 Below low normal Lymph % DULCE MARIA ( [facility]) neutrophils % 86.2 % 36.0-66.0 Above high normal Neutrophils % A THENA ([facility]) mono % 7.6 % 0.0-5.0 Above high normal [place] % DULCE MARIA ([facility]) eos % 0.0 % 0.0-3.0 normal Eos % DULCE MARIA ([facility]) immature granulocyte % 1.7 % 0-3.0 normal Immature Gran ulocyte % DULCE MARIA ([facility]) baso % 0.1 % 0.0-1.0 normal Baso % DULCE MARIA ([facility]) nucleated red blood cell % 0.0 % 0-0 normal Nucleated Red Blood Cell % DULCE MARIA ([facility]) neutrophils # 13.0 10 1.5-8.5 Above high normal Neutrophils # A THENA ([facility]) lymph # 0.7 10 1.5-5.0 Below low normal Lymph # DULCE MARIA ( [facility]) eos # 0.0 10 0.0-0.5 normal Eos # DULCE MARIA ([facility]) mono # 1.2 10 0.0-0.8 Above high normal [place] # DULCE AMRIA ([facility]) baso # 0.0 10 0.0-0.2 normal Baso # DULCE MARIA ([facility]) ID Date Data Source [id number] 01/13/2020 05:44:00 AM SARBJIT العراق[place] ([facility]) Name Value Range Interpretation Code Description Data Lizy rce(s) Supporting Document(s) glucose, fasting 171 mg/dL 70-100 Above high normal Glucose, Fas ting [place] ([facility]) blood urea nitrogen 20 mg/dL 7-18 Above high normal Blood Ure a Nitrogen [place] ([facility]) creatinine for GFR 0.80 mg/dL 0.70-1.30 normal Creatinine for GF R [place] ([facility]) glomerular filtration rate > 60.0 >49 normal Glomerula r Filtration Rate DULCE MARIA ([facility]) sodium level 144 mEq/L 136-145 normal Sodium Level DULCE MARIA ([facility]) potassium serum 3.7 mEq/L 3.5-5.1 normal Potassium Serum ATHE NA ([facility]) chloride level 107 mEq/L 98-107 normal Chloride Level [place] ([facility]) carbon dioxide level 34 mEq/L 21-32 Above high normal Carbon D ioxide Level [place] ([facility]) anion gap 3 mEq/L 8-16 Below low normal Anion Gap DULCE MARIA ( [facility]) calcium level 8.5 mg/dL 8.8-10.2 Below low normal Calcium Level AT [facility]) ID Date Data Source [id number] 01/13/2020 05:44:00 AM EST DULCE MARIA ([facility]) Name Value Range Interpretation Code Description Data Lizy rce(s) Supporting Document(s) white blood count 15.1 10 4.0-10.0 Above high normal White Blood Count DULCE MARIA ([facility]) red blood count 5.00 10 4.30-6.10 normal Red Blood Count ATHE NA ([facility]) hemoglobin 13.1 g/dL 13.5-17.5 Below low normal Hemoglobin DULCE MARIA ( [facility]) hematocrit 42.7 % 42.0-52.0 normal Hematocrit DULCE MARIA ([facility]) mean corpuscular hemoglobin 26.2 pg 27.0-33.0 Below low nor mal Mean Corpuscular Hemoglobin DULCE MARIA ([facility]) mean corpuscular volume 85.4 fL 80.0-96.0 normal Mean Corpusc ular Volume DULCE MARIA ([facility]) mean corpuscular HGB conc 30.7 g/dL 32.0-36.5 Below low ashli l Mean Corpuscular HGB Conc DULCE MARIA ([facility]) red cell distribution width 18.5 % 11.5-14.5 Above high no rmal Red Cell Distribution Width DULCE MARIA ([facility]) neutrophils % 86.2 % 36.0-66.0 Above high normal Neutrophils % A THENA ([facility]) platelet count, automated 303 10 150-450 normal Platelet C ount, Automated DULCE MARIA ([facility]) mono % 7.6 % 0.0-5.0 Above high normal [place] % DULCE MARIA ([facility]) lymph % 4.4 % 24.0-44.0 Below low normal Lymph % DULCE MARIA ( [facility]) eos % 0.0 % 0.0-3.0 normal Eos % DULCE MARIA ([facility]) baso % 0.1 % 0.0-1.0 normal Baso % DULCE MARIA ([facility]) immature granulocyte % 1.7 % 0-3.0 normal Immature Gran ulocyte % DULCE MARIA ([facility]) nucleated red blood cell % 0.0 % 0-0 normal Nucleated Red Blood Cell % DULCE MARIA ([facility]) neutrophils # 13.0 10 1.5-8.5 Above high normal Neutrophils # A THENA ([facility]) lymph # 0.7 10 1.5-5.0 Below low normal Lymph # DULCE MARIA ( [facility]) mono # 1.2 10 0.0-0.8 Above high normal [place] # DULCE MARIA ([facility]) eos # 0.0 10 0.0-0.5 normal Eos # DULCE MARIA ([facility]) baso # 0.0 10 0.0-0.2 normal Baso # DULCE MARIA ([facility]) ID Date Data Source [id number] 01/13/2020 05:44:00 AM SARBJIT العراقي ([facility]) Name Value Range Interpretation Code Description Data Lizy rce(s) Supporting Document(s) glucose, fasting 171 mg/dL 70-100 Above high normal Glucose, Fas ting [place] ([facility]) blood urea nitrogen 20 mg/dL 7-18 Above high normal Blood Ure a Nitrogen [place] ([facility]) creatinine for GFR 0.80 mg/dL 0.70-1.30 normal Creatinine for GF R [place] ([facility]) glomerular filtration rate > 60.0 >49 normal Glomerula r Filtration Rate DULCE MARIA ([facility]) sodium level 144 mEq/L 136-145 normal Sodium Level DULCE MARIA (No [facility]) potassium serum 3.7 mEq/L 3.5-5.1 normal Potassium Serum ATHE NA ([facility]) chloride level 107 mEq/L 98-107 normal Chloride Level [place] ([facility]) carbon dioxide level 34 mEq/L 21-32 Above high normal Carbon D ioxide Level [place] ([facility]) anion gap 3 mEq/L 8-16 Below low normal Anion Gap DULCE MARIA ( [facility]) calcium level 8.5 mg/dL 8.8-10.2 Below low normal Calcium Level AT [facility]) ID Date Data Source [id number] 01/13/2020 05:44:00 AM EST DULCE MARIA ([facility]) Name Value Range Interpretation Code Description Data Lizy rce(s) Supporting Document(s) white blood count 15.1 10 4.0-10.0 Above high normal White Blood Count DULCE MARIA ([facility]) hemoglobin 13.1 g/dL 13.5-17.5 Below low normal Hemoglobin DULCE MARIA ( [facility]) red blood count 5.00 10 4.30-6.10 normal Red Blood Count ATHE NA ([facility]) mean corpuscular volume 85.4 fL 80.0-96.0 normal Mean Corpusc ular Volume DULCE MARIA ([facility]) hematocrit 42.7 % 42.0-52.0 normal Hematocrit DULCE MARIA ([facility]) mean corpuscular HGB conc 30.7 g/dL 32.0-36.5 Below low ashli l Mean Corpuscular HGB Conc DULCE MARIA ([facility]) mean corpuscular hemoglobin 26.2 pg 27.0-33.0 Below low nor mal Mean Corpuscular Hemoglobin DULCE MARIA ([facility]) red cell distribution width 18.5 % 11.5-14.5 Above high no rmal Red Cell Distribution Width DULCE MARIA ([facility]) platelet count, automated 303 10 150-450 normal Platelet C ount, Automated DULCE MARIA ([facility]) neutrophils % 86.2 % 36.0-66.0 Above high normal Neutrophils % A THENA ([facility]) lymph % 4.4 % 24.0-44.0 Below low normal Lymph % DULCE MARIA ( [facility]) mono % 7.6 % 0.0-5.0 Above high normal [place] % DULCE MARIA ([facility]) baso % 0.1 % 0.0-1.0 normal Baso % DULCE MARIA ([facility]) eos % 0.0 % 0.0-3.0 normal Eos % DULCE MARIA ([facility]) nucleated red blood cell % 0.0 % 0-0 normal Nucleated Red Blood Cell % DULCE MARIA ([facility]) immature granulocyte % 1.7 % 0-3.0 normal Immature Gran ulocyte % [place] ([facility]) neutrophils # 13.0 10 1.5-8.5 Above high normal Neutrophils # A THENA ([facility]) lymph # 0.7 10 1.5-5.0 Below low normal Lymph # DULCE MARIA ( [facility]) mono # 1.2 10 0.0-0.8 Above high normal [place] # DULCE MARIA ([facility]) eos # 0.0 10 0.0-0.5 normal Eos # DULCE MARIA ([facility]) baso # 0.0 10 0.0-0.2 normal Baso # DULCE MARIA ([facility]) ID Date Data Source [id number] 01/13/2020 05:44:00 AM EST DULCE MARIA ([facility]) Name Value Range Interpretation Code Description Data Lizy rce(s) Supporting Document(s) glucose, fasting 171 mg/dL 70-100 Above high normal Glucose, Fas ting [place] ([facility]) creatinine for GFR 0.80 mg/dL 0.70-1.30 normal Creatinine for GF R [place] ([facility]) blood urea nitrogen 20 mg/dL 7-18 Above high normal Blood Ure a Nitrogen [place] ([facility]) glomerular filtration rate > 60.0 >49 normal Glomerula r Filtration Rate [place] ([facility]) sodium level 144 mEq/L 136-145 normal Sodium Level DULCE MARIA (No [facility]) chloride level 107 mEq/L 98-107 normal Chloride Level [place] ([facility]) potassium serum 3.7 mEq/L 3.5-5.1 normal Potassium Serum ATHE NA ([facility]) anion gap 3 mEq/L 8-16 Below low normal Anion Gap [place] ( [facility]) carbon dioxide level 34 mEq/L 21-32 Above high normal Carbon D ioxide Level [place] ([facility]) calcium level 8.5 mg/dL 8.8-10.2 Below low normal Calcium Level AT K[facility]) ID Date Data Source [id number] 01/13/2020 05:44:00 AM EST DULCE MARIA ([facility]) Name Value Range Interpretation Code Description Data Lizy rce(s) Supporting Document(s) white blood count 15.1 10 4.0-10.0 Above high normal White Blood Count DULCE MARIA ([facility]) red blood count 5.00 10 4.30-6.10 normal Red Blood Count ATHE NA ([facility]) hemoglobin 13.1 g/dL 13.5-17.5 Below low normal Hemoglobin DULCE MARIA ( [facility]) hematocrit 42.7 % 42.0-52.0 normal Hematocrit DULCE MARIA ([facility]) mean corpuscular hemoglobin 26.2 pg 27.0-33.0 Below low nor mal Mean Corpuscular Hemoglobin DULCE MARIA ([facility]) mean corpuscular volume 85.4 fL 80.0-96.0 normal Mean Corpusc ular Volume DULCE MARIA ([facility]) mean corpuscular HGB conc 30.7 g/dL 32.0-36.5 Below low ashli l Mean Corpuscular HGB Conc DULCE MARIA ([facility]) platelet count, automated 303 10 150-450 normal Platelet C ount, Automated DULCE MARIA ([facility]) red cell distribution width 18.5 % 11.5-14.5 Above high no rmal Red Cell Distribution Width DULCE MARIA ([facility]) lymph % 4.4 % 24.0-44.0 Below low normal Lymph % DULCE MARIA ( [facility]) neutrophils % 86.2 % 36.0-66.0 Above high normal Neutrophils % A THENA ([facility]) mono % 7.6 % 0.0-5.0 Above high normal [place] % DULCE MARIA ([facility]) eos % 0.0 % 0.0-3.0 normal Eos % DULCE MARIA ([facility]) baso % 0.1 % 0.0-1.0 normal Baso % DULCE MARIA ([facility]) immature granulocyte % 1.7 % 0-3.0 normal Immature Gran ulocyte % DULCE MARIA ([facility]) nucleated red blood cell % 0.0 % 0-0 normal Nucleated Red Blood Cell % DULCE MARIA ([facility]) neutrophils # 13.0 10 1.5-8.5 Above high normal Neutrophils # A THENA ([facility]) lymph # 0.7 10 1.5-5.0 Below low normal Lymph # DULCE MARIA ( [facility]) mono # 1.2 10 0.0-0.8 Above high normal [place] # DULCE MARIA ([facility]) eos # 0.0 10 0.0-0.5 normal Eos # DULCE MARIA ([facility]) baso # 0.0 10 0.0-0.2 normal Baso # DULCE MARIA ([facility]) ID Date Data Source [id number] 01/12/2020 07:06:00 AM EST DULCE MARIA ([facility]) Name Value Range Interpretation Code Description Data Lizy rce(s) Supporting Document(s) glucose, fasting 172 mg/dL 70-100 Above high normal Glucose, Fas ting [place] ([facility]) blood urea nitrogen 20 mg/dL 7-18 DH Blood Urea Nitro gen [place] ([facility]) creatinine for GFR 0.73 mg/dL 0.70-1.30 normal Creatinine for GF R [place] ([facility]) sodium level 143 mEq/L 136-145 normal Sodium Level DULCE MARIA (No [facility]) glomerular filtration rate > 60.0 >49 normal Glomerula r Filtration Rate [place] ([facility]) chloride level 108 mEq/L 98-107 Above high normal Chloride Level [place] ([facility]) potassium serum 3.8 mEq/L 3.5-5.1 normal Potassium Serum ATHE NA ([facility]) anion gap 2 mEq/L 8-16 Below low normal Anion Gap [place] ( [facility]) carbon dioxide level 33 mEq/L 21-32 Above high normal Carbon D ioxide Level DULCE MARIA ([facility]) calcium level 8.6 mg/dL 8.8-10.2 Below low normal Calcium Level AT KIMO [facility]) ID Date Data Source [id number] 01/12/2020 07:06:00 AM EST DULCE MARIA ([facility]) Name Value Range Interpretation Code Description Data Lizy rce(s) Supporting Document(s) white blood count 16.1 10 4.0-10.0 Above high normal White Blood Count DULCE MARIA ([facility]) red blood count 5.20 10 4.30-6.10 normal Red Blood Count ATHE NA ([facility]) hemoglobin 13.6 g/dL 13.5-17.5 normal Hemoglobin DULCE MARIA ([facility]) hematocrit 43.5 % 42.0-52.0 normal Hematocrit DULCE MARIA ([facility]) mean corpuscular volume 83.7 fL 80.0-96.0 normal Mean Corpusc ular Volume DULCE MARIA ([facility]) mean corpuscular hemoglobin 26.2 pg 27.0-33.0 Below low nor mal Mean Corpuscular Hemoglobin DULCE MARIA ([facility]) red cell distribution width 18.2 % 11.5-14.5 Above high no rmal Red Cell Distribution Width DULCE MARIA ([facility]) mean corpuscular HGB conc 31.3 g/dL 32.0-36.5 Below low ashli l Mean Corpuscular HGB Conc DULCE MARIA ([facility]) platelet count, automated 297 10 150-450 normal Platelet C ount, Automated DULCE MARIA ([facility]) neutrophils % 87.4 % 36.0-66.0 Above high normal Neutrophils % A [facility] ([facility]) mono % 5.0 % 0.0-5.0 normal [place] % DULCE MARIA ([facility]) lymph % 6.8 % 24.0-44.0 Below low normal Lymph % DULCE MARIA ( [facility]) baso % 0.1 % 0.0-1.0 normal Baso % DULCE MARIA ([facility]) eos % 0.0 % 0.0-3.0 normal Eos % DULCE MARIA ([facility]) immature granulocyte % 0.7 % 0-3.0 normal Immature Gran ulocyte % DULCE MARIA ([facility]) neutrophils # 14.1 10 1.5-8.5 Above high normal Neutrophils # [facility] nucleated red blood cell % 0.0 % 0-0 normal Nucleated Red Blood Cell % DULCE MARIA ([facility]) mono # 0.8 10 0.0-0.8 normal [place] # DULCE MARIA ([facility]) lymph # 1.1 10 1.5-5.0 Below low normal Lymph # DULCE MARIA ( [facility]) eos # 0.0 10 0.0-0.5 normal Eos # DULCE MARIA ([facility]) baso # 0.0 10 0.0-0.2 normal Baso # DULCE MARIA ([facility]) ID Date Data Source [id number] 01/12/2020 07:06:00 AM EST DULCE MARIA ([facility]) Name Value Range Interpretation Code Description Data Lizy rce(s) Supporting Document(s) glucose, fasting 172 mg/dL 70-100 Above high normal Glucose, Fas ting [place] ([facility]) blood urea nitrogen 20 mg/dL 7-18 DH Blood Urea Nitro gen [place] ([facility]) creatinine for GFR 0.73 mg/dL 0.70-1.30 normal Creatinine for GF R [place] ([facility]) sodium level 143 mEq/L 136-145 normal Sodium Level DULCE MARIA (No [facility]) glomerular filtration rate > 60.0 >49 normal Glomerula r Filtration Rate [place] ([facility]) potassium serum 3.8 mEq/L 3.5-5.1 normal Potassium Serum ATH NA ([facility]) chloride level 108 mEq/L 98-107 Above high normal Chloride Level [place] ([facility]) carbon dioxide level 33 mEq/L 21-32 Above high normal Carbon D ioxide Level [place] ([facility]) anion gap 2 mEq/L 8-16 Below low normal Anion Gap D[place]CE [place] ( [facility]) calcium level 8.6 mg/dL 8.8-10.2 Below low normal Calcium Level AT [place] ([facility]) ID Date Data Source [id number] 01/12/2020 07:06:00 AM EST [place] ([facility]) Name Value Range Interpretation Code Description Data Lizy rce(s) Supporting Document(s) white blood count 16.1 10 4.0-10.0 Above high normal White Blood Count DULCE MAR[place] ([facility]) red blood count 5.20 10 4.30-6.10 normal Red Blood Count ATHE NA ([facility]) hemoglobin 13.6 g/dL 13.5-17.5 normal Hemoglobin D[place]CE MAR[place] ([facility]) mean corpuscular volume 83.7 fL 80.0-96.0 normal Mean Corpusc ular Volume DULCE MAR[place] ([facility]) hematocrit 43.5 % 42.0-52.0 normal Hematocrit [place] ([facility]) mean corpuscular hemoglobin 26.2 pg 27.0-33.0 Below low nor mal Mean Corpuscular Hemoglobin DULCE MAR[place] ([facility]) mean corpuscular HGB conc 31.3 g/dL 32.0-36.5 Below low ashli l Mean Corpuscular HGB Conc DULCE MAR[place] ([facility]) red cell distribution width 18.2 % 11.5-14.5 Above high no rmal Red Cell Distribution Width DULCE MRAIA ([facility]) platelet count, automated 297 10 150-450 normal Platelet C ount, Automated D[place] ([facility]) lymph % 6.8 % 24.0-44.0 Below low normal Lymph % DULCE MAR[place] ( [facility]) neutrophils % 87.4 % 36.0-66.0 Above high normal Neutrophils % A [facility] ([facility]) mono % 5.0 % 0.0-5.0 normal [place] % DULCE MARIA ([facility]) eos % 0.0 % 0.0-3.0 normal Eos % DULCE MARIA ([facility]) baso % 0.1 % 0.0-1.0 normal Baso % DULCE MARIA ([facility]) immature granulocyte % 0.7 % 0-3.0 normal Immature Gran ulocyte % DULCE MARIA ([facility]) nucleated red blood cell % 0.0 % 0-0 normal Nucleated Red Blood Cell % D[place]CE [place] ([facility]) neutrophils # 14.1 10 1.5-8.5 Above high normal Neutrophils # A [facility] ([facility]) mono # 0.8 10 0.0-0.8 normal [place] # DULCE MARIA ([facility]) lymph # 1.1 10 1.5-5.0 Below low normal Lymph # DULCE MARIA ( [facility]) eos # 0.0 10 0.0-0.5 normal Eos # DULCE MARIA ([facility]) baso # 0.0 10 0.0-0.2 normal Baso # DULCE MARIA ([facility]) ID Date Data Source [id number] 01/12/2020 07:06:00 AM EST [place]CE [place] ([facility]) Name Value Range Interpretation Code Description Data Lizy rce(s) Supporting Document(s) glucose, fasting 172 mg/dL 70-100 Above high normal Glucose, Fas ting [place] ([facility]) blood urea nitrogen 20 mg/dL 7-18 DH Blood Urea Nitro gen [place] ([facility]) creatinine for GFR 0.73 mg/dL 0.70-1.30 normal Creatinine for GF R [place] ([facility]) glomerular filtration rate > 60.0 >49 normal Glomerula r Filtration Rate [place] ([facility]) sodium level 143 mEq/L 136-145 normal Sodium Level DULCE MARIA ([facility]) carbon dioxide level 33 mEq/L 21-32 Above high normal Carbon D ioxide Level [place] ([facility]) potassium serum 3.8 mEq/L 3.5-5.1 normal Potassium Serum ATH NA ([facility]) chloride level 108 mEq/L 98-107 Above high normal Chloride Level [place] ([facility]) calcium level 8.6 mg/dL 8.8-10.2 Below low normal Calcium Level AT [place] ([facility]) anion gap 2 mEq/L 8-16 Below low normal Anion Gap [place] ( [facility]) ID Date Data Source [id number] 01/12/2020 07:06:00 AM EST DULCE MAR[place] ([facility]) Name Value Range Interpretation Code Description Data Lizy rce(s) Supporting Document(s) white blood count 16.1 10 4.0-10.0 Above high normal White Blood Count DULCE MAR[place] ([facility]) red blood count 5.20 10 4.30-6.10 normal Red Blood Count ATHE NA ([facility]) hemoglobin 13.6 g/dL 13.5-17.5 normal Hemoglobin D[place]CE [place] ([facility]) hematocrit 43.5 % 42.0-52.0 normal Hematocrit [place] ([facility]) mean corpuscular volume 83.7 fL 80.0-96.0 normal Mean Corpusc ular Volume D[place]CE [place] ([facility]) mean corpuscular hemoglobin 26.2 pg 27.0-33.0 Below low nor mal Mean Corpuscular Hemoglobin [place] ([facility]) red cell distribution width 18.2 % 11.5-14.5 Above high no rmal Red Cell Distribution Width [place] ([facility]) mean corpuscular HGB conc 31.3 g/dL 32.0-36.5 Below low ashli l Mean Corpuscular HGB Conc [place] ([facility]) neutrophils % 87.4 % 36.0-66.0 Above high normal Neutrophils % A [facility] ([facility]) platelet count, automated 297 10 150-450 normal Platelet C ount, Automated [place] ([facility]) lymph % 6.8 % 24.0-44.0 Below low normal Lymph % D[place] ( [facility]) mono % 5.0 % 0.0-5.0 normal [place] % DULCE MAR[place] ([facility]) eos % 0.0 % 0.0-3.0 normal Eos % D[place] ([facility]) baso % 0.1 % 0.0-1.0 normal Baso % D[place] ([facility]) nucleated red blood cell % 0.0 % 0-0 normal Nucleated Red Blood Cell % D[place] ([facility]) immature granulocyte % 0.7 % 0-3.0 normal Immature Gran ulocyte % D[place] ([facility]) lymph # 1.1 10 1.5-5.0 Below low normal Lymph # D[place]CE [place] ( [facility]) neutrophils # 14.1 10 1.5-8.5 Above high normal Neutrophils # A [place] ([facility]) mono # 0.8 10 0.0-0.8 normal [place] # DULCE MAR[place] ([facility]) baso # 0.0 10 0.0-0.2 normal Baso # D[place]CE [place] ([facility]) eos # 0.0 10 0.0-0.5 normal Eos # D[place]CE [place] ([facility]) ID Date Data Source [id number] 01/12/2020 07:06:00 AM EST [place] ([facility]) Name Value Range Interpretation Code Description Data Lizy rce(s) Supporting Document(s) creatinine for GFR 0.73 mg/dL 0.70-1.30 normal Creatinine for GF R [place] ([facility]) glucose, fasting 172 mg/dL 70-100 Above high normal Glucose, Fas ting [place] ([facility]) blood urea nitrogen 20 mg/dL 7-18 DH Blood Urea Nitro gen [place] ([facility]) glomerular filtration rate > 60.0 >49 normal Glomerula r Filtration Rate [place] ([facility]) sodium level 143 mEq/L 136-145 normal Sodium Level DUL[place] ([facility]) carbon dioxide level 33 mEq/L 21-32 Above high normal Carbon D ioxide Level [place] ([facility]) potassium serum 3.8 mEq/L 3.5-5.1 normal Potassium Serum ATH NA ([facility]) chloride level 108 mEq/L 98-107 Above high normal Chloride Level [place] ([facility]) calcium level 8.6 mg/dL 8.8-10.2 Below low normal Calcium Level AT [facility] ([facility]) anion gap 2 mEq/L 8-16 Below low normal Anion Gap [place] ( [facility]) ID Date Data Source [id number] 01/12/2020 07:06:00 AM EST D[place] ([facility]) Name Value Range Interpretation Code Description Data Lizy rce(s) Supporting Document(s) red blood count 5.20 10 4.30-6.10 normal Red Blood Count ATHE NA ([facility]) white blood count 16.1 10 4.0-10.0 Above high normal White Blood Count D[place]CE [place] ([facility]) hemoglobin 13.6 g/dL 13.5-17.5 normal Hemoglobin [place] ([facility]) hematocrit 43.5 % 42.0-52.0 normal Hematocrit [place] ([facility]) mean corpuscular hemoglobin 26.2 pg 27.0-33.0 Below low nor mal Mean Corpuscular Hemoglobin D[place] ([facility]) mean corpuscular volume 83.7 fL 80.0-96.0 normal Mean Corpusc ular Volume [place] ([facility]) platelet count, automated 297 10 150-450 normal Platelet C ount, Automated [place] ([facility]) red cell distribution width 18.2 % 11.5-14.5 Above high no rmal Red Cell Distribution Width [place] ([facility]) mean corpuscular HGB conc 31.3 g/dL 32.0-36.5 Below low ashli l Mean Corpuscular HGB Conc [place] ([facility]) lymph % 6.8 % 24.0-44.0 Below low normal Lymph % D[place] ( [facility]) neutrophils % 87.4 % 36.0-66.0 Above high normal Neutrophils % A [place] ([facility]) baso % 0.1 % 0.0-1.0 normal Baso % DULCE [place] ([facility]) mono % 5.0 % 0.0-5.0 normal [place] % D[place] ([facility]) eos % 0.0 % 0.0-3.0 normal Eos % D[place] ([facility]) immature granulocyte % 0.7 % 0-3.0 normal Immature Gran ulocyte % D[place] ([facility]) nucleated red blood cell % 0.0 % 0-0 normal Nucleated Red Blood Cell % D[place] ([facility]) lymph # 1.1 10 1.5-5.0 Below low normal Lymph # DULCE [place] ( [facility]) mono # 0.8 10 0.0-0.8 normal [place] # DULCE MARIA ([facility]) neutrophils # 14.1 10 1.5-8.5 Above high normal Neutrophils # A [place] ([facility]) baso # 0.0 10 0.0-0.2 normal Baso # D[place]CE [place] ([facility]) eos # 0.0 10 0.0-0.5 normal Eos # D[place]CE [place] ([facility]) ID Date Data Source [id number] 01/11/2020 11:56:00 AM EST [place] ([facility]) Name Value Range Interpretation Code Description Data Lizy rce(s) Supporting Document(s) ID Date Data Source [id number] 01/11/2020 11:56:00 AM EST [place] ([facility]) Name Value Range Interpretation Code Description Data Lizy rce(s) Supporting Document(s) ID Date Data Source [id number] 01/11/2020 11:56:00 AM EST [place] ([facility]) Name Value Range Interpretation Code Description Data Lizy rce(s) Supporting Document(s) ID Date Data Source [id number] 01/11/2020 11:56:00 AM EST [place] ([facility]) Name Value Range Interpretation Code Description Data Lizy rce(s) Supporting Document(s) ID Date Data Source [id number] 01/11/2020 06:45:00 AM EST [place] ([facility]) Name Value Range Interpretation Code Description Data Lizy rce(s) Supporting Document(s) ID Date Data Source [id number] 01/11/2020 06:45:00 AM EST [place] ([facility]) Name Value Range Interpretation Code Description Data Lizy rce(s) Supporting Document(s) ID Date Data Source [id number] 01/11/2020 06:45:00 AM EST [place] ([facility]) Name Value Range Interpretation Code Description Data Lizy rce(s) Supporting Document(s) ID Date Data Source [id number] 01/11/2020 06:45:00 AM EST [place] ([facility]) Name Value Range Interpretation Code Description Data Lizy rce(s) Supporting Document(s) ID Date Data Source [id number] 01/11/2020 05:22:00 AM EST D[place] ([facility]) Name Value Range Interpretation Code Description Data Lizy rce(s) Supporting Document(s) glucose, fasting 150 mg/dL 70-100 Above high normal Glucose, Fas ting [place] ([facility]) blood urea nitrogen 10 mg/dL 7-18 normal Blood Urea Nitro gen D[place] ([facility]) glomerular filtration rate > 60.0 >49 normal Glomerula r Filtration Rate [place] ([facility]) sodium level 141 mEq/L 136-145 normal Sodium Level D[place] (No [facility]) creatinine for GFR 0.66 mg/dL 0.70-1.30 Below low normal Creatinine for GFR [place] ([facility]) potassium serum 4.2 mEq/L 3.5-5.1 normal Potassium Serum ATHE NA ([facility]) chloride level 107 mEq/L 98-107 normal Chloride Level [place] ([facility]) anion gap 2 mEq/L 8-16 Below low normal Anion Gap D[place] ( [facility]) carbon dioxide level 32 mEq/L 21-32 normal Carbon Dioxide Level [place] ([facility]) calcium level 8.3 mg/dL 8.8-10.2 Below low normal Calcium Level AT [facility]) ID Date Data Source [id number] 01/11/2020 05:22:00 AM EST [place] ([facility]) Name Value Range Interpretation Code Description Data Lizy rce(s) Supporting Document(s) white blood count 9.2 10 4.0-10.0 normal White Blood Count [place] ([facility]) hemoglobin 13.4 g/dL 13.5-17.5 Below low normal Hemoglobin D[place]CE [place] ( [facility]) red blood count 5.26 10 4.30-6.10 normal Red Blood Count ATHE NA ([facility]) hematocrit 43.6 % 42.0-52.0 normal Hematocrit D[place] MAR[place] ([facility]) mean corpuscular hemoglobin 25.5 pg 27.0-33.0 Below low nor mal Mean Corpuscular Hemoglobin D[place] ([facility]) mean corpuscular volume 82.9 fL 80.0-96.0 normal Mean Corpusc ular Volume D[place] ([facility]) red cell distribution width 17.5 % 11.5-14.5 Above high no rmal Red Cell Distribution Width D[place] ([facility]) mean corpuscular HGB conc 30.7 g/dL 32.0-36.5 Below low ashli l Mean Corpuscular HGB Conc D[place] ([facility]) platelet count, automated 315 10 150-450 normal Platelet C ount, Automated [place] ([facility]) lymph % 9.3 % 24.0-44.0 Below low normal Lymph % DULCE [place] ( [facility]) neutrophils % 86.5 % 36.0-66.0 Above high normal Neutrophils % A [place] ([facility]) mono % 3.3 % 0.0-5.0 normal [place] % DULCE MARIA ([facility]) eos % 0.0 % 0.0-3.0 normal Eos % DULCE [place] ([facility]) immature granulocyte % 0.8 % 0-3.0 normal Immature Gran ulocyte % DULCE MAR[place] ([facility]) baso % 0.1 % 0.0-1.0 normal Baso % DULCE [place] ([facility]) neutrophils # 8.0 10 1.5-8.5 normal Neutrophils # DULCE [place] ( [facility]) nucleated red blood cell % 0.0 % 0-0 normal Nucleated Red Blood Cell % DULCE [place] ([facility]) mono # 0.3 10 0.0-0.8 normal [place] # DULCE MARIA ([facility]) lymph # 0.9 10 1.5-5.0 Below low normal Lymph # D[place]CE [place] ( [facility]) eos # 0.0 10 0.0-0.5 normal Eos # D[place]CE [place] ([facility]) baso # 0.0 10 0.0-0.2 normal Baso # D[place]CE [place] ([facility]) ID Date Data Source [id number] 01/11/2020 05:22:00 AM EST [place] ([facility]) Name Value Range Interpretation Code Description Data Lizy rce(s) Supporting Document(s) glucose, fasting 150 mg/dL 70-100 Above high normal Glucose, Fas ting [place] ([facility]) blood urea nitrogen 10 mg/dL 7-18 normal Blood Urea Nitro gen [place] ([facility]) creatinine for GFR 0.66 mg/dL 0.70-1.30 Below low normal Creatinine for GFR [place] ([facility]) glomerular filtration rate > 60.0 >49 normal Glomerula r Filtration Rate [place] ([facility]) sodium level 141 mEq/L 136-145 normal Sodium Level D[place] ([facility]) potassium serum 4.2 mEq/L 3.5-5.1 normal Potassium Serum [place] ([facility]) carbon dioxide level 32 mEq/L 21-32 normal Carbon Dioxide Level [place] ([facility]) chloride level 107 mEq/L 98-107 normal Chloride Level [place] ([facility]) anion gap 2 mEq/L 8-16 Below low normal Anion Gap [place] ( [facility]) calcium level 8.3 mg/dL 8.8-10.2 Below low normal Calcium Level AT [place] ([facility]) ID Date Data Source [id number] 01/11/2020 05:22:00 AM EST [place] ([facility]) Name Value Range Interpretation Code Description Data Lizy rce(s) Supporting Document(s) white blood count 9.2 10 4.0-10.0 normal White Blood Count [place] ([facility]) red blood count 5.26 10 4.30-6.10 normal Red Blood Count [place] NA ([facility]) hemoglobin 13.4 g/dL 13.5-17.5 Below low normal Hemoglobin D[place]CE [place] ( [facility]) hematocrit 43.6 % 42.0-52.0 normal Hematocrit [place] ([facility]) mean corpuscular volume 82.9 fL 80.0-96.0 normal Mean Corpusc ular Volume [place] ([facility]) mean corpuscular hemoglobin 25.5 pg 27.0-33.0 Below low nor mal Mean Corpuscular Hemoglobin [place] ([facility]) red cell distribution width 17.5 % 11.5-14.5 Above high no rmal Red Cell Distribution Width [place] ([facility]) platelet count, automated 315 10 150-450 normal Platelet C ount, Automated [place] ([facility]) mean corpuscular HGB conc 30.7 g/dL 32.0-36.5 Below low ashli l Mean Corpuscular HGB Conc [place] ([facility]) neutrophils % 86.5 % 36.0-66.0 Above high normal Neutrophils % A [place] ([facility]) lymph % 9.3 % 24.0-44.0 Below low normal Lymph % DULCE [place] ( [facility]) eos % 0.0 % 0.0-3.0 normal Eos % D[place]CE [place] ([facility]) mono % 3.3 % 0.0-5.0 normal [place] % D[place]CE [place] ([facility]) baso % 0.1 % 0.0-1.0 normal Baso % D[place] ([facility]) immature granulocyte % 0.8 % 0-3.0 normal Immature Gran ulocyte % D[place]CE [place] ([facility]) nucleated red blood cell % 0.0 % 0-0 normal Nucleated Red Blood Cell % D[place]CE [place] ([facility]) neutrophils # 8.0 10 1.5-8.5 normal Neutrophils # D[place]CE [place] ( [facility]) lymph # 0.9 10 1.5-5.0 Below low normal Lymph # DULCE [place] ( [facility]) mono # 0.3 10 0.0-0.8 normal [place] # DULCE MAR[place] ([facility]) baso # 0.0 10 0.0-0.2 normal Baso # D[place]CE [place] ([facility]) eos # 0.0 10 0.0-0.5 normal Eos # D[place]CE [place] ([facility]) ID Date Data Source [id number] 01/11/2020 05:22:00 AM EST [place] ([facility]) Name Value Range Interpretation Code Description Data Lizy rce(s) Supporting Document(s) glucose, fasting 150 mg/dL 70-100 Above high normal Glucose, Fas ting [place] ([facility]) blood urea nitrogen 10 mg/dL 7-18 normal Blood Urea Nitro gen [place] ([facility]) creatinine for GFR 0.66 mg/dL 0.70-1.30 Below low normal Creatinine for GFR [place] ([facility]) glomerular filtration rate > 60.0 >49 normal Glomerula r Filtration Rate [place] ([facility]) potassium serum 4.2 mEq/L 3.5-5.1 normal Potassium Serum [place] ([facility]) chloride level 107 mEq/L 98-107 normal Chloride Level DULCE MAR[place] ([facility]) sodium level 141 mEq/L 136-145 normal Sodium Level D[place] ([facility]) anion gap 2 mEq/L 8-16 Below low normal Anion Gap [place] ( [facility]) carbon dioxide level 32 mEq/L 21-32 normal Carbon Dioxide Level [place] ([facility]) calcium level 8.3 mg/dL 8.8-10.2 Below low normal Calcium Level AT [facility] ([facility]) ID Date Data Source [id number] 01/11/2020 05:22:00 AM EST [place] ([facility]) Name Value Range Interpretation Code Description Data Lizy rce(s) Supporting Document(s) white blood count 9.2 10 4.0-10.0 normal White Blood Count D[place]CE [place] ([facility]) red blood count 5.26 10 4.30-6.10 normal Red Blood Count [place] ([facility]) hemoglobin 13.4 g/dL 13.5-17.5 Below low normal Hemoglobin DULCE MAR[place] ( [facility]) hematocrit 43.6 % 42.0-52.0 normal Hematocrit D[place] ([facility]) mean corpuscular volume 82.9 fL 80.0-96.0 normal Mean Corpusc ular Volume DULCE MAR[place] ([facility]) mean corpuscular hemoglobin 25.5 pg 27.0-33.0 Below low nor mal Mean Corpuscular Hemoglobin D[place]CE [place] ([facility]) mean corpuscular HGB conc 30.7 g/dL 32.0-36.5 Below low ashli l Mean Corpuscular HGB Conc [place] ([facility]) neutrophils % 86.5 % 36.0-66.0 Above high normal Neutrophils % A [place] ([facility]) platelet count, automated 315 10 150-450 normal Platelet C ount, Automated [place] ([facility]) red cell distribution width 17.5 % 11.5-14.5 Above high no rmal Red Cell Distribution Width [place] ([facility]) lymph % 9.3 % 24.0-44.0 Below low normal Lymph % DULCE [place] ( [facility]) mono % 3.3 % 0.0-5.0 normal [place] % DULCE MARIA ([facility]) baso % 0.1 % 0.0-1.0 normal Baso % D[place]CE [place] ([facility]) eos % 0.0 % 0.0-3.0 normal Eos % DULCE [place] ([facility]) immature granulocyte % 0.8 % 0-3.0 normal Immature Gran ulocyte % DULC EMARIA ([facility]) neutrophils # 8.0 10 1.5-8.5 normal Neutrophils # DULCE [place] ( [facility]) nucleated red blood cell % 0.0 % 0-0 normal Nucleated Red Blood Cell % D[place]CE [place] ([facility]) lymph # 0.9 10 1.5-5.0 Below low normal Lymph # DULCE MAR[place] ( [facility]) baso # 0.0 10 0.0-0.2 normal Baso # D[place]CE [place] ([facility]) eos # 0.0 10 0.0-0.5 normal Eos # DULCE [place] ([facility]) mono # 0.3 10 0.0-0.8 normal [place] # DULCE MARIA ([facility]) ID Date Data Source [id number] 01/11/2020 05:22:00 AM EST [place] ([facility]) Name Value Range Interpretation Code Description Data Lizy rce(s) Supporting Document(s) blood urea nitrogen 10 mg/dL 7-18 normal Blood Urea Nitro gen [place] ([facility]) creatinine for GFR 0.66 mg/dL 0.70-1.30 Below low normal Creatinine for GFR [facility] ([facility]) glucose, fasting 150 mg/dL 70-100 Above high normal Glucose, Fas ting [place] ([facility]) glomerular filtration rate > 60.0 >49 normal Glomerula r Filtration Rate [place] ([facility]) sodium level 141 mEq/L 136-145 normal Sodium Level DULCE [place] ([facility]) potassium serum 4.2 mEq/L 3.5-5.1 normal Potassium Serum ATH NA ([facility]) chloride level 107 mEq/L 98-107 normal Chloride Level [place] ([facility]) carbon dioxide level 32 mEq/L 21-32 normal Carbon Dioxide Level [place] ([facility]) anion gap 2 mEq/L 8-16 Below low normal Anion Gap [place] ( [facility]) calcium level 8.3 mg/dL 8.8-10.2 Below low normal Calcium Level AT [facility]) ID Date Data Source [id number] 01/11/2020 05:22:00 AM EST [place] ([facility]) Name Value Range Interpretation Code Description Data Lizy rce(s) Supporting Document(s) white blood count 9.2 10 4.0-10.0 normal White Blood Count [place] ([facility]) hemoglobin 13.4 g/dL 13.5-17.5 Below low normal Hemoglobin D[place]CE [place] ( [facility]) hematocrit 43.6 % 42.0-52.0 normal Hematocrit [place] ([facility]) red blood count 5.26 10 4.30-6.10 normal Red Blood Count AT[facility] NA ([facility]) mean corpuscular volume 82.9 fL 80.0-96.0 normal Mean Corpusc ular Volume [place]CE [place] ([facility]) mean corpuscular hemoglobin 25.5 pg 27.0-33.0 Below low nor mal Mean Corpuscular Hemoglobin [facility] ([facility]) mean corpuscular HGB conc 30.7 g/dL 32.0-36.5 Below low ashli l Mean Corpuscular HGB Conc [facility] ([facility]) platelet count, automated 315 10 150-450 normal Platelet C ount, Automated DULCE MARIA ([facility]) red cell distribution width 17.5 % 11.5-14.5 Above high no rmal Red Cell Distribution Width DULCE MARIA ([facility]) neutrophils % 86.5 % 36.0-66.0 Above high normal Neutrophils % A THENA ([facility]) lymph % 9.3 % 24.0-44.0 Below low normal Lymph % DULCE MARIA ( [facility]) mono % 3.3 % 0.0-5.0 normal [place] % DULCE MARIA ([facility]) baso % 0.1 % 0.0-1.0 normal Baso % DULCE MARIA ([facility]) eos % 0.0 % 0.0-3.0 normal Eos % DULCE MARIA ([facility]) immature granulocyte % 0.8 % 0-3.0 normal Immature Gran ulocyte % DULCE MARIA ([facility]) lymph # 0.9 10 1.5-5.0 Below low normal Lymph # DULCE MARIA ( [facility]) neutrophils # 8.0 10 1.5-8.5 normal Neutrophils # DULCE MARIA ( [facility]) nucleated red blood cell % 0.0 % 0-0 normal Nucleated Red Blood Cell % DULCE MARIA ([facility]) mono # 0.3 10 0.0-0.8 normal [place] # DULCE MARIA ([facility]) baso # 0.0 10 0.0-0.2 normal Baso # DULCE MARIA ([facility]) eos # 0.0 10 0.0-0.5 normal Eos # DULCE MARIA ([facility]) ID Date Data Source [id number] 01/10/2020 11:35:00 PM EST DULCE MARIA ([facility]) Name Value Range Interpretation Code Description Data Lizy rce(s) Supporting Document(s) MRSA PCR screen not detected negative normal MRSA PCR Screen AT [facility]) ID Date Data Source [id number] 01/10/2020 11:35:00 PM EST DULCE MARIA ([facility]) Name Value Range Interpretation Code Description Data Lizy rce(s) Supporting Document(s) MRSA PCR screen not detected negative normal MRSA PCR Screen AT [facility]) ID Date Data Source [id number] 01/10/2020 11:35:00 PM EST DULCE MARIA ([facility]) Name Value Range Interpretation Code Description Data Lizy rce(s) Supporting Document(s) MRSA PCR screen not detected negative normal MRSA PCR Screen AT [facility]) ID Date Data Source [id number] 01/10/2020 11:35:00 PM EST DULCE MARIA ([facility]) Name Value Range Interpretation Code Description Data Lizy rce(s) Supporting Document(s) MRSA PCR screen not detected negative normal MRSA PCR Screen AT [facility]) ID Date Data Source [id number] 01/10/2020 11:50:00 AM EST DULCE MARIA ([facility]) Name Value Range Interpretation Code Description Data Lizy rce(s) Supporting Document(s) ID Date Data Source [id number] 01/10/2020 11:50:00 AM EST DULCE MARIA ([facility]) Name Value Range Interpretation Code Description Data Lizy rce(s) Supporting Document(s) ID Date Data Source [id number] 01/10/2020 11:50:00 AM EST DULCE MARIA ([facility]) Name Value Range Interpretation Code Description Data Lizy rce(s) Supporting Document(s) ID Date Data Source [id number] 01/10/2020 11:50:00 AM EST DULCE MARIA ([facility]) Name Value Range Interpretation Code Description Data Lizy rce(s) Supporting Document(s) ID Date Data Source [id number] 01/10/2020 11:47:00 AM EST DULCE MARIA ([facility]) Name Value Range Interpretation Code Description Data Lizy rce(s) Supporting Document(s) ID Date Data Source [id number] 01/10/2020 11:47:00 AM EST DULCE MARIA ([facility]) Name Value Range Interpretation Code Description Data Lizy rce(s) Supporting Document(s) lactic acid sepsis protocol 1.3 mmol/L 0.4-2.0 normal Lactic Acid Sepsis Protocol [place] ([facility]) ID Date Data Source [id number] 01/10/2020 11:47:00 [facility] Name Value Range Interpretation Code Description Data Lizy rce(s) Supporting Document(s) glucose, fasting 100 mg/dL 70-100 normal Glucose, Fasting AT [facility]) blood urea nitrogen 10 mg/dL 7-18 normal Blood Urea Nitro gen [place] ([facility]) creatinine for GFR 0.82 mg/dL 0.70-1.30 normal Creatinine for GF R [place] ([facility]) glomerular filtration rate > 60.0 >49 normal Glomerula r Filtration Rate [place] ([facility]) potassium serum 3.7 mEq/L 3.5-5.1 normal Potassium Serum ATH NA ([facility]) sodium level 142 mEq/L 136-145 normal Sodium Level DULCE MARIA ([facility]) chloride level 103 mEq/L 98-107 normal Chloride Level DULCE MARIA ([facility]) carbon dioxide level 36 mEq/L 21-32 Above high normal Carbon D ioxide Level DULCE MARIA ([facility]) calcium level 9.1 mg/dL 8.8-10.2 normal Calcium Level DULCE MARIA ( [facility]) anion gap 3 mEq/L 8-16 Below low normal Anion Gap DULCE MARIA ( [facility]) ID Date Data Source [id number] 01/10/2020 11:47:00 AM EST DULCE MARIA ([facility]) Name Value Range Interpretation Code Description Data Lizy rce(s) Supporting Document(s) AST/SGOT 19 U/L 7-37 normal AST/SGOT DULCE MARIA ([facility]) ALT/SGPT 36 U/L 12-78 normal ALT/SGPT DULCE MARIA ([facility]) alkaline phosphatase 103 U/L 45-117 normal Alkaline Phosph atase DULCE MARIA ([facility]) bilirubin,total 0.7 mg/dL 0.2-1.0 normal Bilirubin,total ATHE ([facility]) total protein 6.3 gm/dL 6.4-8.2 Below low normal Total Protein AT [facility]) albumin 3.2 gm/dL 3.2-5.2 normal Albumin DULCE MARIA ([facility]) bilirubin,direct 0.2 mg/dL 0.0-0.2 normal Bilirubin,direct AT [facility] ([facility]) albumin/globulin ratio normal Albumin/globu daron Ratio DULCE MARIA ([facility]) ID Date Data Source [id number] 01/10/2020 11:47:00 AM EST [place] ([facility]) Name Value Range Interpretation Code Description Data Lizy rce(s) Supporting Document(s) white blood count 11.4 10 4.0-10.0 Above high normal White Blood Count DULCE MARIA ([facility]) red blood count 6.06 10 4.30-6.10 normal Red Blood Count ATHE ([facility]) hemoglobin 15.8 g/dL 13.5-17.5 normal Hemoglobin DULCE MARIA ([facility]) hematocrit 50.1 % 42.0-52.0 normal Hematocrit DULCE MARIA ([facility]) mean corpuscular hemoglobin 26.1 pg 27.0-33.0 Below low nor mal Mean Corpuscular Hemoglobin DULCE MARIA ([facility]) mean corpuscular volume 82.7 fL 80.0-96.0 normal Mean Corpusc ular Volume DULCE MARIA ([facility]) platelet count, automated 342 10 150-450 normal Platelet C ount, Automated DULCE MARIA ([facility]) mean corpuscular HGB conc 31.5 g/dL 32.0-36.5 Below low ashli l Mean Corpuscular HGB Conc DULCE MARIA ([facility]) red cell distribution width 18.7 % 11.5-14.5 Above high no rmal Red Cell Distribution Width DULCE MARIA ([facility]) neutrophils % 73.5 % 36.0-66.0 Above high normal Neutrophils % A THENA ([facility]) lymph % 16.0 % 24.0-44.0 Below low normal Lymph % DULCE MARIA ( [facility]) mono % 8.2 % 0.0-5.0 Above high normal [place] % DULCE MARIA ([facility]) eos % 1.2 % 0.0-3.0 normal Eos % DULCE MARIA ([facility]) baso % 0.3 % 0.0-1.0 normal Baso % DULCE MARIA ([facility]) nucleated red blood cell % 0.0 % 0-0 normal Nucleated Red Blood Cell % DULCE MARIA ([facility]) immature granulocyte % 0.8 % 0-3.0 normal Immature Gran ulocyte % DULCE MARIA ([facility]) lymph # 1.8 10 1.5-5.0 normal Lymph # DULCE MARIA ([facility]) neutrophils # 8.4 10 1.5-8.5 normal Neutrophils # DULCE MARIA ( [facility]) mono # 0.9 10 0.0-0.8 Above high normal [place] # DULCE MARIA ([facility]) eos # 0.1 10 0.0-0.5 normal Eos # DULCE MARIA ([facility]) baso # 0.0 10 0.0-0.2 normal Baso # DULCE MARIA ([facility]) ID Date Data Source [id number] 01/10/2020 11:47:00 AM EST DULCE MARIA ([facility]) Name Value Range Interpretation Code Description Data Lizy rce(s) Supporting Document(s) ID Date Data Source [id number] 01/10/2020 11:47:00 AM EST DULCE MARIA ([facility]) Name Value Range Interpretation Code Description Data Lizy rce(s) Supporting Document(s) lactic acid sepsis protocol 1.3 mmol/L 0.4-2.0 normal Lactic Acid Sepsis Protocol [place] ([facility]) ID Date Data Source [id number] 01/10/2020 11:47:00 AM EST DULCE MARIA ([facility]) Name Value Range Interpretation Code Description Data Lizy rce(s) Supporting Document(s) blood urea nitrogen 10 mg/dL 7-18 normal Blood Urea Nitro gen DULCE MARIA ([facility]) creatinine for GFR 0.82 mg/dL 0.70-1.30 normal Creatinine for GF R [place] ([facility]) glucose, fasting 100 mg/dL 70-100 normal Glucose, Fasting AT [facility] ([facility]) glomerular filtration rate > 60.0 >49 normal Glomerula r Filtration Rate [place] ([facility]) potassium serum 3.7 mEq/L 3.5-5.1 normal Potassium Serum ATHE NA ([facility]) sodium level 142 mEq/L 136-145 normal Sodium Level DULCE MARIA ([facility]) carbon dioxide level 36 mEq/L 21-32 Above high normal Carbon D ioxide Level DULCE MARIA ([facility]) calcium level 9.1 mg/dL 8.8-10.2 normal Calcium Level [place] ( [facility]) chloride level 103 mEq/L 98-107 normal Chloride Level [place] ([facility]) anion gap 3 mEq/L 8-16 Below low normal Anion Gap [place] ( [facility]) ID Date Data Source [id number] 01/10/2020 11:47:00 AM EST [place] ([facility]) Name Value Range Interpretation Code Description Data Lizy rce(s) Supporting Document(s) AST/SGOT 19 U/L 7-37 normal AST/SGOT DULCE MARIA ([facility]) ALT/SGPT 36 U/L 12-78 normal ALT/SGPT DULCE MARIA ([facility]) bilirubin,total 0.7 mg/dL 0.2-1.0 normal Bilirubin,total ATHE NA ([facility]) alkaline phosphatase 103 U/L 45-117 normal Alkaline Phosph atase DULCE MARIA ([facility]) albumin 3.2 gm/dL 3.2-5.2 normal Albumin DULCE MARIA ([facility]) total protein 6.3 gm/dL 6.4-8.2 Below low normal Total Protein AT [facility]) bilirubin,direct 0.2 mg/dL 0.0-0.2 normal Bilirubin,direct AT [facility] ([facility]) albumin/globulin ratio normal Albumin/globu daron Ratio [place] ([facility]) ID Date Data Source [id number] 01/10/2020 11:47:00 AM EST DULCE MARIA ([facility]) Name Value Range Interpretation Code Description Data Lizy rce(s) Supporting Document(s) white blood count 11.4 10 4.0-10.0 Above high normal White Blood Count DULCE MARIA ([facility]) hemoglobin 15.8 g/dL 13.5-17.5 normal Hemoglobin DULCE MARIA ([facility]) red blood count 6.06 10 4.30-6.10 normal Red Blood Count ATHE ([facility]) hematocrit 50.1 % 42.0-52.0 normal Hematocrit DULCE MARIA ([facility]) mean corpuscular volume 82.7 fL 80.0-96.0 normal Mean Corpusc ular Volume DULCE MARIA ([facility]) mean corpuscular hemoglobin 26.1 pg 27.0-33.0 Below low nor mal Mean Corpuscular Hemoglobin DULCE MARIA ([facility]) red cell distribution width 18.7 % 11.5-14.5 Above high no rmal Red Cell Distribution Width DULCE MARIA ([facility]) mean corpuscular HGB conc 31.5 g/dL 32.0-36.5 Below low ashli l Mean Corpuscular HGB Conc DULCE MARIA ([facility]) platelet count, automated 342 10 150-450 normal Platelet C ount, Automated DULCE MARIA ([facility]) neutrophils % 73.5 % 36.0-66.0 Above high normal Neutrophils % A THENA ([facility]) lymph % 16.0 % 24.0-44.0 Below low normal Lymph % DULCE MARIA ( [facility]) eos % 1.2 % 0.0-3.0 normal Eos % DULCE MARIA ([facility]) mono % 8.2 % 0.0-5.0 Above high normal [place] % DULCE MARIA ([facility]) baso % 0.3 % 0.0-1.0 normal Baso % DULCE MARIA ([facility]) nucleated red blood cell % 0.0 % 0-0 normal Nucleated Red Blood Cell % DULCE MARIA ([facility]) immature granulocyte % 0.8 % 0-3.0 normal Immature Gran ulocyte % DULCE MARIA ([facility]) lymph # 1.8 10 1.5-5.0 normal Lymph # DULCE MARIA ([facility]) neutrophils # 8.4 10 1.5-8.5 normal Neutrophils # DULCE MARIA ( [facility]) mono # 0.9 10 0.0-0.8 Above high normal [place] # DULCE MARIA ([facility]) eos # 0.1 10 0.0-0.5 normal Eos # DULCE MARIA ([facility]) baso # 0.0 10 0.0-0.2 normal Baso # DULCE MARIA ([facility]) ID Date Data Source [id number] 01/10/2020 11:47:00 AM EST [place] ([facility]) Name Value Range Interpretation Code Description Data Lizy rce(s) Supporting Document(s) ID Date Data Source [id number] 01/10/2020 11:47:00 AM EST [place] ([facility]) Name Value Range Interpretation Code Description Data Lizy rce(s) Supporting Document(s) lactic acid sepsis protocol 1.3 mmol/L 0.4-2.0 normal Lactic Acid Sepsis Protocol [place] ([facility]) ID Date Data Source [id number] 01/10/2020 11:47:00 AM EST DULCE MARIA ([facility]) Name Value Range Interpretation Code Description Data Lizy rce(s) Supporting Document(s) glucose, fasting 100 mg/dL 70-100 normal Glucose, Fasting AT [facility]) creatinine for GFR 0.82 mg/dL 0.70-1.30 normal Creatinine for GF R [place] ([facility]) glomerular filtration rate > 60.0 >49 normal Glomerula r Filtration Rate [place] ([facility]) blood urea nitrogen 10 mg/dL 7-18 normal Blood Urea Nitro gen [place] ([facility]) sodium level 142 mEq/L 136-145 normal Sodium Level DULCE MARIA (No [facility]) potassium serum 3.7 mEq/L 3.5-5.1 normal Potassium Serum ATH NA ([facility]) chloride level 103 mEq/L 98-107 normal Chloride Level [place] ([facility]) calcium level 9.1 mg/dL 8.8-10.2 normal Calcium Level [place] ( [facility]) anion gap 3 mEq/L 8-16 Below low normal Anion Gap [place] ( [facility]) carbon dioxide level 36 mEq/L 21-32 Above high normal Carbon D ioxide Level [place] ([facility]) ID Date Data Source [id number] 01/10/2020 11:47:00 AM EST DULCE MARIA ([facility]) Name Value Range Interpretation Code Description Data Lizy rce(s) Supporting Document(s) AST/SGOT 19 U/L 7-37 normal AST/SGOT [place] ([facility]) ALT/SGPT 36 U/L 12-78 normal ALT/SGPT DULCE MARIA ([facility]) total protein 6.3 gm/dL 6.4-8.2 Below low normal Total Protein AT [facility] ([facility]) bilirubin,direct 0.2 mg/dL 0.0-0.2 normal Bilirubin,direct AT [facility] ([facility]) bilirubin,total 0.7 mg/dL 0.2-1.0 normal Bilirubin,total [facility] ([facility]) alkaline phosphatase 103 U/L 45-117 normal Alkaline Phosph atase DULCE MARIA ([facility]) albumin 3.2 gm/dL 3.2-5.2 normal Albumin [place] ([facility]) albumin/globulin ratio normal Albumin/globu daron Ratio [place] ([facility]) ID Date Data Source [id number] 01/10/2020 11:47:00 AM EST [place] ([facility]) Name Value Range Interpretation Code Description Data Lizy rce(s) Supporting Document(s) white blood count 11.4 10 4.0-10.0 Above high normal White Blood Count DULCE MARIA ([facility]) hemoglobin 15.8 g/dL 13.5-17.5 normal Hemoglobin [place] ([facility]) red blood count 6.06 10 4.30-6.10 normal Red Blood Count ATHE ([facility]) hematocrit 50.1 % 42.0-52.0 normal Hematocrit DULCE MARIA ([facility]) mean corpuscular volume 82.7 fL 80.0-96.0 normal Mean Corpusc ular Volume DULCE MARIA ([facility]) mean corpuscular hemoglobin 26.1 pg 27.0-33.0 Below low nor mal Mean Corpuscular Hemoglobin DULCE MARIA ([facility]) mean corpuscular HGB conc 31.5 g/dL 32.0-36.5 Below low ashli l Mean Corpuscular HGB Conc DULCE MARIA ([facility]) platelet count, automated 342 10 150-450 normal Platelet C ount, Automated DULCE MARIA ([facility]) red cell distribution width 18.7 % 11.5-14.5 Above high no rmal Red Cell Distribution Width DULCE MARIA ([facility]) lymph % 16.0 % 24.0-44.0 Below low normal Lymph % DULCE MARIA ( [facility]) neutrophils % 73.5 % 36.0-66.0 Above high normal Neutrophils % A THENA ([facility]) eos % 1.2 % 0.0-3.0 normal Eos % DULC EMARIA ([facility]) mono % 8.2 % 0.0-5.0 Above high normal [place] % DULCE MARIA ([facility]) baso % 0.3 % 0.0-1.0 normal Baso % DULCE MARIA ([facility]) neutrophils # 8.4 10 1.5-8.5 normal Neutrophils # [place] ( [facility]) nucleated red blood cell % 0.0 % 0-0 normal Nucleated Red Blood Cell % DULC EMARIA ([facility]) immature granulocyte % 0.8 % 0-3.0 normal Immature Gran ulocyte % DULCE MARIA ([facility]) mono # 0.9 10 0.0-0.8 Above high normal [place] # DULCE MARIA ([facility]) lymph # 1.8 10 1.5-5.0 normal Lymph # DULCE MARIA ([facility]) eos # 0.1 10 0.0-0.5 normal Eos # DULCE MARIA ([facility]) baso # 0.0 10 0.0-0.2 normal Baso # DULCE MARIA ([facility]) ID Date Data Source [id number] 01/10/2020 11:47:00 AM EST DULCE MARIA ([facility]) Name Value Range Interpretation Code Description Data Lizy rce(s) Supporting Document(s) ID Date Data Source [id number] 01/10/2020 11:47:00 AM EST DULCE MARIA ([facility]) Name Value Range Interpretation Code Description Data Lizy rce(s) Supporting Document(s) lactic acid sepsis protocol 1.3 mmol/L 0.4-2.0 normal Lactic Acid Sepsis Protocol [place] ([facility]) ID Date Data Source [id number] 01/10/2020 11:47:00 AM [place] ([facility]) Name Value Range Interpretation Code Description Data Lizy rce(s) Supporting Document(s) creatinine for GFR 0.82 mg/dL 0.70-1.30 normal Creatinine for GF R DULCE MARIA ([facility]) glomerular filtration rate > 60.0 >49 normal Glomerula r Filtration Rate DULCE MARIA ([facility]) blood urea nitrogen 10 mg/dL 7-18 normal Blood Urea Nitro gen DULCE MARIA ([facility]) glucose, fasting 100 mg/dL 70-100 normal Glucose, Fasting AT [facility]) potassium serum 3.7 mEq/L 3.5-5.1 normal [facility] sodium level 142 mEq/L 136-145 normal Sodium Level DULCE MARIA ([facility]) chloride level 103 mEq/L 98-107 normal Chloride Level DULCE MARIA ([facility]) anion gap 3 mEq/L 8-16 Below low normal Anion Gap DULCE MARIA ( [facility]) calcium level 9.1 mg/dL 8.8-10.2 normal Calcium Level [place] ( [facility]) carbon dioxide level 36 mEq/L 21-32 Above high normal Carbon D ioxide Level [facility]) ID Date Data Source [id number] 01/10/2020 11:47:00 AM EST DULCE MARIA ([facility]) Name Value Range Interpretation Code Description Data Lizy rce(s) Supporting Document(s) alkaline phosphatase 103 U/L 45-117 normal Alkaline Phosph atase DULCE MARIA ([facility]) ALT/SGPT 36 U/L 12-78 normal ALT/SGPT DULCE MAR[place] ([facility]) AST/SGOT 19 U/L 7-37 normal AST/SGOT DULCE MARIA ([facility]) albumin 3.2 gm/dL 3.2-5.2 normal Albumin DULCE MARIA ([facility]) bilirubin,total 0.7 mg/dL 0.2-1.0 normal Bilirubin,total ATHE NA ([facility]) total protein 6.3 gm/dL 6.4-8.2 Below low normal Total Protein AT [facility] ([facility]) bilirubin,direct 0.2 mg/dL 0.0-0.2 normal Bilirubin,direct AT [facility] ([facility]) albumin/globulin ratio normal Albumin/globu daron Ratio [place] ([facility]) ID Date Data Source [id number] 01/10/2020 11:47:00 AM EST [place] ([facility]) Name Value Range Interpretation Code Description Data Lizy rce(s) Supporting Document(s) white blood count 11.4 10 4.0-10.0 Above high normal White Blood Count DULCE MARIA ([facility]) hemoglobin 15.8 g/dL 13.5-17.5 normal Hemoglobin [place] ([facility]) red blood count 6.06 10 4.30-6.10 normal Red Blood Count [facility] ([facility]) hematocrit 50.1 % 42.0-52.0 normal Hematocrit DULCE MARIA ([facility]) mean corpuscular volume 82.7 fL 80.0-96.0 normal Mean Corpusc ular Volume DULCE MARIA ([facility]) red cell distribution width 18.7 % 11.5-14.5 Above high no rmal Red Cell Distribution Width DULCE [place] ([facility]) mean corpuscular hemoglobin 26.1 pg 27.0-33.0 Below low nor mal Mean Corpuscular Hemoglobin DULCE MAR[place] ([facility]) mean corpuscular HGB conc 31.5 g/dL 32.0-36.5 Below low ashli l Mean Corpuscular HGB Conc DULCE [place] ([facility]) neutrophils % 73.5 % 36.0-66.0 Above high normal Neutrophils % A THENA ([facility]) lymph % 16.0 % 24.0-44.0 Below low normal Lymph % DULCE MARIA ( [facility]) platelet count, automated 342 10 150-450 normal Platelet C ount, Automated [facility] ([facility]) eos % 1.2 % 0.0-3.0 normal Eos % DULCE MARIA ([facility]) mono % 8.2 % 0.0-5.0 Above high normal [place] % DULCE MARIA ([facility]) baso % 0.3 % 0.0-1.0 normal Baso % [place] ([facility]) nucleated red blood cell % 0.0 % 0-0 normal Nucleated Red Blood Cell % [place] ([facility]) neutrophils # 8.4 10 1.5-8.5 normal Neutrophils # [place] ( [facility]) immature granulocyte % 0.8 % 0-3.0 normal Immature Gran ulocyte % DULCE MARIA ([facility]) baso # 0.0 10 0.0-0.2 normal Baso # [place] ([facility]) eos # 0.1 10 0.0-0.5 normal Eos # [place] ([facility]) mono # 0.9 10 0.0-0.8 Above high normal [place] # [place] ([facility]) lymph # 1.8 10 1.5-5.0 normal Lymph # [place] ([facility]) ID Date Data Source [id number] 01/10/2020 11:46:00 AM EST [facility]) Name Value Range Interpretation Code Description Data Lizy rce(s) Supporting Document(s) sars covid-19 amplification negative negative normal Sars Covid-19 Amplification [facility]) ID Date Data Source [id number] 01/10/2020 11:46:00 AM EST [facility]) Name Value Range Interpretation Code Description Data Lizy rce(s) Supporting Document(s) sars covid-19 amplification negative negative normal Sars Covid-19 Amplification [facility]) ID Date Data Source [id number] 01/10/2020 11:46:00 AM EST [facility]) Name Value Range Interpretation Code Description Data Lizy rce(s) Supporting Document(s) sars covid-19 amplification negative negative normal Sars Covid-19 Amplification DULCE MARIA ([facility]) ID Date Data Source [id number] 01/10/2020 11:46:00 AM EST DULCE MARIA ([facility]) Name Value Range Interpretation Code Description Data Lizy rce(s) Supporting Document(s) sars covid-19 amplification negative negative normal Sars Covid-19 Amplification DULCE MARIA ([facility]) ID Date Data Source [id number] 12/03/2019 03:07:54 PM EDT [facility] Measurements & CalculationsHeight: 69.60 inches 176.78 cm 5 ft. 9.6 in.Weight: 162.6 pounds 73.91 kg Body Mass Index (BMI): 23.68BMI Interpretation: Healthy WeightBody Surface Area (BSA): 1.91Weight Management Education Done (Nutrition/Physical Activity)Vital SignsTemperature: 97.4F 36.33C tympanic Pulse Rate: 106 beats/minuteRespiratory Rate: 20 respirations/minuteBlood Pressure: 115/78 left arm sitting automaticO2 Saturation: 94% Vital Signs performed by: Anna Ponce LPN, December 03, 2019 3:09 PMVital Signs performed by: Marc LILLY, December 03, 2019 3:29 PMMultiple Vital SignsVitals #2Sp02: 91% Performed by: Marc LILLY, December 03, 2019 3:43 PMComments: with ambulationInitial Intake Information From: patientRoom #: 1Infectious Disease / Travel ScreeningRecent travel for you or any close contacts? NoHave you had any close contact with anyone diagnosed with or under investigation for COVID-19 (coronavirus)? NoFever? NoRespiratory symptoms: cough, cold, congestion, shortness of breath, difficulty breathing? NoLoss of smell? NoLoss of taste? NoSmoking, Tobacco, Vaping or Smoke Exposure StatusSmoke Status: current every day smokerTobacco Use: YesAdv to Quit: YesDo you vape? NoPassive Smoke Exposure: YesHealthcare HistorySince your last office visit...Have you been admitted to the hospital? YesHospital admission date reported today: 11/17/2019Have you been to an emergency room (ER) or urgent care clinic? NoHave you seen another healthcare provider? NoHave you seen a dentist? NoIntake performed by: Anna Ponce LPN, December 03, 2019 3:11 PMRate Your HealthIn general, would you say your health is? PoorPain AssessmentAre you currently having any pain which... You would like your provider to address? YesDepression Screening - PHQ-2Over the last two weeks, have you... Had little interest or pleasure in doing things? Nearly every day Been feeling down, depressed, or hopeless? Nearly every day PHQ-2 Score: 6Anxiety Screening - SUGEY-2Over the last two weeks, have you been... Feeling nervous, anxious, or on edge? Nearly every day Unable to stop or control worrying? Nearly every day SUGEY-2 Score: 6Food InsecurityWithin the past year...Did you worry whether your food would run out before you got money to buy more? Never trueWas there a time when the food you bought didn't last and you didn't have money to get more? Never trueGeneralized Anxiety Disorder 7-Item Screening (SUGEY-7)Answer Guide:0 = Not at all1 = Several days2 = Over half the days3 = Nearly every dayOver the last 2 weeks, how often have you been bothered by the following problems?Feeling nervous, anxious, or on edge: 3Not being able to stop or control worryinWorrying too much about different things: 3Trouble relaxinBeing so restless that it's hard to sit still: 3Becoming easily annoyed or irritable: 3Feeling afraid as if something awful might happen: 3Answer Guide:0 = Not difficult at all1 = Somewhat difficult2 = Very difficult3 = Extremely difficultHow difficult have these made it for you to do your work, take care of things at home, or get along with other people? 3GAD-7 Screening Results SUGEY-2 Score: 6GAD-7 Score: 21Functional Impairment: Extremely difficultRecommendation: Severe anxietyPHQ-9 1. Over the last 2 weeks, patient reports the following frequency of symptoms: a. Little interest or pleasure in doing things -Nearly every day b. Feeling down, depressed, or hopeless -Nearly every day c. Trouble falling asleep, staying asleep, or sleeping too much -Nearly every day d. Feeling tired or having little energy -Nearly every day e. Poor appetite or overeating -Nearly every day f. Feeling bad about yourself, feeling that you are a failure, or feeling that you have let yourself or your family down -Nearly every day g. Trouble concentrating on things such as reading the newspaper or watching television -Nearly every day h. Moving or speaking so slowly that other people could have noticed. Or being so fidgety or restless that you have been moving around a lot more than usual -Nearly every day i. Thinking that you would be better off or that you want to hurt yourself in some way -Not at all2. If you checked off any problems, how difficult have these problems made it for you to do your work, take care of things at home, or get along with other people? - Extremely DifficultToday's PHQ-9 Results Score: 24 Severity: Severe Diagnosis Recommendation: Major Depression Functional Impairment: Extremely DifficultToday's Follow-Up Action Depression follow-up done. Follow-Up Action: Scheduled with Psychiatry - existing careScreening, Brief Intervention, & Referral to Treatment (SBIRT)Pre-Screening Questions How many times have you have 5 or more drinks in a day? 0How many times have you used an illegal drug or used a prescription medication for a non-medical reason? 0Performed by: Cathleen Ponce LPN, December 03, 2019 3:12 PMPatient History Medical History:Prostate Cancer (2007)Lung Cancer (2014)Surgical History:Radical Prostectomy (2007)Partial L Lung Removal (2014)Family History:Diabetes (Mother)Asthma (Sister)Alcoholism (Paternal Grandmother, Grandfather)Diabetes (Paternal Grandfather)Social/Personal History: Advised to Quit/Tobacco Education: YesChief Complaintfollow-up visitHistory of Present Illness (HPI)64 yo male presents for follow up of [facility] inpatient hospitalization.Pt was admitted 11/17/2019-11/22/19, discharged with steroid and antibx which are both now done. Pt states he needs something for his breathing, feels he needs oxygen. Pt feels exquisitely short of breath when walking short distances, like going to the bathroom at home which is about 20 feet. Pt states after going to and from the bathroom, he has to sit in his chair upright and forward for about 4-10 minutes before feeling back to normal and comfortable enough to sit back. Has his routine inhalers without significant relief, was receiving nebulizer treatments q 5 hrs in the hospital. Overall he feels the last two days he has felt much better since his hospitalization. His limitation is as above. Feels wheezing, shortness of breath and dizziness like he's going to pass out. Reports he has called Dr. Arriaga's office twice since discharge and hasn't received a call back, has no appointment scheduled at this time with their office. Transitions of Care InboundProblem ReviewProblem List was reviewed and/or updated during this visit.Medication Reconciliation & ReviewMedication List was reviewed and/or updated during this visit, including review of any lzmt-rqk-eaozajg medications, herbal therapies, and/or supplements.Allergy ReviewAllergy List was reviewed and/or updated during this visit.Adult Preventive CareScreening Tobacco Screening: Smoking Status: current every day smoker (12/03/2019) Tobacco Use: Currently (12/03/2019) Advised to Quit: Yes (12/03/2019)Labs/Meds/Other Counseling-Nutrition and Physical Activity:BMI Interpretation: Healthy Weight (12/03/2019) Counseling: Done (12/03/2019) Physical Activity: Done (12/03/2019)Review of Systems General: Complains of dizziness, fatigue. Denies chills, fever, headache. Cardiovascular: Complains of see HPI, feeling faint. Denies chest pain, palpitations, peripheral edema. Respiratory: Complains of see HPI, cough, shortness of breath, wheezing. Gastrointestinal: Denies nausea, vomiting, diarrhea, constipation, pain or discomfort. Genitourinary: Denies pain with urination, burning with urination, blood in urine. Neurologic: Complains of see HPI, feeling faint. Denies weakness, numbness/tingling, slurred speech. Physical ExamGeneral Appearance: well nourished, well hydrated, no acute distressEyes, External: conjunctivae and lids normal, EOMIRespiratory, Auscultation: distant breath sounds but with air movement throughout, some fine scattered wheezesRespiratory, Effort: no intercostal retractions or use of accessory musclesCardiovascular, Auscultation: S1, S2 audible; no murmur, rub, or gallop; RRRPeripheral Circulation: no clubbing, cyanosis, edema, or varicositiesAbdomen: soft, non-tender, no masses, bowel sounds normalGait & Station: normal, taking frequent rests with ambulation due to shortness of breathOrientation: oriented to time, place, and personJudgment & Insight: intactCare Management Plan Transitions of CareInboundRate Your HealthIn general, would you say your health is? PoorAssessment & Plan Problems:Added: Pneumonia, unspecified organism (ICD10- J18.9) Assessment: Instructions: Symptoms are improving, currently off all antibiotics and steroids. Nebulizer and solution sent for you to use three times a day and as needed, no closer than 4 hrs in between treatments.Assessed:Chronic obstructive pulmonary disease, unspecified (ICD10- J44.9) Assessment: Instructions: Will generate a letter to Dr. Arriaga requesting an appointment for you. In the meantime, continue current inhalers and nebulizer as above.Wheezing (ICD-786.07) (KGS31-P79.2) Assessment: Instructions: As above. Will attempt oxygen certification, but I am not confident we can get this approved with your current oxygen saturation.History of malignant neoplasm of lung (ICD-V10.11) (MVM58-H17.118) Assessment: Instructions: Continue per oncology evaluation.Patient Instructions/Care Plan: Pneumonia- unspecified organism: Symptoms are improving, currently off all antibiotics and steroids. Nebulizer and solution sent for you to use three times a day and as needed, no closer than 4 hrs in between treatments.Chronic obstructive pulmonary disease- unspecified: Will generate a letter to Dr. Arriaga requesting an appointment for you. In the meantime, continue current inhalers and nebulizer as above.Wheezing: As above. Will attempt oxygen certification, but I am not confident we can get this approved with your current oxygen saturation.History of malignant neoplasm of lung: Continue per oncology evaluation. Plan developed in collaboration with patient and/or familyMedications:ALBUTEROL SULFATE (2.5 MG/3ML) 0.083% INHALATION NEBULIZATION SOLUTIONNEBULIZER SYSTEM LGO-FX-CBWUWZJYKPFHY SR 150 MG ORAL TABLET EXTENDED RELEASE 12 HOURVITAMIN D3 50 MCG (1999 UT) ORAL CAPSULESIMVASTATIN 10 MG ORAL TABLETLEXAPRO 20 MG ORAL TABLETGABAPENTIN 600 MG ORAL TABLETLYRICA 75 MG ORAL CAPSULEALBUTEROL SULFATE HFA 108 (90 BASE) MCG/ACT INHALATION AEROSOL SOLUTIONSTIOLTO RESPIMAT 2.5-2.5 MCG/ACT INHALATION AEROSOL SOLUTIONHYDROXYZINE HCL 50 MG ORAL TABLETANORO ELLIPTA 62.5-25 MCG/INH INHALATION AEROSOL POWDER BR EATH ACTIVATEDSUBOXONE 8-2 MG SUBLINGUAL FILMMedication Changes:Refilled:ALBUTEROL SULFATE HFA 108 (90 BASE) MCG/ACT INHALATION AEROSOL SOLUTION-2 puffs Q4H prn Qty: 1[Container] Refills: 5 Method: ElectronicNew Prescription:NEBULIZER SYSTEM BSN-CK-IAT-machine, adult mask, tubing q 4-6 hrs prn Qty: 1[Unspecified] Refills: 0 Method: ElectronicALBUTEROL SULFATE (2.5 MG/3ML) 0.083% INHALATION NEBULIZATION SOLUTION-1 vial inhaled with nebulizer q 4-6 hrs prn wheezing/shortness of breath Qty: 1[Box] Refills: 5 Method: ElectronicAllergies:MORPHINE SULFATE (MORPHINE SULFATE) (Critical)Orders:Adult - Ofc Vst, EST, Level IV [CPT-27755] Follow-Up Return to clinic: as needed, as scheduled Clinical Visit Summary Completed Name Value Range Interpretation Code Description Data Lizy rce(s) Supporting Document(s) ID Date Data Source [id number] 11/22/2019 07:23:00 AM EDT [facility] 44.614.532.5 G/DL26.3 PG367 105.51 1016. 213.2 89 46.014.732.0 G/DL26.3 PG385 105.60 1016. 216.1 164 Name Value Range Interpretation Code Description Data Lizy rce(s) Supporting Document(s) ID Date Data Source [id number] 11/22/2019 07:23:00 AM EDT [facility] 44.614.532.5 G/DL26.3 PG367 105.51 1016. 213.2 89 46.014.732.0 G/DL26.3 PG385 105.60 1016. 216.1 164 Name Value Range Interpretation Code Description Data Lizy rce(s) Supporting Document(s) ID Date Data Source [id number] 11/21/2019 07:18:00 AM EDT [facility] 44.614.532.5 G/DL26.3 PG367 105.51 1016. 213.2 89 46.014.732.0 G/DL26.3 PG385 105.60 1016. 216.1 164 Name Value Range Interpretation Code Description Data Lizy rce(s) Supporting Document(s) ID Date Data Source [id number] 11/21/2019 07:18:00 AM EDT [facility] 44.614.532.5 G/DL26.3 PG367 105.51 1016. 213.2 89 46.014.732.0 G/DL26.3 PG385 105.60 1016. 216.1 164 Name Value Range Interpretation Code Description Data Lizy rce(s) Supporting Document(s) ID Date Data Source [id number] 11/20/2019 06:21:00 AM EDT [facility] 166 236 Name Value Range Interpretation Code Description Data Lizy rce(s) Supporting Document(s) HCT 45.3 % 42.0-52.0 N [facility] HGB 14.5 g/dL 13.5-17.5 N [facility] MCH 32.0 G/DL pg 32.0-36.[address] [facility] MCHC 26.1 PG % 27.0-33.0 L [facility] PLATELETS 412 10 10*3/mm3 150-450 N [facility] RBC 5.56 10 10*6/mm3 4.30-6.10 N [facility] RDW 16.6 % 11.5-14.5 H [facility] WBC TOTAL 19.7 4.0-10.0 H [facility] ID Date Data Source [id number] 11/20/2019 06:21:00 AM EDT [facility] 166 236 Name Value Range Interpretation Code Description Data Lizy rce(s) Supporting Document(s) ID Date Data Source [id number] 11/19/2019 05:25:00 PM EDT [facility] 166 236 Name Value Range Interpretation Code Description Data Lizy rce(s) Supporting Document(s) ID Date Data Source [id number] 11/19/2019 06:21:00 AM EDT [facility] Name Value Range Interpretation Code Description Data Lizy rce(s) Supporting Document(s) HCT 43.5 % 42.0-52.0 N [facility] HGB 13.9 g/dL 13.5-17.5 N [facility] MCH 32.0 G/DL pg 32.0-36.[address] [facility] MCHC 26.3 PG % 27.0-33.0 L [facility] PLATELETS 407 10 10*3/mm3 150-450 N [facility] RBC 5.28 10 10*6/mm3 4.30-6.10 N [facility] RDW 16.5 % 11.5-14.5 H [facility] WBC TOTAL 21.0 4.0-10.0 H [facility] ID Date Data Source [id number] 11/19/2019 06:21:00 AM EDT [facility] Name Value Range Interpretation Code Description Data Lizy rce(s) Supporting Document(s) BG FASTING 166 mg/dL 70-100 H [facility] ID Date Data Source [id number] 11/18/2019 05:55:00 AM EDT [facility] Name Value Range Interpretation Code Description Data Lizy rce(s) Supporting Document(s) BG FASTING 202 mg/dL 70-100 H [facility] ID Date Data Source [id number] 11/18/2019 05:55:00 AM EDT [facility] 44.014.132.0 G/DL25.9 PG425 105.44 1015. 97.5 Name Value Range Interpretation Code Description Data Lizy rce(s) Supporting Document(s) ID Date Data Source [id number] 11/17/2019 03:26:00 PM EDT [facility] 44.014.132.0 G/DL25.9 PG425 105.44 1015. 97.5 Name Value Range Interpretation Code Description Data Lizy rce(s) Supporting Document(s) CRP 1.39 mg/dL 0.00-0.30 H [facility] BG FASTING 106 mg/dL 70-100 H [facility] TSH 1.420 microintl units/mL 0.358-3.740 N [facility] ID Date Data Source [id number] 11/17/2019 03:26:00 PM EDT [facility] 44.014.132.0 G/DL25.9 PG425 105.44 1015. 97.5 Name Value Range Interpretation Code Description Data Lizy rce(s) Supporting Document(s) ESR 15 mm/hr 0-20 N [facility] 46.615.232.6 G/DL26.4 PG462 105.75 1016. 112.3 ID Date Data Source [id number] 10/16/2019 02:06:26 PM EDT [facility] Measurements & CalculationsHeight: 69.60 inches 176.78 cm 5 ft. 9.6 in.Weight: 167 pounds 6 oz. 76.08 kg Body Mass Index (BMI): 24.38BMI Interpretation: Healthy WeightBody Surface Area (BSA): 1.93Weight Management Education Done (Nutrition/Physical Activity)Vital SignsTemperature: 98.6F 37C tympanic Pulse Rate: 101 beats/minuteRespiratory Rate: 18 respirations/minuteBlood Pressure: 112/75 right arm sitting automaticO2 Saturation: 93% Vital Signs performed by: Anna Ponce LPN, October 16, 2019 2:08 PMInitial Intake Information From: patientRoom #: 1Infectious Disease / Travel ScreeningRecent travel for you or any close contacts? NoHave you had any close contact with anyone diagnosed with or under investigation for COVID-19 (coronavirus)? NoFever? NoRespiratory symptoms: cough, cold, congestion, shortness of breath, difficulty breathing? NoLoss of smell? NoLoss of taste? NoSmoking, Tobacco, Vaping or Smoke Exposure StatusSmoke Status: current every day smokerTobacco Use: YesAdv to Quit: YesDo you vape? NoPassive Smoke Exposure: YesHealthcare HistorySince your last office visit...Have you been admitted to the hospital? NoHave you been to an emergency room (ER) or urgent care clinic? NoHave you seen another healthcare provider? NoHave you seen a dentist? NoIntake performed by: Anna Ponce LPN, October 16, 2019 2:08 PMRate Your HealthIn general, would you say your health is? PoorPain AssessmentAre you currently having any pain which... You would like your provider to address? No Affects your activity level? NoDepression Screening - PHQ-2Over the last two weeks, have you... Had little interest or pleasure in doing things? Several days Been feeling down, depressed, or hopeless? Several days PHQ-2 Score: 2Anxiety Screening - SUGEY-2Over the last two weeks, have you been... Feeling nervous, anxious, or on edge? Several days Unable to stop or control worrying? Several days SUGEY-2 Score: 2Food InsecurityWithin the past year...Did you worry whether your food would run out before you got money to buy more? NoWas there a time when the food you bought didn't last and you didn't have money to get more? NoGeneralized Anxiety Disorder 7-Item Screening (SUGEY-7)Answer Guide:0 = Not at all1 = Several days2 = Over half the days3 = Nearly every dayOver the last 2 weeks, how often have you been bothered by the following problems?Feeling nervous, anxious, or on edge: 1Not being able to stop or control worryinWorrying too much about different things: 1Trouble relaxinBeing so restless that it's hard to sit still: 1Becoming easily annoyed or irritable: 1Feeling afraid as if something awful might happen: 1Answer Guide:0 = Not difficult at all1 = Somewhat difficult2 = Very difficult3 = Extremely difficultHow difficult have these made it for you to do your work, take care of things at home, or get along with other people? 1GAD- 7 Screening Results SUGEY-2 Score: 2GAD-7 Score: 7Functional Impairment: Somewhat difficultRecommendation: Mild anxietyPHQ-9 1. Over the last 2 weeks, patient reports the following frequency of symptoms: a. Little interest or pleasure in doing things -Several days b. Feeling down, depressed, or hopeless -Several days c. Trouble falling asleep, staying asleep, or sleeping too much -Several days d. Feeling tired or having little energy - Several days e. Poor appetite or overeating -Several days f. Feeling bad about yourself, feeling that you are a failure, or feeling that you have let yourself or your family down -Several days g. Trouble concentrating on things such as reading the newspaper or watching television -Several days h. Moving or speaking so slowly that other people could have noticed. Or being so fidgety or restless that you have been moving around a lot more than usual -Several days i. Thinking that you would be better off or that you want to hurt yourself in some way -Not at all2. If you checked off any problems, how difficult have these problems made it for you to do your work, take care of things at home, or get along with other people? - Somewhat DifficultToday's PHQ-9 Results Score: 8 Severity: Mild Diagnosis Recommendation: No recommendation Functional Impairment: Somewhat DifficultToday's Follow-Up Action Depression follow-up done. Follow-Up A ction: Scheduled with Psychiatry - existing careScreening, Brief Intervention, & Referral to Treatment (SBIRT)Pre-Screening Questions How many times have you have 5 or more drinks in a day? 250How many times have you used an illegal drug or used a prescription medication for a non-medical reason? 0Performed by: Anna Ponce LPN, October 16, 2019 2:08 PMPatient History Medical History:Prostate Cancer (2006)Lung Cancer (2014)-s/p surgerySurgical History:Radical Prostectomy (2006)Partial L Lung Removal (2014)Colonoscopy ~2016Family History:Diabetes (Mother)Asthma (Sister)Alcoholism (Paternal G randmother, Grandfather)Diabetes (Paternal Grandfather)Social/Personal History: Advised to Quit/Tobacco Education: YesChief Complaintfollow-up visitHistory of Present Illness (HPI)64 yo male presents for lab review. Pt says he needs refills on all his meds. 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 Would like to stop the Cymbalta. Has never taken any other psych meds. Sees pulmonology in the next month. Reports worsening breathing and coughing. Has no oncology follow-up, reports never seeing them with either his prostate cancer (2006) nor his lung cancer (2014). Medication Reconciliation & ReviewMedication List was reviewed and/or updated during this visit, including review of any wqkk-mdr-bkapcsj medications, herbal therapies, and/or supplements.Allergy ReviewAllergy List was reviewed and/or updated during this visit.Adult Preventive CareScreening Tobacco Screening: Smoking Status: current every day smoker (10/16/2019) Tobacco Use: Currently (10/16/2019) Advised to Quit: Yes (10/16/2019)Labs/Meds/Other Counseling-Nutrition and Physical Activity:BMI Interpretation: Healthy Weight (10/16/2019) Counseling: Done (10/16/2019) Physical Activity: Done (10/16/2019)Rate Your HealthIn general, would you say your health is? PoorAssessment & Plan Problems:Added: Person consulting for explanation of examination or test findings (ICD-V65.8) (VCA38-R76.2) Assessment: Instructions: Labs reviewed in detail today.Vitamin D deficiency, unspecified (VRR99-Y22.9) Assessment: Instructions: Start 2000 units Vitamin D3 daily. Rx sent.Changed:From: Dx of Carcinoma of prostate (ICD-185) (PWM50-B26) To: Personal history of malignant neoplasm of prostate (ICD-V10.46) (IPH11-C71.46)Assessed:History of malignant neoplasm of lung (ICD-V10.11) (JNE18-F71.118) Assessment: Instructions: Referral to oncology for review of his history. Concern regarding ongoing and worsening pain, in light of no oncologic follow-up.Personal history of malignant neoplasm of prostate (ICD-V10.46) (GPH95-E51.46) Assessment: Instructions: As above.Prediabetes (RIJ76-S66.03) Assessment: Instructions: A1c improved and is now 5.8. Remains prediabetic.Recommend low carbohydrate diet: reduce pasta, bread, potatoes, rice. If you do eat carbohydrates, better choices are whole wheat and brown rice products. Recommend portion control and avoidance of soda and sugary foods. Increase physical activity as able and monitor weight.Tobacco user (ICD-305.1) (CWT19-E44.200) Assessment: Instructions: Continue to try to cut back with goal of quitting entirely.Hyperlipidemia, unspecified (VBX61-E31.5) Assessment: Instructions: Stable with current simvastatin, LDL at 105. Continue simvastatin and low fat diet.Mixed anxiety and depressive disorder (ICD-300.4) (LGX03-E77.8) Assessment: Instructions: Increase Lexapro to 20mg, please reschedule your missed Dr. Persaud appointment to discuss further medication adjustements with him. Unfortunatley the Cymbalta did not provide relief for your depression or your pain.Chronic obstructive pulmonary disease, unspecified (JNI44-Y41.9) Assessment: Instructions: Appears to be not well controlled at this time. Please keep your appt as scheduled with Dr. Arriaga for further follow-up. Discuss your breathing concerns with his office, call them sooner for any sudden worsening symptoms.Chronic low back pain (ICD-724.2) (YHX46-C00.5) Assessment: Instructions: Continue current Lyrica three times daily, just started today. A nd Gabapentin 600mg three times daily. Referral to oncology for re-evaluation to ensure this pain is related to your prior disk issues and not your prior cancers.Chest pain, unspecified (XFQ42-J95.9) Assessment: Instructions: EKG showed sinus rhythm today. 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 Rx sent.History of malignant neoplasm of lung: Referral to oncology for review of his history. Concern regarding ongoing and worsening pain, in light of no oncologic follow- up.Personal history of malignant neoplasm of prostate: As above.Prediabetes: A1c improved and is now 5.8. Remains prediabetic.Recommend low carbohydrate diet: reduce pasta, bread, potatoes, rice. If you do eat carbohydrates, better choices are whole wheat and brown rice products. Recommend portion control and avoidance of soda and sugary foods. Increase physical activity as able and monitor weight.Tobacco user: Continue to try to cut back with goal of quitting entirely.Hyperlipidemia- unspecified: Stable with current simvastatin, LDL at 105. Continue simvastatin and low fat diet.Mixed anxiety and depressive disorder: Increase Lexapro to 20mg, please reschedule your missed Dr. Persaud appointment to discuss further medication adjustements with him. Unfortunatley the Cymbalta did not provide relief for your depression or your pain.Chronic obstructive pulmonary disease- unspecified: Appears to be not well controlled at this time. Please keep your appt as scheduled with Dr. Arriaga for further follow-up. Discuss your breathing concerns with his office, call them sooner for any sudden worsening symptoms.Chronic low back pain: Continue current Lyrica three times daily, just started today. And Gabapentin 600mg three times daily. Referral to oncology for re-evaluation to ensure this pain is related to your prior disk issues and not your prior cancers.Chest pain- unspecified: EKG showed sinus rhythm today. Chest pain is likely pulmonary and musculoskeletal in nature. Plan developed in collaboration with patient and/or familyMedications:VITAMIN D3 50 MCG (1999) ORAL CAPSULESIMVASTATIN 10 MG ORAL TABLETLEXAPRO 20 MG ORAL TABLETGABAPENTIN 600 MG ORAL TABLETLYRICA 75 MG ORAL CAPSULEALBUTEROL SULFATE HFA 108 (90 BASE) MCG/ACT INHALATION AEROSOL SOLUTIONSTIOLTO RESPIMAT 2.5-2.5 MCG/ACT INHALATION AEROSOL SOLUTIONHYDROXYZINE HCL 50 MG ORAL TABLETANORO ELLIPTA 62.5-25 MCG/INH INHALATION AEROSOL POWDER BREATH ACTIVATEDSUBOXONE 8-2 MG SUBLINGUAL FILMMedication Changes:Refilled:LEXAPRO 20 MG ORAL TABLET-Take 1 tablet po daily Qty: 30[Tablet ] Refills: 1 Method: ElectronicGABAPENTIN 600 MG ORAL TABLET-take one tab po tid Qty: 270[Tablet] Refills: 3 Method: ElectronicHYDROXYZINE HCL 50 MG ORAL TABLET-One po daily prn itching or anxiety Qty: 90[Tablet] Refills: 3 Method: ElectronicNew Prescription:VITAMIN D3 50 MCG (1999 [place]) ORAL CAPSULE-Take 1 capsule po daily Qty: 90[Capsule] Refills: 3 Method: ElectronicRemoved:NICORETTE 4 MG MOUTH/THROAT GUM-Chew 1 piece every 1-2 hrs prn Qty: 1[Box] Refills: 5Changed:From: ORAL LEXAPRO 10 MG ORAL TABLET Qty: [id number] Refills: 30[Tablet] To: LEXAPRO 20 MG ORAL TABLET-Take 1 tablet po daily Qty: 30[Tablet] Refills: 1From: ORAL GABAPENTIN 600 MG ORAL TABLET Qty: [phone] Refills: 270[Tablet] To: GABAPENTIN 600 MG ORAL TABLET-take one tab po tid Qty: 270[Tablet] Refills: 3From: ORAL HYDROXYZINE HCL 50 MG ORAL TABLET Qty: [id number] Refills: 90[Tablet] To: HYDROXYZINE HCL 50 MG ORAL TABLET-One po daily prn itching or anxiety Qty: 90[Tablet] Refills: 3Allergies:MORPHINE SULFATE (MORPHINE SULFATE) (Critical)Orders:EKG; with interpretation and report [CPT-86280] Hematology Consult [CPT-54248] Follow-Up Return to clinic: in 90 days for follow upAdditional Follow-Up: chronic painClinical Visit Summary CompletedMedications:VITAMIN D3 50 MCG (1999 [place]) ORAL CAPSULE (CHOLECALCIFEROL) Take 1 capsule po daily #90[Capsule] x 3 Route:ORAL Entered and Authorized by: Marc LILLY Method used: Electronically to [facility] (retail) [address] [place] [address] Fax: Note to Pharmacy: Route: ORAL; Indications: VITAMIN D DEFICIENCY, UNSPECIFIED RxID: [id number] HCL 50 MG ORAL TABLET (HYDROXYZINE HCL) One po daily prn itching or anxiety #90[Tablet] x 3 Route:ORAL Entered and Authorized by: Marc LILLY Method used: Electronically to [facility] (retail) [address] [place] [address] Fax: Note to Pharmacy: Route: ORAL; Indications: PRURITUS, UNSPECIFIED;MIXED ANXIETY AND DEPRESSIVE DISORDER RxID: [id number] 600 MG ORAL TABLET (GABAPENTIN) take one tab po tid #270[Tablet] x 3 Route:ORAL Entered and Authorized by: Marc LILLY Method used: Electronically to [facility] (retail) [address] [place] [address] Note to Pharmacy: Route: ORAL; Indications: CHRONIC LOW BACK PAIN RxID: [id number] 20 MG ORAL TABLET (ESCITALOPRAM OXALATE) Take 1 tablet po daily #30[Tablet] x 1 Route:ORAL Entered and Authorized by: Marc LILLY Method used: Electronically to [facility] (retail) [address] [place] [address] Note to Pharmacy: Route: ORAL; Indications: MIXED ANXIETY AND DEPRESSIVE DISORDER RxID: [id number] NICORETTE 4 MG MOUTH/THROAT GUM (NICOTINE POLACRILEX) Chew 1 piece every 1-2 hrs prn #1[Box] x 5 Route:MOUTH/THROAT Entered by: Anna Ponce LPN Authorized by: Marc LILLY Method used: Electronically to [facility] (retail) [address] [place] [address] RxID: [id number] signed by Sita Persaud MD on 10/20/2019 at 2:51 PM Review of Systems General: Complains of fatigue. Denies loss of appetite, chills, dizziness, fever. Cardiovascular: Denies chest pain, palpitations, feeling faint, peripheral edema. Respiratory: Complains of see HPI, cough, shortness of breath, wheezing. Denies excessive sputum, coughing up blood. Musculoskeletal: Complains of see HPI, back pain, stiffness. Denies recent injury. Psychiatric: Complains of see HPI, depression. Name Value Range Interpretation Code Description Data Lizy rce(s) Supporting Document(s) ID Date Data Source [id number] 10/08/2019 12:00:00 AM EDT [facility] Name Value Range Interpretation Code Description Data Lizy [facility](s) Supporting Document(s) HGBA1C 5.8 % [facility] ID Date Data Source [id number] 10/07/2019 11:40:04 AM EDT [facility] Labs In-House Blood TestsDate/Time Colle cted: October 07, 2019 11:40 AMTest Result Reference Range Normal ValueComments: blood drawn from right AC Pt tolerated well. Mac Zuniga LPN, October 07, 2019 11:40 AMAssessment & Plan Orders:[id number] Vst-Est Level I [CPT-59926] 28531 - Venipuncture [CPT- 45675] Name Value Range Interpretation Code Description Data Lizy rce(s) Supporting Document(s) ID Date Data Source [id number] 10/07/2019 11:35:00 AM EDT [facility]) Name Value Range Interpretation Code Description Data Lizy rce(s) Supporting Document(s) total 25(oh) vitamin D tnp 30.0-100.0 normal Total 25(Oh) Vitamin D [facility]) ID Date Data Source [id number] 10/07/2019 11:35:00 AM EDT [facility]) Name Value Range Interpretation Code Description Data Lizy rce(s) Supporting Document(s) free T4 tnp 0.76-1.46 normal Free T4 [place] ([facility]) thyroid stimulating hormone tnp 0.358-3.740 normal Thyroid Stimulating Hormone [place] ([facility]) ID Date Data Source [id number] 10/07/2019 11:35:00 AM EDT [facility]) Name Value Range Interpretation Code Description Data Lizy rce(s) Supporting Document(s) triglycerides level tnp <150 normal Triglycerides Le krysten [place] ([facility]) cholesterol level tnp <200 normal Cholesterol Level [place] ([facility]) HDL cholesterol tnp >40 normal HDL Cholesterol [place] ([facility]) Cholesterol in LDL [Mass/volume] in Serum or Plasma tnp <1 00 normal LDL Cholesterol [place] ([facility]) non-HDL-C tnp normal Non-hdl-c [place] ([facility]) cholesterol risk ratio tnp <5 normal Cholesterol R isk Ratio [place] ([facility]) ID Date Data Source [id number] 10/07/2019 11:35:00 AM EDT [place] ([facility]) Name Value Range Interpretation Code Description Data Lizy rce(s) Supporting Document(s) glucose, fasting see separate report normal Glucose, F asting [place] ([facility]) creatinine for GFR tnp 0.70-1.30 normal Creatinine for GF R [place] ([facility]) blood urea nitrogen tnp 7-18 normal Blood Urea Nitro gen [place] ([facility]) glomerular filtration rate tnp >49 normal Glomerula r Filtration Rate [place] ([facility]) sodium level tnp 136-145 normal Sodium Level [place] ([facility]) carbon dioxide level tnp 20-29 normal Carbon Dioxide Level [place] ([facility]) potassium serum tnp 3.5-5.1 normal Potassium Serum [place] ([facility]) chloride level tnp 98-107 normal Chloride Level [place] ([facility]) anion gap tnp 8-16 normal Anion Gap [place] ([facility]) AST/SGOT tnp normal AST/SGOT [place] ([facility]) calcium level tnp 8.8-10.2 normal Calcium Level [place] ( [facility]) ALT/SGPT tnp 0-32 normal ALT/SGPT [place] ([facility]) bilirubin,total tnp 0.2-1.0 normal Bilirubin,total [place] ([facility]) alkaline phosphatase tnp 45-117 normal Alkaline Phosph atase [place] ([facility]) albumin/globulin ratio tnp normal Albumin/globu daron Ratio [place] ([facility]) total protein tnp 6.4-8.2 normal Total Protein [place] ( [facility]) albumin tnp 3.2-5.2 normal Albumin [place] ([facility]) ID Date Data Source [id number] 10/07/2019 11:35:00 AM EDT [place] ([facility]) Name Value Range Interpretation Code Description Data Lizy rce(s) Supporting Document(s) total 25(oh) vitamin D tnp 30.0-100.0 normal Total 25(Oh) Vitamin D [place] ([facility]) ID Date Data Source [id number] 10/07/2019 11:35:00 AM EDT [place] ([facility]) Name Value Range Interpretation Code Description Data Lizy rce(s) Supporting Document(s) thyroid stimulating hormone tnp 0.358-3.740 normal Thyroid Stimulating Hormone [place] ([facility]) free T4 tnp 0.76-1.46 normal Free T4 [place] ([facility]) ID Date Data Source [id number] 10/07/2019 11:35:00 AM EDT [place] ([facility]) Name Value Range Interpretation Code Description Data Lizy rce(s) Supporting Document(s) triglycerides level tnp <150 normal Triglycerides Le krysten [place] ([facility]) cholesterol level tnp <200 normal Cholesterol Level [place] ([facility]) HDL cholesterol tnp >40 normal HDL Cholesterol ATHE NA ([facility]) cholesterol risk ratio tnp <5 normal Cholesterol R isk Ratio [place] ([facility]) non-HDL-C tnp normal Non-hdl-c [place] ([facility]) Cholesterol in LDL [Mass/volume] in Serum or Plasma tnp <1 00 normal LDL Cholesterol [place] ([facility]) ID Date Data Source [id number] 10/07/2019 11:35:00 AM EDT [place] ([facility]) Name Value Range Interpretation Code Description Data Lizy rce(s) Supporting Document(s) glucose, fasting see separate report normal Glucose, F asting [place] ([facility]) blood urea nitrogen tnp 7-18 normal Blood Urea Nitro gen [place] ([facility]) sodium level tnp 136-145 normal Sodium Level [place] ([facility]) glomerular filtration rate tnp >49 normal Glomerula r Filtration Rate [place] ([facility]) creatinine for GFR tnp 0.70-1.30 normal Creatinine for GF R [place] ([facility]) chloride level tnp 98-107 normal Chloride Level [place] ([facility]) carbon dioxide level tnp 20-29 normal Carbon Dioxide Level [place] ([facility]) potassium serum tnp 3.5-5.1 normal Potassium Serum [place] ([facility]) anion gap tnp 8-16 normal Anion Gap [place] ([facility]) calcium level tnp 8.8-10.2 normal Calcium Level [place] ( [facility]) AST/SGOT tnp normal AST/SGOT [place] ([facility]) ALT/SGPT tnp 0-32 normal ALT/SGPT [place] ([facility]) albumin tnp 3.2-5.2 normal Albumin [place] ([facility]) alkaline phosphatase tnp 45-117 normal Alkaline Phosph atase [place] ([facility]) bilirubin,total tnp 0.2-1.0 normal Bilirubin,total [place] ([facility]) total protein tnp 6.4-8.2 normal Total Protein [place] ( [facility]) albumin/globulin ratio tnp normal Albumin/globu daron Ratio [place] ([facility]) ID Date Data Source [id number] 10/07/2019 11:35:00 AM EDT [facility] Name Value Range Interpretation Code Description Data Lizy rce(s) Supporting Document(s) HGBA1C 5.8 % N [facility] ID Date Data Source [id number] 10/07/2019 11:35:00 AM EDT [facility] Name Value Range Interpretation Code Description Data Lizy rce(s) Supporting Document(s) HCT 48.7 % 42.0-52.0 N [facility] HGB 15.6 g/dL 13.5-17.5 N [facility] MCH 32.0 G/DL pg 32.0-36.[address] [facility] MCHC 26.9 PG % 27.0-33.0 L [facility] PLATELETS 412 10 10*3/mm3 150-450 N [facility] RBC 5.80 10 10*6/mm3 4.30-6.10 N [facility] RDW 16.2 % 11.5-14.5 H [facility] WBC TOTAL 14.1 4.0-10.0 H [facility] ID Date Data Source [id number] 10/07/2019 11:35:[address] [facility] Name Value Range Interpretation Code Description Data Lizy rce(s) Supporting Document(s) COMPREHENSIVE CHEM PROFILE [facility] COMPREHENSIVE METABOLIC PANEL Sodium [Moles/volume] in Serum or Plasma 141 mEq/L 136 - 145 [facility] Potassium [Moles/volume] in Serum or Plasma 4.0 mEq/L 3.5 - 5.1 [facility] Chloride [Moles/volume] in Serum or Plasma 103 mEq/L 98 - 107 [facility] Carbon dioxide, total [Moles/volume] in Serum or Plasma 29.8 mEq /L 21.0 - 32.0 [facility] Glucose [Mass/volume] in Serum or Plasma 108 mg/dL 70 - [address] [facility] Urea nitrogen [Mass/volume] in Serum or Plasma 14 mg/dL 7 - 18 [facility] CREATININE SERUM 1.05 mg/dL 0.70 - 1.30 [facility] AGE 64 yrs [facility] HEIGHT NA [facility] eGFR NON-AFR AMR >60 [facility] eGFR AFR AMR >60 [facility] ital BUN/CREAT 13 6 - 25 [facility] Protein [Mass/volume] in Serum or Plasma 7.4 g/dL 6.0 - 8.3 [facility] Albumin [Mass/volume] in Serum or Plasma 3.5 g/dL 3.8 - 5.[address] [facility] GLOBULIN 3.9 g/dL 2.0 - 4.0 [facility] A/G RATIO 0.9 0.8 - 2.0 [facility] Calcium [Mass/volume] in Serum or Plasma 9.5 mg/dL 8.8 - 10.2 [facility] Bilirubin.total [Mass/volume] in Serum or Plasma 0.3 mg/dL 0.2 - 1.0 [facility] Bilirubin.direct [Mass/volume] in Serum or Plasma 0.1 mg/dL 0.0 - 0. 2 [facility] INDIRECT BILI 0.2 mg/dL 0.0 - 1.1 [facility] pital ALK PHOSPHATASE 113 U/L 40 - 129 [facility] ospital Aspartate aminotransferase [Enzymatic ac tivity/volume] in Serum or Plasma by With P-5'-P 11 IU/L 7 - 37 [facility] Alanine aminotransferase [Enzymatic acti vity/volume] in Serum or Plasma by With P-5'-P 21 IU/L 12 - 78 [facility] ANION GAP 8 7 - 15 [facility] l Estimated GFR referenc e range: >60ml/min/1.73m >18 years: Calculated using IDMS traceable Study Equation <18 years: Calculated using IDMS tracable Bedside Schartz Equation ID Date Data Source [id number] 10/07/2019 11:35:[address] [facility] Name Value Range Interpretation Code Description Data Lizy rce(s) Supporting Document(s) 25-OH VITAMIN D 23.9 ng/mL 30.0 - 100 Below low normal [facility] Deficient < 20 ng/mL Insufficient 20 - < 30 ng/mL Sufficient 30 - 100 ng/mL 25-OH vitamin D reference values based on the Clinical Guidelines Subcommittee of the Endocrine Society Task Force. Biotin can interfere with 25-OH Vitamin D results if taken 48 hours prior to specimen collection. ID Date Data Source [id number] 10/07/2019 11:35:[address] [facility] Name Value Range Interpretation Code Description Data Lizy rce(s) Supporting Document(s) Cholesterol [Mass/volume] in Serum or Plasma 191 mg/dL [facility] Triglyceride [Mass/volume] in Serum or Plasma 119 mg/dL [facility] Cholesterol in HDL [Mass/volume] in Serum or Plasma 62 mg/dL [facility] Cholesterol in LDL [Mass/volume] in Serum or Plasma by calculati on 105 mg/dL [facility] CHOL/HDL 3.08 [facility] l \\BLDo\\INTERPRE TATION\\BLDx\\ REFERENCE RANGES (NATIONAL CHOLESTEROL EDUCATION PROGRAM) CHOLESTEROL < 200 mg/dL DESIREABLE 200 - 239 mg/dL BORDERLINE HIGH > 240 mg/dL HIGH TRIGLYCERIDES < 150 mg/dL DESIREABLE 150 - 199 mg/dL BORDERLINE HIGH 200 - 499 mg/dL HIGH > or = 500 mg/dL VERY HIGH HDL > or = 60 mg/dL HIGH < 40 mg/dL LOW LDL < 100 mg/dL DESIREABLE 100 - 129 mg/dL LOW RISK 130 - 159 mg/dL BORDERLINE HIGH 160 - 189 mg/dL HIGH > or = 190 mg/dL VERY HIGH ID Date Data Source [id number] 10/07/2019 11:35:[address] [facility] Name Value Range Interpretation Code Description Data Lizy rce(s) Supporting Document(s) TSH 0.74 uIU/mL 0.36 - 3.74 [facility] pital Reference range updated for new LOCI technology based chemiluminescent immunoassay method, and age specific ranges. Effective 11/13/17. ID Date Data Source [id number] 10/07/2019 11:35:[address] [facility] Name Value Range Interpretation Code Description Data Lizy rce(s) Supporting Document(s) T4 FREE 1.29 ng/dL 0.76 - 1.46 [facility] ital Reference range updated for n ew LOCI technology based chemiluminescent immunoassay method, and age specific ranges.Effective 11/13/17. ID Date Data Source [id number] 10/07/2019 11:35:00 AM EDT [facility]) Name Value Range Interpretation Code Description Data Lizy rce(s) Supporting Document(s) total 25(oh) vitamin D tnp 30.0-100.0 normal Total 25(Oh) Vitamin D [facility]) ID Date Data Source [id number] 10/07/2019 11:35:00 AM EDT [place] ([facility]) Name Value Range Interpretation Code Description Data Lizy rce(s) Supporting Document(s) thyroid stimulating hormone tnp 0.358-3.740 normal Thyroid Stimulating Hormone [place] ([facility]) free T4 tnp 0.76-1.46 normal Free T4 [place] ([facility]) ID Date Data Source [id number] 10/07/2019 11:35:00 AM EDT [place] ([facility]) Name Value Range Interpretation Code Description Data Lizy rce(s) Supporting Document(s) HDL cholesterol tnp >40 normal HDL Cholesterol [place] ([facility]) triglycerides level tnp <150 normal Triglycerides Le krysten [place] ([facility]) Cholesterol in LDL [Mass/volume] in Serum or Plasma tnp <1 00 normal LDL Cholesterol [place] ([facility]) cholesterol level tnp <200 normal Cholesterol Level [place] ([facility]) non-HDL-C tnp normal Non-hdl-c [place] ([facility]) cholesterol risk ratio tnp <5 normal Cholesterol R isk Ratio [place] ([facility]) ID Date Data Source [id number] 10/07/2019 11:35:00 AM EDT [facility]) Name Value Range Interpretation Code Description Data Lizy rce(s) Supporting Document(s) glucose, fasting see separate report normal Glucose, F asting [place] ([facility]) blood urea nitrogen tnp 7-18 normal Blood Urea Nitro gen [place] ([facility]) creatinine for GFR tnp 0.70-1.30 normal Creatinine for GF R [place] ([facility]) glomerular filtration rate tnp >49 normal Glomerula r Filtration Rate [place] ([facility]) chloride level tnp 98-107 normal Chloride Level [place] ([facility]) sodium level tnp 136-145 normal Sodium Level [place] ([facility]) carbon dioxide level tnp 20-29 normal Carbon Dioxide Level [place] ([facility]) potassium serum tnp 3.5-5.1 normal Potassium Serum ATHE NA ([facility]) calcium level tnp 8.8-10.2 normal Calcium Level [place] ( [facility]) AST/SGOT tnp normal AST/SGOT [place] ([facility]) anion gap tnp 8-16 normal Anion Gap [place] ([facility]) ALT/SGPT tnp 0-32 normal ALT/SGPT [place] ([facility]) alkaline phosphatase tnp 45-117 normal Alkaline Phosph atase [place] ([facility]) albumin tnp 3.2-5.2 normal Albumin [place] ([facility]) bilirubin,total tnp 0.2-1.0 normal Bilirubin,total [place] ([facility]) total protein tnp 6.4-8.2 normal Total Protein [place] ( [facility]) albumin/globulin ratio tnp normal Albumin/globu daron Ratio [place] ([facility]) ID Date Data Source [id number] 10/07/2019 11:35:00 AM EDT [place] ([facility]) Name Value Range Interpretation Code Description Data Lizy rce(s) Supporting Document(s) total 25(oh) vitamin D tnp 30.0-100.0 normal Total 25(Oh) Vitamin D [place] ([facility]) ID Date Data Source [id number] 10/07/2019 11:35:00 AM EDT DULCE MARIA ([facility]) Name Value Range Interpretation Code Description Data Lizy rce(s) Supporting Document(s) thyroid stimulating hormone tnp 0.358-3.740 normal Thyroid Stimulating Hormone DULCE MARIA ([facility]) free T4 tnp 0.76-1.46 normal Free T4 DULCE MARIA ([facility]) ID Date Data Source [id number] 10/07/2019 11:35:00 AM EDT DULCE MARIA ([facility]) Name Value Range Interpretation Code Description Data Lizy rce(s) Supporting Document(s) triglycerides level tnp <150 normal Triglycerides Le krysten DULCE MARIA ([facility]) cholesterol level tnp <200 normal Cholesterol Level DULCE MARIA ([facility]) non-HDL-C tnp normal Non-hdl-c DULCE MARIA ([facility]) Cholesterol in LDL [Mass/volume] in Serum or Plasma tnp <1 00 normal LDL Cholesterol DULCE MARIA ([facility]) HDL cholesterol tnp >40 normal HDL Cholesterol AT[facility] ([facility]) cholesterol risk ratio tnp <5 normal Cholesterol R isk Ratio DULCE MARIA ([facility]) ID Date Data Source [id number] 10/07/2019 11:35:00 AM EDT [facility]) Name Value Range Interpretation Code Description Data Lizy rce(s) Supporting Document(s) glucose, fasting see separate report normal Glucose, F asting DULCE MARIA ([facility]) blood urea nitrogen tnp 7-18 normal Blood Urea Nitro gen DULCE MARIA ([facility]) sodium level tnp 136-145 normal Sodium Level DULCE MARIA ([facility]) creatinine for GFR tnp 0.70-1.30 normal Creatinine for GF R DULCE MARIA ([facility]) glomerular filtration rate tnp >49 normal Glomerula r Filtration Rate DULCE MARIA ([facility]) potassium serum tnp 3.5-5.1 normal Potassium Serum AT[facility] ([facility]) chloride level tnp 98-107 normal Chloride Level DULCE MARIA ([facility]) calcium level tnp 8.8-10.2 normal Calcium Level DULCE MARIA ( [facility]) anion gap tnp 8-16 normal Anion Gap DULCE MARIA ([facility]) carbon dioxide level tnp 20-29 normal Carbon Dioxide Level DULCE MARIA ([facility]) AST/SGOT tnp normal AST/SGOT DULCE MARIA ([facility]) bilirubin,total tnp 0.2-1.0 normal Bilirubin,total ATHE ([facility]) alkaline phosphatase tnp 45-117 normal Alkaline Phosph atase DULCE MARIA ([facility]) ALT/SGPT tnp 0-32 normal ALT/SGPT DULCE MARIA ([facility]) total protein tnp 6.4-8.2 normal Total Protein [place] ( [facility]) albumin tnp 3.2-5.2 normal Albumin [place] ([facility]) albumin/globulin ratio tnp normal Albumin/globu daron Ratio [place] ([facility]) ID Date Data Source [id number] 09/08/2019 12:51:00 PM EDT [facility] Measurements & CalculationsHeight: 69.6 inches 176.78 cm Weight: 165.6 pounds 75.27 kg Body Mass Index (BMI): 24.12BMI Interpretation: Healthy WeightBody Surface Area (BSA): 1.92Weight Management Education Done (Nutrition/Physical Activity)Vital SignsTemperature: 98.4F 36.89C tympanic Pulse Rate: 99 beats/minuteRespiratory Rate: 20 respirations/minuteBlood Pressure: 118/78 left arm sitting O2 Saturation: 91% room airVital Signs performed by: Jalyn Lima , September 08, 2019 12:58 PMVital Signs performed by: Freddie JOHNSON, September 08, 2019 1:09 PMInitial Intake Information From: patientRoom #: 1Infectious Disease / Travel ScreeningRecent travel for you or any close contacts? NoHave you had any close contact with anyone diagnosed with or under investigation for COVID-19 (coronavirus)? NoFever? NoRespiratory symptoms: cough, cold, congestion, shortness of breath, difficulty breathing? NoLoss of smell? YesLoss of taste? YesDetails: little bit Joint pain? NoMuscle aches? YesGeneral fatigue, feeling tired, or weak? NoWeakness or numbness of your arms or legs, including being unable to walk/move? NoRash or hives? NoHave you engaged in any high-risk sexual activity? NoSmoking, Tobacco, Vaping or Smoke Exposure StatusSmoke Status: current every day smokerTobacco Use: YesAdv to Quit: YesDo you vape? NoMenstrual HistoryAny possibility of ? NoHealthcare HistorySince your last office visit...Have you been admitted to the hospital? NoHave you been to an emergency room (ER) or urgent care clinic? NoHave you seen another healthcare provider? NoHave you seen a dentist? NoIntake performed by: Jalyn Lima , September 08, 2019 12:54 PMRate Your HealthIn general, would you say your health is? PoorPain AssessmentAre you currently having any pain which... You would like your provider to address? Yes Affects your activity level? YesNurses Note doesn't use nicorette-"it tastes like chalk-Need to give me a flovored one"Pain AssessmentPain ScaleNumeric Rating Scale: 8 / 10Location: backOnset: 1970Duration: chronicCharacter/Quality: sharp. everlastingIs the pain radiating? NoOther DescriptorsAggravating Factors: everythingAlleviating Factors: nothingPatient History Medical History:Prostate Cancer (2006)Lung Cancer (2014)Surgical History:Radical Prostectomy (2006)Partial L Lung Removal (2014)Family History:Diabetes (Mother)Asthma (Sister)Alcoholism (Paternal Grandmother, Grandfather)Diabetes (Paternal Grandfather)Social/Personal History: Advised to Quit/Tobacco Educa tion: YesAbuse HistoryHistory of physical abuse? NoHistory of sexual abuse? NoHistory of emotional abuse? NoChief Complaintfollow up painHistory of Present Illness (HPI)Pt here today to discuss back pain. Pt on the large part was upset and unwilling to participate in appt because he wanted to see his normal provided. Pt stated he needed his lyrica doubled because he is in pain all of the time. Everything makes it worse and nothing makes it better. Pt otherwise was not participating and stated to have Marc call him. I did offer pt a referral to the pain clinic in which he got more angry and denied. I offered pt an appt later in the week with normal provider and he responded to have her call him. Problem ReviewProblem List was reviewed and/or updated during this visit.Medication Reconciliation & ReviewMedication List was reviewed and/or updated during this visit, including review of any ghfj-eit-apcjkhd medications, herbal therapies, and/or supplements.Allergy ReviewAllergy List was reviewed and/or updated during this visit.Adult Preventive CareProvider Calculated and Reviewed all Clinical Protocols for patient today. Screening Tobacco Screening: Smoking Status: current every day smoker (09/08/2019) Tobacco Use: Currently (09/08/2019) Advised to Quit: Yes (09/08/2019)Labs/Meds/Other Counseling- Nutrition and Physical Activity:BMI Interpretation: Healthy Weight (09/08/2019) Counseling: Done (09/08/2019) Physical Activity: Done (09/08/2019)Review of Systems General: Denies loss of appetite, chills, dizziness, fatigue, fever, continued fever, headache, feeling ill, sweats, night sweats, sleep disturbances, weight loss. Eyes: Denies blurring of vision, double vision, irritation, discharge, vision loss, eye pain, eye swelling, droopy eyelid, sensitivity to light, redness, itching. Ears/Nose/Throat: Denies earache, ear discharge, ringing in ears, decreased hearing, nasal congestion, nosebleeds, runny nose, sore throat, hoarseness, difficulty swallowing, dry mouth, tooth pain, bleeding gums, swollen glands. Cardiovascular: Denies chest pain, palpitations, feeling faint, trouble breathing w/exertion, SOB upon lying down, SOB at night, peripheral edema, elevated blood pressure, decreased heart rate. Respiratory: Complains of cough, shortness of breath, wheezing. Denies difficulty breathing, excessive sputum, coughing up blood, chest pain. Breast: Denies discoloration, tenderness, breast changes, breast lump, nipple discharge. Gastrointestinal: Denies nausea, vomiting, bleeding, burning, itching, irritation, cramps, diarrhea, bloody diarrhea, watery diarrhea, constipation, pain or discomfort, feeling any lumps or bumps, pain with BM, pain during receptive anal sex, change in bowel habits, fecal incontinence, abdominal pain, blood in stool, black or tarry stools, jaundice, heartburn, urge to defecate. Genitourinary: Denies urinary incontinence, pain with urination, burning with urination, urinary frequency, urinary hesitancy, urinary urgency, urinary urgency at night, incomplete emptying, blood in urine, painful intercourse, decreased libido, impotence, penile discharge, penile sores, genital foul odor, genital sores, genital burning, genital itching, genital warts, anal discharge, anal sores, anal warts. Musculoskeletal: Complains of back pain, joint pain, leg pain, muscle aches, stiffness. Denies other pain-see comments, joint swelling, body aches, muscle cramps, muscle weakness, recent injury. Skin: Denies rash, hives, redness, itching, dryness, nail changes, suspicious lesions, athlete's foot, rash on palms, rash on bottom of feet. Neurologic: Denies mus yolanda impairment, weakness, numbness/tingling, seizures, slurred speech, feeling faint, tremors, vertigo, paralysis on one side, paralysis on both sides. Psychiatric: Denies depression, anxiety, memory loss, mental disturbance, suicidal ideation, homicidal ideation, hallucinations, paranoia, feeling stressed, hearing voices. Endocrine: Denies cold intolerance, heat intolerance, excessive thirst, excessive hunger, excessive urination, weight loss, weight gain. Heme/Lymphatic: Denies abnormal bruising, bleeding, enlarged lymph nodes. Allergic/Immunologic: Denies hives, swelling, hay fever, persistent infections, HIV/STI exposure. Physical ExamGeneral Appearance: well nourished, well hydrated, no acute distressEyes, External: conjunctivae and lids normal, EOMIRespiratory, Auscultation: clear to auscultation bilaterally; no rales, rhonchi, or wheezesRespiratory, Effort: no intercostal retractions or use of accessory musclesCardiovascular, Auscultation: S1, S2 audible; no murmur, rub, or gallop; RRRPeripheral Circulation: no clubbing, cyanosis, edema, or varicositiesAbdomen: soft, non-tender, no masses, bowel sounds normalGait & Station: normalSkin, Inspection: no rashes, lesions, or ulcerationsOrientation: oriented to time, place, and personMood & Affect: no depression, anxiety, or agitationJudgment & Insight: intactCare Management Plan Care Team Assigned Risk Level: LowRate Your HealthIn general, would you say your health is? PoorAssessment & Plan Problems:Assessed:Chronic low back pain (ICD-724.2) (JDR83-T71.5) Assessment: Instructions: 1. Pt was upset he was not seeing his normal provider2. pt would like normal provider to call him3. pt would like lyrica increased in dosage and at this time I stated I was unwilling to do this4. I offered pt a referral to pain mngt in which he refused5. I offered pt a fu later this week with normal provider and he stated to have her call him. 6. Fu prnPatient Instructions/Care Plan: Chronic low back pain: 1. Pt was upset he was not seeing his normal provider2. pt would like normal provider to call him3. pt would like lyrica increased in dosage and at this time I stated I was unwilling to do this4. I offered pt a referral to pain mngt in which he refused5. I offered pt a fu later this week with normal provider and he stated to have her call him. 6. Fu prn Plan developed in collaboration with patient and/or familyMedications:NICORETTE 4 MG MOUTH/THROAT GUMLEXAPRO 10 MG ORAL TABLETGABAPENTIN 600 MG ORAL TABLETLYRICA 75 MG ORAL CAPSULEALBUTEROL SULFATE HFA 108 (90 BASE) MCG/ACT INHALATION AEROSOL SOLUTIONSTIOLTO RESPIMAT 2.5-2.5 MCG/ACT INHALATION AEROSOL SOLUTIONHYDROXYZINE HCL 50 MG ORAL TABLETANORO ELLIPTA 62.5-25 MCG/INH INHALATION AEROSOL POWDER BREATH ACTIVATEDSUBOXONE 8-2 MG SUBLINGUAL FILMAllergies:MORPHINE SULFATE (MORPHINE SULFATE) (Critical)Orders:Ofc Vst, Est Level III [CPT-52037] Follow-Up Return to clinic: as needed for follow upClinical Visit Summary CompletedPatient in hospice care: no Name Value Range Interpretation Code Description Data Lizy rce(s) Supporting Document(s) ID Date Data Source [id number] 07/14/2019 10:18:10 AM EDT [facility] Measurements & CalculationsHeight: 69.60 inches 176.78 cm 5 ft. 9.6 in.Weight: 161 pounds 2 oz. 73.24 kg Body Mass Index (BMI): 23.47BMI Interpretation: Healthy WeightBody Surface Area (BSA): 1.90Weight Management Education Done (Nutrition/Physical Activity)Vital SignsTemperature: 96.7F tympanic Pulse Rate: 96 beats/minuteRespiratory Rate: 18 respirations/minuteBlood Pressure: 128/81 left arm sitting automaticO2 Saturation: 96% room airVital Signs performed by: Aleksandra Null LPN, July 14, 2019 10:25 AMInitial Intake Information From: patientRoom #: 1Infectious Disease / Travel ScreeningRecent travel for you or any close contacts? NoHave you had any close contact with anyone diagnosed with or under investigation for COVID-19 (coronavirus)? NoFever? NoRespiratory symptoms: cough, cold, congestion, shortness of breath, difficulty breathing? NoLoss of smell? NoLoss of taste? NoSmoking, Tobacco, Vaping or Smoke Exposure StatusSmoke Status: current every day smokerTobacco Use: YesAdv to Quit: YesDo you vape? NoPassive Smoke Exposure: YesHealthcare HistorySince your last office visit...Have you been admitted to the hospital? NoHave you been to an emergency room (ER) or urgent care clinic? NoHave you seen another healthcare provider? Yes - urology and pulmHave you seen a dentist? NoIntake performed by: Aleksandra Null LPN, July 14, 2019 10:21 AMRate Your HealthIn general, would you say your health is? PoorPain AssessmentAre you currently having any pain which... You would like your provider to address? Yes Affects your activity level? YesDepression Screening - PHQ-2Over the last two weeks, have you... Had little interest or pleasure in doing things? Several days Been feeling down, depressed, or hopeless? Several days PHQ-2 Score: 2Anxiety Screening - SUGEY-2Over the last two weeks, have you been... Feeling nervous, anxious, or on edge? Several days Unable to stop or control worrying? Not at all SUGEY-2 Score: 1Generalized Anxiety Disorder 7-Item Screening (SUGEY-7)Answer Guide:0 = Not at all1 = Several days2 = Over half the days3 = Nearly every dayOver the last 2 weeks, how often have you been bothered by the following problems?Feeling nervous, anxious, or on edge: 1Not being able to stop or control worryinWorrying too much about different things: 0Trouble relaxinBeing so restless that it's hard to sit still: 0Becoming easily annoyed or irritable: 0Feeling afraid as if something awful might happen: 0Answer Guide:0 = Not difficult at all1 = Somewhat difficult2 = Very difficult3 = Extremely difficultHow difficult have these made it for you to do your work, take care of things at home, or get along with other people? 0GAD- 7 Screening Results SUGEY-2 Score: 1GAD-7 Score: 3Functional Impairment: Not difficult at allRecommendation: Minimal anxietyPHQ-9 1. Over the last 2 weeks, patient reports the following frequency of symptoms: a. Little interest or pleasure in doing things -Several days b. Feeling down, depressed, or hopeless -Several days c. Trouble falling asleep, staying asleep, or sleeping too much - Several days d. Feeling tired or having little energy -Several days e. Poor appetite or overeating -Nearly every day f. Feeling bad about yourself, feeling that you are a failure, or feeling that you have let yourself or your family down -Not at all g. Trouble concentrating on things such as reading the newspaper or watching television -Not at all h. Moving or speaking so slowly that other people could have noticed. Or being so fidgety or restless that you have been moving around a lot more than usual -Not at all i. Thinking that you would be better off or that you want to hurt yourself in some way -Not at all2. If you checked off any problems, how difficult have these problems made it for you to do your work, take care of things at home, or get along with other people? -Somewhat DifficultToday's PHQ-9 Results Score: 7 Severity: Mild Diagnosis Recommendation: No recommendation Functional Impairment: Somewhat DifficultToday's Follow-Up Action Depression follow-up done. Follow-Up Action: Showing Improvement, No Changes NecessaryPain AssessmentPain ScaleNumeric Rating Scale: 7 / 10Location: back Duration: chronicCharacter/Quality: aching, sharp and stabbingIs the pain radiating? NoSc bowen, Brief Intervention, & Referral to Treatment (SBIRT)Pre-Screening Questions How many times have you have 5 or more drinks in a day? 365How many times have you used an illegal drug or used a prescription medication for a non- medical reason? 0Performed by: Aleksandra Null LPN, July 14, 2019 10:23 AMPatient History Medical History:Prostate Cancer (2007)Lung Cancer (2014)Surgical History:Radical Prostectomy (2006)Partial L Lung Removal (2014)Family History:Diabetes (Mother)Asthma (Sister)Alcoholism (Paternal Grandmother, Grandfather)Diabetes (Paternal Grandfather)Social/Personal History: Advised to Quit/Tobacco Education: YesChief Complaintpain f/iHistory of Present Illness (HPI)64 yo male here for f/u for chronic back pain.Pt reports improvement with the Lyrica at current dose. Still feels constant pain but that is somewhat lessened. Tolerating medication well without concern, denies constipation.He was unable to receive overton nicotine gum as was sent and requested, he is not able to palate the flavor of the mint gum. Therefore, he continues to smoke but is trying to cut back. HPI performed by: Marc LILLY, July 14, 2019 10:29 AMTransitions of Care InboundProblem ReviewProblem List was reviewed and/or updated during this visit.Medication Reconciliation & ReviewMedication List was reviewed and/or updated during this visit, including review of any olff-uoi-dwaykmh medications, herbal therapies, and/or supplements.Allergy ReviewAllergy List was reviewed and/or updated during this visit.Adult Preventive CareProvider Calculated and Reviewed all Clinical Protocols for patient today. Screening Tobacco Screening: Smoking Status: current every day smoker (07/14/2019) Tobacco Use: Currently (07/14/2019) Advised to Quit: Yes (07/14/2019)Labs/Meds/Other Counseling-Nutrition and Physical Activity:BMI Interpretation: Healthy Weight (07/14/2019) Counseling: Done (07/14/2019) Physical Activity: Done (07/14/2019)Review of Systems General: Denies loss of appetite, chills, dizziness, fatigue, fever. Cardiovascular: Denies chest pain, palpitations, feeling faint. Respiratory: Denies cough, difficulty breathing, shortness of breath, excessive sputum, coughing up blood. Gastrointestinal: Denies nausea, vomiting, constipation, pain or discomfort. Musculoskeletal: Complains of see HPI, back pain, joint pain, stiffness. Denies recent injury. Neurologic: Denies weakness, feeling faint. Physical ExamGeneral Appearance: well nourished, well hydrated, no acute distressEyes, External: conjunctivae and lids normal, EOMIRespiratory, Auscultation: good air movement, expiratory whee zes throughout; No rhonchi or rales.Respiratory, Effort: no intercostal retractions or use of accessory musclesCardiovascular, Auscultation: S1, S2 audible; no murmur, rub, or gallop; RRRPeripheral Circulation: no clubbing, cyanosis, edema, or varicositiesAbdomen: soft, non-tender, no masses, bowel sounds normalGait & Station: somewhat slow gait, no assistive devices, slow with position changesSkin, Inspection: no rashOrientation: oriented to time, place, and personMood & Affect: affect irritable, poor eye contact, logical and goal directedJudgment & Insight: intactCare Management Plan Transitions of CareInboundRate Your HealthIn general, would you say your health is? PoorAssessment & Plan Problems:Assessed:Chronic low back pain (ICD-724.2) (IDD77-B46.5) Assessment: Instructions: Pain improving with Lyrica, tolerating well, no side effects. Continue current dose. The medication you were prescribed today is a controlled substance. We have reviewed alternative treatment options and agree this is the most appropriate treatment at this time. We reviewed risks of taking this medication, including but not limited to: addiction, sedation, overdose. Taking more than prescribed or taking with another controlled substance can result in overdose or , no drinking alcohol, no driving/operating heavy machinery while taking this medication. Keep out of the reach of childrenChronic obstructive pulmonary disease, unspecified (TQN34-E56.9) Assessment: Instructions: Smoking cessation counseling was recommended with patient today. Continue per your technical engineer.Tobacco user (ICD-305.1) (RAI04-Q64.200) Assessment: Instructions: Continue to try to cut back with goal of quitting entirely.Mixed anxiety and depressive disorder (ICD-300.4) (GQA37-L53.8) Assessment: Instructions: Continue with Dr. Persaud.Patient Instructions/Care Plan: Chronic low back pain: Pain improving with Lyrica, tolerating well, no side effects. Continue current dose. The medication you were prescribed today is a controlled substance. We have reviewed alternative treatment options and agree this is the most appropriate treatment at this time. We reviewed risks of taking this medication, including but not limited to: addiction, sedation, overdose. Taking more than prescribed or taking with another controlled substance can result in overdose or , no drinking alcohol, no driving/operating heavy machinery while taking this medication. Keep out of the reach of childrenChronic obstructive pulmonary disease- unspecified: Smoking cessation counseling was recommended with patient today. Continue per your technical engineer.Tobacco user: Continue to try to cut back with goal of quitting entirely.Mixed anxiety and depressive disorder: Continue with Dr. Persaud. Plan developed in collaboration with patient and/or familyMedications:NICORETTE 4 MG MOUTH/THROAT GUMLEXAPRO 5 MG ORAL TABLETGABAPENTIN 600 MG ORAL TABLETLYRICA 75 MG ORAL CAPSULEALBUTEROL SULFATE HFA 108 (90 BASE) MCG/ACT INHALATION AEROSOL SOLUTIONSTIOLTO RESPIMAT 2.5-2.5 MCG/ACT INHALATION AEROSOL SOLUTIONHYDROXYZINE HCL 50 MG ORAL TABLETANORO ELLIPTA 62.5-25 MCG/INH INHALATION AEROSOL POWDER BREATH ACTIVATEDSUBOXONE 8-2 MG SUBLINGUAL FILMMedication Changes:Refilled:LYRICA 75 MG ORAL CAPSULE-Take 1 capsule po BID; MDD 150mg Qty: 60[Capsule] Refills: 0 Method: ElectronicALBUTEROL SULFATE HFA 108 (90 BASE) MCG/ACT INHALATION AEROSOL SOLUTION-2 puffs Q4H prn Qty: 1[Inhaler] Refills: 2 Method: ElectronicHYDROXYZINE HCL 50 MG ORAL TABLET-One po q8h prn itching. Qty: 30[Tablet] Refills: 2 Method: ElectronicAllergies:MORPHINE SULFATE (MORPHINE SULFATE) (Critical)Orders:Adult - Ofc Vst, EST, Level III [CPT-25604] Follow-Up Return to clinic: in 2 months for follow upAdditional Follow-Up: pain, prediabetesClinical Visit Summary DeclinedMedications:HYDROXYZINE HCL 50 MG ORAL TABLET (HYDROXYZINE HCL) One po q8h prn itching. #30[Tablet] x 2 Route:ORAL Entered and Authorized by: Marc LILLY Method used: Electronically to [facility] (retail) [address] [place] [address] Fax: Note to Pharmacy: Route: ORAL; RxID: [id number] SULFATE HFA 108 (90 BASE) MCG/ACT INHALATION AEROSOL SOLUTION (ALBUTEROL SULFA TE) 2 puffs Q4H prn #1[Inhaler] x 2 Route:INHALATION Entered and Authorized by: Marc LILLY Method used: Electronically to [facility] (retail) [address] [place] [address] Note to Pharmacy: Route: INH; RxID: [id number] 75 MG ORAL CAPSULE (PREGABALIN) Take 1 capsule po BID; MDD 150mg #60[Capsule] x 0 Route:ORAL Entered and Authorized by: Marc LILLY Method used: Electronically to [facility] (retail) [address] [place] [address] Note to Pharmacy: Route: ORAL; Indications: CHRONIC LOW BACK PAIN RxID: [id number] signed by Marc LILLY on 07/24/2019 at 9:26 AM Name Value Range Interpretation Code Description Data Lizy rce(s) Supporting Document(s) ID Date Data Source [id number] 06/13/2019 10:09:06 AM EDT [facility] [facility] Measurements & CalculationsHeight: 69.60 inches 176.78 cm 5 ft. 9.6 in.Weight: 157 pounds 8 oz. 71.59 kg Body Mass Index (BMI): 22.94BMI Interpretation: Healthy WeightBody Surface Area (BSA): 1.88Vital SignsTemperature: 97.6F tympanic Pulse Rate: 109 beats/minuteRespiratory Rate: 18 respirat ions/minuteBlood Pressure: 133/87 left arm sitting automaticO2 Saturation: 95% room airVital Signs performed by: Aleksandra Null LPN, June 13, 2019 10:15 AMVital Signs performed by: aMrc LILLY, June 13, 2019 10:26 AMInitial Intake Information from: patientRoom #: 1Smoking, Tobacco, Vaping or Smoke Exposure StatusSmoke Status: current every day smokerTobacco Use: YesAdv to Quit: YesDo you vape? NoPassive Smoke Exposure: YesHealthcare HistorySince your last office visit...Have you been admitted to the hospital? NoHave you been to an emergency room (ER) or urgent care clinic? NoHave you seen another healthcare provider? Yes - urology, pulmonary.Have you seen a dentist? NoRate Your HealthIn general, would you say your health is? PoorPain AssessmentAre you currently having any pain which... You would like your provider to address? Yes Affects your activity level? YesDepression Screening - PHQ-2Over the last two weeks, have you... Had little interest or pleasure in doing things? Not at all Been feeling down, depressed, or hopeless? Not at all PHQ-2 Score: 0Anxiety Screening - SUGEY-2Over the last two weeks, have you been... Feeling nervous, anxious, or on edge? Not at all Unable to stop or control worrying? Not at all SUGEY-2 Score: 0Infectious Disease / Travel ScreeningRecent travel for you or any close contacts? NoHave you had any close contact with anyone diagnosed with or under investigation for COVID-19 (coronavirus)? NoHave you had any of the following symptoms recently? Fever? NoRespiratory symptoms: cough, cold, congestion, shortness of breath, difficulty breathing? NoPain AssessmentPain ScaleNumeric Rating Scale: 8 / 10Location: back Duration: chronicCharacter/Quality: aching, sharp and stabbingIs the pain radiating? NoScreening, Brief Intervention, & Referral to Treatment (SBIRT)Pre- Screening Questions How many times have you have 5 or more drinks in a day? 365How many times have you used an illegal drug or used a prescription medication for a non-medical reason? 0Performed by: Aleksandra Null LPN, June 13, 2019 10:13 AMPatient History Medical History:Prostate Cancer (2006)Lung Cancer (2014)Surgical History:Radical Prostectomy (2006)Partial L Lung Removal (2014)Family History:Diabetes (Mother)Asthma (Sister)Alcoholism (Paternal Grandmother, Grandfather)Diabetes (Paternal Grandfather)Social/Personal History: Packs/day: 0.5-1 Advised to Quit/Tobacco Education: YesChief Complaintpain in backHistory of Present Illness (HPI)64 yo male here for f/u for chronic back pain.Pt feels some improvement with the Lyrica, continues to feel significant pain daily. Otherwise is tolerating medication well. Denies constipation. Pt is requesting nicotine gum to help him quit smoking, states he can only use the overton flavored, he can't tolerate the taste of the basic gum. Transitions of Care InboundProblem ReviewProblem List was reviewed and/or updated during this visit.Medication Reconciliation & ReviewMedication List was reviewed and/or updated during this visit, including review of any ctgb-wfs-crmtgcu medications, herbal therapies, and/or supplements.Allergy ReviewAllergy List was reviewed and/or updated during this visit.Adult Preventive CareProvider Calculated and Reviewed all Clinical Protocols for patient today. Screening Tobacco Screening: Smoking Status: current every day smoker (06/13/2019) Tobacco Use: Currently (06/13/2019) Advised to Quit: Yes (06/13/2019)Review of Systems General: Denies loss of appetite, dizziness, fatigue, fever, feeling ill. Cardiovascular: Denies chest pain, palpitations, feeling faint. Respiratory: Denies cough, coughing up blood. Gastrointestinal: Denies nausea, vomiting, diarrhea, constipation, pain or discomfort. Musculoskeletal: Complains of see HPI, back pain, muscle aches, stiffness. Denies recent injury. Neurologic: Denies feeling faint. Physical ExamGeneral Appearance: well nourished, well hydrated, no acute distressEyes, External: conjunctivae and lids normal, EOMIRespiratory, Auscultation: good air movement, expiratory wheezes throughout; No rhonchi or rales.Cardiovascular, Auscultation: S1, S2 audible; no murmur, rub, or gallop; RRRPeripheral Circulation: no clubbing, cyanosis, edema, or varicositiesAbdomen: soft, non-tender, no masses, bowel sounds normalGait & Station: somewhat slow gait, no assistive devices, slow with position changesBack: limited ROM, stiff and painful with minimal flexion or extensionSkin, Inspection: no rashOrientation: oriented to time, place, and personMood & Affect: affect irritable, poor eye contact, logical and goal directedJudgment & Insight: intactCare Management Plan Transitions of CareInboundRate Your HealthIn general, would you say your health is? PoorAssessment & Plan Problems:Added: Tobacco user (ICD-305.1) (JHS56-N24.200) Assessment: Instructions: Smoking cessation counseling was recommended with patient today. Nicotine gum prescribed today.Assessed:Chronic low back pain (ICD-724.2) (NVE63-M43.5) Assessment: Instructions: Pain improving with Lyrica. Will try slowly escalating the dose of Lyrica, while cutting back on the gabapentin. Goal is less quantity of medications and taking them less frequently. The medication you were prescribed today is a controlled substance. We have reviewed alternative treatment options and agree this is the most appropriate treatment at this time. We r eviewed risks of taking this medication, including but not limited to: addiction, sedation, overdose. Taking more than prescribed or taking with another controlled substance can result in overdose or , no drinking alcohol, no driving/operating heavy machinery while taking this medication. Keep out of the reach of childrenAlcohol abuse, uncomplicated (JZY05-Z98.10) Assessment: Instructions: Please try to cut back with goal of complete avoidance given your liver function previously.Chronic obstructive pulmonary disease, unspecified (NIF39-B58.9) Assessment: Instructions: Smoking cessa tion counseling was recommended with patient today. Continue per your technical engineer.Mixed anxiety and depressive disorder (ICD-300.4) (NXO56-T37.8) Assessment: Instructions: Continue with Dr. Persaud.Patient Instructions/Care Plan: Chronic low back pain: Pain improving with Lyrica. Will try slowly escalating the dose of Lyrica, while cutting back on the gabapentin. Goal is less quantity of medications and taking them less frequently. The medication you were prescribed today is a controlled substance. We have reviewed alternative treatment options and agree this is the most appropriate treatment at this time. We reviewed risks of taking this medication, including but not limited to: addiction, sedation, overdose. Taking more than prescribed or taking with another controlled substance can result in overdose or , no drinking alcohol, no driving/operating heavy machinery while taking this medication. Keep out of the reach of [facility] user: Smoking cessation counseling was recommended with patient today. Nicotine gum prescribed today.Alcohol abuse- uncomplicated: Please try to cut back with goal of complete avoidance given your liver function previously.Chronic obstructive pulmonary disease- unspecified: Smoking cessation counseling was recommended with patient today. Continue per your technical engineer.Mixed anxiety and depressive disorder: Continue with Dr. Persaud. Plan developed in collaboration with patient and/or familyMedications:NICORETTE 4 MG MOUTH/THROAT GUMLEXAPRO 5 MG ORAL TABLETGABAPENTIN 600 MG ORAL TABLETLYRICA 75 MG ORAL CAPSULESIMVASTATIN 10 MG ORAL TABLETALBUTEROL SULFATE HFA 108 (90 BASE) MCG/ACT INHALATION AEROSOL SOLUTIONSTIOLTO RESPIMAT 2.5-2.5 MCG/ACT INHALATION AEROSOL SOLUTIONHYDROXYZINE HCL 50 MG ORAL TABLETANORO ELLIPTA 62.5-25 MCG/INH INHALATION AEROSOL POWDER BREATH ACTIVATEDSUBOXONE 8-2 MG SUBLINGUAL FILMMedication Changes:Refilled:LYRICA 75 MG ORAL CAPSULE-Take 1 capsule po BID; MDD 150mg Qty: 60[Capsule] Refills: 0 Method: ElectronicGABAPENTIN 600 MG ORAL TABLET-take one tab po tid Qty: 90[Tablet] Refills: 3 Method: ElectronicNew Prescription:NICORETTE 4 MG MOUTH/THROAT GUM-Chew 1 piece every 1-2 hrs prn Qty: 1[Box] Refills: 5 Method: ElectronicRemoved:GABAPENTIN 400 MG ORAL CAPSULE- take one tab po tidChanged:From: ORAL PREGABALIN 50 MG ORAL CAPSULE Qty: [id number] Refills: 60[Capsule] To: LYRICA 75 MG ORAL CAPSULE-Take 1 capsule po BID; MDD 150mg Qty: 60[Capsule] Refills: 0Allergies:MORPHINE SULFATE (MORPHINE SULFATE) (Critical)Orders:Adult - Ofc Vst, EST, Level III [CPT-63684] Follow-Up Return to clinic: in 30 days for follow upAdditional Follow-Up: pain med follow-upClinical Visit Summary CompletedMedications:NICORETTE 4 MG MOUTH/THROAT GUM (NICOTINE POLACRILEX) Chew 1 piece every 1-2 hrs prn #1[Box] x 5 Route:MOUTH/THROAT Entered and Authorized by: Marc LILLY Method used: Electronically to [facility] (retail) [address] [place] [address] Note to Pharmacy: Route: MOUTH/THROAT; overton flavored if able Indications: TOBACCO USER;CHRONIC OBSTRUCTIVE PULMONARY DISEASE, UNSPECIFIED RxID: [id number] 600 MG ORAL TABLET (GABAPENTIN) take one tab po tid #90[Tablet] x 3 Route:ORAL Entered and Authorized by: Marc LILLY Method used: Electronically to [facility] (retail) [address] [place] [address] Note to Pharmacy: Route: ORAL; RxID: [id number] 75 MG ORAL CAPSULE (PREGABALIN) Take 1 capsule po BID; MDD 150mg #60[Capsule] x 0 Route:ORAL Entered and Authorized by: Marc LILLY Method used: Electronically to [facility] (retail) [address] [place] [address] Note to Pharmacy: Route: ORAL; Indications: CHRONIC LOW BACK PAIN RxID: [id number] signed by Marc LILLY on 06/26/2019 at 8:10 AM Name Value Range Interpretation Code Description Data Lizy rce(s) Supporting Document(s) ID Date Data Source [id number] 05/14/2019 10:49:51 AM EDT [facility] Measurements & CalculationsHeight: 69.60 inches 176.78 cm 5 ft. 9.6 in.Weight: 162 pounds 73.64 kg Body Mass Index (BMI): 23.60BMI Interpretation: Healthy WeightBody Surface Area (BSA): 1.90Weight Management Education Done (Nutrition/Physical Activity)Vital SignsTemperature: 97.9F oral Pulse Rate: 118 beats/minuteRespiratory Rate: 18 respirations/minuteBlood Pressure: 128/88 right arm sitting automaticO2 Saturation: 94% room airVital Signs performed by: Aleksandra Null LPN, May 14, 2019 11:03 AMVital Signs performed by: Marc LILLY, May 14, 2019 11:14 AMInitial Intake Information from: patientRoom #: 2Smoking, Tobacco, Vaping or Smoke Exposure StatusSmoke Status: current every day smokerTobacco Use: YesAdv to Quit: YesDo you vape? NoPassive Smoke Exposure: YesHealthcare HistorySince your last office visit...Have you been admitted to the hospital? NoHave you been to an emergency room (ER) or urgent care clinic? NoHave you seen another healthcare provider? Yes - dr Singh, Dr Arriaga, urologyHave you seen a dentist? NoRate Your HealthIn general, would you say your health is? PoorPain AssessmentAre you currently having any pain which... You would like your provider to address? Yes Affects your activity level? YesDepression Screening - PHQ-2Over the last two weeks, have you... Had little interest or pleasure in doing things? Nearly every day Been feeling down, depressed, or hopeless? Nearly every day PHQ-2 Score: 6Anxiety Screening - SUGEY-2Over the last two weeks, have you been... Feeling nervous, anxious, or on edge? Not at all Unable to stop or control worrying? Not at all SUGEY-2 Score: 0Infectious Disease / Travel ScreeningRecent travel for you, your family, and/or any sexual partners? NoPHQ-9 1. Over the last 2 weeks, patient reports the following frequency of symptoms: a. Little interest or pleasure in doing things -Nearly every day b. Feeling down, depressed, or hopeless -Nearly every day c. Trouble falling asleep, staying asleep, or sleeping too much -Nearly every day d. Feeling tired or having little energy -Nearly every day e. Poor appetite or overeating -Nearly every day f. Feeling bad about yourself, feeling that you are a failure, or feeling that you have let yourself or your family down -Not at all g. Trouble concentrating on things such as reading the newspaper or watching television -Not at all h. Moving or speaking so slowly that other people could have noticed. Or being so fidgety or restless that you have been moving around a lot more than usual -Nearly every day i. Thinking that you would be better off or that you want to hurt yourself in some way -Not at all2. If you checked off any problems, how difficult have these problems made it for you to do your work, take care of things at home, or get along with other people? - Somewhat DifficultToday's PHQ-9 Results Score: 18 Severity: Moderately Severe Diagnosis Recommendation: Major Depression Functional Impairment: Somewhat DifficultDepression Screening Follow-Up ActionToday's Follow-Up Action Depression follow-up done. Follow-Up Action: Scheduled with Behavioral Health - existing carePain AssessmentPain ScaleNumeric Rating Scale: Location: backDuration: chronicCharacter/Quality: aching, sharp and stabbingIs the pain radiating? NoScreening, Brief Intervention, & Referral to Treatment (SBIRT)Pre-Screening Questions How many times have you have 5 or more drinks in a day? 365How many times have you used an illegal drug or used a prescription medication for a non-medical reason? 0Performed by: Aleksandra Null LPN, May 14, 2019 10:55 AMPatient History Medical History:Prostate Cancer (2007)Lung Cancer (2014)Surgical History:Radical Prostectomy (2006)Partial L Lung Removal (2014)Family History:Diabetes (Mother)Asthma (Sister)Alcoholism (Paternal Grandmother, Grandfather)Diabetes (Paternal Grandfather)Social/Personal History: Advised to Quit/Tobacco Education: YesChief Complaintfollow up visit History of Present Illness (HPI)63 yo male here for routine follow up. Pt reports the Lyrica was covered and he does feel significant improvement in his pain, however, states it wears off after about 4 hours. Pt states he is still feeling depressed but not having a problem with anxiety at all. Pt states he is still drinking daily but not smoking any marijuana since his lungs don't take it well.HPI performed by: Marc LILLY, May 14, 2019 11:14 AMTransitions of Care InboundProblem ReviewProblem List was reviewed and/or updated during this visit.Medication Reconciliation & ReviewMedication List was reviewed and/or updated during this visit, including review of any kmbx-pbz-wteuzyq medications, herbal therapies, and/or supplements.Allergy ReviewAllergy List was reviewed and/or updated during this visit.Adult Preventive CareProvider Calculated and Reviewed all Clinical Protocols for patient today. Screening Tobacco Screening: Smoking Status: current every day smoker (05/14/2019) Tobacco Use: Currently (05/14/2019) Advised to Quit: Yes (05/14/2019)Labs/Meds/Other Counseling- Nutrition and Physical Activity:BMI Interpretation: Healthy Weight (05/14/2019) Counseling: Done (05/14/2019) Physical Activity: Done (05/14/2019)Review of Systems General: Denies chills, dizziness, fever. Cardiovascular: Denies chest pain, palpitations, feeling faint. Respiratory: Complains of cough, wheezing. Denies excessive sputum, coughing up blood. Gastrointestinal: Denies nausea, vomiting, diarrhea, constipation, pain or discomfort. Musculoskeletal: Complains of back pain, stiffness. Denies recent injury. Psychiatric: Complains of depression. Denies anxiety, suicidal ideation. Physical ExamGeneral Appearance: well nourished, well hydrated, no acute distressRespiratory, Auscultation: good air movement, expiratory wheezes throughout; No rhonchi or rales.Respiratory, Effort: no intercostal retractions or use of accessory musclesCardiovascular, Auscultation: S1, S2 audible; no murmur, rub, or gallop; RRRAbdomen: soft, non-tender, no masses, bowel sounds normalGait & Station: somewhat slow gait, no assistive devices, slow with position changesOrientation: oriented to time, place, and personMood & Affect: affect irritable, poor eye contact, logical and goal directedJudgment & Insight: intactCare Management Plan Transitions of CareInboundRate Your HealthIn general, would you say your health is? PoorAssessment & Plan Problems:Added: BMI 23.0-23.9 (ICD-V85.1) (JNB69-J79.23)Assessed:Chronic low back pain (ICD-724.2) (NOA77-M15.5) Assessment: Instructions: Pain improving with Lyrica. Will try slowly escalating the dose of Lyrica to twice daily, while cutting back on the gabapentin. Goal is less quantity of medications and taking them less frequently. The medication you were prescribed today is a controlled substance. We have reviewed alternative treatment options and agree this is the most appropriate treatment at this time. We reviewed risks of taking this medication, including but not limited to: addiction, sedation, overdose. Taking more than prescribed or taking with another controlled substance can result in overdose or , no drinking alcohol, no driving/operating heavy machinery while taking this medication. Keep out of the reach of childrenPruritus, unspecified (JKU82-X60.9) Assessment: Instructions: Hydrate the skin with daily moisturizer. Hopefully eradicating the bed bugs will remove the issue. Also discussed possiblily of liver disease worsening itching. Will monitor.Alcohol abuse, uncomplicated (XXQ98-L38.10) Assessment: Instructions: Please try to cut back with goal of complete avoidance given your liver function previously.Chronic obstructive pulmonary disease, unspecified (EDI80-U18.9) Assessment: Instructions: Reviewed how to use inhaled medications in detail today. Continue with pulmonology.Mixed anxiety and depressive disorder (ICD-300.4) (EFT93-Z37.8) Assessment: Instructions: Continue with Dr. Persaud. Please discuss the Cymbalta and Lexapro with him, he may recommend discontinuing the Cymbalta which would be reasonable as we improve your pain control with the Lyrica.Patient Instructions/Care Plan: Chronic low back pain: Pain improving with Lyrica. Will try slowly escalating the dose of Lyrica to twice daily, while cutting back on the gabapentin. Goal is less quantity of medications and taking them less frequently. The medication you were prescribed today is a controlled substance. We have reviewed alterna tive treatment options and agree this is the most appropriate treatment at this time. We reviewed risks of taking this medication, including but not limited to: addiction, sedation, overdose. Taking more than prescribed or taking with another controlled substance can result in overdose or , no drinking alcohol, no driving/operating heavy machinery while taking this medication. Keep out of the reach of childrenPruritus- unspecified: Hydrate the skin with daily moisturizer. Hopefully eradicating the bed bugs will remove the issue. Also discussed possiblily of liver disease worsening itching. Will monitor.Alcohol abuse- uncomplicated: Please try to cut back with goal of complete avoidance given your liver function previously.Chronic obstructive pulmonary disease- unspecified: Reviewed how to use inhaled medications in detail today. Continue with pulmonology.Mixed anxiety and depressive disorder: Continue with Dr. Persaud. Please discuss the Cymbalta and Lexapro with him, he may recommend discontinuing the Cymbalta which would be reasonable as we improve your pain control with the Lyrica. Plan developed in collaboration with patient and/or familyMedications:LEXAPRO 5 MG ORAL TABLETGABAPENTIN 600 MG ORAL TABLETGABAPENTIN 400 MG ORAL CAPSULEPREGABALIN 50 MG ORAL CAPSULESIMVASTATIN 10 MG ORAL TABLETALBUTEROL SULFATE HFA 108 (90 BASE) MCG/ACT INHALATION AEROSOL SOLUTIONSTIOLTO RESPIMAT 2.5-2.5 MCG/ACT INHALATION AEROSOL SOLUTIONHYDROXYZINE HCL 50 MG ORAL TABLETANORO ELLIPTA 62.5-25 MCG/INH INHALATION AEROSOL POWDER BREATH ACTIVATEDSUBOXONE 8-2 MG SUBLINGUAL FILMMedication Barrera ges:Refilled:PREGABALIN 50 MG ORAL CAPSULE-Take 1 capsule PO twice daily: MDD 100mg Qty: 60[Capsule] Refills: 0 Method: ElectronicChanged:From: ORAL PREGABALIN 50 MG ORAL CAPSULE Qty: [id number] Refills: 60[Capsule] To: PREGABALIN 50 MG ORAL CAPSULE-Take 1 capsule PO twice daily: MDD 100mg Qty: 60[Capsule] Refills: 0Allergies:MORPHINE SULFATE (MORPHINE SULFATE) (Critical)Orders:Adult - Ofc Vst, EST, Level III [CPT-09609] Follow-Up Return to clinic: in 30 days for follow upAdditional Follow-Up: pain follow-upClinical Visit Summary CompletedMedications:PREGABALIN 50 MG ORAL CAPSULE (PREGABALIN) Take 1 capsule PO twice daily: MDD 100mg #60[Capsule] x 0 Route:ORAL Entered and Authorized by: Marc LILLY Method used: Electronically to [facility] (retail) [address] [place] [address] Note to Pharmacy: Route: ORAL; Indications: CHRONIC LOW BACK PAIN RxID: [id number]] Name Value Range Interpretation Code Description Data Lizy rce(s) Supporting Document(s) ID Date Data Source [id number] 03/24/2019 10:40:00 AM EST [facility] Name Value Range Interpretation Code Description Data Lizy rce(s) Supporting Document(s) HCT 47.6 % 42.0-52.0 N [facility] HGB 15.3 g/dL 13.5-17.5 N [facility] MCH 32.1 G/DL pg 32.0-36.[address] [facility] MCHC 27.2 PG % 27.0-33.0 N [facility] PLATELETS 357 10 10*3/mm3 150-450 N [facility] RBC 5.62 10 10*6/mm3 4.30-6.10 N [facility] RDW 16.9 % 11.5-14.5 H [facility] WBC TOTAL 8.9 4.0-10.0 N [facility] ID Date Data Source [id number] 03/24/2019 10:40:00 AM [facility] Name Value Range Interpretation Code Description Data Lizy rce(s) Supporting Document(s) HGBA1C 6.0 % N [facility] ID Date Data Source [id number] 03/24/2019 10:40:00 AM [facility] Name Value Range Interpretation Code Description Data Lizy rce(s) Supporting Document(s) HEP C AB < 0.0 <0.8 N [facility] BG FASTING 63 mg/dL 70-100 L [facility] ID Date Data Source [id number] 03/24/2019 09:54:17 AM [facility] Measurements & CalculationsHeight: 69.60 inches 176.78 cm 5 ft. 9.6 in.Weight: 168 pounds 2 oz. 76.42 kg Body Mass Index (BMI): 24.49BMI Interpretation: Healthy WeightBody Surface Area (BSA): 1.93Weight Management Education Done (Nutrition/Physical Activity)Vital SignsTemperature: 97.8FPulse Rate: 113 beats/mi nuteRespiratory Rate: 17 respirations/minuteBlood Pressure: 125/76 O2 Saturation: 91% Vital Signs performed by: Kenna Turcios MA, March 24, 2019 9:59 AMVital Signs performed by: Marc LILLY, March 24, 2019 10:12 AMInitial Intake Information from: patientRoom #: 14Infectious Disease- Travel Have you or your sexual partner travelled outside of the country recently? NoSmoking, Tobacco or Smoke Exposure StatusSmoke Status: current every day smokerTobacco Use: YesAdv to Quit: YesPassive Smoke Exposure: YesHealthcare HistorySince your last office visit...Have you been admitted to the hospital? NoHave you been to an emergency room (ER) or urgent care clinic? NoHave you seen another healthcare provider? YesHave you seen a dentist? NoIntake performed by: Kenna Turcios MA, March 24, 2019 10:11 AMRate Your HealthIn general, would you say your health is? PoorPain AssessmentAre you currently having any pain which... You would like your provider to address? No Affects your activity level? NoDepression Screening - PHQ-2Over the last two weeks, have you... Had little interest or pleasure in doing things? Not at all Been feeling down, depressed, or hopeless? Not at all PHQ-2 Score: 0Anxiety Screening - SUGEY-2Over the last two weeks, have you been... Feeling nervous, anxious, or on edge? Not at all Unable to stop or control worrying? Not at all SUGEY-2 Sco re: 0Screening, Brief Intervention, & Referral to Treatment (SBIRT)Pre-Screening Questions How many times have you have 5 or more drinks in a day? 0How many times have you used an illegal drug or used a prescription medication for a non- medical reason? 0Performed by: Kenna Turcios MA, March 24, 2019 9:55 AMPatient History Medical History:Prostate Cancer (2007)Lung Cancer (2014)Surgical History:Radical Prostectomy (2007)Partial L Lung Removal (2014)Family History:Diabetes (Mother)Asthma (Sister)Alcoholism (Paternal Grandmother, Grandfather)Diabetes (Paternal Grandfather)Social/Personal History: Smoking Status: current every day smokerAdvised to Quit/Tobacco Education: YesChief Complaintfollow upHistory of Present Illness (HPI)Pt is a 63 y/o male, presents for routine follow-up, last visit 02/03/19 with Jeanette Candelario for lab review.Pt has hx of elevated LFTs and gallstones, was referred to GI (does not want to go) and was recommended to abstain from alcohol and repeat labs at this visit. Pt states he is not interested in reducing his alcohol intake. Pt currently taking 1000mg of gabapentin TID, is requesting switching to Lyrica. Lyrica appears to have been attempted previously multiple times but with difficulty obtaining insurance coverage. Pt reports no relief with high dose of gabapentin. Pt takes this for chronic back pain. Pt was previously on chronic narcotics for pain management, reports this was discontinued by [facility]. Pt states at that time he felt he was near buying heroin off the streets for pain control and at that time self referred to Suboxone treatment program, which he remains active in. HPI performed by: Marc LILLY, March 24, 2019 10:10 AMTransitions of [facility] InboundProblem ReviewProblem List was reviewed and/or updated during this visit.Medication Reconciliation & ReviewMedication List was reviewed and/or updated during this visit, including review of any [id number] medications, herbal therapies, and/or supplements.Allergy ReviewAllergy List was reviewed and/or updated during this visit.Adult Preventive CareProvider Calculated and Reviewed all Clinical Protocols for patient today. Screening Tobacco Screening: Smoking Status: current every day smoker (03/24/2019) Advised to Quit: Yes (03/24/2019)Labs/Meds/Other Counseling-Nutrition and Physical Activity:BMI Interpretation: Healthy Weight (03/24/2019) Counseling: Done (03/24/2019) Physical Activity: Done (03/24/2019)Review of Systems General: Denies chills, dizziness, fatigue, fever, headache, feeling ill. Cardiovascular: Denies palpitations, feeling faint. Respiratory: Complains of shortness of breath, wheezing, chest pain. Denies cough, difficulty breathing, coughing up blood. follows with [facility] Pulmonology, pending CT chest tomorrow by pulm for chest pain and uncontrolled COPD per patientGastrointestinal: Denies nausea, vomiting, diarrhea, bloody diarrhea, abdominal pain, blood in stool, black or tarry stools, jaundice. Musculoskeletal: Complains of back pain, muscle aches, stiffness. Psychiatric: Denies depression, anxiety. Physical ExamGeneral Appearance: well nourished, well hydrated, no acute distressEyes, External: conjunctivae and lids normal, EOMIRespiratory, Auscultation: good air movement, expiratory wheezes throughout; No rhonchi or rales.Respiratory, Effort: no intercostal retractions or use of accessory musclesCardiovascular, Auscultation: S1, S2 audible; no murmur, rub, or gallop; RRRPeripheral Circulation: no clubbing, cyanosis, edema, or varicositiesAbdomen: soft, non-tender, no masses, bowel sounds normalGait & Station: normalSkin, Inspection: no rashOrientation: oriented to time, place, and personMood & Affect: affect irritable, poor eye contact, logical and goal directedJudgment & Insight: intactCare Management Plan Transitions of CareInboundRate Your HealthIn general, would you say your health is? PoorAssessment & Plan Problems:Added: Chest pain, unspecified (WQK04-K16.9) Assessment: Instructions: Continue tomorrow with chest CT as ordered by pulmonology.Prediabetes (AAP28-J72.03) Assessment: Instructions: Repeat labs today.Assessed:Elevated liver enzymes level (NHR03-E40.8) Assessment: Instructions: Repeat labs today. Continue efforts to cut back on alcohol consumption. Pt declines GI referral at this time, will monitor with labs.Hyperlipidemia, unspecified (WPI21-V63.5) Assessment: Noncompliance is a concern. Instructions: Continue low cholesterol diet. Repeat labs today, if cholesterol is elevated, will recommend restarting Simvastatin.Chronic obstructive pulmonary disease, unspecified (IHS94-O17.9) Assessment: Instructions: Continue per Pulmonology, continue with CT tomorrow and appointment as scheduled this month. Continue efforts to cut back on cigarette smoking. You were recommended flu and pneumonia vaccines today but you declined, please discuss with your technical engineer.Alcohol abuse, uncomplicated (NPE34-H46.10) Assessment: Instructions: Please try to cut back with goal of complete avoidance given your liver function previously. Repeat labs today.Chronic low back pain (ICD-724.2) (OBV13-W32.5) Assessment: On high dose of gabapentin without relief. Previously on narcotics for 15 years, currently on Suboxone and unable to continue narcotics. Instructions: Lyrica has been attempted multiple ties without success. At this time we will continue the current dose of 1000mg of gabapentin three times daily and increase dose of Cymbalta. We can retry Lyrica again and update you on that status as we are able. Continue with your Suboxone provider as scheduled.Patient Instructions/Care Plan: Elevated liver enzymes level: Repeat labs today. Continue efforts to cut back on alcohol consumption. Pt declines GI referral at this time, will monitor with labs.Hyperlipidemia- unspecified: Continue low cholesterol diet. Repeat labs today, if cholesterol is elevated, will recommend restarting Simvastatin.Chronic obstructive pulmonary disease- unspecified: Continue per Pulmonology, continue with CT tomorrow and appointment as scheduled this month. Continue efforts to cut back on cigarette smoking. You were recommended flu and pneumonia vaccines today but you declined, please discuss with your technical engineer.Alcohol abuse- uncomplicated: Please try to cut back with goal of complete avoidance given your liver function previously. Repeat labs today.Chronic low back pain: Lyrica has been attempted multiple ties without success. At this time we will continue the current dose of 1000mg of gabapentin three times daily and increase dose of Cymbalta. We can retry Lyr ica again and update you on that status as we are able. Continue with your Suboxone provider as scheduled.Chest pain- unspecified: Continue tomorrow with chest CT as ordered by pulmonology.Prediabetes: Repeat labs today. Plan developed in collaboration with patient and/or familyMedications:LYRICA 50 MG ORAL CAPSULEGABAPENTIN 400 MG ORAL CAPSULEALBUTEROL SULFATE HFA 108 (90 BASE) MCG/ACT INHALATION AEROSOL SOLUTIONCYMBALTA 60 MG ORAL CAPSULE DELAYED RELEASE PARTICLESSTIOLTO RESPIMAT 2.5-2.5 MCG/ACT INHALATION AEROSOL SOLUTIONGABAPENTIN 600 MG ORAL TABLETHYDROXYZINE HCL 50 MG ORAL TABLETANORO ELLIPTA 62.5-25 MCG/INH INHALATION AEROSOL POWDER BREATH ACTIVATEDSUBOXONE 8-2 MG SUBLINGUAL FILMMedication Changes:Refilled:CYMBALTA 60 MG ORAL CAPSULE DELAYED RELEASE PARTICLES-Take 1 capsule by mouth once daily Qty: 30[Capsule] Refills: 2 Method: ElectronicGABAPENTIN 600 MG ORAL TABLET-Take 1 tablet by mouth TID; taken with 400mg dose for total 1000mg TID Qty: 90[Tablet] Refills: 2 Method: ElectronicNew Prescription:GABAPENTIN 400 MG ORAL CAPSULE-Take 1 tablet by mouth TID; taken with 600mg dose for total 1000mg TID Qty: 90[Capsule] Refills: 2 Method: ElectronicLYRICA 50 MG ORAL CAPSULE-Take 1 tablet by mouth daily Qty: 30[Capsule] Refills: 0 Method: ElectronicRemoved:PREDNISONE 20 MG ORAL TABLET-Take 2 tabs po QD for 5 days then 1 tab po QD for 5 days. Take with food Qty: 15[Tablet] Refills: 0, DOXYCYCLINE HYCLATE 100 MG ORAL CAPSULE-Take one capsule by mouth BID for 7 days Qty: 14[Capsule] Refills: 0, TRIAMCINOLONE ACETONIDE 0.1 % EXTERNAL CREAM-Apply to legs twice per day as needed for itching Qty: 454[Gram] Refills: 1, NYSTATIN 264376 UNIT/ML MOUTH/THROAT [id number]-[id number] mL po QID for 7 days Qty: 60[Milliliter] Refills: 1, LEVOCETIRIZINE DIHYDROCHLORIDE 5 MG ORAL TABLET-take one tab po at bedtime, CYCLOBENZAPRINE HCL 10 MG ORAL TABLET-One po bid Qty: 60[Tablet] Refills: 1, SIMVASTATIN 10 MG ORAL TABLET-Take one tab po QD Qty: 30[Tablet] Refills: 2, CVS VITAMIN D3 1000 UNIT ORAL TABLET CHEWABLE-Take 2 tab po QD Qty: 60[Tablet] Refills: 2, LYRICA 50 MG ORAL CAPSULE-Take one cap po QD Qty: 30[Capsule] Refills: 0Changed:From: ORAL CYMBALTA 30 MG ORAL CAPSULE DELAYED RELEASE PARTICLES Qty: [id number] Refills: 30[Capsule] To: CYMBALTA 60 MG ORAL CAPSULE DELAYED RELEASE PARTICLES-Take 1 capsule by mouth once daily Qty: 30[Capsule] Refills: 2From: ORAL GABAPENTIN 600 MG ORAL TABLET Qty: [id number] Refills: 90[Tablet] To: GABAPENTIN 600 MG ORAL TABLET-Take 1 tablet by mouth TID; taken with 400mg dose for total 1000mg TID Qty: 90[Tablet] Refills: 2Allergies:MORPHINE SULFATE (MORPHINE SULFATE) (Critical)Orders:[id number]- Ofc Vst-Est Level I [CPT-55394] 00071 - Venipuncture [CPT-92487] COMP METABOLIC PANEL [CPT-83472] CBC W/DIFF [CPT-91755] HgBA1c [CPT-72197] Adult - Ofc Vst, EST, Level III [CPT-12790] Follow-Up Return to clinic: in 2-3 months for follow upAdditional Follow-Up: elevated LFTs and painClinical Visit Summary CompletedVaccines Administered/Entered:Vaccination Group: H1N1 InfluenzaSeries: 1 NOT GIVENVaccination: Influenza A (H1N1) Monoval PF Intramuscular SuspensionReason Not Given: Patient decisionEntered Date: 03/24/2019 12:00 AMComments: pt refusedEntered by: Karolina ABBOTT, Kenna [facility] In-House Blood TestsDate/Time Collected: March 24, 2019 10:43 AMTest Result Reference Range Normal ValueComments: blood draw done in office done in the right ac tolerated Aleksandr Cadena MA, March 24, 2019 10:44 AM Name Value Range Interpretation Code Description Data Lizy rce(s) Supporting Document(s) Procedure Vital Signs ID Date Data Source UNK Name Value Range Interpretation Code Description Data Source(s) Body weight 2726.4 [oz_av] 2726.4 [oz_av] ATHEN A ([facility]) Systolic blood pressure 115 mm[Hg] 115 mm[Hg] A THENA ([facility]) Body mass index (BMI) [Ratio] 24.7 kg/m2 24.7 k g/m2 DULCE MARIA ([facility]) Body height 69.6 [in_i] 69.6 [in_i] DULCE MARIA ([facility]) Diastolic blood pressure 77 mm[Hg] 77 mm[Hg] DULCE MARIA ([facility]) Body weight 2726.4 [oz_av] 2726.4 [oz_av] ATHEN A ([facility]) Systolic blood pressure 115 mm[Hg] 115 mm[Hg] A [facility] ([facility]) Body mass index (BMI) [Ratio] 24.7 kg/m2 24.7 k g/m2 DULCE MARIA ([facility]) Body height 69.6 [in_i] 69.6 [in_i] DULCE MARIA ([facility]) Diastolic blood pressure 77 mm[Hg] 77 mm[Hg] DULCE MARIA ([facility]) Body weight 2726.4 [oz_av] 2726.4 [oz_av] ATHEN A ([facility]) Systolic blood pressure 115 mm[Hg] 115 mm[Hg] A THENA ([facility]) Body mass index (BMI) [Ratio] 24.7 kg/m2 24.7 k g/m2 DULCE MARIA ([facility]) Body height 69.6 [in_i] 69.6 [in_i] DULCE MARIA ([facility]) Diastolic blood pressure 77 mm[Hg] 77 mm[Hg] DULCE MARIA ([facility]) Body weight 2642 [oz_av] 2642 [oz_av] DULCE MARIA ([facility]) Body weight 2642 [oz_av] 2642 [oz_av] DULCE MARIA ([facility]) Systolic blood pressure 117 mm[Hg] 117 mm[Hg] A [facility] ([facility]) Body mass index (BMI) [Ratio] 24 kg/m2 24 kg/ m2 DULCE MARIA ([facility]) Body height 69.6 [in_i] 69.6 [in_i] DULCE MARIA ([facility]) Diastolic blood pressure 69 mm[Hg] 69 mm[Hg] DULCE MARIA ([facility]) Systolic blood pressure 117 mm[Hg] 117 mm[Hg] A [facility] ([facility]) Body mass index (BMI) [Ratio] 24 kg/m2 24 kg/ m2 DULCE MARIA ([facility]) Body height 69.6 [in_i] 69.6 [in_i] DULCE MARIA ([facility]) Diastolic blood pressure 69 mm[Hg] 69 mm[Hg] DULCE MARIA ([facility]) Body weight 2642 [oz_av] 2642 [oz_av] DULCE MARIA ([facility]) Systolic blood pressure 117 mm[Hg] 117 mm[Hg] A THENA ([facility]) Body mass index (BMI) [Ratio] 24 kg/m2 24 kg/ m2 DULCE MARIA ([facility]) Body height 69.6 [in_i] 69.6 [in_i] DULCE MARIA ([facility]) Diastolic blood pressure 69 mm[Hg] 69 mm[Hg] DULCE MARIA ([facility]) Body weight 2642 [oz_av] 2642 [oz_av] DULCE MARIA ([facility]) Systolic blood pressure 117 mm[Hg] 117 mm[Hg] A THENA ([facility]) Body mass index (BMI) [Ratio] 24 kg/m2 24 kg/ m2 DULCE MARIA ([facility]) Body height 69.6 [in_i] 69.6 [in_i] DULCE MARIA ([facility]) Diastolic blood pressure 69 mm[Hg] 69 mm[Hg] DULCE MARIA ([facility]) Body height 66.5 [in_i] 66.5 [in_i] MEDENT ([facility], ) 5'6.50" Oxygen saturation in Arterial blood by Pulse oximetry 86 % 86 % MEDENT ([facility]) 90 2L Heart rate 124 /min 124 /min MEDENT ([facility]) Diastolic blood pressure 80 mm[Hg] 80 mm[Hg] MEDENT ([facility]) Systolic blood pressure 124 mm[Hg] 124 mm[Hg] Abdifatah FOREMAN ([facility], ) Body weight 2688 [oz_av] 2688 [oz_av] DULCE MARIA ([facility]) Body height 69.6 [in_i] 69.6 [in_i] DULCE MARIA ([facility]) Body weight 2688 [oz_av] 2688 [oz_av] DULCE MARIA ([facility]) Body height 69.6 [in_i] 69.6 [in_i] DULCE MARIA ([facility]) Body weight 2688 [oz_av] 2688 [oz_av] DULCE MARIA ([facility]) Body height 69.6 [in_i] 69.6 [in_i] DULC EMARIA ([facility]) Body weight 2688 [oz_av] 2688 [oz_av] DULCE MARIA ([facility]) Body height 69.6 [in_i] 69.6 [in_i] DULCE MARIA ([facility]) Body weight 2678.08 [oz_av] 2678.08 [oz_av] ATH WARREN ([facility]) Systolic blood pressure 112 mm[Hg] 112 mm[Hg] A [facility] ([facility]) Body height 69.6 [in_i] 69.6 [in_i] DULCE MARIA ([facility]) Diastolic blood pressure 75 mm[Hg] 75 mm[Hg] DULCE MARIA ([facility]) Body weight 2678.08 [oz_av] 2678.08 [oz_av] ATH WARREN ([facility]) Systolic blood pressure 112 mm[Hg] 112 mm[Hg] A [facility] ([facility]) Body height 69.6 [in_i] 69.6 [in_i] DULCE MARIA ([facility]) Diastolic blood pressure 75 mm[Hg] 75 mm[Hg] DULCE MARIA ([facility]) Body weight 2678.08 [oz_av] 2678.08 [oz_av] ATH WARREN ([facility]) Systolic blood pressure 112 mm[Hg] 112 mm[Hg] A [facility] ([facility]) Body height 69.6 [in_i] 69.6 [in_i] DULCE MARIA ([facility]) Diastolic blood pressure 75 mm[Hg] 75 mm[Hg] DULCE MARIA ([facility]) Body weight 2678.08 [oz_av] 2678.08 [oz_av] ATH WARREN ([facility]) Systolic blood pressure 112 mm[Hg] 112 mm[Hg] [facility] Body height 69.6 [in_i] 69.6 [in_i] DULCE MARIA ([facility]) Diastolic blood pressure 75 mm[Hg] 75 mm[Hg] DULCE MARIA ([facility]) Body weight 2649.6 [oz_av] 2649.6 [oz_av] ATHEN A ([facility]) Systolic blood pressure 118 mm[Hg] 118 mm[Hg] [facility] Body height 69.6 [in_i] 69.6 [in_i] DULCE MARIA ([facility]) Diastolic blood pressure 78 mm[Hg] 78 mm[Hg] DULCE MARIA ([facility]) Body weight 2649.6 [oz_av] 2649.6 [oz_av] ATHEN A ([facility]) Systolic blood pressure 118 mm[Hg] 118 mm[Hg] [facility] Body height 69.6 [in_i] 69.6 [in_i] DULCE MARIA ([facility]) Diastolic blood pressure 78 mm[Hg] 78 mm[Hg] DULCE MARIA ([facility]) Body weight 2649.6 [oz_av] 2649.6 [oz_av] ATHEN A ([facility]) Systolic blood pressure 118 mm[Hg] 118 mm[Hg] [facility] Body height 69.6 [in_i] 69.6 [in_i] DULCE MARIA ([facility]) Diastolic blood pressure 78 mm[Hg] 78 mm[Hg] DULCE MARIA ([facility]) Body weight 2649.6 [oz_av] 2649.6 [oz_av] ATHEN A ([facility]) Systolic blood pressure 118 mm[Hg] 118 mm[Hg] A THENA ([facility]) Body height 69.6 [in_i] 69.6 [in_i] DULCE MARIA ([facility]) Diastolic blood pressure 78 mm[Hg] 78 mm[Hg] DULCE MARIA ([facility]) Body weight 2628 [oz_av] 2628 [oz_av] DULCE MARIA ([facility]) Body height 69.6 [in_i] 69.6 [in_i] DULCE MARIA ([facility]) Body weight 2628 [oz_av] 2628 [oz_av] DULCE MARIA ([facility]) Body height 69.6 [in_i] 69.6 [in_i] DULCE MARIA ([facility]) Body weight 2628 [oz_av] 2628 [oz_av] DULCE MARIA ([facility]) Body height 69.6 [in_i] 69.6 [in_i] DULCE MARIA ([facility]) Body weight 2628 [oz_av] 2628 [oz_av] DULCE MARIA ([facility]) Body height 69.6 [in_i] 69.6 [in_i] DULCE MARIA ([facility]) Body weight 2578.08 [oz_av] 2578.08 [oz_av] ATH WARREN ([facility]) Systolic blood pressure 128 mm[Hg] 128 mm[Hg] A [facility] ([facility]) Body height 69.6 [in_i] 69.6 [in_i] DULCE MARIA ([facility]) Diastolic blood pressure 81 mm[Hg] 81 mm[Hg] DULCE MARIA ([facility]) Body weight 2578.08 [oz_av] 2578.08 [oz_av] ATH WARREN ([facility]) Systolic blood pressure 128 mm[Hg] 128 mm[Hg] A [facility] ([facility]) Body height 69.6 [in_i] 69.6 [in_i] DULCE MARIA ([facility]) Diastolic blood pressure 81 mm[Hg] 81 mm[Hg] DULCE MARIA ([facility]) Body weight 2578.08 [oz_av] 2578.08 [oz_av] ATH WARREN ([facility]) Systolic blood pressure 128 mm[Hg] 128 mm[Hg] A [facility] ([facility]) Body height 69.6 [in_i] 69.6 [in_i] DULCE MARIA ([facility]) Diastolic blood pressure 81 mm[Hg] 81 mm[Hg] DULCE MARIA ([facility]) Body weight 2578.08 [oz_av] 2578.08 [oz_av] ATH WARREN ([facility]) Systolic blood pressure 128 mm[Hg] 128 mm[Hg] A [facility] ([facility]) Body height 69.6 [in_i] 69.6 [in_i] DULCE MARIA ([facility]) Diastolic blood pressure 81 mm[Hg] 81 mm[Hg] DULCE MARIA ([facility]) Body weight 2520 [oz_av] 2520 [oz_av] DULCE MARIA ([facility]) Systolic blood pressure 133 mm[Hg] 133 mm[Hg] [facility] Body height 69.6 [in_i] 69.6 [in_i] DULCE MARIA ([facility]) Diastolic blood pressure 87 mm[Hg] 87 mm[Hg] DULCE MARIA ([facility]) Body weight 2520 [oz_av] 2520 [oz_av] DULCE MARIA ([facility]) Systolic blood pressure 133 mm[Hg] 133 mm[Hg] [facility] Body height 69.6 [in_i] 69.6 [in_i] DULCE MARIA ([facility]) Diastolic blood pressure 87 mm[Hg] 87 mm[Hg] DULCE MARIA ([facility]) Body weight 2520 [oz_av] 2520 [oz_av] DULCE MARIA ([facility]) Systolic blood pressure 133 mm[Hg] 133 mm[Hg] [facility] Body height 69.6 [in_i] 69.6 [in_i] DULCE MARIA ([facility]) Diastolic blood pressure 87 mm[Hg] 87 mm[Hg] DULCE MARIA ([facility]) Body weight 2520 [oz_av] 2520 [oz_av] DULCE MARIA ([facility]) Systolic blood pressure 133 mm[Hg] 133 mm[Hg] [facility] Body height 69.6 [in_i] 69.6 [in_i] DULCE MARIA ([facility]) Diastolic blood pressure 87 mm[Hg] 87 mm[Hg] DULCE MARIA ([facility]) Body weight 2592 [oz_av] 2592 [oz_av] DULCE MARIA ([facility]) Systolic blood pressure 128 mm[Hg] 128 mm[Hg] [facility] Body height 69.6 [in_i] 69.6 [in_i] DULCE MARIA ([facility]) Diastolic blood pressure 88 mm[Hg] 88 mm[Hg] DULCE MARIA ([facility]) Body weight 2592 [oz_av] 2592 [oz_av] DULCE MARIA ([facility]) Systolic blood pressure 128 mm[Hg] 128 mm[Hg] [facility] Body height 69.6 [in_i] 69.6 [in_i] DULCE MARIA ([facility]) Diastolic blood pressure 88 mm[Hg] 88 mm[Hg] DULCE MARIA ([facility]) Body weight 2592 [oz_av] 2592 [oz_av] DULCE MARIA ([facility]) Systolic blood pressure 128 mm[Hg] 128 mm[Hg] [facility] Body height 69.6 [in_i] 69.6 [in_i] DULCE MARIA ([facility]) Diastolic blood pressure 88 mm[Hg] 88 mm[Hg] DULCE MARIA ([facility]) Body weight 2592 [oz_av] 2592 [oz_av] DULCE MARIA ([facility]) Systolic blood pressure 128 mm[Hg] 128 mm[Hg] [facility] Body height 69.6 [in_i] 69.6 [in_i] DULCE MARIA ([facility]) Diastolic blood pressure 88 mm[Hg] 88 mm[Hg] DULCE MARIA ([facility]) Body weight 2536 [oz_av] 2536 [oz_av] DULCE MARIA ([facility]) Body height 69.6 [in_i] 69.6 [in_i] DULCE MARIA ([facility]) Body weight 2536 [oz_av] 2536 [oz_av] DULCE MARIA ([facility]) Body height 69.6 [in_i] 69.6 [in_i] DULCE MARIA ([facility]) Body weight 2536 [oz_av] 2536 [oz_av] DULCE MARIA ([facility]) Body height 69.6 [in_i] 69.6 [in_i] DULCE MARIA ([facility]) Body weight 2536 [oz_av] 2536 [oz_av] DULCE MARIA ([facility]) Body height 69.6 [in_i] 69.6 [in_i] DULCE MARIA ([facility]) Body weight 70.762 kg 70.762 kg [facility], [facility] Body mass index (BMI) [Ratio] 24.8 kg/m2 24.8 k g/m2 [facility] ([facility], ) Body weight 156.00 [lb_av] 156.00 [lb_av] MEDEN T ([facility], ) Body height 66.5 [in_i] 66.5 [in_i] [facility] ([facility], ) 5'6.50" Oxygen saturation in Arterial blood by Pulse oximetry 93 % 93 % [facility] ([facility], ) Room Air Heart rate 93 /min 93 /min [facility] ([facility], ) Diastolic blood pressure 60 mm[Hg] 60 mm[Hg] [facility] ([facility], ) Systolic blood pressure 100 mm[Hg] 100 mm[Hg] [facility] Body weight 2690.08 [oz_av] 2690.08 [oz_av] ATH WARREN ([facility]) Systolic blood pressure 125 mm[Hg] 125 mm[Hg] A [facility] ([facility]) Body height 69.6 [in_i] 69.6 [in_i] DULCE MARIA ([facility]) Diastolic blood pressure 76 mm[Hg] 76 mm[Hg] DULCE MARIA ([facility]) Body weight 2690.08 [oz_av] 2690.08 [oz_av] ATH WARREN ([facility]) Systolic blood pressure 125 mm[Hg] 125 mm[Hg] A [facility] ([facility]) Body height 69.6 [in_i] 69.6 [in_i] DULCE MARIA ([facility]) Diastolic blood pressure 76 mm[Hg] 76 mm[Hg] DULCE MARIA ([facility]) Body weight 2690.08 [oz_av] 2690.08 [oz_av] ATH WARREN ([facility]) Systolic blood pressure 125 mm[Hg] 125 mm[Hg] [facility] Body height 69.6 [in_i] 69.6 [in_i] DULCE MARIA ([facility]) Diastolic blood pressure 76 mm[Hg] 76 mm[Hg] DULCE MARIA ([facility]) Body weight 2690.08 [oz_av] 2690.08 [oz_av] ATH WARREN ([facility]) Systolic blood pressure 125 mm[Hg] 125 mm[Hg] A THENA ([facility]) Body height 69.6 [in_i] 69.6 [in_i] DULCE MARIA ([facility]) Diastolic blood pressure 76 mm[Hg] 76 mm[Hg] DULCE MARIA ([facility]) Body weight 71.215 kg 71.215 kg [facility] ([facility], ) Body mass index (BMI) [Ratio] 25.0 kg/m2 25.0 k g/m2 [facility] ([facility], ) Body weight 157.00 [lb_av] 157.00 [lb_av] MEDEN T ([facility]) Body height 66.5 [in_i] 66.5 [in_i] [facility] ([facility], ) 5'6.50" Oxygen saturation in Arterial blood by Pulse oximetry 92 % 92 % [facility] ([facility]) Room Air Heart rate 102 /min 102 /min [facility] ([facility]) Diastolic blood pressure 80 mm[Hg] 80 mm[Hg] [facility] ([facility]) Systolic blood pressure 118 mm[Hg] 118 mm[Hg] M KELLEN ([facility], ) Patient Treatment Plan of Care Planned Activity Planned Date Details Description Data Source (s) duloxetine 30 MG Delayed Release Oral Capsule DULCE MARIA ([facility]) Doxycycline Monohydrate 100 MG Oral Capsule DULCE MARIA ([facility]) Cholecalciferol 2000 UNT Oral Capsule DULCE MARIA ([facility]) Amoxicillin 875 MG Oral Tablet DULCE MARIA ([facility]) albuterol sulf 90 mcg/actuation breath a ctivated powder inhaler,sensor Inhale 2 puffs every 4 hours by inhalation route as needed. DULCE MARIA ([facility]) vitamin d3 50 mcg (1999) caps DULCE MARIA ([facility]) Triamcinolone Acetonide 1 MG/ML Topical Cream DULCE MARIA ([facility]) Buprenorphine 8 MG / Naloxone 2 MG Sublingual Tablet DULCE MARIA ([facility]) pregabalin 50 MG Oral Capsule DULCE MARIA ([facility]) Prednisone 20 MG Oral Tablet DULCE MARIA ([facility]) Nicotine 4 MG Chewing Gum AT [facility] ([facility]) Escitalopram 20 MG Oral Tablet [Lexapro] DULCE MARIA ([facility]) Levofloxacin 750 MG Oral Tablet DULCE MARIA ([facility]) Levofloxacin 500 MG Oral Tablet DULCE MARIA ([facility]) levocetirizine dihydrochloride 5 MG Oral Tablet DULCE MARIA ([facility]) gabapentin 400 MG Oral Capsule DULCE MARIA ([facility]) Escitalopram 5 MG Oral Tablet DULCE MARIA ([facility]) Escitalopram 10 MG Oral Tablet DULCE MARIA ([facility]) duloxetine 60 MG Delayed Release Oral Capsule DULCE MARIA ([facility]) duloxetine 30 MG Delayed Release Oral Capsule DULCE MARIA ([facility]) Doxycycline Monohydrate 100 MG Oral Capsule DULCE MARIA ([facility]) Cholecalciferol 2000 UNT Oral Capsule DULCE MARIA ([facility]) Amoxicillin 875 MG Oral Tablet DULCE MARIA ([facility]) albuterol sulf 90 mcg/actuation breath a ctivated powder inhaler,sensor Inhale 2 puffs every 4 hours by inhalation route as needed. DULCE MARIA ([facility]) vitamin d3 50 mcg (1999) caps DULCE MARIA ([facility]) Triamcinolone Acetonide 1 MG/ML Topical Cream DULCE MARIA ([facility]) Buprenorphine 8 MG / Naloxone 2 MG Sublingual Tablet DULCE MARIA ([facility]) pregabalin 50 MG Oral Capsule DULCE MARIA ([facility]) Prednisone 20 MG Oral Tablet DULCE MARIA ([facility]) Prednisone 10 MG Oral Tablet DULCE MARIA ([facility]) Nicotine 4 MG Chewing Gum AT [place] ([facility]) Escitalopram 20 MG Oral Tablet [Lexapro] DULCE MARIA ([facility]) Levofloxacin 750 MG Oral Tablet DULCE MARIA ([facility]) Levofloxacin 500 MG Oral Tablet DULCE MARIA ([facility]) levocetirizine dihydrochloride 5 MG Oral Tablet DULCE MARIA ([facility]) gabapentin 400 MG Oral Capsule DULCE MARIA ([facility]) Escitalopram 5 MG Oral Tablet DULCE MARIA ([facility]) Escitalopram 10 MG Oral Tablet DULCE MARIA ([facility]) duloxetine 60 MG Delayed Release Oral Capsule DULCE MARIA ([facility]) duloxetine 30 MG Delayed Release Oral Capsule DULCE MARIA ([facility]) Doxycycline Monohydrate 100 MG Oral Capsule DULCE MARIA ([facility]) Cholecalciferol 2000 UNT Oral Capsule DULCE MARIA ([facility]) Amoxicillin 875 MG Oral Tablet DULCE MARIA ([facility]) albuterol sulf 90 mcg/actuation breath a ctivated powder inhaler,sensor Inhale 2 puffs every 4 hours by inhalation route as needed. DULCE MARIA ([facility]) vitamin d3 50 mcg (1999) caps DULCE MARIA ([facility]) Triamcinolone Acetonide 1 MG/ML Topical Cream DULCE MARIA ([facility]) pregabalin 50 MG Oral Capsule DULCE MARIA ([facility]) Prednisone 10 MG Oral Tablet DULCE MARIA ([facility]) Levofloxacin 500 MG Oral Tablet DULCE MARIA ([facility]) levocetirizine dihydrochloride 5 MG Oral Tablet DULCE MARIA ([facility]) gabapentin 400 MG Oral Capsule DULCE MARIA ([facility]) Escitalopram 5 MG Oral Tablet DULCE MARIA ([facility]) Escitalopram 10 MG Oral Tablet DULCE MARIA ([facility]) duloxetine 60 MG Delayed Release Oral Capsule DULCE MARIA ([facility]) duloxetine 30 MG Delayed Release Oral Capsule DULCE MARIA ([facility]) Doxycycline Monohydrate 100 MG Oral Capsule DULCE MARIA ([facility]) Cholecalciferol 2000 UNT Oral Capsule DULCE MARIA ([facility]) vitamin d3 50 mcg (1999) caps DULCE MARIA ([facility]) Triamcinolone Acetonide 1 MG/ML Topical Cream DULCE MARIA ([facility]) Buprenorphine 8 MG / Naloxone 2 MG Sublingual Tablet DULCE MARIA ([facility]) pregabalin 50 MG Oral Capsule DULCE MARIA ([facility]) Prednisone 20 MG Oral Tablet DULCE MARIA ([facility]) Nicotine 4 MG Chewing Gum AT [place] ([facility]) Escitalopram 20 MG Oral Tablet [Lexapro] DULCE MARIA ([facility]) Levofloxacin 750 MG Oral Tablet DULCE MARIA ([facility]) Levofloxacin 500 MG Oral Tablet DULCE MARIA ([facility]) levocetirizine dihydrochloride 5 MG Oral Tablet DULCE MARIA ([facility]) gabapentin 400 MG Oral Capsule [place] ([facility]) Escitalopram 5 MG Oral Tablet DULCE MARIA ([facility]) Escitalopram 10 MG Oral Tablet DULCE MARIA ([facility]) duloxetine 60 MG Delayed Release Oral Capsule DULCE MARIA ([facility])
[2020-04-15] MEDS: LevoFLOXacin IV 750 MG in IV 1 EA IV SCH (18:29)
[2020-04-15 18:45] VITALS: BP 138/78
--- NOTE | 2020-04-15 19:28 | ECGEPIP ---
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
[2020-04-15] MEDS: GABAPENTIN 300 MG CAP PO SCH (20:12)
[2020-04-15] MEDS: methylPREDNISolone 125MG 2ML VIAL IV SCH (20:12)
[2020-04-15] MEDS: PREGABALIN 75 MG CAP(LYRICA) PO SCH (20:12)
[2020-04-15] MEDS: SYMBICORT 80/4.5MCG INHALER 6GM INH SCH (20:33)
[2020-04-15] MEDS: IPRATROPIUM 0.5MG/ALBUTEROL 2.5MG INH SOL UD 3ML (DUONEB) NEB SCH (20:33)
[2020-04-15 22:00] VITALS: BP 132/89
[2020-04-16] MEDS: IPRATROPIUM 0.5MG/ALBUTEROL 2.5MG INH SOL UD 3ML (DUONEB) NEB SCH ×4 (02:00→19:38)
[2020-04-16] MEDS: methylPREDNISolone 125MG 2ML VIAL IV SCH ×3 (04:03→21:16)
[2020-04-16 06:00] VITALS: BP 133/91
[2020-04-16 06:11] LABS: HEMATOCRIT 43.9 % (42.0-52.0); HEMOGLOBIN 13.6 g/dl (13.5-17.5); MEAN CORPUSCULAR HEMOGLOBIN 25.1 pg (27.0-33.0); PLATELET COUNT, AUTOMATED 344 10^3/uL (150-450); RED BLOOD COUNT 5.42 10^6/uL (4.30-6.10)
[2020-04-16] MEDS: BUPRENORPHINE/NALOXONE 8-2MG SUBLINGUAL TABLET(SUBOXONE) SL SCH (06:18)
[2020-04-16 06:33] LABS: ALBUMIN 3.2 GM/DL (3.2-5.2); ALT/SGPT 16 U/L (12-78); BILIRUBIN,TOTAL 0.5 MG/DL (0.2-1.0); BLOOD UREA NITROGEN 19 MG/DL (7-18); CALCIUM LEVEL 8.9 MG/DL (8.8-10.2); CARBON DIOXIDE LEVEL 31 MEQ/L (21-32); CHLORIDE LEVEL 105 MEQ/L (98-107); CREATININE FOR GFR 0.74 MG/DL (0.70-1.30); GLOMERULAR FILTRATION RATE > 60.0 (>49); GLUCOSE, FASTING 171 MG/DL (70-100); MAGNESIUM LEVEL 1.5 MG/DL (1.8-2.4); POTASSIUM SERUM 3.6 MEQ/L (3.5-5.1); SODIUM LEVEL 143 MEQ/L (136-145); TOTAL PROTEIN 7.4 GM/DL (6.4-8.2)
[2020-04-16] MEDS: SYMBICORT 80/4.5MCG INHALER 6GM INH SCH ×2 (07:35→19:38)
[2020-04-16] MEDS: PREGABALIN 75 MG CAP(LYRICA) PO SCH ×3 (08:58→21:16)
[2020-04-16] MEDS: PANTOPRAZOLE 40MG TAB (PROTONIX) PO SCH (08:58)
[2020-04-16] MEDS: GABAPENTIN 300 MG CAP PO SCH ×3 (08:59→21:16)
[2020-04-16] MEDS: NICOTINE 21MG/24HR 1 EA TRANSDERMAL TD SCH (08:59)
[2020-04-16] MEDS: ENOXAPARIN 40MG/0.4ML SYRINGE (J1650 PER 10MG) SC SCH (08:59)
[2020-04-16] MEDS ORDERED: BUPRENORPHINE/NALOXONE 8-2MG SUBLINGUAL TABLET(SUBOXONE) SL SCH (09:00)
[2020-04-16 10:20] VITALS: BP 132/91
--- NOTE | 2020-04-16 10:45 | IPNPDOC ---
Text Note Date of Service The patient was seen on 04/16/20. NOTE Subjective: Patient stated that his breathing is better today. He complains of the chest discomfort, substernal without radiation. Objective: GENERAL APPEARANCE: NAD HEENT: no scleral icterus, no JVD, EOMI CARDIOVASCULAR: S1S2 LUNGS: Diminished lung sounds bilaterally with mild wheezes ABDOMEN: soft & not tender w palpitation MUSCULOSKELETAL: no cyanosis, no swelling INTEGUMENT: no generalized pallor NEUROLOGICAL: cranial nerve function from 2-12 intact intact, follows commands, speech not dysarthric Assessment/Plan Patient is 64 years old male with past medical history of COPD oxygen dependent presented to the hospital with increased shortness of breath. Patient stated that he has been having increased shortness of breath for past few days associated with greenish sputum and cough. Patient stated that he continues smoking. In ER patient was found to have white blood count of 15.8, lactic acid within normal limit, EKG negative for acute ischemic changes, troponin negative. CT showed No CT evidence of pulmonary embolus. There are subtle changes con sistent with a bronchitis and early inflammatory disease in the right upper lobe and right lower lobe and left upper lobe. Post surgical changes are noted in the left lung. No hilar or mediastinal adenopathy is seen Problems (1) Acute and chronic respiratory failure with hypoxia Secondary to COPD exacerbation Patient developed tachypnea with increased oxygen requirements Await Sputum culture Continue Levofloxacin IV Solu-Medrol Inhalers (2) COPD exacerbation See above (3) Lung cancer Status post left lung resection Follow-up with oncologist in the outpatient settings (4) GERD (gastroesophageal reflux disease) PPI (5) History of drug abuse Continue Suboxone Chest pain EKG start Telemetry Troponin VS,Fishbone, I+O VS, Fishbone, I+O Laboratory Tests 04/15/20 11:31 04/16/20 05:53 Vital Signs Date Time Temp Pulse Resp B/P (MAP) Pulse Ox O2 Delivery O2 Flow Rate FiO2 04/16/20 10:20 110 132/91 (105) 98 Nasal Cannula 3.0 04/16/20 06:00 98.1 21 I&O- Last 24 Hours up to 6 AM 04/16/20 06:00 Intake Total 456 ml Output Total 0 ml Balance 456 ml DAVID REBOLLAR DO Apr 16, 2020 10:45
[2020-04-16] MEDS ORDERED: METOPROLOL TART 25 MG TABLET PO ONE (11:45)
[2020-04-16 14:00] VITALS: BP 111/71
[2020-04-16] MEDS: LevoFLOXacin IV 750 MG in IV 1 EA IV SCH (17:59)
[2020-04-16] MEDS: METOPROLOL TART 25 MG TABLET PO SCH (21:17)
[2020-04-16 22:00] VITALS: BP 113/71
[2020-04-17] MEDS: IPRATROPIUM 0.5MG/ALBUTEROL 2.5MG INH SOL UD 3ML (DUONEB) NEB SCH ×2 (02:59→08:00)
[2020-04-17] MEDS: methylPREDNISolone 125MG 2ML VIAL IV SCH (05:38)
[2020-04-17 06:00] VITALS: BP 107/69
[2020-04-17] MEDS: SYMBICORT 80/4.5MCG INHALER 6GM INH SCH (08:12)
[2020-04-17] MEDS: NICOTINE 21MG/24HR 1 EA TRANSDERMAL TD SCH (09:00)
[2020-04-17] MEDS: ENOXAPARIN 40MG/0.4ML SYRINGE (J1650 PER 10MG) SC SCH (09:00)
[2020-04-17] MEDS: BUPRENORPHINE/NALOXONE 8-2MG SUBLINGUAL TABLET(SUBOXONE) SL SCH (09:05)
[2020-04-17] MEDS: GABAPENTIN 300 MG CAP PO SCH (09:05)
[2020-04-17] MEDS: PREGABALIN 75 MG CAP(LYRICA) PO SCH (09:05)
[2020-04-17] MEDS: PANTOPRAZOLE 40MG TAB (PROTONIX) PO SCH (09:05)
[2020-04-17 09:07] VITALS: BP 124/81
[2020-04-17] MEDS: METOPROLOL TART 25 MG TABLET PO SCH (09:07)
[2020-04-17] MEDS ORDERED: SPIR1CAP INH (09:36)
[2020-04-17] MEDS ORDERED: PRED20TA PO (09:36)
[2020-04-17] MEDS ORDERED: SYMB16INH INH (09:36)
[2020-04-17] MEDS ORDERED: AZIT500T5 PO (10:34)
--- NOTE | 2020-04-17 10:37 | DS.PDOC ---
Discharge Summary General Date of Admission Apr 15, 2020 at 10:28 Date of Discharge 04/17/20 Discharge Summary PROCEDURES PERFORMED DURING STAY: [None]. ADMITTING DIAGNOSES: Acute and chronic respiratory failure with hypoxia COPD exacerbation Lung cancer GERD (gastroesophageal reflux disease) History of drug abuse Chest pain DISCHARGE DIAGNOSES: Acute and chronic respiratory failure with hypoxia COPD exacerbation Lung cancer GERD (gastroesophageal reflux disease) History of drug abuse Chest pain COMPLICATIONS/CHIEF COMPLAINT: Copd Exacerbation. HISTORY OF PRESENT ILLNESS:Patient is 64 years old male with past medical history of COPD oxygen dependent presented to the hospital with increased shortness of breath. Patient stated that he has been having increased shortness of breath for past few days associated with greenish sputum and cough. Patient stated that he continues smoking. In ER patient was found to have white blood count of 15.8, lactic acid within normal limit, EKG negative for acute ischemic changes, troponin negative. CT showed No CT evidence of pulmonary embolus. There are subtle changes consistent with a bronchitis and early inflammatory disease in the right upper lobe and right lower lobe and left upper lobe. Post surgical changes are noted in the left lung. No hilar or mediastinal adenopathy is seen HOSPITAL COURSE: During the hospital following issues addressed (1) Acute and chronic respiratory failure with hypoxia Secondary to COPD exacerbation Patient developed tachypnea with increased oxygen requirements Levofloxacin IV Solu-Medrol Inhalers (2) COPD exacerbation See above (3) Lung cancer Status post left lung resection Follow-up with oncologist in the outpatient settings (4) GERD (gastroesophageal reflux disease) PPI (5) History of drug abuse Continue Suboxone Chest pain EKG start Telemetry Troponin DISCHARGE MEDICATIONS: Please see below. ALLERGIES: Please see below. PHYSICAL EXAMINATION ON DISCHARGE: VITAL SIGNS: Please see below. GENERAL APPEARANCE: NAD HEENT: no scleral icterus, no JVD, EOMI CARDIOVASCULAR: S1S2 LUNGS: Diminished lung sounds bilaterally with mild wheezes ABDOMEN: soft & not tender w palpitation MUSCULOSKELETAL: no cyanosis, no swelling INTEGUMENT: no generalized pallor NEUROLOGICAL: cranial nerve function from 2-12 intact intact, follows commands, speech not dysarthric LABORATORY DATA: Please see below. PROGNOSIS: fair ACTIVITY: [As tolerated]. DIET: cardiac DISCHARGE PLAN: home DISCHARGE INSTRUCTIONS: stop smoking ITEMS TO FOLLOWUP ON ON OUTPATIENT: Follow-up with patient liaison and PCP DISCHARGE CONDITION: [Stable]. TIME SPENT ON DISCHARGE: Greater than 40 minutes. Vital Signs/I&Os Vital Signs Date Time Temp Pulse Resp B/P (MAP) Pulse Ox O2 Delivery O2 Flow Rate FiO2 04/17/20 09:18 3.0 04/17/20 09:07 100 124/81 04/17/20 06:00 97.2 18 97 Nasal Cannula I&O- Last 24 Hours up to 6 AM0 04/17/20 06:00 Intake Total 1370 ml Output Total 350 ml Balance 1020 ml Laboratory Data Labs 24H Laboratory Tests 2 04/16/20 10:51: Troponin I < 0.02 Microbiology Microbiology 04/16/20 Gram Stain - Final, Complete 04/16/20 Sputum Culture - Final, Complete Discharge Medications Scheduled Budesonide/Formoterol (Symbicort 160-4.5 Mcg Inhaler) 6 Gm Hfa.aer.ad, 2 PUFF INH BID Buprenorphine HCl/Naloxone HCl (Suboxone 8 mg-2 mg Sl Film) 1 Each Film, 2.5 STRIP SL DAILY, (Reported) Gabapentin (Gabapentin) 600 Mg Tablet, 600 MG PO TID, (Reported) Prednisone (Prednisone) 20 Mg Tablet, 20 MG PO BID Pregabalin (Pregabalin) 75 Mg Capsule, 75 MG PO TID, (Reported) Tiotropium [place] (Spiriva) 18 Mcg Cap.w.dev, 18 MCG INH DAILY Scheduled PRN Albuterol Sulf (Albuterol Sulfate) 2.5 Mg/3 Ml Vial.neb, 1 VIAL NEB Q4H PRN for SOB/WHEEZING, (Reported) Albuterol Sulfate (Proair Hfa) 8.5 Gm Hfa.aer.ad, 2 PUFF INH QID PRN for SOB/WHEEZING, (Reported) Allergies Coded Allergies: morphine (Verified Allergy, Mild, itching, 11/11/19) DAVID REBOLLAR DO Apr 17, 2020 10:37
--- NOTE | 2020-04-17 10:55 | ECGEPIP ---
[facility] Test Date: 2020-04-16 Pat Name: TASIA BANSAL Department: Room: [place] [address] Gender: Male Health Officer: chad : 1955 Requested By: DAVID REBOLLAR Order Number: [id number] Reading MD: Bonifacio Moe Measurements Intervals [place] Rate: 110 P: 73 [place]: 136 QRS: -1 QRSD: 86 T: 63 QT: 350 QTc: 473 Interpretive Statements Sinus tachycardia Nonspecific ST-T wave abnormalities Rate increased from tracing done 04-15-20 Electronically Signed on 04-17-2020 10:55:11 EST by Bonifacio Moe
[2020-04-17] MEDS ORDERED: methylPREDNISolone 125MG 2ML VIAL IV SCH (13:00)
[2020-04-19] MEDS ORDERED: INCR1INH INH (14:50)
== END 2020-04-17 12:38 | disposition home or self-care (01) ==
LOC: EDBD 10:27 → M ED 10:27 → M ED INP 10:28 → M MSPAV 18:44
PROVIDERS: ADMIT Internal Medicine; ATTEND Internal Medicine
DX: J96.21 Acute and chronic respiratory failure with hypoxia (principal); J44.1 Chronic obstructive pulmonary disease with (acute) exacerbation; C34.32 Malignant neoplasm of lower lobe, left bronchus or lung; Z90.2 Acquired absence of lung [part of]; K21.9 Gastro-esophageal reflux disease without esophagitis; E78.49 Other hyperlipidemia; I11.9 Hypertensive heart disease without heart failure; N52.9 Male erectile dysfunction, unspecified; F31.9 Bipolar disorder, unspecified; Z79.52 Long term (current) use of systemic steroids; Z79.891 Long term (current) use of opiate analgesic; Z88.5 Allergy status to narcotic agent; Z79.899 Other long term (current) drug therapy; Z85.46 Personal history of malignant neoplasm of prostate; Z87.891 Personal history of nicotine dependence; F41.9 Anxiety disorder, unspecified; F32.9 Major depressive disorder, single episode, unspecified
CPT/HCPCS: 36415; 71045; 71275; 80048; 80053; 80076; 82550; 82553; 83605; 83735; 83880; 84436; 84443; 85025; 85027; 85610; 87205; 87631; 93005; 93041; 94640; 94760; 96365; 96366; 96375; 96376; 97161; 99285; J1650; J1956; J2930; Q9967

== ENCOUNTER → 2020-06-01 | Outpatient (REF) | payer OTHER, MEDICAID ==
[~2020-06-01] MED LIST changes: +AZIT500T5 PO; +INCR1INH INH; +PROAAER10 INH; +SPIR1CAP INH; +SYMB16INH INH
[2020-06-01 17:40] LABS: ALBUMIN 3.8 GM/DL (3.2-5.2); ALT/SGPT 27 U/L (12-78); BILIRUBIN,TOTAL 0.5 MG/DL (0.2-1.0); BLOOD UREA NITROGEN 13 MG/DL (7-18); CALCIUM LEVEL 9.2 MG/DL (8.8-10.2); CARBON DIOXIDE LEVEL 32 MEQ/L (21-32); CHLORIDE LEVEL 105 MEQ/L (98-107); CREATININE FOR GFR 0.66 MG/DL (0.70-1.30); GLOMERULAR FILTRATION RATE > 60.0 (>49); GLUCOSE, FASTING 117 MG/DL (70-100); MAGNESIUM LEVEL 1.8 MG/DL (1.8-2.4); NT-PRO BNP 14 PG/ML (<125); POTASSIUM SERUM 4.1 MEQ/L (3.5-5.1); SODIUM LEVEL 142 MEQ/L (136-145); THYROID STIMULATING HORMONE 0.606 uIU/ML (0.358-3.740); TOTAL PROTEIN 6.8 GM/DL (6.4-8.2)
[2020-06-01 17:48] LABS: HEMOGLOBIN A1c 5.5 %
== END ==
LOC: M LAB REF 16:11
PROVIDERS: ATTEND Pediatrics
DX: R63.5 Abnormal weight gain (principal); R73.03 Prediabetes; E83.42 Hypomagnesemia

== ENCOUNTER 2021-02-20 02:39 | Inpatient (IN) | payer OTHER ==
[~2021-02-20] VITALS: Ht 175.3 cm; Wt 64.0 kg
[~2021-02-20 02:39] MED LIST changes: -QUET50TA3 PO; +QUET50TA4 PO
[2021-02-20 03:22] LABS: BASO # 0.1 10^3/uL (0.0-0.2); BASO % 0.2 % (0.0-1.0); EOS % 0.1 % (0.0-3.0); HEMATOCRIT 49.3 % (42.0-52.0); LYMPH # 0.7 10^3/uL (1.5-5.0); LYMPH % 2.9 % (24.0-44.0); MEAN CORPUSCULAR HEMOGLOBIN 26.3 pg (27.0-33.0); MEAN CORPUSCULAR HGB CONC 30.4 g/dl (32.0-36.5); MEAN CORPUSCULAR VOLUME 86.3 fl (80.0-96.0); MONO # 1.5 10^3/uL (0.0-0.8); MONO % 6.2 % (2.0-8.0); NEUTROPHILS # 21.3 10^3/uL (1.5-8.5); NEUTROPHILS % 90.2 % (36.0-66.0); PLATELET COUNT, AUTOMATED 343 10^3/uL (150-450); RED BLOOD COUNT 5.71 10^6/uL (4.30-6.10); WHITE BLOOD COUNT 23.6 10^3/uL (4.0-10.0)
[2021-02-20] MEDS ORDERED: methylPREDNISolone 125MG 2ML VIAL IV ONE (03:25)
[2021-02-20 03:37] LABS: ABG BASE EXCESS 20.3 (-2.0-2.0); ABG HCO3 46.5 MEQ/L (22.0-26.0); ABG PARTIAL PRESSURE CO2 55.6 mmHg (35.0-45.0); ABG PARTIAL PRESSURE O2 61.8 mmHg (75.0-100.0); ABG STANDARD HCO3 44.8 MEQ/L (22.0-26.0); ABG TOTAL CO2 48.2 MEQ/L (23.0-31.0)
[2021-02-20] MEDS: COMBIVENT RESPIMAT 100-20MCG INHALER 4GM INH SCH ×2 (03:38→03:50)
[2021-02-20 03:43] LABS: RSV AMPLIFICATION NEGATIVE (NEGATIVE)
[2021-02-20 03:53] LABS: ALBUMIN 2.7 GM/DL (3.2-5.2); ALT/SGPT 19 U/L (12-78); BILIRUBIN,DIRECT 0.5 MG/DL (0.0-0.2); BILIRUBIN,TOTAL 1.5 MG/DL (0.2-1.0); BLOOD UREA NITROGEN 12 MG/DL (7-18); CALCIUM LEVEL 9.6 MG/DL (8.8-10.2); CARBON DIOXIDE LEVEL 49 MEQ/L (21-32); CHLORIDE LEVEL 84 MEQ/L (98-107); CREATININE FOR GFR 0.52 MG/DL (0.70-1.30); GLOMERULAR FILTRATION RATE > 60.0 (>49); GLUCOSE, FASTING 161 MG/DL (70-100); NT-PRO BNP 88 PG/ML (<125); POTASSIUM SERUM 3.4 MEQ/L (3.5-5.1); SODIUM LEVEL 136 MEQ/L (136-145); TOTAL PROTEIN 6.7 GM/DL (6.4-8.2)
[2021-02-20] MEDS ORDERED: LORazepam 2 MG/ML VIAL IV STA (04:21)
[2021-02-20 06:33] LABS: ABG BASE EXCESS 18.6 (-2.0-2.0); ABG HCO3 45.2 MEQ/L (22.0-26.0); ABG PARTIAL PRESSURE CO2 58.3 mmHg (35.0-45.0); ABG PARTIAL PRESSURE O2 69.9 mmHg (75.0-100.0); ABG STANDARD HCO3 42.9 MEQ/L (22.0-26.0); ABG pH (ARTERIAL) 7.507 UNITS (7.350-7.450)
[2021-02-20] MEDS ORDERED: OXYC-1 PO (07:42)
[2021-02-20] MEDS ORDERED: PREG100C PO (07:42)
[2021-02-20] MEDS ORDERED: ACETAMINOPHEN TAB 650MG DOSE (2X325MG) PO PRN (08:05)
[2021-02-20] MEDS ORDERED: VANCOMYCIN HCL 1,000 MG, VIAL MATE ADAPTER 1 EACH in NS 250 ML IV SCH (08:05)
[2021-02-20] MEDS ORDERED: LEVALBUTEROL 1.25 MG/0.5 ML CONCENTRATE NEB NEB PRN (08:05)
[2021-02-20 08:47] LABS: HEMATOCRIT 47.4 % (42.0-52.0); HEMOGLOBIN 14.7 g/dl (13.5-17.5); MEAN CORPUSCULAR HEMOGLOBIN 26.6 pg (27.0-33.0); MEAN CORPUSCULAR VOLUME 85.7 fl (80.0-96.0); PLATELET COUNT, AUTOMATED 346 10^3/uL (150-450); RED BLOOD COUNT 5.53 10^6/uL (4.30-6.10); WHITE BLOOD COUNT 20.9 10^3/uL (4.0-10.0)
[2021-02-20] MEDS ORDERED: NS 1,000 ML IV ONE ×2 (09:00→15:00)
[2021-02-20] MEDS ORDERED: VANCOMYCIN HCL 1,000 MG, VIAL MATE ADAPTER 1 EACH in NS 250 ML IV ONE (09:00)
[2021-02-20] MEDS: PANTOPRAZOLE 40MG VIAL (C9113 PER 1) IV SCH (09:00)
[2021-02-20] MEDS: GABAPENTIN 300 MG CAP PO SCH ×4 (09:00→20:54)
[2021-02-20] MEDS ORDERED: STIO1AER INH (09:02)
[2021-02-20] MEDS ORDERED: FLUT1INH3 INH (09:02)
[2021-02-20] MEDS ORDERED: HOME MED LIST COMPLETE! XX SCH (09:10)
[2021-02-20 09:12] LABS: AMPHETAMINES LEVEL URINE NEGATIVE (NEGATIVE); BARBITURATES URINE NEGATIVE (NEGATIVE); BENZODIAZEPINES URINE NEGATIVE (NEGATIVE); CANNABINOIDS URINE NEGATIVE (NEGATIVE); COCAINE METABOLITE URINE NEGATIVE (NEGATIVE); METHADONE URINE NEGATIVE (NEGATIVE); OPIATES URINE POSITIVE (NEGATIVE); PHENCYCLIDINE URINE NEGATIVE (NEGATIVE)
[2021-02-20 09:14] LABS: INR 1.32; PROTHROMBIN TIME 16.8 SECONDS (12.7-14.5)
[2021-02-20 09:15] LABS: PARTIAL THROMBOPLASTIN TIME 31.3 SECONDS (25.9-37.0)
[2021-02-20 09:20] LABS: ALBUMIN 2.5 GM/DL (3.2-5.2); ALT/SGPT 15 U/L (12-78); BILIRUBIN,TOTAL 1.5 MG/DL (0.2-1.0); BLOOD UREA NITROGEN 13 MG/DL (7-18); CALCIUM LEVEL 9.4 MG/DL (8.8-10.2); CARBON DIOXIDE LEVEL 45 MEQ/L (21-32); CHLORIDE LEVEL 85 MEQ/L (98-107); CREATININE FOR GFR 0.49 MG/DL (0.70-1.30); GLOMERULAR FILTRATION RATE > 60.0 (>49); GLUCOSE, FASTING 156 MG/DL (70-100); SODIUM LEVEL 136 MEQ/L (136-145); TOTAL PROTEIN 6.6 GM/DL (6.4-8.2)
[2021-02-20] MEDS ORDERED: BUPRENORPHINE/NALOXONE 8-2MG SUBLINGUAL TABLET(SUBOXONE) SL PRN ×2 (09:40→10:15)
[2021-02-20] MEDS ORDERED: POTASSIUM CHLORIDE 10% LIQ 20 MEQ/15 ML UDC PO ONE (10:00)
[2021-02-20 10:20] VITALS: BP 103/62
[2021-02-20] MEDS ORDERED: CEFEPIME HCL 2 GM in D5W MINI-BAG PLUS 50 ML IV SCH (11:00)
[2021-02-20] MEDS: NICOTINE 21MG/24HR 1 EA TRANSDERMAL TD SCH (11:10)
[2021-02-20] MEDS: KCL 10MEQ/100ML SWI (KRUN) 10 MEQ in IV 1 EA IV SCH ×3 (11:11→13:40)
[2021-02-20] MEDS: DOXYCYCLINE HYCLATE 100MG TABLET PO SCH ×2 (11:12→20:54)
[2021-02-20] MEDS: LACTOBACILLUS ACIDOPHILUS CAP (BACID) PO SCH ×2 (11:12→18:00)
[2021-02-20] MEDS: PREGABALIN 100 MG CAP (LYRICA) PO SCH ×3 (11:13→20:54)
[2021-02-20] MEDS: NS 1,000 ML IV SCH ×3 (11:38→23:43)
[2021-02-20 12:00] VITALS: BP 114/72
[2021-02-20] MEDS: LEVALBUTEROL 1.25 MG/0.5 ML CONCENTRATE NEB NEB SCH ×3 (12:00→20:00)
[2021-02-20] MEDS: cefTRIAXone SOD 1 GM in D5W MINI-BAG PLUS 50 ML IV SCH (12:21)
[2021-02-20 12:23] LABS: HEMOGLOBIN A1c 5.5 %
[2021-02-20] MEDS: BUPRENORPHINE/NALOXONE 8-2MG SUBLINGUAL TABLET(SUBOXONE) SL PRN (14:40)
[2021-02-20 16:00] VITALS: BP 114/70
[2021-02-20] MEDS: methylPREDNISolone 125MG 2ML VIAL IV SCH (16:24)
[2021-02-20 17:24] LABS: ALT/SGPT 12 U/L (12-78); BILIRUBIN,TOTAL 0.8 MG/DL (0.2-1.0); BLOOD UREA NITROGEN 14 MG/DL (7-18); CALCIUM LEVEL 8.3 MG/DL (8.8-10.2); CARBON DIOXIDE LEVEL 41 MEQ/L (21-32); CHLORIDE LEVEL 96 MEQ/L (98-107); CREATININE FOR GFR 0.38 MG/DL (0.70-1.30); GLOMERULAR FILTRATION RATE > 60.0 (>49); GLUCOSE, FASTING 130 MG/DL (70-100); POTASSIUM SERUM 3.9 MEQ/L (3.5-5.1); SODIUM LEVEL 140 MEQ/L (136-145); TOTAL PROTEIN 5.1 GM/DL (6.4-8.2)
[2021-02-20 20:00] VITALS: BP 109/61
[2021-02-20] MEDS: ENOXAPARIN 40MG/0.4ML SYRINGE (J1650 PER 10MG) SC SCH (20:53)
[2021-02-21] VITALS: BP 105/60
[2021-02-21 04:00] VITALS: BP 141/81
[2021-02-21] MEDS: methylPREDNISolone 125MG 2ML VIAL IV SCH ×2 (04:00→15:16)
[2021-02-21 05:39] LABS: HEMATOCRIT 37.9 % (42.0-52.0); MEAN CORPUSCULAR HEMOGLOBIN 27.2 pg (27.0-33.0); MEAN CORPUSCULAR HGB CONC 31.1 g/dl (32.0-36.5); MEAN CORPUSCULAR VOLUME 87.3 fl (80.0-96.0); PLATELET COUNT, AUTOMATED 301 10^3/uL (150-450); RED BLOOD COUNT 4.34 10^6/uL (4.30-6.10); WHITE BLOOD COUNT 13.2 10^3/uL (4.0-10.0)
[2021-02-21 05:51] LABS: HEMOGLOBIN 11.8 g/dl (13.5-17.5)
[2021-02-21 06:05] LABS: ALT/SGPT 12 U/L (12-78); BILIRUBIN,TOTAL 0.6 MG/DL (0.2-1.0); BLOOD UREA NITROGEN 19 MG/DL (7-18); CALCIUM LEVEL 8.1 MG/DL (8.8-10.2); CARBON DIOXIDE LEVEL 39 MEQ/L (21-32); CHLORIDE LEVEL 101 MEQ/L (98-107); CREATININE FOR GFR 0.34 MG/DL (0.70-1.30); GLOMERULAR FILTRATION RATE > 60.0 (>49); GLUCOSE, FASTING 103 MG/DL (70-100); POTASSIUM SERUM 4.1 MEQ/L (3.5-5.1); SODIUM LEVEL 143 MEQ/L (136-145)
[2021-02-21] MEDS: LEVALBUTEROL 1.25 MG/0.5 ML CONCENTRATE NEB NEB SCH ×4 (08:11→19:49)
[2021-02-21 08:19] LABS: NT-PRO BNP 290 PG/ML (<125)
[2021-02-21] MEDS: NS 1,000 ML IV SCH (08:26)
[2021-02-21] MEDS: LACTOBACILLUS ACIDOPHILUS CAP (BACID) PO SCH ×2 (08:26→17:33)
[2021-02-21] MEDS: PANTOPRAZOLE 40MG VIAL (C9113 PER 1) IV SCH (08:26)
[2021-02-21] MEDS: GABAPENTIN 300 MG CAP PO SCH ×3 (08:27→20:43)
[2021-02-21] MEDS: DOXYCYCLINE HYCLATE 100MG TABLET PO SCH (08:27)
[2021-02-21] MEDS: PREGABALIN 100 MG CAP (LYRICA) PO SCH ×3 (08:27→20:43)
[2021-02-21 08:28] VITALS: BP_SYST 116; BP_DIAS 64; BP_DIAS 67
[2021-02-21] MEDS: NICOTINE 21MG/24HR 1 EA TRANSDERMAL TD SCH (08:28)
[2021-02-21] MEDS: cefTRIAXone SOD 1 GM in D5W MINI-BAG PLUS 50 ML IV SCH (11:16)
[2021-02-21 11:43] VITALS: BP 111/65
[2021-02-21] MEDS: BUPRENORPHINE/NALOXONE 8-2MG SUBLINGUAL TABLET(SUBOXONE) SL PRN ×2 (12:28→18:38)
[2021-02-21 16:00] VITALS: BP 101/62
[2021-02-21 19:56] VITALS: BP 117/69
[2021-02-21] MEDS: ENOXAPARIN 40MG/0.4ML SYRINGE (J1650 PER 10MG) SC SCH (20:43)
[2021-02-21] MEDS ORDERED: LORazepam 2 MG/ML VIAL IV STA (23:21)
[2021-02-22] VITALS: BP 104/59
[2021-02-22 04:00] VITALS: BP 116/64
[2021-02-22] MEDS: methylPREDNISolone 125MG 2ML VIAL IV SCH ×2 (05:00→15:29)
[2021-02-22 05:23] LABS: HEMATOCRIT 37.7 % (42.0-52.0); HEMOGLOBIN 11.4 g/dl (13.5-17.5); MEAN CORPUSCULAR HGB CONC 30.2 g/dl (32.0-36.5); MEAN CORPUSCULAR VOLUME 89.1 fl (80.0-96.0); PLATELET COUNT, AUTOMATED 327 10^3/uL (150-450); RED BLOOD COUNT 4.23 10^6/uL (4.30-6.10); WHITE BLOOD COUNT 14.2 10^3/uL (4.0-10.0)
[2021-02-22 05:44] LABS: ALBUMIN 2.2 GM/DL (3.2-5.2); ALT/SGPT 15 U/L (12-78); BILIRUBIN,TOTAL 0.3 MG/DL (0.2-1.0); BLOOD UREA NITROGEN 23 MG/DL (7-18); CALCIUM LEVEL 8.3 MG/DL (8.8-10.2); CARBON DIOXIDE LEVEL 41 MEQ/L (21-32); CHLORIDE LEVEL 104 MEQ/L (98-107); CREATININE FOR GFR 0.44 MG/DL (0.70-1.30); GLOMERULAR FILTRATION RATE > 60.0 (>49); GLUCOSE, FASTING 156 MG/DL (70-100); POTASSIUM SERUM 4.4 MEQ/L (3.5-5.1); SODIUM LEVEL 145 MEQ/L (136-145); TOTAL PROTEIN 5.3 GM/DL (6.4-8.2)
[2021-02-22 08:00] VITALS: BP 106/78
[2021-02-22] MEDS: PANTOPRAZOLE 40MG VIAL (C9113 PER 1) IV SCH (08:07)
[2021-02-22] MEDS: NICOTINE 21MG/24HR 1 EA TRANSDERMAL TD SCH (08:08)
[2021-02-22] MEDS: GABAPENTIN 300 MG CAP PO SCH ×3 (08:08→20:54)
[2021-02-22] MEDS: PREGABALIN 100 MG CAP (LYRICA) PO SCH ×3 (08:08→20:54)
[2021-02-22] MEDS: LACTOBACILLUS ACIDOPHILUS CAP (BACID) PO SCH ×2 (08:08→17:17)
[2021-02-22] MEDS: LEVALBUTEROL 1.25 MG/0.5 ML CONCENTRATE NEB NEB SCH ×4 (08:36→21:39)
[2021-02-22 12:00] VITALS: BP 110/72
[2021-02-22] MEDS: BUPRENORPHINE/NALOXONE 8-2MG SUBLINGUAL TABLET(SUBOXONE) SL PRN ×2 (13:45→20:57)
[2021-02-22] MEDS: PIPERACILLIN/TAZOBACTAM SOD 4.5 GM in D5W MINI-BAG PLUS 50 ML IV SCH ×2 (14:50→20:55)
[2021-02-22] MEDS ORDERED: ISOVUE-370 76% 100ML VIAL As Ordered ONE (15:23)
[2021-02-22 16:00] VITALS: BP 106/67
[2021-02-22 20:00] VITALS: BP 128/71
[2021-02-22] MEDS: ENOXAPARIN 40MG/0.4ML SYRINGE (J1650 PER 10MG) SC SCH (20:54)
[2021-02-23] VITALS: BP 90/57
[2021-02-23] MEDS: PIPERACILLIN/TAZOBACTAM SOD 4.5 GM in D5W MINI-BAG PLUS 50 ML IV SCH ×3 (02:25→13:31)
[2021-02-23 04:00] VITALS: BP 122/58
[2021-02-23] MEDS: methylPREDNISolone 125MG 2ML VIAL IV SCH ×2 (04:18→16:28)
[2021-02-23 06:00] LABS: HEMATOCRIT 39.2 % (42.0-52.0); HEMOGLOBIN 11.3 g/dl (13.5-17.5); MEAN CORPUSCULAR HEMOGLOBIN 26.5 pg (27.0-33.0); MEAN CORPUSCULAR HGB CONC 28.8 g/dl (32.0-36.5); MEAN CORPUSCULAR VOLUME 91.8 fl (80.0-96.0); PLATELET COUNT, AUTOMATED 311 10^3/uL (150-450); RED BLOOD COUNT 4.27 10^6/uL (4.30-6.10); WHITE BLOOD COUNT 12.8 10^3/uL (4.0-10.0)
[2021-02-23 06:31] LABS: ALBUMIN 2.2 GM/DL (3.2-5.2); ALT/SGPT 125 U/L (12-78); BILIRUBIN,TOTAL 0.4 MG/DL (0.2-1.0); BLOOD UREA NITROGEN 19 MG/DL (7-18); CALCIUM LEVEL 8.3 MG/DL (8.8-10.2); CARBON DIOXIDE LEVEL 44 MEQ/L (21-32); CHLORIDE LEVEL 98 MEQ/L (98-107); CREATININE FOR GFR 0.44 MG/DL (0.70-1.30); GLOMERULAR FILTRATION RATE > 60.0 (>49); GLUCOSE, FASTING 128 MG/DL (70-100); POTASSIUM SERUM 4.7 MEQ/L (3.5-5.1); SODIUM LEVEL 144 MEQ/L (136-145); TOTAL PROTEIN 5.6 GM/DL (6.4-8.2)
[2021-02-23 08:00] VITALS: BP 127/70
[2021-02-23] MEDS: LACTOBACILLUS ACIDOPHILUS CAP (BACID) PO SCH ×2 (08:10→17:19)
[2021-02-23] MEDS: BUPRENORPHINE/NALOXONE 8-2MG SUBLINGUAL TABLET(SUBOXONE) SL PRN ×3 (08:10→17:19)
[2021-02-23] MEDS: GABAPENTIN 300 MG CAP PO SCH ×3 (08:10→21:19)
[2021-02-23] MEDS: PREGABALIN 100 MG CAP (LYRICA) PO SCH ×3 (08:11→21:19)
[2021-02-23] MEDS: NICOTINE 21MG/24HR 1 EA TRANSDERMAL TD SCH (08:11)
[2021-02-23] MEDS: PANTOPRAZOLE 40MG VIAL (C9113 PER 1) IV SCH (08:11)
[2021-02-23] MEDS ORDERED: LEVALBUTEROL 1.25 MG/0.5 ML CONCENTRATE NEB NEB ONE (09:00)
[2021-02-23] MEDS: guaiFENesin ER 600 MG TAB PO SCH ×2 (09:12→21:20)
[2021-02-23] MEDS: LEVALBUTEROL 1.25 MG/0.5 ML CONCENTRATE NEB NEB SCH ×4 (09:21→20:04)
[2021-02-23 12:00] VITALS: BP 130/63
[2021-02-23 16:00] VITALS: BP 126/72
[2021-02-23 20:00] VITALS: BP 136/77
[2021-02-23] MEDS: ENOXAPARIN 40MG/0.4ML SYRINGE (J1650 PER 10MG) SC SCH (21:19)
[2021-02-24] VITALS: BP 110/64
[2021-02-24 04:00] VITALS: BP_SYST 122; BP_SYST 131; BP_DIAS 65; BP_DIAS 66
[2021-02-24] MEDS ORDERED: LevoFLOXacin 500 MG TABLET PO SCH (06:00)
[2021-02-24] MEDS: methylPREDNISolone 125MG 2ML VIAL IV SCH (06:03)
[2021-02-24 06:54] LABS: HEMATOCRIT 38.5 % (42.0-52.0); HEMOGLOBIN 11.2 g/dl (13.5-17.5); MEAN CORPUSCULAR HEMOGLOBIN 26.5 pg (27.0-33.0); MEAN CORPUSCULAR HGB CONC 29.1 g/dl (32.0-36.5); PLATELET COUNT, AUTOMATED 289 10^3/uL (150-450); RED BLOOD COUNT 4.23 10^6/uL (4.30-6.10); WHITE BLOOD COUNT 11.7 10^3/uL (4.0-10.0)
[2021-02-24] MEDS ORDERED: BUPRENORPHINE/NALOXONE 8-2MG SUBLINGUAL TABLET(SUBOXONE) SL PRN (07:05)
[2021-02-24 07:30] LABS: ALBUMIN 2.4 GM/DL (3.2-5.2); ALT/SGPT 141 U/L (12-78); BILIRUBIN,TOTAL 0.4 MG/DL (0.2-1.0); BLOOD UREA NITROGEN 20 MG/DL (7-18); CALCIUM LEVEL 8.6 MG/DL (8.8-10.2); CARBON DIOXIDE LEVEL 49 MEQ/L (21-32); CHLORIDE LEVEL 94 MEQ/L (98-107); CREATININE FOR GFR 0.39 MG/DL (0.70-1.30); GLOMERULAR FILTRATION RATE > 60.0 (>49); GLUCOSE, FASTING 103 MG/DL (70-100); POTASSIUM SERUM 5.3 MEQ/L (3.5-5.1); SODIUM LEVEL 141 MEQ/L (136-145); TOTAL PROTEIN 5.3 GM/DL (6.4-8.2)
[2021-02-24] MEDS: LEVALBUTEROL 1.25 MG/0.5 ML CONCENTRATE NEB NEB SCH ×2 (08:13→12:10)
[2021-02-24 08:15] VITALS: BP 125/65
[2021-02-24] MEDS ORDERED: predniSONE 50 MG TAB PO SCH (09:00)
[2021-02-24] MEDS: LACTOBACILLUS ACIDOPHILUS CAP (BACID) PO SCH (09:51)
[2021-02-24] MEDS: guaiFENesin ER 600 MG TAB PO SCH (09:52)
[2021-02-24] MEDS: GABAPENTIN 300 MG CAP PO SCH (09:52)
[2021-02-24] MEDS: PREGABALIN 100 MG CAP (LYRICA) PO SCH (09:52)
[2021-02-24] MEDS: PANTOPRAZOLE 40MG VIAL (C9113 PER 1) IV SCH (09:53)
[2021-02-24] MEDS: NICOTINE 21MG/24HR 1 EA TRANSDERMAL TD SCH (09:53)
[2021-02-24 10:02] LABS: BLOOD UREA NITROGEN 20 MG/DL (7-18); CALCIUM LEVEL 8.8 MG/DL (8.8-10.2); CARBON DIOXIDE LEVEL 47 MEQ/L (21-32); CHLORIDE LEVEL 94 MEQ/L (98-107); CREATININE FOR GFR 0.61 MG/DL (0.70-1.30); GLOMERULAR FILTRATION RATE > 60.0 (>49); GLUCOSE, FASTING 279 MG/DL (70-100); SODIUM LEVEL 140 MEQ/L (136-145)
[2021-02-24] MEDS ORDERED: PROAAER10 INH (11:36)
[2021-02-24] MEDS ORDERED: PRED10TA2 PO (11:36)
[2021-02-24] MEDS ORDERED: PANT40TA29 PO (11:36)
[2021-02-24] MEDS ORDERED: ALBU83IN NEB (11:36)
[2021-02-24] MEDS ORDERED: STIO1AER INH (11:36)
[2021-02-24] MEDS ORDERED: FLUT1INH3 INH (11:36)
[2021-02-24] MEDS ORDERED: MUCI600T31 PO (11:36)
[2021-02-24] MEDS ORDERED: LEVO500T4 PO (11:36)
[2021-02-24 11:53] VITALS: BP 122/70
== END 2021-02-24 16:20 | disposition home health service (06) | DRG 140 ==
LOC: M ED 02:39 → M ED INP 08:05 → ENRESERV 08:37 → M PCU 10:15
PROVIDERS: ADMIT Internal Medicine; ATTEND Internal Medicine
DX: J44.1 Chronic obstructive pulmonary disease with (acute) exacerbation (principal); J96.21 Acute and chronic respiratory failure with hypoxia; J69.0 Pneumonitis due to inhalation of food and vomit; G93.41 Metabolic encephalopathy; I95.9 Hypotension, unspecified; Z99.81 Dependence on supplemental oxygen; E87.6 Hypokalemia; J96.22 Acute and chronic respiratory failure with hypercapnia; Z90.2 Acquired absence of lung [part of]; Z85.118 Personal history of other malignant neoplasm of bronchus and lung; Z85.46 Personal history of malignant neoplasm of prostate; I10 Essential (primary) hypertension; E78.5 Hyperlipidemia, unspecified; F19.11 Other psychoactive substance abuse, in remission; K21.9 Gastro-esophageal reflux disease without esophagitis; F31.9 Bipolar disorder, unspecified; H93.19 Tinnitus, unspecified ear; N52.9 Male erectile dysfunction, unspecified; F41.9 Anxiety disorder, unspecified; F32.A Depression, unspecified; M06.9 Rheumatoid arthritis, unspecified; F17.210 Nicotine dependence, cigarettes, uncomplicated; N39.0 Urinary tract infection, site not specified; F11.23 Opioid dependence with withdrawal; Z79.899 Other long term (current) drug therapy; Z88.5 Allergy status to narcotic agent; Z20.822 Contact with and (suspected) exposure to COVID-19